=== PATIENT | female | born 1950 | race Caucasian/White ===

== ENCOUNTER 2017-10-21 16:57 | Inpatient (IN) | payer MEDICARE, OTHER ==
[~2017-10-21] VITALS: Ht 149.9 cm; Wt 37.0 kg
[~2017-10-21 16:57] MED LIST: COLA50CA PO; COLY4000S PO; DOCU1CAP39 PO; FLEEENE3 RE; NORC10TA2; OXYC1TAB36 PO; OXYC1TAB63 PO; TRAM50 PO
[2017-10-21] MEDS ORDERED: NALOXONE HCL 0.4 MG/ML AMP IV PUSH PRN (17:45)
[2017-10-21] MEDS ORDERED: ONDANSETRON HCL 4 MG/2 ML VIAL IVP PRN (17:45)
[2017-10-21] MEDS ORDERED: LACTULOSE SYRUP 20 GM/30 ML CUP PO PRN (17:45)
[2017-10-21] MEDS ORDERED: PROCHLORPERAZINE 25 MG SUPP RECTAL PRN (17:45)
[2017-10-21] MEDS ORDERED: HEPARIN-D5W 25,000 U/250 ML 250 ML IV PRN (17:45)
[2017-10-21] MEDS ORDERED: ACETAMINOPHEN 325 MG TAB PO PRN (17:45)
[2017-10-21] MEDS ORDERED: BISACODYL 10 MG SUPP RECTAL PRN (17:45)
[2017-10-21] MEDS ORDERED: MAGNESIUM HYDROXIDE SUSP 30 ML CUP PO PRN (17:45)
[2017-10-21] MEDS ORDERED: SENNOSIDES 8.6 MG TAB PO PRN (17:45)
[2017-10-21] MEDS ORDERED: MORPHINE SULFATE 4 MG/ML INJ IV PUSH PRN (18:00)
[2017-10-21 20:00] VITALS: BP 157/69; PULSE 101; RESP 15; TEMP 98.5; O2SAT 95
--- NOTE | 2017-10-21 20:51 | HHI.HP ---
[facility] Primary Care Physician Carlos Durán MD Admission Diagnosis Ischemic pain of left foot Diagnoses: (1) Ischemic pain of left foot (2) Gangrene of left foot Chief Complaint: Severe pain and left lower extremity Travel History International Travel<30 Days: No Contact w/Intl Traveler <30 Da: No Traveled to Known Affected Are: No Sepsis Criteria SIRS Criteria (2 or more): Heart rate over 90, RR > 20 or PaCO2 < 32, WBC > 85662, < 4000 or > 10% bands History of Present Illness Mrs. 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 Patient states that she was cutting her toenails about a month ago and over the month has developed worsening pain and swelling and erythema to her left foot. She says that she was afraid to tell her family what had happened and just two days ago her noticed increased erythema and discoloration to her left toes. Patient states that the pain has become more severe with shooting pains up her left leg. Denies any numbness or tingling. Does admit to left lower extremity coldness. Patient denies any recent fevers, chills, cough, shortness of breath, headache, abdominal pain, nausea, vomiting, diarrhea or dysuria. Patient denies any history of diabetes or peripheral vascular disease. Does admit to a history of smoking, has quit over seven years ago. At baseline, patient is mobile at home and independent with ADLs. Does admit to poor appetite. It should also be noted that patient is incontinent at home since teratoma removal. CODE STATUS is been addressed, patient wishes to be full code. 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 Past Surgical History Cholecystectomy 1987 Buttock teratoma removal in 2010 Reported Medications Active Reported Oxycodone-Acetaminophen 5-325 mg Tab 1 Tab PO Q4H PRN Oxycodone-Acetaminophen 10-325 mg Tab 1 Tab PO Q3HR PRN Allergies: Coded Allergies: No Known Allergies (Verified Allergy, Unknown, 10/21/17) Active Ordered Medications Current Medications Medications (Trade) Dose Ordered Sig/Justin Route Start Time Stop Time Status Last Admin Sodium Chloride 1,000 ml @ 100 mls/hr Q10H IV 10/21/17 17:39 (NS Flush) 2 ml UNSCH PRN IV FLUSH 10/21/17 17:45 (NS Flush) 2 ml BID IV FLUSH 10/21/17 21:00 (Tylenol) 650 mg Q4H PRN PO 10/21/17 17:45 (Zofran Inj) 4 mg Q6H PRN IVP 10/21/17 17:45 (Compazine Supp) 25 mg Q12H PRN RECTAL 10/21/17 17:45 (Narcan Inj) 0.4 mg UNSCH PRN IV PUSH 10/21/17 17:45 (Teodora-Colace) 1 tab BID PO 10/21/17 21:00 (Milk Of Magnesia Liq) 30 ml Q12H PRN PO 10/21/17 17:45 (Senokot) 17.2 mg Q12H PRN PO 10/21/17 17:45 (Dulcolax Supp) 10 mg DAILY PRN RECTAL 10/21/17 17:45 (Lactulose Liq) 30 ml DAILY PRN PO 10/21/17 17:45 (Heparin Inj) 5,000 units UNSCH PRN IV PUSH 10/21/17 23:45 (Heparin Inj) 2,500 units UNSCH PRN IV PUSH 10/21/17 23:45 (Morphine Inj) 2 mg Q4HR PRN IV PUSH 10/21/17 18:00 Ceftriaxone Sodium 1000 mg/ Sodium Chloride 100 ml @ 200 mls/hr Q24H IV 10/21/17 20:00 Heparin Sodium/ Dextrose 250 ml @ 6 mls/hr TITRATE PRN IV 10/21/17 20:00 Family History Maternal medical history significant for cardiovascular disease and Alzheimer's. Paternal medical history significant for asthma and CHF. Social History Denies any current tobacco use. States she quit in 2010, admits to smoking starting in her teen years. Denies any alcohol use. Denies any illicit drug use. Physical Exam Physical Exam GENERAL: This is a cachectic, elderly female patient, lying in bed with complaints of severe left lower extremity pain. On supplemental O2. SKIN: No rashes, ecchymoses or lesions. Warm and dry. Sacral discoloration, history of teratoma. HEAD: Atraumatic. Normocephalic. EYES: Pupils equal round and reactive. Extraocular motions intact. No scleral icterus. No injection or drainage. ENT: Nose without bleeding. Throat without erythema, tonsillar hypertrophy or exudate. Uvula midline. Airway patent. NECK: Trachea midline. No JVD or lymphadenopathy. Supple. CARDIOVASCULAR: Tachycardic and rhythm without murmurs, gallops, or rubs. RESPIRATORY: Clear to auscultation. Breath sounds equal bilaterally. No wheezes , rales, or rhonchi. GASTROINTESTINAL: Abdomen soft, non-tender, nondistended. No guarding. MUSCULOSKELETAL: Extremities without clubbing or edema. Left lower extremity with gangrene to all toes, erythema up to ankle. Left pedal pulses weak, left dorsalis pedis weak, cool to touch. No edema. Sensation intact. Severe pain to palpation. Right lower extremity WNL. NEUROLOGICAL: Awake and alert. Cranial nerves II through XII intact. Motor and sensory grossly within normal limits. Five out of 5 muscle strength in all muscle groups. Normal speech.Dinner: Laboratory Laboratory Tests Test 10/21/17 19:50 White Blood Count 18.9 TH/MM3 Red Blood Count 3.27 MIL/MM3 Hemoglobin 9.9 GM/DL Hematocrit 30.7 % Mean Corpuscular Volume 93.8 FL Mean Corpuscular Hemoglobin 30.4 PG Mean Corpuscular Hemoglobin Concent 32.4 % Red Cell Distribution Width 14.1 % Platelet Count 645 TH/MM3 Mean Platelet Volume 6.9 FL Imaging Chest x-ray: Widespread pulmonary metastatic disease. Septic Shock Reassessment Septic shock perfusion: reassessment completed Caprini VTE Risk Assessment Caprini VTE Risk Assessment: Mod/High Risk (score >= 2) Caprini Risk Assessment Model Point Value = 1 Point Value = 2 Point Value = 3 Point Value = 5 Age 41-60 Minor surgery BMI > 25 kg/m2 Swollen legs Varicose veins or History of unexplained or recurrent spontaneous Oral contraceptives or hormone replacement Sepsis (< 1 month) Serious lung disease, including pneumonia (< 1 month) Abnormal pulmonary function Acute myocardial infarction Congestive heart failure (< 1 month) History of inflammatory bowel disease Medical patient at bed rest Age 61-74 Arthroscopic surgery Major open surgery (> 45 min) Laparoscopic surgery (> 45 min) Malignancy Confined to bed (> 72 hours) Immobilizing plaster cast Central venous access Age >= 75 History of VTE Family history of VTE Factor V Leiden Prothrombin [id number] Lupus anticoagulant Anticardiolipin antibodies Elevated serum homocysteine Heparin-induced thrombocytopenia Other congenital or acquired thrombophilia Stroke (< 1 month) Elective arthroplasty Hip, pelvis, or leg fracture Acute spinal cord injury (< 1 month) Prophylaxis Regimen Total Risk Factor Score Risk Level Prophylaxis Regimen 0-1 Low Early ambulation 2 Moderate Order ONE of the following: *Sequential Compression Device (SCD) *Heparin 5000 units SQ BID 3-4 Higher Order ONE of the following medications: *Heparin 5000 units SQ TID *Enoxaparin/Lovenox 40 mg SQ daily (WT < 150 kg, CrCl > 30 mL/min) *Enoxaparin/Lovenox 30 mg SQ daily (WT < 150 kg, CrCl > 10-29 mL/min) *Enoxaparin/Lovenox 30 mg SQ BID (WT < 150 kg, CrCl > 30 mL/min) AND/OR *Sequential Compression Device (SCD) 5 or more Highest Order ONE of the following medications: *Heparin 5000 units SQ TID (Preferred with Epidurals) *Enoxaparin/Lovenox 40 mg SQ daily (WT < 150 kg, CrCl > 30 mL/min) *Enoxaparin/Lovenox 30 mg SQ daily (WT < 150 kg, CrCl > 10-29 mL/min) *Enoxaparin/Lovenox 30 mg SQ BID (WT < 150 kg, CrCl > 30 mL/min) AND *Sequential Compression Device (SCD) Assessment and Plan Problem List: (1) Gangrene of left foot ICD Code: I96 - Gangrene, not elsewhere classified Plan: Patient with severe left lower extremity pain, with presence of gangrene to all toes with erythema up to ankle. Meets SIRS criteria, with the leukocytosis, tachycardia, tachypnea. Unknown source. UA ordered and pending. Lactic acid ordered and pending. Follow. CBC reviewed, leukocytosis with white blood cells 19. No presence of fevers, chills. Monitor for infection. Follow labs in a.m. Blood cultures pending, follow-up growth. Chest x-ray reviewed, showing widespread pulmonary metastatic disease. Patient is on hospice at home. Started on ceftriaxone in the ED. Will continue. Consult placed to vascular surgeon, appreciate further input and recommendations. Heparin drip has been ordered and started per protocol. Order place for arterial segment Doppler. Follow. Pain control, was initially started on morphine IV. Patient states that she takes oxycodone at home, which is more effective for her pain. Continue. Status post 1L NS bolus in ED. Ensure hydration, NS at 100 ml/hr. Heart healthy diet. Supplemental O2 as needed. Patient is tachycardic, continue on cardiac telemetry, monitor for arrhythmias. (2) Ischemic pain of left foot ICD Code: M79.672 - Pain in left foot; I99.9 - Unspecified disorder of circulatory system Plan: Please see plan above. (3) History of uterine cancer ICD Code: Z85.42 - Personal history of malignant neoplasm of other parts of uterus Plan: With history of sacral teratoma and widespread pulmonary metastatic disease. Control pain, continue home Oxycodone. Refusing IV Morphine at this time. Supportive Care. DVT prophylaxis: SCDs on right lower extremity. On heparin drip. Code Status Full code. Discussed Condition With Patient and . Physician Certification 2 Midnight Certification Type: Admission for Inpatient Services Order for Inpatient Services The services are ordered in accordance with Medicare regulations or non- Medicare payer requirements, as applicable. In the case of services not specified as inpatient-only, they are appropriately provided as inpatient services in accordance with the 2-midnight benchmark. Estimated LOS (days): 3 3 days is the estimated time the patient will need to remain in the hospital, assuming treatment plan goals are met and no additional complications. Post-Hospital Plan: Not yet determined Trice Thomas Oct 21, 2017 20:51
[2017-10-21 20:57] LABS: HEMATOCRIT 30.7 % (35.0-46.0); HEMOGLOBIN 9.9 GM/DL (11.6-15.3); MEAN CELL VOLUME 93.8 FL (80.0-100.0); MEAN CORPUSCULAR HEMOGLOBIN 30.4 PG (27.0-34.0); MEAN CORPUSCULAR HGB CONC 32.4 % (32.0-36.0); MEAN PLATELET VOLUME 6.9 FL (7.0-11.0); PLATELET COUNT 645 TH/MM3 (150-450); RED BLOOD COUNT 3.27 MIL/MM3 (4.00-5.30); RED CELL DISTRIBUTION WIDTH 14.1 % (11.6-17.2); WHITE BLOOD COUNT 18.9 TH/MM3 (4.0-11.0)
[2017-10-21] MEDS: DOCUSATE SODIUM 50 MG/SENNA 8.6 MG TAB PO SCH (21:00)
[2017-10-21] MEDS ORDERED: oxyCODONE/ACETAMINOPHEN 10 MG/325 MG TAB PO PRN ×2 (21:00)
[2017-10-21] MEDS: SODIUM CHLORIDE 0.9% FLUSH 10 ML FLUSH IV FLUSH SCH (21:01)
[2017-10-21 21:11] LABS: INTERNATIONAL NORMALIZED RATIO 1.1 RATIO
[2017-10-21] MEDS: cefTRIAXone INJ 1,000 MG in SODIUM CHLORIDE 0.9% INJ 100 ML IV SCH (21:11)
[2017-10-21] MEDS: HEPARIN-D5W 25,000 U/250 ML 250 ML IV PRN (22:19)
[2017-10-21] MEDS: oxyCODONE/ACETAMINOPHEN 10 MG/325 MG TAB PO PRN (22:41)
[2017-10-21] MEDS ORDERED: HEPARIN - 10,000 UNITS/ML IV ADDITIVE IV PUSH PRN (23:45)
[2017-10-21] MEDS ORDERED: HEPARIN SODIUM - IV 10,000 UNITS/10 ML VIAL IV PUSH PRN (23:45)
[2017-10-22] VITALS (9 sets, daily range): BP systolic 153–198; BP diastolic 67–86; PULSE 100–133; RESP 15–20; TEMP 98.5–99; O2SAT 93–96
[2017-10-22] MEDS: SODIUM CHLOR 0.9% 1000 ML INJ 1,000 ML IV SCH ×4 (00:51→23:20)
[2017-10-22] MEDS: oxyCODONE/ACETAMINOPHEN 10 MG/325 MG TAB PO PRN ×2 (02:47→06:21)
[2017-10-22 07:23] LABS: AUTOMATED NEUTROPHIL # 14.2 TH/MM3 (1.8-7.7); BASOPHIL % 0.2 % (0.0-2.0); EOSINOPHIL # 0.2 TH/MM3 (0-0.4); HEMATOCRIT 28.7 % (35.0-46.0); HEMOGLOBIN 9.4 GM/DL (11.6-15.3); LYMPH % 5.6 % (9.0-44.0); LYMPHOCYTE # 0.9 TH/MM3 (1.0-4.8); MEAN CELL VOLUME 94.3 FL (80.0-100.0); MEAN CORPUSCULAR HEMOGLOBIN 30.9 PG (27.0-34.0); MEAN CORPUSCULAR HGB CONC 32.8 % (32.0-36.0); MEAN PLATELET VOLUME 7.4 FL (7.0-11.0); MONO % 5.7 % (0.0-8.0); MONOCYTE # 0.9 TH/MM3 (0-0.9); NEUT % 87.5 % (16.0-70.0); PLATELET COUNT 659 TH/MM3 (150-450); RED BLOOD COUNT 3.05 MIL/MM3 (4.00-5.30); WHITE BLOOD COUNT 16.2 TH/MM3 (4.0-11.0)
[2017-10-22 07:41] LABS: BICARBONATE 18.3 MEQ/L (21.0-32.0); CALCIUM 9.3 MG/DL (8.5-10.1); CREATININE 0.51 MG/DL (0.50-1.00)
[2017-10-22] MEDS: DOCUSATE SODIUM 50 MG/SENNA 8.6 MG TAB PO SCH ×2 (08:03→20:58)
[2017-10-22] MEDS: SODIUM CHLORIDE 0.9% FLUSH 10 ML FLUSH IV FLUSH SCH ×2 (08:04→20:58)
--- NOTE | 2017-10-22 09:45 | PD.VS.CON ---
History of Present Illness Chief Complaint: ischemic L foot Consult Requested by: Medical service History of Present Illness 67 yo female on home Hospice for uterine CA who has 3-4 weeks of L foot tissue loss. According to patient and family, it started with clipping a toe nail. Pt able to bear weight on it but having significant pain. No antecedent PAD symptoms Past/Family/Social History Past Medical History anxiety uterine CA - metastatic Past Surgical History Sacral teratoma resection at [facility] (2010) Jacinda Family History [place] Home Medications Reported Medications Oxycodone-Acetaminophen (Oxycodone-Acetaminophen) 5-325 mg Tab, 1 TAB PO Q4H Y for PAIN, TAB 0 Refills 10/21/17 Oxycodone-Acetaminophen (Oxycodone-Acetaminophen) 10-325 mg Tab, 1 TAB PO Q3HR Y for PAIN, TAB 0 Refills 10/21/17 Discontinued Reported Medications Hydrocodone-Acetaminophen 10-325 mg ([place] 10-325 mg) 1 Tab Tab, 1 Q4 Y for PAIN 02/13/15 Docusate Sodium (Colace) 50 Mg Cap, 100 MG PO DAILY, CAP 08/30/13 Discontinued Scripts Tramadol Hcl (Ultram) 50 Mg Tab, 1 TAB PO TID for Pain, #20 TAB FOR PAIN Prov:Desmond Ferrell MD 11/04/15 Docusate Sodium (Colace 100 Mg Cap) 100 Mg Cap, 100 MG PO BID, #7 CAP Prov:Moises Gruber MD 02/13/15 Sodium Phosphates (Fleet Enema) Fabienne, 1 UNITS RE DAILY, #2 Prov:Moises Gruebr MD 02/13/15 Peg/Electrolytes (Golytely) 4,000 Ml Soln, 2000 ML PO DIRECTED, #1 ML Prov:Moises Gruber MD 02/13/15 Coded Allergies: No Known Allergies (Verified Allergy, Unknown, 10/21/17) Review of Systems Constitutional: COMPLAINS OF: Weight loss Cardiovascular: DENIES: Claudication Musculoskeletal: COMPLAINS OF: Muscle aches, Back pain, Neck pain Physical Exam Vitals/I&O Date Time Temp Pulse Resp B/P (MAP) Pulse Ox O2 Delivery O2 Flow Rate FiO2 10/22/17 08:35 Nasal Cannula 2.00 10/22/17 08:00 98.6 100 20 179/74 (109) 94 10/22/17 04:56 95 Nasal Cannula 2.00 10/22/17 04:00 102 10/22/17 04:00 98.5 103 15 161/68 (99) 94 10/22/17 00:00 Nasal Cannula 2.00 10/22/17 00:00 104 10/22/17 00:00 98.5 100 15 153/67 (95) 96 10/21/17 20:00 98.5 101 15 157/69 (98) 95 10/21/17 20:00 Nasal Cannula 2.00 10/22/17 10/22/17 10/22/17 07:00 15:00 23:00 Intake Total 844 ml Balance 844 ml Neuro: alert, mild distress from pain HEENT: NC/AT Neck: no JVD Heart: reg rate, soft murmur Lungs: distant BS bilaterally Abdomen: NT Vascular: weak L femoral pulse Palpable R DP no palpable L DP Extremities: L foot cyanotic and marbled to ankle toes with more chronic appearing gangrene no open wounds Laboratory Tests Test 10/21/17 19:50 10/22/17 00:41 10/22/17 05:20 White Blood Count 18.9 16.2 Red Blood Count 3.27 3.05 Hemoglobin 9.9 9.4 Hematocrit 30.7 28.7 Mean Corpuscular Volume 93.8 94.3 Mean Corpuscular Hemoglobin 30.4 30.9 Mean Corpuscular Hemoglobin Concent 32.4 32.8 Red Cell Distribution Width 14.1 14.0 Platelet Count 645 659 Mean Platelet Volume 6.9 7.4 Prothrombin Time 11.0 Prothromb Time International Ratio 1.1 Activated Partial Thromboplast Time 33.5 34.9 35.7 Lactic Acid Level 0.9 Neutrophils (%) (Auto) 87.5 Lymphocytes (%) (Auto) 5.6 Monocytes (%) (Auto) 5.7 Eosinophils (%) (Auto) 1.0 Basophils (%) (Auto) 0.2 Neutrophils # (Auto) 14.2 Lymphocytes # (Auto) 0.9 Monocytes # (Auto) 0.9 Eosinophils # (Auto) 0.2 Basophils # (Auto) 0.0 CBC Comment DIFF FINAL Differential Comment Blood Urea Nitrogen 36 Creatinine 0.51 Random Glucose 77 Calcium Level 9.3 Sodium Level 138 Potassium Level 4.2 Chloride Level 110 Carbon Dioxide Level 18.3 Anion Gap 10 Estimat Glomerular Filtration Rate 120 Date/Time Source Procedure Growth Status 10/21/17 20:05 Blood Peripheral Aerobic Blood Culture Pending Received 10/21/17 20:05 Blood Peripheral Anaerobic Blood Culture Pending Received Assessment and Plan Plan Subacute L LE ischemia, motor intact. Profound tissue loss. I am not sure the foot is salvageable at this point. 1. Continue aggressive heparinization 2. CTA with runoff 3. Potential IR consult for consideration of intra-arterial lysis 4. Per the patient's family, dental consult for dentures as pt broke hers and clearly needs nutrition 5. Would recommend long acting pain medicine and in-hospital palliative care ( continuation of outpatient). Shai Pascual MD FACS [employer] systems testing laboratory technician [facility] at [facility] [phone] Shai Pascual MD Oct 22, 2017 09:44
--- NOTE | 2017-10-22 10:42 | HHI.PR ---
Subjective Remarks Patient reporting severe pain involving the left foot. Discussed with her and daughter at bedside. They are concerned about her level of pain. Objective Vitals Vital Signs Date Time Temp Pulse Resp B/P (MAP) Pulse Ox O2 Delivery O2 Flow Rate FiO2 10/22/17 08:35 Nasal Cannula 2.00 10/22/17 08:00 98.6 100 20 179/74 (109) 94 10/22/17 04:56 95 Nasal Cannula 2.00 10/22/17 04:00 102 10/22/17 04:00 98.5 103 15 161/68 (99) 94 10/22/17 00:00 Nasal Cannula 2.00 10/22/17 00:00 104 10/22/17 00:00 98.5 100 15 153/67 (95) 96 10/21/17 20:00 98.5 101 15 157/69 (98) 95 10/21/17 20:00 Nasal Cannula 2.00 I/O 10/21/17 10/21/17 10/21/17 10/22/17 10/22/17 10/22/17 07:00 15:00 23:00 07:00 15:00 23:00 Intake Total 100 ml 844 ml Balance 100 ml 844 ml Intake Oral 240 ml IV Total 100 ml 604 ml # Voids 0 # Bowel Movements 0 Result Diagram: 10/22/17 0520 10/22/17 0520 Objective Remarks GENERAL: Cachectic female, appears uncomfortable and in pain CARDIOVASCULAR: Normal rate and regular rhythm without murmurs. Cannot palpate left DP or PT pulse. SKIN: Left foot is cyanotic, necrotic appearing plantar aspect of the foot and toes. Dorsal left foot up to the ankle appear mottled and cyanotic. RESPIRATORY: Good respiratory efforts. Breath sounds equal and clear to auscultation bilaterally. GASTROINTESTINAL: Abdomen soft, non-tender, non-distended. Normal active bowel sounds NEURO: Alert & Oriented x4 to person, place, time, situation. Moves all ext x4 PSYCH: Appropriate mood and affect. A/P Problem List: (1) Gangrene of left foot ICD Code: I96 - Gangrene, not elsewhere classified Plan: Patient with severe left lower extremity pain, with presence of gangrene to all toes with erythema up to ankle. Meets SIRS criteria, with the leukocytosis, tachycardia, tachypnea. Unknown source. UA ordered and pending. Lactic acid ordered and pending. Follow. CBC reviewed, leukocytosis with white blood cells 19. No presence of fevers, chills. Monitor for infection. Follow labs in a.m. Blood cultures pending, follow-up growth. Chest x-ray reviewed, showing widespread pulmonary metastatic disease. Patient is on hospice at home. Started on ceftriaxone in the ED. Will continue. Consult placed to vascular surgeon, appreciate further input and recommendations. Heparin drip has been ordered and started per protocol. Order place for arterial segment Doppler. Follow. Pain control, was initially started on morphine IV. Patient states that she takes oxycodone at home, which is more effective for her pain. Continue. Status post 1L NS bolus in ED. Ensure hydration, NS at 100 ml/hr. Heart healthy diet. Supplemental O2 as needed. Patient is tachycardic, continue on cardiac telemetry, monitor for arrhythmias. (2) Ischemic pain of left foot ICD Code: M79.672 - Pain in left foot; I99.9 - Unspecified disorder of circulatory system (3) History of uterine cancer ICD Code: Z85.42 - Personal history of malignant neoplasm of other parts of uterus Assessment and Plan 67-year-old female previously on hospice for uterine cancer with metastasis to the lungs presented with acute left lower limb ischemia and gangrene. Discuss with hospice nurse. Patient has been declining over the past year and is currently very cachectic with poor functional status. Per her and daughter, she is not a surgical candidate. Patient has been on hospice but she remains a full code. Ischemic left foot/gangrene: - Unclear if the foot will be salvageable. Vascular surgery following who recommends to continue with heparin. CT angiogram ordered. - Pain control. We'll switch patient to long-acting oral morphine. IV morphine for breakthrough pain. - Further plans per vascular surgery History of uterine cancer with metastasis to the lungs: -With history of sacral teratoma and widespread pulmonary metastatic disease. - Patient is on hospice. However he remains full code. - Consult palliative care to assist with goals of care, family support, and symptom management. Abnormal urinalysis with pyuria: - Continue Rocephin. Follow urine cultures. GI prophylaxis: Stool softener PRN constipation. DVT PPx: Heparin Chaparro Wilcox MD Oct 22, 2017 10:42
[2017-10-22] MEDS: MORPHINE SULFATE 30 MG CONTROLLED RELEASE TAB PO SCH ×2 (10:54→18:33)
[2017-10-22 11:14] LABS: BACTERIA, URINE MOD /hpf; BILIRUBIN, URINE NEG (NEG); BLOOD, URINE MOD (NEG); GLUCOSE,URINE NEG (NEG); KETONE, URINE NEG (NEG); MUCUS URINE FEW /lpf (OCC); NITRITE,URINE NEG (NEG); PH, URINE 5.5 (5.0-8.5); SQUAMOUS EPITHELIAL CELL URINE 4 /hpf (0-5); URINE COLOR YELLOW (YELLW/STRAW); URINE LEUKOCYTE ESTERASE LARGE (NEG); WHITE BLOOD CELL CLUMPS RARE
[2017-10-22] MEDS: MORPHINE SULFATE 2 MG/ML INJ IV PUSH PRN ×2 (12:05→14:52)
[2017-10-22] MEDS ORDERED: IOHEXOL 350 MG/ML 10 ML VIAL (for RAD DIAG) IVCONTRAST ONE (13:52)
--- NOTE | 2017-10-22 19:07 | RADRPT ---
EXAM DATE/TIME: 10/22/2017 13:30 [facility] COMPARISON: No previous studies available for comparison. INDICATIONS : Left lower extremity ischemia. IV CONTRAST: 100 cc Omnipaque 350 (iohexol) IV RADIATION DOSE: 6.09 CTDIvol (mGy) MEDICAL HISTORY : Uterine cancer, SURGICAL HISTORY : Cholecystectomy. Teratoma ENCOUNTER: Initial ACUITY: 1 day PAIN SCALE: 8/10 LOCATION: Left buttock TECHNIQUE: Volumetric scanning was performed using a multi-row detector CT scanner. The data was post processed with a variety of visualization algorithms including full volume maximum intensity projection, multi -planar sliding thin slab reformation, curved planar reformation, and surface rendering techniques. Using automated exposure control and adjustment of the mA and/or kV according to patient size, radiat ion dose was kept as low as reasonably achievable to obtain optimal diagnostic quality images. DICO M format image data is available electronically for review and comparison. FINDINGS: ABDOMINAL AORTA: Calcific atherosclerotic disease is seen throughout the abdominal aorta and its branches. The celiac artery is patent but demonstrates moderate stenosis at its origin. Mild narrowing is noted at the minnie gin of the SMA. Significant plaque is seen at the origin of the renal arteries. There is moderate to severe stenosis on the right and moderate stenosis on the left. BIFURCATION: The left common iliac artery origin is occluded. RIGHT PELVIS: Moderate calcific R. disease is identified. There is moderate narrowing in the distal external iliac artery. LEFT PELVIS: The left common iliac and external iliac arteries are occluded. There is reconstitution of the left c ommon femoral artery at the groin. RIGHT THIGH: Mild to severe calcific catheter scrubbed disease is seen throughout the femoral vessels. Moderate se aaron stenotic lesions are noted. LEFT THIGH: Reconstitution of the left common femoral artery is noted. There is severe plaque within the vessel w ith high-grade stenosis. High-grade stenotic lesions are seen in the profunda femoris origin. High-gr maddie stenosis is noted at the origin of the SFA. Diffuse calcified plaque is present throughout the le ft SFA which is small. RIGHT KNEE: The popliteal artery is small but otherwise patent. Significant eccentric plaque is identified above the knee. LEFT KNEE: The left popliteal artery is small and contains eccentric calcified plaque. High-grade stenosis in th e mid popliteal artery RIGHT LEG: Severe popliteal disease is noted. The major runoff vessel. The anterior tibial artery. High-grade st enosis is seen at the origin the anterior tibial artery. The tibioperoneal trunk is heavily calcified . There is scant flow in the peroneal and posterior tibial arteries. LEFT LEG: The distal popliteal artery is heavily calcified. No significant flow is identified in runoff vessels below the tibioperoneal trunk. Pertinent nonvascular findings: #1 large pulmonary metastases. #2 hepatic metastases #3 bilateral hydronephrosis #4 markedly distended urinary bladder with suspected mass at the base. #5 2.5 cm right inguinal mass suspicious for malignant lymphadenopathy. CONCLUSION: 1. 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 2. Left infrapopliteal vascular occlusion 3. Hemodynamically significant stenoses are identified in the celiac artery, renal arteries, left com mon femoral artery, superficial femoral arteries and right infrapopliteal runoff vessels. 4. Nonvascular findings characteristic of metastatic disease and obstructive uropathy. Arden Stubbs MD on October 22, 2017 at 18:48 Board Certified Radiologist. This report was verified electronically.
[2017-10-22] MEDS: HYDROmorphone HCL PF 2 MG/ML VIAL IV PUSH PRN (20:26)
[2017-10-22] MEDS: cefTRIAXone INJ 1,000 MG in SODIUM CHLORIDE 0.9% INJ 100 ML IV SCH (20:27)
[2017-10-23] VITALS (14 sets, daily range): BP systolic 158–193; BP diastolic 69–86; PULSE 89–122; RESP 18–22; TEMP 97.8–99.4; O2SAT 93–95
[2017-10-23] MEDS: HYDROmorphone HCL PF 2 MG/ML VIAL IV PUSH PRN ×6 (00:09→21:14)
[2017-10-23] MEDS: MORPHINE SULFATE 30 MG CONTROLLED RELEASE TAB PO SCH ×3 (02:41→18:54)
[2017-10-23] MEDS: HEPARIN-D5W 25,000 U/250 ML 250 ML IV PRN (02:46)
[2017-10-23 07:10] LABS: HEMOGLOBIN 9.4 GM/DL (11.6-15.3); MEAN CELL VOLUME 93.5 FL (80.0-100.0); MEAN CORPUSCULAR HEMOGLOBIN 31.3 PG (27.0-34.0); MEAN CORPUSCULAR HGB CONC 33.5 % (32.0-36.0); MEAN PLATELET VOLUME 7.1 FL (7.0-11.0); PLATELET COUNT 571 TH/MM3 (150-450); RED CELL DISTRIBUTION WIDTH 14.3 % (11.6-17.2); WHITE BLOOD COUNT 18.7 TH/MM3 (4.0-11.0)
[2017-10-23 07:50] LABS: BICARBONATE 18.6 MEQ/L (21.0-32.0); CALCIUM 9.1 MG/DL (8.5-10.1); CREATININE 0.33 MG/DL (0.50-1.00)
[2017-10-23] MEDS: SODIUM CHLORIDE 0.9% FLUSH 10 ML FLUSH IV FLUSH SCH ×2 (08:16→20:32)
[2017-10-23] MEDS: DOCUSATE SODIUM 50 MG/SENNA 8.6 MG TAB PO SCH ×2 (08:20→20:32)
[2017-10-23] MEDS: SODIUM CHLOR 0.9% 1000 ML INJ 1,000 ML IV SCH ×2 (08:37→19:39)
--- NOTE | 2017-10-23 10:38 | RADRPT ---
EXAM DATE/TIME: 10/21/2017 00:00 [facility] COMPARISON: No previous studies available for comparison. INDICATIONS : Ischemic Left Foot, Dry gangrene TECHNIQUE: Four-cuff ankle and brachial pressures were obtained. Pulse cuff waveform tracings of the ankles were recorded, and ankle-brachial indices were calculated. PRESSURES (mmHg): Brachial (arm): Right 161 Left IV SITE Ankle: Right 120 Left 0 MARTINEZ: Right 0.75 Left 0.00 TBI: Right 0.64 Left 0.00 PULSED CUFF WAVEFORMS: No evidence for significant flow in the left ankle. Decreased amplitude in the right ankle. CONCLUSION: 1. No significant flow demonstrated in the left ankle. Differential considerations include arterial o cclusion versus pronounced peripheral arterial disease. 2. Findings consistent with mild to moderate right lower extremity peripheral arterial disease. Dante Maldonado MD on October 23, 2017 at 10:33 Board Certified Radiologist. This report was verified electronically.
--- NOTE | 2017-10-23 13:44 | HHI.PR ---
Subjective Remarks Pain is better controlled. Patient and family reports the foot is looking better. Objective Vitals Vital Signs Date Time Temp Pulse Resp B/P (MAP) Pulse Ox O2 Delivery O2 Flow Rate FiO2 10/23/17 12:00 97.8 121 20 158/69 (98) 93 10/23/17 09:51 95 Nasal Cannula 2.00 10/23/17 08:00 98.1 120 22 175/83 (113) 95 10/23/17 04:33 172/86 (114) 10/23/17 04:00 99.4 120 18 193/83 (119) 94 10/23/17 03:41 122 10/23/17 00:00 99.4 114 20 175/74 (107) 93 10/22/17 23:39 112 10/22/17 20:05 Nasal Cannula 2.00 10/22/17 20:00 115 10/22/17 18:33 100 172/72 (105) 10/22/17 17:17 2.00 10/22/17 16:00 122 10/22/17 16:00 99.0 115 20 198/86 (123) 93 10/22/17 16:00 Nasal Cannula 2.00 I/O 10/22/17 10/22/17 10/22/17 10/23/17 10/23/17 10/23/17 07:00 15:00 23:00 07:00 15:00 23:00 Intake Total 844 ml 480 ml 2081 ml 623 ml Output Total 120 ml 300 ml Balance 844 ml 480 ml 1961 ml 323 ml Intake Oral 240 ml 480 ml 120 ml 320 ml IV Total 604 ml 1961 ml 303 ml Output Urine Total 120 ml 300 ml # Voids 0 4 # Bowel Movements 0 0 0 Result Diagram: 10/23/17 0630 10/23/17 0630 Objective Remarks GENERAL: Cachectic female, appears comfortable CARDIOVASCULAR: Normal rate and regular rhythm without murmurs. Cannot palpate left DP or PT pulse. SKIN: Left foot is cyanotic, necrotic appearing plantar aspect of the foot and toes. Heel appear to have better circulation compared to yesterday. Dorsal left foot up to the ankle appear mottled and cyanotic. Improved appearance compared to yesterday RESPIRATORY: Good respiratory efforts. Breath sounds equal and clear to auscultation bilaterally. GASTROINTESTINAL: Abdomen soft, non-tender, non-distended. Normal active bowel sounds NEURO: Alert & Oriented x4 to person, place, time, situation. Moves all ext x4 PSYCH: Appropriate mood and affect. 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 Discuss with hospice nurse. Patient has been declining over the past year and is currently very cachectic with poor functional status. Patient has been on hospice but she remains a full code. Ischemic left foot/gangrene: - Unclear if the foot will be salvageable. Vascular surgery following who recommends to continue with heparin. CT angiogram showed occlusion of the left iliac and left infrapopliteal occlusion. - Pain control. Continue long-acting oral morphine. Dilaudid for breakthrough pain. - 2nd opinion ordered per Vascular surgery re amputation. 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 - Patient is on hospice. However she remains full code. - Consult palliative care to assist with goals of care, family support, and symptom management. UTI: - Continue Rocephin. Urine growing gram neg aileen. Follow cultures. GI prophylaxis: Stool softener PRN constipation. DVT PPx: Heparin Chaparro Wilcox MD Oct 23, 2017 13:44
--- NOTE | 2017-10-23 18:46 | PD.VS.PN ---
Subjective Subjective/Hospital Course Pt with profound L LE foot ischemia and tissue loss Motor intact and pain controlled Objective Vitals/I&O Date Time Temp Pulse Resp B/P (MAP) Pulse Ox O2 Delivery O2 Flow Rate FiO2 10/23/17 16:07 114 10/23/17 16:00 98.8 116 20 169/75 (106) 93 10/23/17 12:10 105 10/23/17 12:00 97.8 121 20 158/69 (98) 93 10/23/17 09:51 95 Nasal Cannula 2.00 10/23/17 08:02 121 10/23/17 08:00 98.1 120 22 175/83 (113) 95 10/23/17 04:33 172/86 (114) 10/23/17 04:00 99.4 120 18 193/83 (119) 94 10/23/17 03:41 122 10/23/17 00:00 99.4 114 20 175/74 (107) 93 10/22/17 23:39 112 10/22/17 20:05 Nasal Cannula 2.00 10/22/17 20:00 115 10/23/17 10/23/17 10/23/17 07:00 15:00 23:00 Intake Total 2081 ml 623 ml 480 ml Output Total 120 ml 300 ml Balance 1961 ml 323 ml 480 ml Physical Exam L foot demarcating maybe less dark areas on plantar surface of foot Laboratory Laboratory Tests Test 10/22/17 22:05 10/23/17 06:30 Activated Partial Thromboplast Time 47.0 47.7 White Blood Count 18.7 Red Blood Count 3.00 Hemoglobin 9.4 Hematocrit 28.0 Mean Corpuscular Volume 93.5 Mean Corpuscular Hemoglobin 31.3 Mean Corpuscular Hemoglobin Concent 33.5 Red Cell Distribution Width 14.3 Platelet Count 571 Mean Platelet Volume 7.1 Blood Urea Nitrogen 16 Creatinine 0.33 Random Glucose 101 Calcium Level 9.1 Sodium Level 140 Potassium Level 3.7 Chloride Level 112 Carbon Dioxide Level 18.6 Anion Gap 9 Estimat Glomerular Filtration Rate 199 Date/Time Source Procedure Growth Status 10/21/17 20:05 Blood Peripheral Aerobic Blood Culture - Preliminary NO GROWTH IN 2 DAYS Resulted 10/21/17 20:05 Blood Peripheral Anaerobic Blood Culture - Preliminary NO GROWTH IN 2 DAYS Resulted 10/22/17 10:45 Urine Clean Catch Urine Culture - Preliminary Gram Negative Chung Resulted Imaging Last 48 hours Impressions Aorta w/Runoff CTA 10/22/17 0000 Signed Impressions: Service Date/Time: Sunday, October 22, 2017 13:30 - CONCLUSION: 1. 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 2. Left infrapopliteal vascular occlusion 3. Hemodynamically significant stenoses are identified in the celiac artery, renal arteries, left common femoral artery, superficial femoral arteries and right infrapopliteal runoff vessels. 4. Nonvascular findings characteristic of metastatic disease and obstructive uropathy. Arden Stubbs MD Assessment and Plan Plan Acute on chronic L foot ischemia and Profound tissue loss. I am not sure the foot is salvageable at this point. I think the choices at this point are either AKA or pain control and anticoagulation. The family is adamant about anticoagulation and PT, which I think is totally reasonable. There is nothing pushing for an amputation and clearly, even an AKA in the setting of profound debilitation and metastatic CA would be high risk. 1. Continue aggressive heparinization and transition to therapeutic lovenox in anticipation for d/c 2. Per the patient's family, dental consult for dentures as pt broke hers and clearly needs nutrition 3. F/U palliative care consult 4. I would recommend Megace or similar appetite stimulant, but likely can be directed with assistance of palliative care Shai Pascual MD FACS RPVI sr vice president [facility] - Heart and Vascular Surgery at [facility] [phone] Shai Pascual MD Oct 23, 2017 18:46
--- NOTE | 2017-10-23 19:06 | PD.CONS ---
Consult Service Palliative Care Consult Requested By Dr Wilcox Primary Care Physician Carlos Durán MD Reason for Consultation a. To assist with evaluation and management of symptoms including: pain; anorexia; debility b. To assist medical decision maker(s) with: better understanding of current medical conditions; weighing benefits/burdens of medical treatment options; making medical treatment decisions. 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 Health history is remarkable for diagnosis of uterine cancer diagnosed incidentally in 2010 during the attempted surgical removal of a teratoma to buttocks. The teratoma was not excised secondary to excessive bleeding requiring transfusion of 22 units of PRBCs, and the uterine cancer was subsequently treated with radiation therapy only. In the intervening years she has developed extensive metastatic lesions to the lungs but there has been no additional workup. She has lost weight and has decreased appetite, but had generally been able to get out and about, enjoying going out to eat and spending time with her family. Approximately a month ago, she states that she was trimming her toenails and clipped one on the left foot too closely and has noted progressive changes in the left foot since that time. She hid these changes from her family, not wanting to give them "more things to worry about." About 10/19/17, she and her family noted significant increase in pain in the left foot and it became dark in color and cold. Her insisted that she be brought to the emergency department. She has been on hospice services at home since July of 2016 for the teratoma and uterine cancer. Pain has been an ongoing issue, stemming primarily from the teratoma and bony coccygeal destruction, but when the foot began to darken and turn cold the pain became excruciating. Arterial study done on 10/21 confirmed lack of flow to the left ankle and confirmed peripheral arterial disease to both lower extremities. Aorta with runoff CTA shows : LEFT LEG: The distal popliteal artery is heavily calcified. No significant flow is identified in runoff vessels below the tibioperoneal trunk. Pertinent nonvascular findings: #1 large pulmonary metastases. #2 hepatic metastases #3 bilateral hydronephrosis #4 markedly distended urinary bladder with suspected mass at the base. #5 2.5 cm right inguinal mass suspicious for malignant lymphadenopathy. CONCLUSION: 1. 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 2. Left infrapopliteal vascular occlusion 3. Hemodynamically significant stenoses are identified in the celiac artery, renal arteries, left common femoral artery, superficial femoral arteries and right infrapopliteal runoff vessels. 4. Nonvascular findings characteristic of metastatic disease and obstructive uropathy. Vascular surgery (Dr Pascual) initially did not see a surgical option for management; a second opinion (Dr Moser) has been requested and is pending. The patient's primary concern is pain management; she feels that if only her pain were manageable, things would improve. Palliative care consult is for clarification of goals of care, family support, and symptom management. Function/Cognitive Trajectory She is alert, but quite frail and cachectic. Prior to this hospitalization, had been somewhat ambulatory with device assist (cane or walker), been able to to out to eat and visit with family. Appetite and weight have decreased over the past few months but she is not able to quantify this. Review of Systems Constitutional: COMPLAINS OF: Weight loss, Change in appetite, Generalized weakness (Poorly fitting dentures which impair eating) Ears, nose, mouth, throat: COMPLAINS OF: Tinnitus, Hearing loss, Vertigo, Nasal discharge, Oral lesions, Throat pain, Hoarseness, Ear Pain, Running Nose, Epistaxis, Sinus Pain, Toothache, Odynophagia Respiratory: COMPLAINS OF: Shortness of breath Genitourinary: COMPLAINS OF: Urinary incontinence Musculoskeletal: COMPLAINS OF: Joint pain Neurologic: COMPLAINS OF: Abnormal gait Psychiatric: COMPLAINS OF: Anxiety Other ROS: Incontinent of bowel and bladder since teratoma surgery Past Family Social History Coded Allergies: No Known Allergies (Verified Allergy, Unknown, 10/21/17) Past Medical History Anxiety Depression Uterine cancer with buttock teratoma and widespread metastatic lung and hepatic disease as well as soft tissue mass likely metastatic Past Surgical History Cholecystectomy 1987 Buttock teratoma removal in 2010 Reported Medications Oxycodone/acetaminophen Current Medications Medications (Trade) Dose Ordered Sig/Justin Route Start Time Stop Time Status Last Admin Sodium Chloride 1,000 ml @ 100 mls/hr Q10H IV 10/21/17 17:39 10/23/17 08:37 (NS Flush) 2 ml UNSCH PRN IV FLUSH 10/21/17 17:45 (NS Flush) 2 ml BID IV FLUSH 10/21/17 21:00 10/23/17 08:16 (Tylenol) 650 mg Q4H PRN PO 10/21/17 17:45 (Zofran Inj) 4 mg Q6H PRN IVP 10/21/17 17:45 (Compazine Supp) 25 mg Q12H PRN RECTAL 10/21/17 17:45 (Narcan Inj) 0.4 mg UNSCH PRN IV PUSH 10/21/17 17:45 (Teodora-Colace) 1 tab BID PO 10/21/17 21:00 10/23/17 08:20 (Milk Of Magnesia Liq) 30 ml Q12H PRN PO 10/21/17 17:45 (Senokot) 17.2 mg Q12H PRN PO 10/21/17 17:45 (Dulcolax Supp) 10 mg DAILY PRN RECTAL 10/21/17 17:45 (Lactulose Liq) 30 ml DAILY PRN PO 10/21/17 17:45 (Heparin Inj) 5,000 units UNSCH PRN IV PUSH 10/21/17 23:45 (Heparin Inj) 2,500 units UNSCH PRN IV PUSH 10/21/17 23:45 10/22/17 08:03 Ceftriaxone Sodium 1000 mg/ Sodium Chloride 100 ml @ 200 mls/hr Q24H IV 10/21/17 20:00 10/22/17 20:27 Heparin Sodium/ Dextrose 250 ml @ 6 mls/hr TITRATE PRN IV 10/21/17 20:00 10/23/17 02:46 (Percocet 10-325 Mg) 1 tab Q4H PRN PO 10/21/17 21:00 (Percocet 10-325 Mg) 2 tab Q4H PRN PO 10/22/17 01:00 10/22/17 06:21 (Oramorph Sr) 30 mg Q8H PO 10/22/17 11:00 10/23/17 11:01 (Dilaudid Pf Inj) 2 mg Q4H PRN IV PUSH 10/22/17 16:30 10/23/17 17:03 Family History Maternal medical history significant for cardiovascular disease and Alzheimer's. Paternal medical history significant for asthma and CHF. Substance Use Tobacco: quit smoking in 2010 Alcohol: none Prescription med abuse:none Illicits:none known Psychosocial History twice; two children by first ; two by her second , to whom she has been for over 20 years. 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 Spiritual/Cultural Factors None identified Living Will: Never completed Health Care Surrogate: Never completed Durable Power of Manager Game: Never completed Health Care Surrogate(s): Abdullahi Nicole [phone] Documented care wishes: FULL CODE Today's verbally stated goals: Wants pain controlled so that she can return home Ethical and Legal Issues Patient is alert and capacitated to make her own decisions. Should she lose capacity, decision making will fall to her spouse Abdullahi Nicole, per [place] statute. Physical Exam Vital Signs Date Time Temp Pulse Resp B/P (MAP) Pulse Ox O2 Delivery O2 Flow Rate FiO2 10/23/17 16:07 114 10/23/17 16:00 98.8 116 20 169/75 (106) 93 10/23/17 12:10 105 10/23/17 12:00 97.8 121 20 158/69 (98) 93 10/23/17 09:51 95 Nasal Cannula 2.00 10/23/17 08:02 121 10/23/17 08:00 98.1 120 22 175/83 (113) 95 10/23/17 04:33 172/86 (114) 10/23/17 04:00 99.4 120 18 193/83 (119) 94 10/23/17 03:41 122 10/23/17 00:00 99.4 114 20 175/74 (107) 93 10/22/17 23:39 112 10/22/17 20:05 Nasal Cannula 2.00 10/22/17 20:00 115 10/22/17 18:33 100 172/72 (105) 10/23/17 10/24/17 19:00 07:00 Intake Total 623 ml Output Total 300 ml Balance 323 ml Intake Oral 320 ml IV Total 303 ml Output Urine Total 300 ml # Bowel Movements 0 Exam CONSTITUTIONAL/GENERAL: This is an pale, thin and frail elderly female reclining in bed. She does arouse and interact appropriately TUBES/LINES/DRAINS: PIV x 2 SKIN: extensive pallor; no rashes or bruises; left foot proximal to lateral maleolus is cold, pulseless and dark purple in color HEAD: Atraumatic. Normocephalic. EYES: Pupils equal and round and reactive. Extraocular motions intact. No scleral icterus. No injection or drainage. Fundi not examined. ENT: Hearing grossly normal. Nose without bleeding or purulent drainage. Throat without visible erythema, exudates, masses, or lesions. Poorly fitting dentures ; mucosa pale NECK: Trachea midline. Supple, nontender. No palpable thyroid enlargement or nodularity. CARDIOVASCULAR: Tachycardic; regular; no murmurs or gallops; pedal pulse on right foot faint; left foot not palpable RESPIRATORY/CHEST: Symmetric, unlabored respirations. Clear to auscultation. Breath sounds diminished. GASTROINTESTINAL: Abdomen soft, non-tender, nondistended. No hepato-splenomegaly , or palpable masses. No guarding. Bowel sounds present but hypoactive GENITOURINARY: Without palpable bladder distension. MUSCULOSKELETAL: soft tissue mass to coccyx/left hip; left foot cold, blue, pulseless. LYMPHATICS: No palpable cervical or supraclavicular adenopathy. NEUROLOGICAL: Awake and alert. Motor and sensory grossly within normal limits. Follows commands. Cognitively sharp. Moves all extremities but not ambulatory PSYCHIATRIC: Frail, some anxiety about pain control. Diagnostic Tests Laboratory Laboratory Tests Test 10/21/17 19:50 10/22/17 00:41 10/22/17 05:20 10/22/17 10:45 White Blood Count 18.9 TH/MM3 (4.0-11.0) 16.2 TH/MM3 (4.0-11.0) Red Blood Count 3.27 MIL/MM3 (4.00-5.30) 3.05 MIL/MM3 (4.00-5.30) Hemoglobin 9.9 GM/DL (11.6-15.3) 9.4 GM/DL (11.6-15.3) Hematocrit 30.7 % (35.0-46.0) 28.7 % (35.0-46.0) Mean Corpuscular Volume 93.8 FL (80.0-100.0) 94.3 FL (80.0-100.0) Mean Corpuscular Hemoglobin 30.4 PG (27.0-34.0) 30.9 PG (27.0-34.0) Mean Corpuscular Hemoglobin Concent 32.4 % (32.0-36.0) 32.8 % (32.0-36.0) Red Cell Distribution Width 14.1 % (11.6-17.2) 14.0 % (11.6-17.2) Platelet Count 645 TH/MM3 (150-450) 659 TH/MM3 (150-450) Mean Platelet Volume 6.9 FL (7.0-11.0) 7.4 FL (7.0-11.0) Prothrombin Time 11.0 SEC (9.8-11.6) Prothromb Time International Ratio 1.1 RATIO Activated Partial Thromboplast Time 33.5 SEC (24.3-30.1) 34.9 SEC (24.3-30.1) 35.7 SEC (24.3-30.1) Lactic Acid Level 0.9 mmol/L (0.4-2.0) Neutrophils (%) (Auto) 87.5 % (16.0-70.0) Lymphocytes (%) (Auto) 5.6 % (9.0-44.0) Monocytes (%) (Auto) 5.7 % (0.0-8.0) Eosinophils (%) (Auto) 1.0 % (0.0-4.0) Basophils (%) (Auto) 0.2 % (0.0-2.0) Neutrophils # (Auto) 14.2 TH/MM3 (1.8-7.7) Lymphocytes # (Auto) 0.9 TH/MM3 (1.0-4.8) Monocytes # (Auto) 0.9 TH/MM3 (0-0.9) Eosinophils # (Auto) 0.2 TH/MM3 (0-0.4) Basophils # (Auto) 0.0 TH/MM3 (0-0.2) CBC Comment DIFF FINAL Differential Comment Blood Urea Nitrogen 36 MG/DL (7-18) Creatinine 0.51 MG/DL (0.50-1.00) Random Glucose 77 MG/DL (74-106) Calcium Level 9.3 MG/DL (8.5-10.1) Sodium Level 138 MEQ/L (136-145) Potassium Level 4.2 MEQ/L (3.5-5.1) Chloride Level 110 MEQ/L (98-107) Carbon Dioxide Level 18.3 MEQ/L (21.0-32.0) Anion Gap 10 MEQ/L (5-15) Estimat Glomerular Filtration Rate 120 ML/MIN (>89) Urine Color YELLOW (YELLW/STRAW) Urine Turbidity HAZY (CLEAR) Urine pH 5.5 (5.0-8.5) Urine Specific Dora 1.015 (1.002-1.035) Urine Protein TRACE mg/dL (NEG-TRACE) Urine Glucose (UA) NEG mg/dL (NEG) Urine Ketones NEG mg/dL (NEG) Urine Occult Blood MOD (NEG) Urine Nitrite NEG (NEG) Urine Bilirubin NEG (NEG) Urine Urobilinogen LESS THAN 2.0 MG/DL (LESS Urine Leukocyte Esterase LARGE (NEG) Urine RBC 11 /hpf (0-3) Urine WBC /hpf (0-5) Urine WBC Clumps RARE (NONE) Urine Squamous Epithelial Cells 4 /hpf (0-5) Urine Bacteria MOD /hpf (NONE) Urine Mucus FEW /lpf (OCC) Microscopic Urinalysis Comment CULTURE INDICATED Test 10/22/17 15:00 10/22/17 22:05 10/23/17 06:30 Activated Partial Thromboplast Time 52.3 SEC (24.3-30.1) 47.0 SEC (24.3-30.1) 47.7 SEC (24.3-30.1) White Blood Count 18.7 TH/MM3 (4.0-11.0) Red Blood Count 3.00 MIL/MM3 (4.00-5.30) Hemoglobin 9.4 GM/DL (11.6-15.3) Hematocrit 28.0 % (35.0-46.0) Mean Corpuscular Volume 93.5 FL (80.0-100.0) Mean Corpuscular Hemoglobin 31.3 PG (27.0-34.0) Mean Corpuscular Hemoglobin Concent 33.5 % (32.0-36.0) Red Cell Distribution Width 14.3 % (11.6-17.2) Platelet Count 571 TH/MM3 (150-450) Mean Platelet Volume 7.1 FL (7.0-11.0) Blood Urea Nitrogen 16 MG/DL (7-18) Creatinine 0.33 MG/DL (0.50-1.00) Random Glucose 101 MG/DL (74-106) Calcium Level 9.1 MG/DL (8.5-10.1) Sodium Level 140 MEQ/L (136-145) Potassium Level 3.7 MEQ/L (3.5-5.1) Chloride Level 112 MEQ/L (98-107) Carbon Dioxide Level 18.6 MEQ/L (21.0-32.0) Anion Gap 9 MEQ/L (5-15) Estimat Glomerular Filtration Rate 199 ML/MIN (>89) Result Diagram: 10/23/17 0630 10/23/17 0630 Microbiology Microbiology Date/Time Source Procedure Growth Status 10/21/17 20:05 Blood Peripheral Aerobic Blood Culture - Preliminary NO GROWTH IN 2 DAYS Resulted 10/21/17 20:05 Blood Peripheral Anaerobic Blood Culture - Preliminary NO GROWTH IN 2 DAYS Resulted 10/21/17 19:50 Blood Peripheral Aerobic Blood Culture - Preliminary NO GROWTH IN 2 DAYS Resulted 10/21/17 19:50 Blood Peripheral Anaerobic Blood Culture - Preliminary NO GROWTH IN 2 DAYS Resulted 10/22/17 10:45 Urine Clean Catch Urine Culture - Preliminary Gram Negative Chung Resulted Imaging Last Impressions Aorta w/Runoff CTA 10/22/17 0000 Signed Impressions: Service Date/Time: Sunday, October 22, 2017 13:30 - CONCLUSION: 1. 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 2. Left infrapopliteal vascular occlusion 3. Hemodynamically significant stenoses are identified in the celiac artery, renal arteries, left common femoral artery, superficial femoral arteries and right infrapopliteal runoff vessels. 4. Nonvascular findings characteristic of metastatic disease and obstructive uropathy. Arden Stubbs MD Patient/Family Conference Present at Family Conference: Dual visit with ALISA Teague; met with patient and son in room 1405. Discussed symptoms of pain and possible management; risk factors for coagulopathy and possible outcomes. Agreed that we would meet again with patient and spouse on Monday10/24/17 at 1000 Family Conference Time (mins): 30 Family Conference Location: Bedside Issues Discussed: * Palliative care role, purpose, approach * Additional medical, psychosocial, and spiritual history * Patients general health, functional status, and cognitive changes in the months leading up to the current hospitalization * Patient/family understanding of the current medical problems * Patient/family understanding of prognosis * Patients goals of care as best understood from advance directives and/or conversations and/or values * Current medical treatment options and benefits/burdens of those options * Likely scenarios comparing ongoing aggressive care with a transition to comfort measures only * Questions answered to the best of my ability * Palliative care contact information provided Assessment and Plan Disease Oriented Problem List: (1) Ischemic pain of left foot (2) Gangrene of left foot (3) Teratoma of sacrum (4) History of uterine cancer Comment: Now with known metastatic disease; multiple foci Symptom Scale: (1) Pain 0-10 Scale: 10 Comment: MSContin initiated today along with IV hydromorphone; will reevaluate in am (2) Anorexia 0-10 Scale: Unable to quantify (3) Debility 0-10 Scale: Unable to quantify Pertinent Non-Medical Issues Psychosocial: ; has four children; one son at bedside Spiritual: none known Legal:Patient is alert and capacitated to make her own decisions. Should she lose capacity, decision making will fall to her spouse Abdullahi Nicole, per [place] statute. Ethical issues impacting care: wants to continue hospice services at home Important Contacts Spouse Abdullahi Nicole [phone] Prognosis Mrs Nicole is a 67-yr old female with widespread metastatic uterine cancer to lungs, liver, and left inguinal as well as possible bladder mass. She [place] [facility] [place] left foot; not a candidate for surgical intervention; continues on heparinization for now with slight improvement in foot color. Was on hospice prior to admission and hoping to return to hospice services at home. She has a terminal condition and is hospice appropriate should her goals be comfort-oriented. Code Status: Full Code Plan * Patient is alert and capacitated to make her own decisions. Should she lose capacity, decision making will fall to her spouse Abdulalhi Archerto, per [place] statute. * FULL CODE * Palliative care met with patient and son to introduce palliative care services , obtain further history, and arranged family meeting with patient and spouse on Monday10/24/17 at 1000 in patient's room * SYMPTOMS: Pain -- pt recently initiated on MSContin as well as IV hydromorphone; will evaluate effectiveness and make further recommendations at tomorrow's meeting; Anorexia -- encourage supplements like Boost or Ensure; Debility -- work carefully with physical therapy until options for improved activity are clarified Thank you for the opportunity to participate in the care of Ms. Nicole. Marquita Alfaro Oct 23, 2017 18:40
[2017-10-23] MEDS: cefTRIAXone INJ 1,000 MG in SODIUM CHLORIDE 0.9% INJ 100 ML IV SCH (20:34)
[2017-10-23] MEDS: SODIUM CHLORIDE 0.9% FLUSH 10 ML FLUSH IV FLUSH PRN (21:17)
[2017-10-24] VITALS (12 sets, daily range): BP systolic 176–186; BP diastolic 62–87; PULSE 59–132; RESP 18–20; TEMP 99–99.4; O2SAT 93–95
[2017-10-24] MEDS: SODIUM CHLORIDE 0.9% FLUSH 10 ML FLUSH IV FLUSH PRN ×2 (01:03→05:10)
[2017-10-24] MEDS: HYDROmorphone HCL PF 2 MG/ML VIAL IV PUSH PRN ×5 (01:03→20:01)
[2017-10-24] MEDS: MORPHINE SULFATE 30 MG CONTROLLED RELEASE TAB PO SCH ×3 (03:12→17:57)
[2017-10-24] MEDS: SODIUM CHLOR 0.9% 1000 ML INJ 1,000 ML IV SCH ×2 (03:14→07:55)
[2017-10-24 06:20] LABS: HEMATOCRIT 28.1 % (35.0-46.0); MEAN CORPUSCULAR HEMOGLOBIN 29.3 PG (27.0-34.0); MEAN CORPUSCULAR HGB CONC 31.9 % (32.0-36.0); PLATELET COUNT 515 TH/MM3 (150-450); RED BLOOD COUNT 3.05 MIL/MM3 (4.00-5.30); RED CELL DISTRIBUTION WIDTH 14.1 % (11.6-17.2); WHITE BLOOD COUNT 19.2 TH/MM3 (4.0-11.0)
[2017-10-24 06:42] LABS: BICARBONATE 22.6 MEQ/L (21.0-32.0); CALCIUM 8.5 MG/DL (8.5-10.1); CREATININE 0.3 MG/DL (0.50-1.00)
[2017-10-24] MEDS: DOCUSATE SODIUM 50 MG/SENNA 8.6 MG TAB PO SCH ×2 (09:00→20:00)
[2017-10-24] MEDS: SODIUM CHLORIDE 0.9% FLUSH 10 ML FLUSH IV FLUSH SCH ×2 (09:34→20:01)
[2017-10-24] MEDS ORDERED: cloNIDine HCL 0.1 MG TAB PO PRN (10:15)
[2017-10-24] MEDS ORDERED: POTASSIUM CHLORIDE 10 MEQ CONTROLLED RELEASE TAB PO ONE (11:00)
--- NOTE | 2017-10-24 11:57 | HHI.PR ---
Subjective Remarks Patient reports she is feeling okay. Pain is better controlled but she is still requiring IV Dilaudid. Objective Vitals Vital Signs Date Time Temp Pulse Resp B/P (MAP) Pulse Ox O2 Delivery O2 Flow Rate FiO2 10/24/17 08:00 99.3 119 20 185/80 (115) 93 10/24/17 05:07 178/62 (100) 10/24/17 04:24 107 10/24/17 04:00 99.2 115 18 186/87 (120) 95 10/24/17 00:00 99.1 117 18 181/84 (116) 95 10/23/17 23:56 113 10/23/17 20:30 Nasal Cannula 2.00 10/23/17 20:03 115 10/23/17 20:00 98.8 89 18 186/72 (110) 93 10/23/17 16:07 114 10/23/17 16:00 98.8 116 20 169/75 (106) 93 10/23/17 12:10 105 10/23/17 12:00 97.8 121 20 158/69 (98) 93 I/O 10/23/17 10/23/17 10/23/17 10/24/17 10/24/17 10/24/17 07:00 15:00 23:00 07:00 15:00 23:00 Intake Total 2081 ml 623 ml 480 ml 1000 ml Output Total 120 ml 300 ml Balance 1961 ml 323 ml 480 ml 1000 ml Intake Oral 120 ml 320 ml 480 ml IV Total 1961 ml 303 ml 1000 ml Output Urine Total 120 ml 300 ml # Voids 4 # Bowel Movements 0 0 2 Result Diagram: 10/24/17 0545 10/24/17 0545 Objective Remarks GENERAL: Cachectic female, appears comfortable CARDIOVASCULAR: Normal rate and regular rhythm without murmurs. Cannot palpate left DP or PT pulse. SKIN: Left foot is cyanotic, necrotic appearing plantar aspect of the foot and toes. Dorsal left foot up to the ankle appear mottled and cyanotic. Unchanged compared to yesterday RESPIRATORY: Good respiratory efforts. Breath sounds equal and clear to auscultation bilaterally. GASTROINTESTINAL: Abdomen soft, non-tender, non-distended. Normal active bowel sounds NEURO: Alert & Oriented x4 to person, place, time, situation. Moves all ext x4 PSYCH: Appropriate mood and affect. 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 Patient has been declining over the past year and is currently very cachectic with poor functional status. Patient has been on hospice but she remains a full code. Ischemic left foot/gangrene: - Unclear if the foot is salvageable. Vascular surgery following who recommends to continue with heparin. CT angiogram showed occlusion of the left iliac and left infrapopliteal occlusion. - Pain control. Continue long-acting oral morphine. Dilaudid for breakthrough pain. DW patient the goal to control pain with oral meds only. Give Oramorph one more day for full effect, then can consider Methadone. - Patient and family does not want her to have amputation - Ultimately the patient's goal is to go home once her pain is better controlled. - Per Vascular surgery recommendations, transition to Lovenox for anticipated discharge. Patient to follow up in clinic. HTN: No reported history of hypertension. - Start nifedipine. 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 - Patient is on hospice. However she remains full code. -Appreciate palliative care assistance with goals of care, family support, and symptom management. - Plan is for patient to eventually return home with hospice Hypokalemia: - Replace and monitor. UTI: -Escherichia coli. Patient completed treatment with Rocephin. GI prophylaxis: Stool softener PRN constipation. DVT PPx: Lovenox Discharge Planning Plan for discharge home with Hospice once pain is better controlled and can be managed at home. Need improvement in BP control as well. Follow Vascular surgery recs. Chaparro Wilcox MD Oct 24, 2017 11:57
--- NOTE | 2017-10-24 12:56 | PD.VS.PN ---
Subjective Subjective/Hospital Course Pt with profound L LE foot ischemia and tissue loss No change from yesterday discussed options with patient and daughter again. Appreciate Dr. Moser's input Objective Vitals/I&O Date Time Temp Pulse Resp B/P (MAP) Pulse Ox O2 Delivery O2 Flow Rate FiO2 10/24/17 08:00 99.3 119 20 185/80 (115) 93 10/24/17 05:07 178/62 (100) 10/24/17 04:24 107 10/24/17 04:00 99.2 115 18 186/87 (120) 95 10/24/17 00:00 99.1 117 18 181/84 (116) 95 10/23/17 23:56 113 10/23/17 20:30 Nasal Cannula 2.00 10/23/17 20:03 115 10/23/17 20:00 98.8 89 18 186/72 (110) 93 10/23/17 16:07 114 10/23/17 16:00 98.8 116 20 169/75 (106) 93 10/24/17 10/24/17 10/24/17 06:59 14:59 22:59 Intake Total 1000 ml Balance 1000 ml Physical Exam L foot cyanotic with dry gangrene Laboratory Laboratory Tests Test 10/24/17 05:45 White Blood Count 19.2 Red Blood Count 3.05 Hemoglobin 9.0 Hematocrit 28.1 Mean Corpuscular Volume 92.0 Mean Corpuscular Hemoglobin 29.3 Mean Corpuscular Hemoglobin Concent 31.9 Red Cell Distribution Width 14.1 Platelet Count 515 Mean Platelet Volume 7.0 Activated Partial Thromboplast Time 51.3 Blood Urea Nitrogen 8 Creatinine 0.30 Random Glucose 114 Calcium Level 8.5 Sodium Level 140 Potassium Level 3.0 Chloride Level 107 Carbon Dioxide Level 22.6 Anion Gap 10 Estimat Glomerular Filtration Rate 222 Date/Time Source Procedure Growth Status 10/21/17 20:05 Blood Peripheral Aerobic Blood Culture - Preliminary NO GROWTH IN 3 DAYS Resulted 10/21/17 20:05 Blood Peripheral Anaerobic Blood Culture - Preliminary NO GROWTH IN 3 DAYS Resulted 10/22/17 10:45 Urine Clean Catch Urine Culture - Final Escherichia Coli Complete Assessment and Plan Plan Acute on chronic L foot ischemia and Profound tissue loss. The options given the dry gangrene are pain management/continuation of Hospice vs AKA. I am fine with her going home to try pain management. She has my numbers and I will schedule her a f/u appointment 1. Continue aggressive heparinization and transition to therapeutic lovenox in anticipation for d/c 2. Per the patient's family, dental consult for dentures as pt broke hers and clearly needs nutrition 3. F/U palliative care consult 4. I would recommend Megace or similar appetite stimulant, but likely can be directed with assistance of palliative care Shai Pascual MD FACS [employer] senior investment manager [facility] - [facility] V[facility] at [facility] [phone] Shai Pascual MD Oct 24, 2017 12:56
[2017-10-24] MEDS: NIFEdipine 10 MG CAP PO SCH ×2 (14:00→22:45)
--- NOTE | 2017-10-24 14:16 | HHI.HCPN ---
Reason for visit a. To assist with evaluation and management of symptoms including: pain; anorexia; debility b. To assist medical decision maker(s) with: better understanding of current medical conditions; weighing benefits/burdens of medical treatment options; making medical treatment decisions. Subjective/Interval History Today (10/24/17) the patient is awake and alert reclining in bed. is at bedside and insistent that the ischemic foot is improving, although Lidia states that her pain is 10/10 most of the time. Reports pain in left buttock area and LLE. Reports some relief in pain with current meds, only decreases to 8 /10 at best. On Oramorph 30mg PO every 8 hours ATC, started 10/22/17. Has also had Oxycodone 10/325mg, none given since 10/22/17. Hydromorphone 2mg IV 6 doses in the past 24 hours. She has been eating poorly, although states that her appetite has improved since being in the hospital. Her activity is limited to sitting on side of bed at intervals. Dr Pascual has indicated to them that surgery is not an option; they indicate that they would like to return home with hospice services when patient is "better". 2nd opinion from Dr. Moser pending. At end of visit, Dr. Moser came for second opinion, he offered amputation vs comfort. He advised family her underlying malignancy is her biggest problem. He felt she was low risk for surgical complications. Family advised plan to go home with hospice and he agreed this was appropriate. He offered should they change their mind surgery could be done in the future. Family seemed to be thankful for this option. . Family/friend interactions Family meeting with patient, Spouse Abdullahi and son and daughter. Also present ALISA Pittman and hospice nurse, Jada. Review of hospital course, family understanding of current findings, prognosis, treatment options. Abdullahi verbalizes his frustration that "all this could have been avoided" but is hoping that his will improve to her former level of functioning so that they can return home soon. Reviewed underlying malignancy including mets to liver, LN, possible bladder mass and extensive bilateral pulmonary metastasis. Discussed how extensive malignancy contributes to hypercoagulable state. Reviewed CTA findings of extensive vascular occlusion from renal arteries distally and how a minor injury with toenail clipping could lead to current condition. Reviewed gangrene and that we cannot fix this. Options surgery vs comfort. Dr. Moser has offered amputation. At this time family concerned about risk of proceeding with amputation given experience and bleeding with teratoma surgery in 2010. She would like to continue blood thinners in hopes to return home with hospice support. Daughter verbalizes "I can't lose my mom." Son is asking if they proceed with amputation can she get a prosthesis. We explained she is too weak for prosthetic leg due to underlying cancer. Explained she will continue to get weaker and from cancer. Spouse and son remain fixated that if she "just eats more and a high protein diet she will get stronger." I also explained Megace is contraindicated in her situation due to coagulopathy and risk of further clotting. Family refused trial of Remeron for sleep, appetite and anxiety control. Will continue to monitor pain control. While family verbalizes desires to go home with hospice, I am not sure they won' t want to come back for continued aggressive care in the future. . Advance Directives Living Will: Never completed Health Care Surrogate: Never completed Durable Power of Senior Loan Processor: Never completed Advance Directive Specifics Health Care Surrogate(s): Abdullahi Nicole [phone] Documented care wishes: No written advanced directives. . Significant change in goals: FULL CODE. Goals to transition off heparin and return home with hospice services. At this time patient does not wish to pursue amputation. . Objective Vital Signs Date Time Temp Pulse Resp B/P (MAP) Pulse Ox O2 Delivery O2 Flow Rate FiO2 10/24/17 12:00 99.0 59 20 184/77 (112) 95 10/24/17 08:00 99.3 119 20 185/80 (115) 93 10/24/17 05:07 178/62 (100) 10/24/17 04:24 107 10/24/17 04:00 99.2 115 18 186/87 (120) 95 10/24/17 00:00 99.1 117 18 181/84 (116) 95 10/23/17 23:56 113 10/23/17 20:30 Nasal Cannula 2.00 10/23/17 20:03 115 10/23/17 20:00 98.8 89 18 186/72 (110) 93 10/23/17 16:07 114 10/23/17 16:00 98.8 116 20 169/75 (191) 93 Intake & Output 10/24/17 10/24/17 06:59 18:59 Intake Total 1000 ml Balance 1000 ml IV Total 1000 ml Physical Exam CONSTITUTIONAL/GENERAL: This is an pale, thin and frail elderly female reclining in bed. She does arouse and interact appropriately TUBES/LINES/DRAINS: PIV x 2 SKIN: pallor is improved today; left foot remains cool and blue distal to medial maleolus; there is less skin surface that is blackened and shriveled on the dorsal surface of the left foot although it still remains pulseless HEAD: Atraumatic. Normocephalic. EYES: Pupils equal and round and reactive. Extraocular motions intact. No scleral icterus. No injection or drainage. Fundi not examined. Corrective lenses in use ENT: Hearing grossly normal. Nose without bleeding or purulent drainage. Throat without visible erythema, exudates, masses, or lesions. Poorly fitting dentures ; mucosa pink and moist NECK: Trachea midline. Supple, nontender. No palpable thyroid enlargement or nodularity. CARDIOVASCULAR: Regular rate and rhythm; no murmurs or gallops; pedal pulse on right foot faint; left foot not palpable RESPIRATORY/CHEST: Symmetric, unlabored respirations. Clear to auscultation. Breath sounds diminished throughout GASTROINTESTINAL: Abdomen soft, non-tender, nondistended. No hepato-splenomegaly , or palpable masses. No guarding. Bowel sounds present but hypoactive GENITOURINARY: Without palpable bladder distension. MUSCULOSKELETAL: soft tissue mass to coccyx/left hip; left foot cold, red/blue mottling except ventral surface of all toes and up to the ball of the foot which is black, shriveled and cold LYMPHATICS: bilateral inguinal adenopathy is palpable; right side greater than left NEUROLOGICAL: Awake and alert. Motor and sensory grossly within normal limits. Follows commands. Cognitively sharp. Moves all extremities but not ambulatory PSYCHIATRIC: Frail, some anxiety about pain control Diagnostic Tests Laboratory Laboratory Tests Test 10/21/17 19:50 10/22/17 00:41 10/22/17 05:20 10/22/17 10:45 White Blood Count 18.9 TH/MM3 (4.0-11.0) 16.2 TH/MM3 (4.0-11.0) Red Blood Count 3.27 MIL/MM3 (4.00-5.30) 3.05 MIL/MM3 (4.00-5.30) Hemoglobin 9.9 GM/DL (11.6-15.3) 9.4 GM/DL (11.6-15.3) Hematocrit 30.7 % (35.0-46.0) 28.7 % (35.0-46.0) Mean Corpuscular Volume 93.8 FL (80.0-100.0) 94.3 FL (80.0-100.0) Mean Corpuscular Hemoglobin 30.4 PG (27.0-34.0) 30.9 PG (27.0-34.0) Mean Corpuscular Hemoglobin Concent 32.4 % (32.0-36.0) 32.8 % (32.0-36.0) Red Cell Distribution Width 14.1 % (11.6-17.2) 14.0 % (11.6-17.2) Platelet Count 645 TH/MM3 (150-450) 659 TH/MM3 (150-450) Mean Platelet Volume 6.9 FL (7.0-11.0) 7.4 FL (7.0-11.0) Prothrombin Time 11.0 SEC (9.8-11.6) Prothromb Time International Ratio 1.1 RATIO Activated Partial Thromboplast Time 33.5 SEC (24.3-30.1) 34.9 SEC (24.3-30.1) 35.7 SEC (24.3-30.1) Lactic Acid Level 0.9 mmol/L (0.4-2.0) Neutrophils (%) (Auto) 87.5 % (16.0-70.0) Lymphocytes (%) (Auto) 5.6 % (9.0-44.0) Monocytes (%) (Auto) 5.7 % (0.0-8.0) Eosinophils (%) (Auto) 1.0 % (0.0-4.0) Basophils (%) (Auto) 0.2 % (0.0-2.0) Neutrophils # (Auto) 14.2 TH/MM3 (1.8-7.7) Lymphocytes # (Auto) 0.9 TH/MM3 (1.0-4.8) Monocytes # (Auto) 0.9 TH/MM3 (0-0.9) Eosinophils # (Auto) 0.2 TH/MM3 (0-0.4) Basophils # (Auto) 0.0 TH/MM3 (0-0.2) CBC Comment DIFF FINAL Differential Comment Blood Urea Nitrogen 36 MG/DL (7-18) Creatinine 0.51 MG/DL (0.50-1.00) Random Glucose 77 MG/DL (74-106) Calcium Level 9.3 MG/DL (8.5-10.1) Sodium Level 138 MEQ/L (136-145) Potassium Level 4.2 MEQ/L (3.5-5.1) Chloride Level 110 MEQ/L (98-107) Carbon Dioxide Level 18.3 MEQ/L (21.0-32.0) Anion Gap 10 MEQ/L (5-15) Estimat Glomerular Filtration Rate 120 ML/MIN (>89) Urine Color YELLOW (YELLW/STRAW) Urine Turbidity HAZY (CLEAR) Urine pH 5.5 (5.0-8.5) Urine Specific Russell 1.015 (1.002-1.035) Urine Protein TRACE mg/dL (NEG-TRACE) Urine Glucose (UA) NEG mg/dL (NEG) Urine Ketones NEG mg/dL (NEG) Urine Occult Blood MOD (NEG) Urine Nitrite NEG (NEG) Urine Bilirubin NEG (NEG) Urine Urobilinogen LESS THAN 2.0 MG/DL (LESS Urine Leukocyte Esterase LARGE (NEG) Urine RBC 11 /hpf (0-3) Urine WBC /hpf (0-5) Urine WBC Clumps RARE (NONE) Urine Squamous Epithelial Cells 4 /hpf (0-5) Urine Bacteria MOD /hpf (NONE) Urine Mucus FEW /lpf (OCC) Microscopic Urinalysis Comment CULTURE INDICATED Test 10/22/17 15:00 10/22/17 22:05 10/23/17 06:30 10/24/17 05:45 Activated Partial Thromboplast Time 52.3 SEC (24.3-30.1) 47.0 SEC (24.3-30.1) 47.7 SEC (24.3-30.1) 51.3 SEC (24.3-30.1) White Blood Count 18.7 TH/MM3 (4.0-11.0) 19.2 TH/MM3 (4.0-11.0) Red Blood Count 3.00 MIL/MM3 (4.00-5.30) 3.05 MIL/MM3 (4.00-5.30) Hemoglobin 9.4 GM/DL (11.6-15.3) 9.0 GM/DL (11.6-15.3) Hematocrit 28.0 % (35.0-46.0) 28.1 % (35.0-46.0) Mean Corpuscular Volume 93.5 FL (80.0-100.0) 92.0 FL (80.0-100.0) Mean Corpuscular Hemoglobin 31.3 PG (27.0-34.0) 29.3 PG (27.0-34.0) Mean Corpuscular Hemoglobin Concent 33.5 % (32.0-36.0) 31.9 % (32.0-36.0) Red Cell Distribution Width 14.3 % (11.6-17.2) 14.1 % (11.6-17.2) Platelet Count 571 TH/MM3 (150-450) 515 TH/MM3 (150-450) Mean Platelet Volume 7.1 FL (7.0-11.0) 7.0 FL (7.0-11.0) Blood Urea Nitrogen 16 MG/DL (7-18) 8 MG/DL (7-18) Creatinine 0.33 MG/DL (0.50-1.00) 0.30 MG/DL (0.50-1.00) Random Glucose 101 MG/DL (74-106) 114 MG/DL (74-106) Calcium Level 9.1 MG/DL (8.5-10.1) 8.5 MG/DL (8.5-10.1) Sodium Level 140 MEQ/L (136-145) 140 MEQ/L (136-145) Potassium Level 3.7 MEQ/L (3.5-5.1) 3.0 MEQ/L (3.5-5.1) Chloride Level 112 MEQ/L (98-107) 107 MEQ/L (98-107) Carbon Dioxide Level 18.6 MEQ/L (21.0-32.0) 22.6 MEQ/L (21.0-32.0) Anion Gap 9 MEQ/L (5-15) 10 MEQ/L (5-15) Estimat Glomerular Filtration Rate 199 ML/MIN (>89) 222 ML/MIN (>89) Result Diagram: 10/24/17 0545 10/24/17 0545 Microbiology Microbiology Date/Time Source Procedure Growth Status 10/21/17 20:05 Blood Peripheral Aerobic Blood Culture - Preliminary NO GROWTH IN 3 DAYS Resulted 10/21/17 20:05 Blood Peripheral Anaerobic Blood Culture - Preliminary NO GROWTH IN 3 DAYS Resulted 10/21/17 19:50 Blood Peripheral Aerobic Blood Culture - Preliminary NO GROWTH IN 3 DAYS Resulted 10/21/17 19:50 Blood Peripheral Anaerobic Blood Culture - Preliminary NO GROWTH IN 3 DAYS Resulted 10/22/17 10:45 Urine Clean Catch Urine Culture - Final Escherichia Coli Complete Imaging Last Impressions Aorta w/Runoff CTA 10/22/17 0000 Signed Impressions: Service Date/Time: Sunday, October 22, 2017 13:30 - CONCLUSION: 1. 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 2. Left infrapopliteal vascular occlusion 3. Hemodynamically significant stenoses are identified in the celiac artery, renal arteries, left common femoral artery, superficial femoral arteries and right infrapopliteal runoff vessels. 4. Nonvascular findings characteristic of metastatic disease and obstructive uropathy. Arden Stubbs MD Assessment and Plan Disease Oriented Problem List: (1) Ischemic pain of left foot (2) Gangrene of left foot (3) Teratoma of sacrum (4) History of uterine cancer Comment: Now with known metastatic disease; multiple foci Symptom Scale: (1) Pain 0-10 Scale: 10 Comment: MSContin initiated but not yet fully effective; oral oxycodone/ acetaminophen and intravenous hydromorphone available prn; could consider methadone as a management strategy (2) Anorexia 0-10 Scale: Unable to quantify Comment: states that her appetite has improved since admission to [facility]; Megace is contraindicated because of pro-thrombotic properties; Remeron offered but refused by family (3) Debility 0-10 Scale: Unable to quantify Comment: Unlikely that she will walk again Pertinent Non-Medical Issues Psychosocial: ; has four children; one son at bedside Spiritual: none known Legal:Patient is alert and capacitated to make her own decisions. Should she lose capacity, decision making will fall to her spouse Abdullahi Archerto, per [place] statute. Ethical issues impacting care: wants to continue hospice services at home Important Contacts Spouse Abdullahi Corey [phone] Prognosis Mrs Nicole is a 67-yr old female with widespread metastatic uterine cancer to lungs, liver, and left inguinal as well as possible bladder mass. She presented to [facility] with ischemic left foot; not a candidate for surgical intervention; continues on heparinization for now with slight improvement in foot color. Was on hospice prior to admission and hoping to return to hospice services at home. She has a terminal condition and is hospice appropriate should her goals be comfort-oriented. Dr Dimas discussed options for left AKA; family currently is considering taking her home with hospice support although their goals remain fairly aggressive. Option for brief stay at hospice care center offered as a bridge to more effective pain management. Code Status: Full Code Plan * Patient is alert and capacitated to make her own decisions. Should she lose capacity, decision making will fall to her spouse Abdullahi Nicole, per [place] statute. * FULL CODE * Palliative care met with tomeka, spouse son and daughter. See family meeting description above. Goals to transition off heparin and return home with hospice services. At this time patient does not wish to pursue amputation. Patient will not be able to use Lovenox in hospice setting, consider Plavix or aspirin for home use. Hospice following. Will need to address CODE status again with patient. * Palliative care DOES NOT recommend Megace due to hypercoagulable state and associated risk of increased clotting with Megace. Offered Remeron for appetite stimulant, anxiety control and sleep - family refused. * SYMPTOMS: Pain -- pt recently initiated on MSContin as well as IV hydromorphone; will evaluate effectiveness and make further recommendations once MS COntin has reached optimal effect. Anorexia -- encourage supplements like Boost or Ensure; Debility -- work carefully with physical therapy until options for improved activity are clarified. * Palliative care number provided. Will continue to follow. . Attestation To help prompt me to consider important information that might be impacting today's encounter and assessment, information from prior notes written by myself or my colleagues may have been "brought forward" into today's note. My signature on this note, however, is an attestation that I personally performed the exam, history, and/or decision-making noted today, and, unless otherwise indicated, the interactions with patient, family, and staff as well as the review of records all occurred today. I also attest that the listed assessment and stated plan reflect my best clinical judgment today based on the combination of historical information, prior notes, and today's exam/ interactions. When time spent is documented, it refers only to time spent today by the signer, or if indicated, combined time spent today by collaborating physician/nurse practitioner. Marquita Alfaro Oct 24, 2017 14:16
[2017-10-24] MEDS: HEPARIN-D5W 25,000 U/250 ML 250 ML IV PRN (15:09)
--- NOTE | 2017-10-24 17:04 | MB ---
cc: KALEN COHEN MD DATE OF CONSULTATION: 10/24/2017 REASON FOR CONSULTATION Ischemia left leg, gangrene of the left foot, metastatic uterine cancer, hypercoagulable state, thrombotic occlusion of left iliac system, and left infrapopliteal vascular occlusion. HISTORY OF PRESENT DISEASE: This unfortunate 67-year-old lady was diagnosed with uterine cancer in 2010 as an incidental finding when undergoing a teratoma excision of the left buttocks. Surgery was never completed. The patient bled massive amounts and was transfused, so the uterine cancer was never removed. She underwent radiation. Since then she developed metastatic disease to the lung, liver and inguinal masses. She also lost massive amounts of weight. She presented to the emergency room for thrombotic occlusion of the iliac system and left infrapopliteal vascular occlusion. She is clearly hypercoagulable. She also has significant stenosis of the visceral vessels. Vascular surgery consult was obtained by Dr. Pascual. I did a second opinion for the leg gangrene. PAST MEDICAL HISTORY: Above-noted. PAST SURGICAL HISTORY: Cholecystectomy. Buttocks teratoma, attempted removal. MEDICATIONS: Can be found in the medical record. SOCIAL HISTORY: The patient smoked until 2010. PHYSICAL EXAMINATION: The physical examination reveals a pleasant very emaciated 62-year-old female. HEENT: Normocephalic. No trauma to the head. Pupils equally reactive. Extraocular muscles intact. Mucous membranes are pale. Neck: Neck is supple, bilateral carotid pulses. No bruits. Chest: The patient has bilateral breath sounds. These are decreased over both lung vasquez consistent with moderate COPD. There is a massive atrophy of the musculature of the chest consistent with advanced emaciation from the metastatic cancer. Abdomen: Patulous and soft. Active bowel sounds. Lower portion of the abdomen is fairly firm and the patient has bilateral inguinal lymph nodes intact, left more than right. In addition, she is tender over this area. Back: The patient has a scar from previous teratoma removal and this is a soft pliable area which is cooker tender. She has significant kyphoscoliosis. Extremities: The patient has right femoral pulse on palpation. On the left side, I do not palpate any pulses, yet the patient has a very weak dopplerable distal pulse. The patient has dry gangrene of the plantar surface of the left foot. Neurologic: The patient is grossly intact and she could apparently walk a few steps to about 4-5 days ago but now she seems to be bedridden. LABORATORY DATA/IMAGING STUDIES: I reviewed laboratory and diagnostic procedures. RECOMMENDATIONS: This lady has advanced metastatic disease and is essentially terminal with a very grave short-term and long-term prognosis. Right now she has a dry gangrene of the left foot and this is not life threatening at this time. If this turns into wet gangrene, the patient will absolutely have to have left amputation or be placed on terminal care but right now options are to do nothing or to do an above-knee amputation. I have discussed this with family at length and while this is dry gangrene, I think we can hold off. They would like to take the patient home and place her on Hospice. I think this is a reasonable option because the patient is very frail and may not survive amputation. It should be noted that this is a very nice family but they have a hard time coming to terms and are in somewhat of a denial as far as the patient's prognosis is concerned and life expectancy. At this point I agree that the patient can have amputation but if it is not emergent, can probably go home on Hospice and we will see how she does. Thank you very much for the referral. Kalen REYES /2:43 PM /4:25 PM
[2017-10-24] MEDS: ENOXAPARIN SODIUM 40 MG/0.4 ML SYRINGE SQ SCH (17:58)
[2017-10-25] VITALS (11 sets, daily range): BP systolic 132–156; BP diastolic 60–73; PULSE 81–129; RESP 16–20; TEMP 98.1–100.2; O2SAT 92–95
[2017-10-25] MEDS: HYDROmorphone HCL PF 2 MG/ML VIAL IV PUSH PRN ×6 (00:08→21:45)
[2017-10-25] MEDS: MORPHINE SULFATE 30 MG CONTROLLED RELEASE TAB PO SCH ×3 (03:02→18:08)
[2017-10-25] MEDS: NIFEdipine 10 MG CAP PO SCH ×3 (05:14→21:42)
[2017-10-25] MEDS: ENOXAPARIN SODIUM 40 MG/0.4 ML SYRINGE SQ SCH ×2 (05:14→17:35)
[2017-10-25] MEDS: SODIUM CHLORIDE 0.9% FLUSH 10 ML FLUSH IV FLUSH SCH ×2 (09:00→21:47)
[2017-10-25] MEDS: DOCUSATE SODIUM 50 MG/SENNA 8.6 MG TAB PO SCH ×2 (09:00→21:00)
[2017-10-25 10:27] LABS: HEMATOCRIT 29.1 % (35.0-46.0); HEMOGLOBIN 9.2 GM/DL (11.6-15.3); MEAN CELL VOLUME 92.7 FL (80.0-100.0); MEAN CORPUSCULAR HEMOGLOBIN 29.4 PG (27.0-34.0); MEAN CORPUSCULAR HGB CONC 31.7 % (32.0-36.0); MEAN PLATELET VOLUME 7.2 FL (7.0-11.0); PLATELET COUNT 508 TH/MM3 (150-450); RED BLOOD COUNT 3.14 MIL/MM3 (4.00-5.30); RED CELL DISTRIBUTION WIDTH 14.2 % (11.6-17.2); WHITE BLOOD COUNT 17.8 TH/MM3 (4.0-11.0)
[2017-10-25 10:40] LABS: BICARBONATE 25.1 MEQ/L (21.0-32.0); CALCIUM 8.7 MG/DL (8.5-10.1); CREATININE 0.36 MG/DL (0.50-1.00)
--- NOTE | 2017-10-25 19:43 | HHI.PR ---
Subjective Remarks deferred entry - patient seen at 14:00 hrs Patient c/o some pain on left foot. Denies cp/sob. afebrile. Objective Vitals Vital Signs Date Time Temp Pulse Resp B/P (MAP) Pulse Ox O2 Delivery O2 Flow Rate FiO2 10/25/17 18:50 129 10/25/17 18:08 20 10/25/17 16:05 99.7 124 18 139/66 (90) 93 10/25/17 13:38 81 10/25/17 12:40 20 10/25/17 12:17 99.3 121 18 151/72 (98) 93 10/25/17 08:05 99.2 128 18 132/60 (84) 92 10/25/17 08:00 117 10/25/17 07:15 Nasal Cannula 3.00 10/25/17 04:00 98.1 124 20 148/64 (92) 94 10/25/17 03:46 105 10/24/17 23:48 132 10/24/17 20:00 99.4 120 20 176/78 (110) 93 10/24/17 19:48 120 I/O 10/24/17 10/24/17 10/24/17 10/25/17 10/25/17 10/25/17 07:00 15:00 23:00 07:00 15:00 23:00 Intake Total 1000 ml 240 ml Balance 1000 ml 240 ml Intake Oral 240 ml IV Total 1000 ml # Voids 3 # Bowel Movements 3 Result Diagram: 10/25/17 0720 10/25/17 0720 Imaging Last Impressions Aorta w/Runoff CTA 10/22/17 0000 Signed Impressions: Service Date/Time: Sunday, October 22, 2017 13:30 - CONCLUSION: 1. 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 2. Left infrapopliteal vascular occlusion 3. Hemodynamically significant stenoses are identified in the celiac artery, renal arteries, left common femoral artery, superficial femoral arteries and right infrapopliteal runoff vessels. 4. Nonvascular findings characteristic of metastatic disease and obstructive uropathy. Arden Stubbs MD Objective Remarks GENERAL: Cachectic female, appears comfortable CARDIOVASCULAR: Normal rate and regular rhythm without murmurs. Cannot palpate left DP or PT pulse. SKIN: Left foot is cyanotic, necrotic appearing plantar aspect of the foot and toes. Dorsal left foot up to the ankle appear mottled and cyanotic. Unchanged compared to yesterday RESPIRATORY: Good respiratory efforts. Breath sounds equal and clear to auscultation bilaterally. GASTROINTESTINAL: Abdomen soft, non-tender, non-distended. Normal active bowel sounds NEURO: Alert & Oriented x4 to person, place, time, situation. Moves all ext x4 PSYCH: Appropriate mood and affect. Medications and IVs Current Medications Medications (Trade) Dose Ordered Sig/Justin Route Start Time Stop Time Status Last Admin (NS Flush) 2 ml UNSCH PRN IV FLUSH 10/21/17 17:45 10/24/17 05:10 (NS Flush) 2 ml BID IV FLUSH 10/21/17 21:00 10/25/17 21:47 (Tylenol) 650 mg Q4H PRN PO 10/21/17 17:45 (Zofran Inj) 4 mg Q6H PRN IVP 10/21/17 17:45 (Compazine Supp) 25 mg Q12H PRN RECTAL 10/21/17 17:45 (Narcan Inj) 0.4 mg UNSCH PRN IV PUSH 10/21/17 17:45 (Teodora-Colace) 1 tab BID PO 10/21/17 21:00 10/25/17 09:00 (Milk Of Magnesia Liq) 30 ml Q12H PRN PO 10/21/17 17:45 (Senokot) 17.2 mg Q12H PRN PO 10/21/17 17:45 (Dulcolax Supp) 10 mg DAILY PRN RECTAL 10/21/17 17:45 (Lactulose Liq) 30 ml DAILY PRN PO 10/21/17 17:45 (Percocet 10-325 Mg) 1 tab Q4H PRN PO 10/21/17 21:00 (Percocet 10-325 Mg) 2 tab Q4H PRN PO 10/22/17 01:00 10/22/17 06:21 (Oramorph Sr) 30 mg Q8H PO 10/22/17 11:00 10/25/17 18:08 (Dilaudid Pf Inj) 2 mg Q4H PRN IV PUSH 10/22/17 16:30 10/25/17 21:45 (Procardia) 10 mg Q8HR PO 10/24/17 14:00 10/25/17 21:42 (Catapres) 0.1 mg Q6H PRN PO 10/24/17 10:15 (Lovenox Inj) 40 mg Q12H SQ 10/24/17 18:00 10/25/17 17:35 A/P Problem List: (1) Gangrene of left foot ICD Code: I96 - Gangrene, not elsewhere classified (2) Ischemic pain of left foot ICD Code: M79.672 - Pain in left foot; I99.9 - Unspecified disorder of circulatory system (3) History of uterine cancer ICD Code: Z85.42 - Personal history of malignant neoplasm of other parts of uterus Assessment and Plan 67-year-old female previously on hospice for uterine cancer with metastasis to the lungs presented with acute left lower limb ischemia and gangrene. Patient has been declining over the past year and is currently very cachectic with poor functional status. Patient has been on hospice but she remains a full code. Ischemic left foot/gangrene: - Unclear if the foot is salvageable. Vascular surgery following who recommends to continue with heparin. CT angiogram showed occlusion of the left iliac and left infrapopliteal occlusion. - Pain control. Continue long-acting oral morphine. Dilaudid for breakthrough pain. DW patient the goal to control pain with oral meds only. Give Oramorph one more day for full effect, then can consider Methadone. - Patient and family does not want her to have amputation - Ultimately the patient's goal is to go home once her pain is better controlled. - Per Vascular surgery recommendations, transition to Lovenox for anticipated discharge. Patient to follow up in clinic. - /10 Per palliative care patient cannot go home on hospice on Lovenox SQ. If going home on hospice then will transition to ASA/Plavix. Patient seen for second opinion by Dr Molina. After discussion with family he recommends hospice. Patient could have amputation if that is what family decides. HTN: No reported history of hypertension. - Start nifedipine. Clonidine as needed 1/10 Bp better controlled. Continue nifedipine. 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 - Patient is on hospice. However she remains full code. -Appreciate palliative care assistance with goals of care, family support, and symptom management. - Plan is for patient to eventually return home with hospice Hypokalemia: - Replace and monitor. UTI: -Escherichia coli. Patient completed treatment with Rocephin. GI prophylaxis: Stool softener PRN constipation. DVT PPx: Lovenox Discharge Planning Hospice consult pending. Tristan Shane MD Oct 25, 2017 19:43
[2017-10-26] VITALS (11 sets, daily range): BP systolic 111–148; BP diastolic 60–82; PULSE 57–129; RESP 16–18; TEMP 98.9–99.2; O2SAT 92–96
[2017-10-26] MEDS ORDERED: POTASSIUM CHLORIDE 10 MEQ CONTROLLED RELEASE TAB PO ONE
[2017-10-26] MEDS: PIPERACIL-TAZO 4.5 GM PREMIX 100 ML IV SCH ×4 (01:15→23:48)
[2017-10-26] MEDS: HYDROmorphone HCL PF 2 MG/ML VIAL IV PUSH PRN ×6 (01:30→21:44)
[2017-10-26] MEDS: MORPHINE SULFATE 30 MG CONTROLLED RELEASE TAB PO SCH ×3 (03:07→19:07)
[2017-10-26] MEDS: NIFEdipine 10 MG CAP PO SCH ×3 (05:31→21:41)
[2017-10-26] MEDS: ENOXAPARIN SODIUM 40 MG/0.4 ML SYRINGE SQ SCH (05:31)
--- NOTE | 2017-10-26 07:32 | RADRPT ---
EXAM DATE/TIME: 10/26/2017 06:19 [facility] COMPARISON: CHEST SINGLE AP, October 21, 2017, 16:58. INDICATIONS : Fever, short of breath, ischemic foot MEDICAL HISTORY : Carcinoma, lung. uterine CA SURGICAL HISTORY : Cholecystectomy. ENCOUNTER: Subsequent ACUITY: 2 weeks PAIN SCORE: Non-responsive. LOCATION: Bilateral chest FINDINGS: Portable upright AP view of the chest demonstrates a normal-sized cardiac silhouette. There is calcif ication of the aorta. There are innumerable pulmonary nodules bilaterally. New air space consolidatio n is present in the left lower lobe in the retrocardiac region. No pleural effusion or pneumothorax i s identified. Bones and soft tissues demonstrate no acute finding. CONCLUSION: 1. There is new left lower lobe airspace consolidation which could represent an infectious process gi gaston the history of fever. 2. Innumerable bilateral pulmonary nodules are stable and characteristic of metastatic disease. Ludwin Smith MD on October 26, 2017 at 7:28 Board Certified Radiologist. This report was verified electronically.
[2017-10-26] MEDS: DOCUSATE SODIUM 50 MG/SENNA 8.6 MG TAB PO SCH ×2 (09:00→21:00)
[2017-10-26] MEDS: SODIUM CHLORIDE 0.9% FLUSH 10 ML FLUSH IV FLUSH SCH ×2 (09:24→21:42)
[2017-10-26] MEDS ORDERED: COMMODE BEDSIDE1 MI1 (10:46)
--- NOTE | 2017-10-26 10:55 | PD.VS.PN ---
Subjective Subjective/Hospital Course Ms. Nicole is a 67/F with profound L LE foot ischemia and tissue loss No change from yesterday FM at the Objective Vitals/I&O Date Time Temp Pulse Resp B/P (MAP) Pulse Ox O2 Delivery O2 Flow Rate FiO2 10/26/17 08:00 99.0 114 18 132/61 (84) 93 10/26/17 06:21 98.9 101 18 135/74 (94) 96 10/26/17 03:45 57 10/26/17 02:23 Nasal Cannula 3.00 10/26/17 00:49 98.9 110 16 148/82 (104) 95 10/25/17 23:44 118 10/25/17 21:24 100.2 125 16 156/73 (100) 95 10/25/17 19:43 112 10/25/17 19:00 Nasal Cannula 3.00 10/25/17 18:50 129 10/25/17 18:08 20 10/25/17 16:05 99.7 124 18 139/66 (90) 93 10/25/17 13:38 81 10/25/17 12:40 20 10/25/17 12:17 99.3 121 18 151/72 (98) 93 10/26/17 10/26/17 10/26/17 07:00 15:00 23:00 Intake Total 340 ml Balance 340 ml Physical Exam Left foot cold/necrotic w/ limited LLE mobility NON palpable L DP/PT Laboratory Date/Time Source Procedure Growth Status 10/21/17 20:05 Blood Peripheral Aerobic Blood Culture - Preliminary NO GROWTH IN 4 DAYS Resulted 10/21/17 20:05 Blood Peripheral Anaerobic Blood Culture - Preliminary NO GROWTH IN 4 DAYS Resulted 10/22/17 10:45 Urine Clean Catch Urine Culture - Final Escherichia Coli Complete Imaging Last 48 hours Impressions Chest X-Ray 10/26/17 0000 Signed Impressions: Service Date/Time: October 06:19 - CONCLUSION: 1. There is new left lower lobe airspace consolidation which could represent an infectious process given the history of fever. 2. Innumerable bilateral pulmonary nodules are stable and characteristic of metastatic disease. Ludwin Smith MD Assessment and Plan Assessment: (1) Ischemic pain of left foot (2) Gangrene of left foot Plan Acute on chronic L foot ischemia and Profound tissue loss. The options given the dry gangrene are pain management/continuation of Hospice vs AKA. Pt and family made aware of options Pt and family requesting to go home to decided best plan of action Plan Pt clear for d/c from a vascular stand point Arranged out patient follow up Recommend anticoagulation (ASA/Plavix therapy) Recommend Megace or similar appetite stimulant, but likely can be directed with assistance of palliative care Colleen CUELLAR [facility] [phone] Discharge Planning Pt clear for D/C from a vascular stand point Arranged out pt f/u Colleen Palma Oct 26, 2017 10:55
[2017-10-26] MEDS ORDERED: ASPIRIN EC 81 MG TABEC PO ONE (14:45)
[2017-10-26] MEDS ORDERED: CLOPIDOGREL 75 MG TAB PO ONE (14:45)
--- NOTE | 2017-10-26 15:58 | HHI.HCPN ---
Reason for visit a. To assist with evaluation and management of symptoms including: pain; anorexia; debility b. To assist medical decision maker(s) with: better understanding of current medical conditions; weighing benefits/burdens of medical treatment options; making medical treatment decisions. Subjective/Interval History Patient seen and examined in room. Daughter and stepdaughter at bedside. Also present Jada instructional paraprofessional and Zahida Park. ARTIFACTS CONSERVATOR. Patient asks that I not speak about her medical condition in the presence of her stepdaughter, therefore I advised I will come back later. Stepdaughter attempts to follow me out of the room to ask medical questions I've advised her that at this time I am not able to provide any medical information per the patient's request. Tmax 100.2. Tachycardic rate 100 - 129. Blood pressure has improved with recent medication changes. Remains on oxygen via nasal cannula. Frequent bowel movements post Senna administrations. WBC 17.8, hemoglobin 9.2, hematocrit 29.1, platelet count 508. 10/22/17 urine culture positive for E. coli. Started on Zosyn. Lovenox has been discontinued. Patient was started on Plavix and aspirin. Patient is awake and alert reclining in bed. She feels ischemic foot is improving. She rates pain 9/10 currently. Reports pain in left buttock area and LLE. Reports some relief in pain with current meds, only decreases to 8/10 at best. On Oramorph 30mg PO every 8 hours ATC. Has also had Oxycodone 10/325mg, none given since 10/22/17. Hydromorphone 2mg IV 6 doses (12mg IV hydromorphone is equivalent to 240mg oral Morphine) in the past 24 hours. Patient remains hopeful to return home in the coming days. Advised that with her current doses of medications and IV Dilaudid that she will not be able to return home on these medications. She indicates that the medical team has advised her that she will be changed to pills. Offered transfer to hospice care center prior to discharge home to ensure that pain medications are adequate upon return home. At this time I am concerned that her pain will be uncontrolled if she goes directly home. Will attempt to return later today when her arrives to further clarify treatment goals. . Family/friend interactions See interval note. 4:30pm: Met with spouse at bedside. He indicates everything is "set." Plan for DC home with hospice, however goals do not appear compatible with hospice philosophy. He tells me there is plan to see Dr. Pascual as outpatient to pursue amputation. When asked what happens if she declines prior to this appointment he says "we will bring her back here." He tells me Dr. Pascual/ Colleen are making arrangements for bed to be delivered and for pain medications at home. I advised hospice usually handles pain meds and medical equipment. I am concerned that her family goals remain aggressive despite their verbalized desire for hospice care. I will speak with Colleen/ Dr. Pascual and hospice. I am also concerned that she remains on IV hydromorphone every 4 hours nearly ATC and that her pain is not adequately controlled, family declines care center placement. States it is 3 miles from their house and go there later if needed. I am reluctant to increase pain medication based on current need given what appears to be very aggressive goals of care on the part of the family. Given family desire to consider amputation, it may be better to perform as inpatient prior to DC home. I am not sure amputation will provide any improvement in quality or quantity of life. If the patient wants to pursue amputation then DC with home health may be a better option more consistent with goals of care. If the patient and family desire aggressive pain management prior to consideration of amputation, hospice would aggressively manage her pain. It remains a concern that she is still FULL CODE. Interestingly enough, she reports most of her pain is in the region of left teratoma, not left foot. . Advance Directives Living Will: Never completed Health Care Surrogate: Never completed Durable Power of Nanotechnology Technician: Never completed Advance Directive Specifics Health Care Surrogate(s): Abdullahi Nicole [phone] Documented care wishes: No written advanced directives. . Significant change in goals: FULL CODE.Goals remain to return to home with hospice, though goals are aggressive. . Objective Vital Signs Date Time Temp Pulse Resp B/P (MAP) Pulse Ox O2 Delivery O2 Flow Rate FiO2 10/26/17 11:40 120 10/26/17 11:05 3.00 10/26/17 08:15 Nasal Cannula 3.00 10/26/17 08:00 99.0 114 18 132/61 (84) 93 10/26/17 07:49 129 10/26/17 06:21 98.9 101 18 135/74 (94) 96 10/26/17 03:45 57 10/26/17 02:23 Nasal Cannula 3.00 10/26/17 00:49 98.9 110 16 148/82 (104) 95 10/25/17 23:44 118 10/25/17 21:24 100.2 125 16 156/73 (100) 95 10/25/17 19:43 112 10/25/17 19:00 Nasal Cannula 3.00 10/25/17 18:50 129 10/25/17 18:08 20 10/25/17 16:05 99.7 124 18 139/66 (90) 93 Intake & Output 10/26/17 10/26/17 07:00 19:00 Intake Total 340 ml Balance 340 ml Intake Oral 240 ml IV Total 100 ml # Voids 3 # Bowel Movements 4 Physical Exam CONSTITUTIONAL/GENERAL: This is an pale, thin and frail elderly female reclining in bed. She does arouse and interact appropriately TUBES/LINES/DRAINS: Oxygen via NC, PIV x 2 SKIN: left foot remains cool and blue distal to medial malleolus; there is less skin surface that is blackened and shriveled on the dorsal surface of the left foot, no palpable pulse. CARDIOVASCULAR: Tachycardic. pedal pulse on right foot faint; left foot not palpable RESPIRATORY/CHEST: Symmetric, unlabored respirations. Clear to auscultation. Breath sounds diminished throughout GASTROINTESTINAL: Abdomen soft, non-tender, nondistended. No guarding. Bowel sounds active. GENITOURINARY: Without palpable bladder distension. MUSCULOSKELETAL: soft tissue mass to coccyx/left hip; left foot cold, red/blue mottling except ventral surface of all toes and up to the ball of the foot which is black, shriveled and cold to touch. LYMPHATICS: bilateral inguinal adenopathy is palpable; right side greater than left NEUROLOGICAL: Awake and alert. Motor and sensory grossly within normal limits. Follows commands. Cognitively sharp. Moves all extremities but not ambulatory PSYCHIATRIC: Frail, some anxiety about pain control . Diagnostic Tests Laboratory Laboratory Tests Test 10/24/17 05:45 10/25/17 07:20 White Blood Count 19.2 TH/MM3 (4.0-11.0) 17.8 TH/MM3 (4.0-11.0) Red Blood Count 3.05 MIL/MM3 (4.00-5.30) 3.14 MIL/MM3 (4.00-5.30) Hemoglobin 9.0 GM/DL (11.6-15.3) 9.2 GM/DL (11.6-15.3) Hematocrit 28.1 % (35.0-46.0) 29.1 % (35.0-46.0) Mean Corpuscular Volume 92.0 FL (80.0-100.0) 92.7 FL (80.0-100.0) Mean Corpuscular Hemoglobin 29.3 PG (27.0-34.0) 29.4 PG (27.0-34.0) Mean Corpuscular Hemoglobin Concent 31.9 % (32.0-36.0) 31.7 % (32.0-36.0) Red Cell Distribution Width 14.1 % (11.6-17.2) 14.2 % (11.6-17.2) Platelet Count 515 TH/MM3 (150-450) 508 TH/MM3 (150-450) Mean Platelet Volume 7.0 FL (7.0-11.0) 7.2 FL (7.0-11.0) Activated Partial Thromboplast Time 51.3 SEC (24.3-30.1) 41.0 SEC (24.3-30.1) Blood Urea Nitrogen 8 MG/DL (7-18) 7 MG/DL (7-18) Creatinine 0.30 MG/DL (0.50-1.00) 0.36 MG/DL (0.50-1.00) Random Glucose 114 MG/DL (74-106) 130 MG/DL (74-106) Calcium Level 8.5 MG/DL (8.5-10.1) 8.7 MG/DL (8.5-10.1) Sodium Level 140 MEQ/L (136-145) 141 MEQ/L (136-145) Potassium Level 3.0 MEQ/L (3.5-5.1) 3.4 MEQ/L (3.5-5.1) Chloride Level 107 MEQ/L (98-107) 106 MEQ/L (98-107) Carbon Dioxide Level 22.6 MEQ/L (21.0-32.0) 25.1 MEQ/L (21.0-32.0) Anion Gap 10 MEQ/L (5-15) 10 MEQ/L (5-15) Estimat Glomerular Filtration Rate 222 ML/MIN (>89) 180 ML/MIN (>89) Result Diagram: 10/25/17 0720 10/25/17 0720 Microbiology Microbiology Date/Time Source Procedure Growth Status 10/21/17 20:05 Blood Peripheral Aerobic Blood Culture - Final NO GROWTH IN 5 DAYS Complete 10/21/17 20:05 Blood Peripheral Anaerobic Blood Culture - Final NO GROWTH IN 5 DAYS Complete 10/22/17 10:45 Urine Clean Catch Urine Culture - Final Escherichia Coli Complete Imaging Last Impressions Chest X-Ray 10/26/17 0000 Signed Impressions: Service Date/Time: October 06:19 - CONCLUSION: 1. There is new left lower lobe airspace consolidation which could represent an infectious process given the history of fever. 2. Innumerable bilateral pulmonary nodules are stable and characteristic of metastatic disease. Ludwin Smith MD Aorta w/Runoff CTA 10/22/17 0000 Signed Impressions: Service Date/Time: Sunday, October 22, 2017 13:30 - CONCLUSION: 1. 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 2. Left infrapopliteal vascular occlusion 3. Hemodynamically significant stenoses are identified in the celiac artery, renal arteries, left common femoral artery, superficial femoral arteries and right infrapopliteal runoff vessels. 4. Nonvascular findings characteristic of metastatic disease and obstructive uropathy. Arden Stubbs MD Assessment and Plan Disease Oriented Problem List: (1) Ischemic pain of left foot (2) Gangrene of left foot (3) Teratoma of sacrum (4) History of uterine cancer Comment: Now with known metastatic disease; multiple foci Symptom Scale: (1) Pain 0-10 Scale: 10 Comment: MSContin initiated but not yet fully effective; oral oxycodone/ acetaminophen and intravenous hydromorphone available prn; could consider methadone as a management strategy (2) Anorexia 0-10 Scale: Unable to quantify Comment: states that her appetite has improved since admission to [facility]; Megace is contraindicated because of pro-thrombotic properties; Remeron offered but refused by family (3) Debility 0-10 Scale: Unable to quantify Comment: Unlikely that she will walk again Pertinent Non-Medical Issues Psychosocial: ; has four children; one son at bedside Spiritual: none known Legal:Patient is alert and capacitated to make her own decisions. Should she lose capacity, decision making will fall to her spouse Abdullahi Nicole, per [place] statute. 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 She presented to [facility] with ischemic left foot; not a candidate for surgical intervention; continues on heparinization for now with slight improvement in foot color. Was on hospice prior to admission and hoping to return to hospice services at home. She has a terminal condition and is hospice appropriate should her goals be comfort-oriented. Dr Dimas discussed options for left AKA; family currently is considering taking her home with hospice support although their goals remain fairly aggressive. Option for brief stay at hospice care center offered as a bridge to more effective pain management. Code Status: Full Code Plan * Patient is alert and capacitated to make her own decisions. Should she lose capacity, decision making will fall to her spouse Abdullahi Nicole, per [place] statute. * FULL CODE * Palliative care met with patient, son, daughter and spouse. Spouse indicates they want to follow up with Dr. Pascual as outpatient to pursue amputation. He wants to take her home with hospice in the meantime. Family desires FULL CODE. He indicates he will bring her back to the hospital for any further decline. * Will discuss with Dr. Pascual/ Colleen. Spoke with Dr. Lutz, coroner/medical examiner of [facility] feels home health may be a better option upon DC if amputation is going to be pursued and goals remain aggressive, will need to clarify with vascular surgery. * SYMPTOMS: Pain -- on MS Contin 30mg every 8 hours ATC, Getting PRN IV hydromorphone 2mg every 4 hours nearly ATC. I do not feel comfortable increasing pain medications at this time given aggressive goals. Will need to change to PO PRN meds upon DC, will assist if patient goes home with hospice. Anorexia -- encourage supplements like Boost or Ensure, do not recommend Megace , offered Remeron, family declined. Do not recommend steroid due to anticoagulation/ infection. Debility -- work carefully with physical therapy until options for improved activity are clarified. * Palliative care will continue to follow. . Attestation To help prompt me to consider important information that might be impacting today's encounter and assessment, information from prior notes written by myself or my colleagues may have been "brought forward" into today's note. My signature on this note, however, is an attestation that I personally performed the exam, history, and/or decision-making noted today, and, unless otherwise indicated, the interactions with patient, family, and staff as well as the review of records all occurred today. I also attest that the listed assessment and stated plan reflect my best clinical judgment today based on the combination of historical information, prior notes, and today's exam/ interactions. When time spent is documented, it refers only to time spent today by the signer, or if indicated, combined time spent today by collaborating physician/nurse practitioner. Marquita Alfaro Oct 26, 2017 15:58
--- NOTE | 2017-10-26 18:26 | HHI.PR ---
Subjective Remarks Patient states pain is controlled. Requests no medical information to be shared with eldest daughter. Denies cp/sob. tachycardic on 3 liters nasal canula. Objective Vitals Vital Signs Date Time Temp Pulse Resp B/P (MAP) Pulse Ox O2 Delivery O2 Flow Rate FiO2 10/26/17 11:40 120 10/26/17 11:05 3.00 10/26/17 08:15 Nasal Cannula 3.00 10/26/17 08:00 99.0 114 18 132/61 (84) 93 10/26/17 07:49 129 10/26/17 06:21 98.9 101 18 135/74 (94) 96 10/26/17 03:45 57 10/26/17 02:23 Nasal Cannula 3.00 10/26/17 00:49 98.9 110 16 148/82 (104) 95 10/25/17 23:44 118 10/25/17 21:24 100.2 125 16 156/73 (100) 95 10/25/17 19:43 112 10/25/17 19:00 Nasal Cannula 3.00 10/25/17 18:50 129 I/O 10/25/17 10/25/17 10/25/17 10/26/17 10/26/17 10/26/17 07:00 15:00 23:00 07:00 15:00 23:00 Intake Total 240 ml 340 ml Balance 240 ml 340 ml Intake Oral 240 ml 240 ml IV Total 100 ml # Voids 3 3 # Bowel Movements 3 4 Result Diagram: 10/25/17 0720 10/25/17 0720 Imaging Last Impressions Chest X-Ray 10/26/17 0000 Signed Impressions: Service Date/Time: October 06:19 - CONCLUSION: 1. There is new left lower lobe airspace consolidation which could represent an infectious process given the history of fever. 2. Innumerable bilateral pulmonary nodules are stable and characteristic of metastatic disease. Ludwin Smith MD Aorta w/Runoff CTA 10/22/17 0000 Signed Impressions: Service Date/Time: Sunday, October 22, 2017 13:30 - CONCLUSION: 1. 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 2. Left infrapopliteal vascular occlusion 3. Hemodynamically significant stenoses are identified in the celiac artery, renal arteries, left common femoral artery, superficial femoral arteries and right infrapopliteal runoff vessels. 4. Nonvascular findings characteristic of metastatic disease and obstructive uropathy. Arden Stubbs MD Objective Remarks GENERAL: Cachectic female, appears comfortable CARDIOVASCULAR: Normal rate and regular rhythm without murmurs. Cannot palpate left DP or PT pulse. SKIN: Left foot is cyanotic, necrotic appearing plantar aspect of the foot and toes. Dorsal left foot up to the ankle appear mottled and cyanotic. Unchanged compared to yesterday RESPIRATORY: Good respiratory efforts. Breath sounds equal and clear to auscultation bilaterally. GASTROINTESTINAL: Abdomen soft, non-tender, non-distended. Normal active bowel sounds NEURO: Alert & Oriented x4 to person, place, time, situation. Moves all ext x4 PSYCH: Appropriate mood and affect. Medications and IVs Current Medications Medications (Trade) Dose Ordered Sig/Justin Route Start Time Stop Time Status Last Admin (NS Flush) 2 ml UNSCH PRN IV FLUSH 10/21/17 17:45 10/24/17 05:10 (NS Flush) 2 ml BID IV FLUSH 10/21/17 21:00 10/26/17 09:24 (Tylenol) 650 mg Q4H PRN PO 10/21/17 17:45 (Zofran Inj) 4 mg Q6H PRN IVP 10/21/17 17:45 (Compazine Supp) 25 mg Q12H PRN RECTAL 10/21/17 17:45 (Narcan Inj) 0.4 mg UNSCH PRN IV PUSH 10/21/17 17:45 (Teodora-Colace) 1 tab BID PO 10/21/17 21:00 10/25/17 09:00 (Milk Of Magnesia Liq) 30 ml Q12H PRN PO 10/21/17 17:45 (Senokot) 17.2 mg Q12H PRN PO 10/21/17 17:45 (Dulcolax Supp) 10 mg DAILY PRN RECTAL 10/21/17 17:45 (Lactulose Liq) 30 ml DAILY PRN PO 10/21/17 17:45 (Percocet 10-325 Mg) 1 tab Q4H PRN PO 10/21/17 21:00 (Percocet 10-325 Mg) 2 tab Q4H PRN PO 10/22/17 01:00 10/22/17 06:21 (Oramorph Sr) 30 mg Q8H PO 10/22/17 11:00 10/26/17 11:18 (Dilaudid Pf Inj) 2 mg Q4H PRN IV PUSH 10/22/17 16:30 10/26/17 17:38 (Procardia) 10 mg Q8HR PO 10/24/17 14:00 10/26/17 13:40 (Catapres) 0.1 mg Q6H PRN PO 10/24/17 10:15 Piperacillin Sod/ Tazobactam Sod 100 ml @ 200 mls/hr Q8H IV 10/26/17 00:00 10/26/17 16:37 (Ecotrin Ec) 81 mg DAILY PO 10/27/17 09:00 (Plavix) 75 mg DAILY PO 10/27/17 09:00 A/P Problem List: (1) Gangrene of left foot ICD Code: I96 - Gangrene, not elsewhere classified (2) Ischemic pain of left foot ICD Code: M79.672 - Pain in left foot; I99.9 - Unspecified disorder of circulatory system (3) History of uterine cancer ICD Code: Z85.42 - Personal history of malignant neoplasm of other parts of uterus Assessment and Plan 67-year-old female previously on hospice for uterine cancer with metastasis to the lungs presented with acute left lower limb ischemia and gangrene. Patient has been declining over the past year and is currently very cachectic with poor functional status. Patient has been on hospice but she remains a full code. Ischemic left foot/gangrene: - Unclear if the foot is salvageable. Vascular surgery following who recommends to continue with heparin. CT angiogram showed occlusion of the left iliac and left infrapopliteal occlusion. - Pain control. Continue long-acting oral morphine. Dilaudid for breakthrough pain. DW patient the goal to control pain with oral meds only. Give Oramorph one more day for full effect, then can consider Methadone. - Patient and family does not want her to have amputation - Ultimately the patient's goal is to go home once her pain is better controlled. - Per Vascular surgery recommendations, transition to Lovenox for anticipated discharge. Patient to follow up in clinic. - 10/25 Per palliative care patient cannot go home on hospice on Lovenox SQ. If going home on hospice then will transition to ASA/Plavix. Patient seen for second opinion by Dr Molina. After discussion with family he recommends hospice. Patient could have amputation if that is what family decides. 10/26 DC lovenox SQ and start ASA/plavix. Discussed case with palliative care. Palliative care will need to return since patient's eldest daughter at bedside and patient does not wish any information to be shared with her. Continue pain control. HTN: No reported history of hypertension. - Start nifedipine. Clonidine as needed 10/25 Bp better controlled. Continue nifedipine. 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 - Patient is on hospice. However she remains full code. -Appreciate palliative care assistance with goals of care, family support, and symptom management. - Plan is for patient to eventually return home with hospice Hypokalemia: - Replace and monitor. 10/26 K still low at 3.4 - Continue to replace K. UTI: -Escherichia coli. Patient completed treatment with Rocephin. GI prophylaxis: Stool softener PRN constipation. DVT PPx: Lovenox Discharge Planning Hospice consult pending. Tristan Shane MD Oct 26, 2017 18:26
[2017-10-26] MEDS: oxyCODONE/ACETAMINOPHEN 10 MG/325 MG TAB PO PRN (23:43)
[2017-10-27] VITALS (8 sets, daily range): BP systolic 124–131; BP diastolic 56–60; PULSE 83–125; RESP 18; TEMP 98.5–99.2; O2SAT 94–96
[2017-10-27] MEDS: HYDROmorphone HCL PF 2 MG/ML VIAL IV PUSH PRN ×2 (01:47→07:51)
[2017-10-27] MEDS: MORPHINE SULFATE 30 MG CONTROLLED RELEASE TAB PO SCH ×2 (03:07→11:24)
[2017-10-27] MEDS: NIFEdipine 10 MG CAP PO SCH ×2 (05:28→13:03)
[2017-10-27] MEDS: oxyCODONE/ACETAMINOPHEN 10 MG/325 MG TAB PO PRN ×2 (05:28→09:32)
[2017-10-27] MEDS: DOCUSATE SODIUM 50 MG/SENNA 8.6 MG TAB PO SCH (07:56)
[2017-10-27] MEDS: SODIUM CHLORIDE 0.9% FLUSH 10 ML FLUSH IV FLUSH SCH (07:58)
[2017-10-27] MEDS: PIPERACIL-TAZO 4.5 GM PREMIX 100 ML IV SCH ×2 (07:58→15:31)
[2017-10-27] MEDS ORDERED: ASPIRIN EC 81 MG TABEC PO SCH (09:00)
[2017-10-27] MEDS ORDERED: CLOPIDOGREL 75 MG TAB PO SCH (09:00)
[2017-10-27 09:24] LABS: HEMATOCRIT 27.4 % (35.0-46.0); HEMOGLOBIN 8.9 GM/DL (11.6-15.3); MEAN CELL VOLUME 92.7 FL (80.0-100.0); MEAN CORPUSCULAR HEMOGLOBIN 30.2 PG (27.0-34.0); MEAN CORPUSCULAR HGB CONC 32.5 % (32.0-36.0); PLATELET COUNT 488 TH/MM3 (150-450); RED BLOOD COUNT 2.95 MIL/MM3 (4.00-5.30); RED CELL DISTRIBUTION WIDTH 14.3 % (11.6-17.2); WHITE BLOOD COUNT 18.7 TH/MM3 (4.0-11.0)
[2017-10-27] MEDS ORDERED: NIFE10 PO (12:03)
[2017-10-27] MEDS ORDERED: PROC25SU22 RECTAL (12:03)
[2017-10-27] MEDS ORDERED: ECASA81 PO (12:03)
[2017-10-27] MEDS ORDERED: PLAV75TA29 PO (12:03)
[2017-10-27] MEDS ORDERED: DOXY100C PO (12:05)
[2017-10-27] MEDS ORDERED: LEVA750T9 PO (12:05)
--- NOTE | 2017-10-27 12:10 | HHI.DCPOC ---
Discharge Care Plan Diagnosis: (1) Gangrene of left foot (2) Ischemic pain of left foot (3) History of uterine cancer (4) Teratoma of sacrum (5) Pain (6) Debility (7) Anorexia Goals to Promote Your Health * To prevent worsening of your condition and complications * To maintain your health at the optimal level Directions to Meet Your Goals Take your medications as prescribed Follow your dietary instruction Follow activity as directed Keep your appointments as scheduled Take your immunizations and boosters as scheduled If your symptoms worsen call your PCP, if no PCP go to Urgent Care Center or Emergency Room Smoking is Dangerous to Your Health. Avoid second hand smoke Call the 24-hour hour crisis hotline for domestic abuse at Tristan Shane MD Oct 27, 2017 12:10
[2017-10-27] MEDS ORDERED: HYDROmorphone HCL 4 MG TAB PO PRN (12:15)
--- NOTE | 2017-10-27 12:17 | HHI.DS ---
Discharge Summary Admission Date Oct 21, 2017 at 19:02 Discharge Date: Oct 27, 2017 Admitting Diagnosis Ischemic pain of left foot (1) Gangrene of left foot ICD Code: I96 - Gangrene, not elsewhere classified (2) Ischemic pain of left foot ICD Code: M79.672 - Pain in left foot; I99.9 - Unspecified disorder of circulatory system (3) History of uterine cancer ICD Code: Z85.42 - Personal history of malignant neoplasm of other parts of uterus Brief History - From Admission Mrs. 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 Patient states that she was cutting her toenails about a month ago and over the month has developed worsening pain and swelling and erythema to her left foot. She says that she was afraid to tell her family what had happened and just two days ago her noticed increased erythema and discoloration to her left toes. Patient states that the pain has become more severe with shooting pains up her left leg. Denies any numbness or tingling. Does admit to left lower extremity coldness. Patient denies any recent fevers, chills, cough, shortness of breath, headache, abdominal pain, nausea, vomiting, diarrhea or dysuria. Patient denies any history of diabetes or peripheral vascular disease. Does admit to a history of smoking, has quit over seven years ago. At baseline, patient is mobile at home and independent with ADLs. Does admit to poor appetite. It should also be noted that patient is incontinent at home since teratoma removal. CODE STATUS is been addressed, patient wishes to be full code. CBC/BMP: 10/27/17 0816 10/25/17 0720 Significant Findings Laboratory Tests Test 10/25/17 07:20 10/27/17 08:16 White Blood Count 17.8 TH/MM3 (4.0-11.0) 18.7 TH/MM3 (4.0-11.0) Red Blood Count 3.14 MIL/MM3 (4.00-5.30) 2.95 MIL/MM3 (4.00-5.30) Hemoglobin 9.2 GM/DL (11.6-15.3) 8.9 GM/DL (11.6-15.3) Hematocrit 29.1 % (35.0-46.0) 27.4 % (35.0-46.0) Mean Corpuscular Hemoglobin Concent 31.7 % (32.0-36.0) Platelet Count 508 TH/MM3 (150-450) 488 TH/MM3 (150-450) Activated Partial Thromboplast Time 41.0 SEC (24.3-30.1) Creatinine 0.36 MG/DL (0.50-1.00) Random Glucose 130 MG/DL (74-106) Potassium Level 3.4 MEQ/L (3.5-5.1) Imaging Last Impressions Chest X-Ray 10/26/17 0000 Signed Impressions: Service Date/Time: October 06:19 - CONCLUSION: 1. There is new left lower lobe airspace consolidation which could represent an infectious process given the history of fever. 2. Innumerable bilateral pulmonary nodules are stable and characteristic of metastatic disease. Ludwin Smith MD Aorta w/Runoff CTA 10/22/17 0000 Signed Impressions: Service Date/Time: Sunday, October 22, 2017 13:30 - CONCLUSION: 1. 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 2. Left infrapopliteal vascular occlusion 3. Hemodynamically significant stenoses are identified in the celiac artery, renal arteries, left common femoral artery, superficial femoral arteries and right infrapopliteal runoff vessels. 4. Nonvascular findings characteristic of metastatic disease and obstructive uropathy. Arden Stubbs MD PE at Discharge GENERAL: Cachectic female, appears comfortable CARDIOVASCULAR: Normal rate and regular rhythm without murmurs. Cannot palpate left DP or PT pulse. SKIN: Left foot is cyanotic, necrotic appearing plantar aspect of the foot and toes. Dorsal left foot up to the ankle appear mottled and cyanotic. Unchanged compared to yesterday RESPIRATORY: Good respiratory efforts. Breath sounds equal and clear to auscultation bilaterally. GASTROINTESTINAL: Abdomen soft, non-tender, non-distended. Normal active bowel sounds NEURO: Alert & Oriented x4 to person, place, time, situation. Moves all ext x4 PSYCH: Appropriate mood and affect. Pt Condition on Discharge: Fair Discharge Disposition: Hospice/ Home Discharge Instructions DIET: Follow Instructions for: Heart Healthy Diet Additional Diet Instructions: Ensure with meals Activities you can perform: Weight Bearing as Ashley, See Additionl Instruction Other Activity Instructions: OOB with assistance only. Tristan Shane MD Oct 27, 2017 12:17
--- NOTE | 2017-10-27 12:36 | HHI.HCPN ---
Reason for visit a. To assist with evaluation and management of symptoms including: pain; debility b. To assist medical decision maker(s) with: better understanding of current medical conditions; weighing benefits/burdens of medical treatment options; making medical treatment decisions. Subjective/Interval History Patient seen and examined in room. Daughter at bedside. Also present Zahida Vinsonsrinivas. OCEANOLOGY TEACHER. Patient just completed PT. She was able to sit on side of bed. Reports she is now tired and painful. She rates pain 8/10 currently. Reports pain in left buttock area, denies pain in left foot. On Oramorph 30mg PO every 8 hours ATC. Has also had Oxycodone 10/325mg, 3 doses in the past 24 hours. Hydromorphone 2mg IV 3 doses in the past 24 hours. Patient remains hopeful to return home. Advised that we will be changing to oral pain meds and antibiotics for DC home, she and daughter agree. Offered transfer to hospice care center prior to discharge home to ensure that pain medications are adequate upon return home, patient declines. Tmax 99.2. Vital signs stable. Remains on oxygen via nasal cannula 3LPM. Stool is now more formed. Spoke with Dr. Aquino and hospice team, plan to DC home with hospice when arrangements made. Will need DME. . Family/friend interactions See interval note. . Advance Directives Living Will: Never completed Health Care Surrogate: Never completed Durable Power of Bead Forming Machine Set Up Operator: Never completed Advance Directive Specifics Health Care Surrogate(s): Abdullahi Nicole [phone] Documented care wishes: No written advanced directives. . Significant change in goals: FULL CODE. Goals to return home with hospice. Objective Vital Signs Date Time Temp Pulse Resp B/P (MAP) Pulse Ox O2 Delivery O2 Flow Rate FiO2 10/27/17 08:04 101 10/27/17 08:00 Nasal Cannula 3.00 10/27/17 08:00 99.1 103 18 126/60 (82) 96 10/27/17 04:02 83 10/27/17 04:00 98.9 100 18 130/56 (80) 94 10/27/17 00:07 106 10/27/17 00:00 99.2 105 18 131/59 (83) 94 10/26/17 20:24 95 10/26/17 20:00 99.2 100 18 111/71 (84) 94 10/26/17 20:00 Nasal Cannula 3.00 10/26/17 16:00 98.9 108 18 133/60 (84) 92 10/26/17 15:37 110 Intake & Output 10/27/17 10/27/17 07:00 19:00 Intake Total 100 ml Balance 100 ml IV Total 100 ml # Voids 5 # Bowel Movements 4 Physical Exam CONSTITUTIONAL/GENERAL: This is an pale, thin and frail elderly female reclining in bed. She does arouse and interact appropriately TUBES/LINES/DRAINS: Oxygen via NC, PIV. SKIN: left foot remains cool and blue distal to medial malleolus; there is less skin surface that is blackened, no palpable pulse. CARDIOVASCULAR: mild intermittent Tachycardia. pedal pulse on right foot faint; left foot not palpable RESPIRATORY/CHEST: Symmetric, unlabored respirations. Clear to auscultation. GASTROINTESTINAL: Abdomen soft, non-tender, nondistended. No guarding. Bowel sounds active. GENITOURINARY: Without palpable bladder distension. MUSCULOSKELETAL: soft tissue mass to coccyx/left hip; left foot cold, red/blue mottling except ventral surface of all toes and up to the ball of the foot which is black, shriveled and cold to touch. LYMPHATICS: bilateral inguinal adenopathy is palpable; right side greater than left NEUROLOGICAL: Awake and alert. Cognitively sharp. Moves all extremities but not ambulatory PSYCHIATRIC: anxiety about pain control . Diagnostic Tests Laboratory Laboratory Tests Test 10/25/17 07:20 10/27/17 08:16 White Blood Count 17.8 TH/MM3 (4.0-11.0) 18.7 TH/MM3 (4.0-11.0) Red Blood Count 3.14 MIL/MM3 (4.00-5.30) 2.95 MIL/MM3 (4.00-5.30) Hemoglobin 9.2 GM/DL (11.6-15.3) 8.9 GM/DL (11.6-15.3) Hematocrit 29.1 % (35.0-46.0) 27.4 % (35.0-46.0) Mean Corpuscular Volume 92.7 FL (80.0-100.0) 92.7 FL (80.0-100.0) Mean Corpuscular Hemoglobin 29.4 PG (27.0-34.0) 30.2 PG (27.0-34.0) Mean Corpuscular Hemoglobin Concent 31.7 % (32.0-36.0) 32.5 % (32.0-36.0) Red Cell Distribution Width 14.2 % (11.6-17.2) 14.3 % (11.6-17.2) Platelet Count 508 TH/MM3 (150-450) 488 TH/MM3 (150-450) Mean Platelet Volume 7.2 FL (7.0-11.0) 7.0 FL (7.0-11.0) Activated Partial Thromboplast Time 41.0 SEC (24.3-30.1) Blood Urea Nitrogen 7 MG/DL (7-18) Creatinine 0.36 MG/DL (0.50-1.00) Random Glucose 130 MG/DL (74-106) Calcium Level 8.7 MG/DL (8.5-10.1) Sodium Level 141 MEQ/L (136-145) Potassium Level 3.4 MEQ/L (3.5-5.1) Chloride Level 106 MEQ/L (98-107) Carbon Dioxide Level 25.1 MEQ/L (21.0-32.0) Anion Gap 10 MEQ/L (5-15) Estimat Glomerular Filtration Rate 180 ML/MIN (>89) Result Diagram: 10/27/17 0816 10/25/17 0720 Microbiology Microbiology Date/Time Source Procedure Growth Status 10/21/17 20:05 Blood Peripheral Aerobic Blood Culture - Final NO GROWTH IN 5 DAYS Complete 10/21/17 20:05 Blood Peripheral Anaerobic Blood Culture - Final NO GROWTH IN 5 DAYS Complete 10/22/17 10:45 Urine Clean Catch Urine Culture - Final Escherichia Coli Complete Imaging Last Impressions Chest X-Ray 10/26/17 0000 Signed Impressions: Service Date/Time: October 06:19 - CONCLUSION: 1. There is new left lower lobe airspace consolidation which could represent an infectious process given the history of fever. 2. Innumerable bilateral pulmonary nodules are stable and characteristic of metastatic disease. Ludwin Smith MD Aorta w/Runoff CTA 10/22/17 0000 Signed Impressions: Service Date/Time: Sunday, October 22, 2017 13:30 - CONCLUSION: 1. 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 2. Left infrapopliteal vascular occlusion 3. Hemodynamically significant stenoses are identified in the celiac artery, renal arteries, left common femoral artery, superficial femoral arteries and right infrapopliteal runoff vessels. 4. Nonvascular findings characteristic of metastatic disease and obstructive uropathy. Arden Stubbs MD Assessment and Plan Disease Oriented Problem List: (1) Ischemic pain of left foot (2) Gangrene of left foot (3) Teratoma of sacrum (4) History of uterine cancer Comment: Now with known metastatic disease; multiple foci Symptom Scale: (1) Pain 0-10 Scale: 8 Comment: MSContin increased. Change to oral oxycodone for BTP for DC home with hospice. (2) Debility 0-10 Scale: Unable to quantify Comment: Unlikely that she will walk again Pertinent Non-Medical Issues Psychosocial: ; has four children; one son at bedside Spiritual: none known Legal:Patient is alert and capacitated to make her own decisions. Should she lose capacity, decision making will fall to her spouse Abdullahi Nicole, per [place] statute. Ethical issues impacting care: wants to continue hospice services at home Important Contacts Spouse Abdullahi Nicole [phone] Prognosis Mrs Nicole is a 67-yr old female with widespread metastatic uterine cancer to lungs, liver, and left inguinal as well as possible bladder mass. She presented to [facility] with ischemic left foot; not a candidate for surgical intervention; continues on heparinization for now with slight improvement in foot color. Was on hospice prior to admission and hoping to return to hospice services at home. She has a terminal condition and is hospice appropriate. Code Status: Full Code (confimed with patient 10/27/17) Plan * Patient is alert and capacitated to make her own decisions. Should she lose capacity, decision making will fall to her spouse Abdullahi Nicole, per [place] statute. * FULL CODE - confirmed 10/27/17 that this is in keeping with her wishes. * Palliative care met with patient, daughter. She desires return home with hospice support. Agrees to change to oral pain meds and antibiotics. Will need hospital bed per family. * Hospice notified, will meet with family to make DC arrangements. * Discussed with Dr. Aquino and hospice team. * SYMPTOMS: Pain -- on MS Contin 30mg every 8 hours ATC, Increased to 60mg PO every 8 hours. DC IV hydromorphone. Transition to oral Oxycodone (no Tylenol due to liver mets) 10-20mg PO every 4 hours PRN BTP. Anorexia -- improved. Eating well per pt/family report. Debility -- worked with physical therapy today , was able to sit on side of bed. Weakness will continue due to widespread mets disease. * Palliative care will continue to follow. . Attestation To help prompt me to consider important information that might be impacting today's encounter and assessment, information from prior notes written by myself or my colleagues may have been "brought forward" into today's note. My signature on this note, however, is an attestation that I personally performed the exam, history, and/or decision-making noted today, and, unless otherwise indicated, the interactions with patient, family, and staff as well as the review of records all occurred today. I also attest that the listed assessment and stated plan reflect my best clinical judgment today based on the combination of historical information, prior notes, and today's exam/ interactions. When time spent is documented, it refers only to time spent today by the signer, or if indicated, combined time spent today by collaborating physician/nurse practitioner. Marquita Alfaro Oct 27, 2017 12:36
[2017-10-27] MEDS ORDERED: MORPHINE SULFATE 60 MG CONTROLLED RELEASE TAB PO ONE (16:00)
[2017-10-27] MEDS ORDERED: MORPHINE SULFATE 30 MG CONTROLLED RELEASE TAB PO SCH (19:00)
== END 2017-10-27 17:13 | disposition hospice, home (50) | DRG 300 ==
LOC: NEDDLT 18:52 → N04A 19:02
PROVIDERS: ADMIT Hospitalist; ATTEND Hospitalist
DX: I96 Gangrene, not elsewhere classified (principal); N39.0 Urinary tract infection, site not specified; I74.5 Embolism and thrombosis of iliac artery; R64 Cachexia; C78.01 Secondary malignant neoplasm of right lung; C78.02 Secondary malignant neoplasm of left lung; D68.59 Other primary thrombophilia; C78.7 Secondary malignant neoplasm of liver and intrahepatic bile duct; N13.30 Unspecified hydronephrosis; Z68.1 Body mass index [BMI] 19.9 or less, adult; B96.20 Unspecified Escherichia coli [E. coli] as the cause of diseases classified elsewhere; C55 Malignant neoplasm of uterus, part unspecified; E87.6 Hypokalemia; I10 Essential (primary) hypertension; R32 Unspecified urinary incontinence; F32.9 Major depressive disorder, single episode, unspecified; F41.9 Anxiety disorder, unspecified; R00.0 Tachycardia, unspecified; R06.82 Tachypnea, not elsewhere classified; Z92.3 Personal history of irradiation; Z87.891 Personal history of nicotine dependence
CPT/HCPCS: 71045; 75635; 80048; 80053; 81001; 83605; 85025; 85027; 85610; 85730; 87040; 87077; 87086; 87186; 93922; 96365; 96375; J0696; J1170; J1644; J1650; J2270; J2543; J7030; Q9967

== ENCOUNTER 2017-11-14 12:51 | Inpatient (IN) | payer OTHER, MEDICARE ==
[~2017-11-14] VITALS: Ht 149.9 cm; Wt 40.1 kg
[~2017-11-14 12:51] MED LIST changes: -COLA50CA PO; -COLY4000S PO; +COMMODE BEDSIDE1 MI1; -DOCU1CAP39 PO; +DOXY100C PO; +ECASA81 PO; -FLEEENE3 RE; +LEVA750T9 PO; +NIFE10 PO; -NORC10TA2; +PLAV75TA29 PO; +PROC25SU22 RECTAL; -TRAM50 PO
[2017-11-14 12:54] VITALS: BP 129/58; PULSE 122; RESP 18; TEMP 98.8; O2SAT 94
[2017-11-14 14:23] LABS: AUTOMATED NEUTROPHIL # 14.6 TH/MM3 (1.8-7.7); BASOPHIL % 0.3 % (0.0-2.0); EOSINOPHIL % 0.3 % (0.0-4.0); HEMATOCRIT 27.4 % (35.0-46.0); HEMOGLOBIN 8.9 GM/DL (11.6-15.3); LYMPH % 3.4 % (9.0-44.0); LYMPHOCYTE # 0.5 TH/MM3 (1.0-4.8); MEAN CELL VOLUME 89.4 FL (80.0-100.0); MEAN CORPUSCULAR HEMOGLOBIN 29.1 PG (27.0-34.0); MEAN CORPUSCULAR HGB CONC 32.6 % (32.0-36.0); MEAN PLATELET VOLUME 6.3 FL (7.0-11.0); MONO % 5.1 % (0.0-8.0); MONOCYTE # 0.8 TH/MM3 (0-0.9); NEUT % 90.9 % (16.0-70.0); PLATELET COUNT 613 TH/MM3 (150-450); RED BLOOD COUNT 3.06 MIL/MM3 (4.00-5.30); RED CELL DISTRIBUTION WIDTH 13.9 % (11.6-17.2)
[2017-11-14 14:34] LABS: INTERNATIONAL NORMALIZED RATIO 1.1 RATIO; PROTHROMBIN TIME - PATIENT 11.1 SEC (9.8-11.6)
[2017-11-14 14:40] LABS: ALBUMIN 2.3 GM/DL (3.4-5.0); ALT (GPT) 7 U/L (10-53); AST (GOT) 15 U/L (15-37); BICARBONATE 29.7 MEQ/L (21.0-32.0); BLOOD UREA NITROGEN 11 MG/DL (7-18); C-REACTIVE PROTEIN 8.47 MG/DL (0.00-0.30); CALCIUM 8.7 MG/DL (8.5-10.1); CHLORIDE 100 MEQ/L (98-107); CREATININE 0.42 MG/DL (0.50-1.00); GLOMERULAR FILTRATION RATE 150 ML/MIN (>89); GLUCOSE,RANDOM 90 MG/DL (74-106); SODIUM (NA) 136 MEQ/L (136-145)
[2017-11-14 14:42] LABS: ALKALINE PHOSPHATASE 138 U/L (45-117); TOTAL BILIRUBIN ADULT 0.2 MG/DL (0.2-1.0); TOTAL PROTEIN 7.1 GM/DL (6.4-8.2)
[2017-11-14 16:06] VITALS: BP 132/65; PULSE 88; RESP 20; O2SAT 88
[2017-11-14 16:07] VITALS: RESP 20; O2SAT 95
[2017-11-14] MEDS ORDERED: MORPHINE SULFATE 2 MG/ML INJ IV PUSH ONE ×2 (16:15)
[2017-11-14] MEDS ORDERED: OXYC-405 PO (16:16)
[2017-11-14] MEDS ORDERED: MORP1TAB26 PO (16:16)
[2017-11-14] MEDS ORDERED: BISACODYL 10 MG SUPP RECTAL PRN (17:00)
[2017-11-14] MEDS ORDERED: NALOXONE HCL 0.4 MG/ML AMP IV PUSH PRN (17:00)
[2017-11-14] MEDS ORDERED: MAGNESIUM HYDROXIDE SUSP 30 ML CUP PO PRN (17:00)
[2017-11-14] MEDS ORDERED: ACETAMINOPHEN 325 MG TAB PO PRN (17:00)
[2017-11-14] MEDS ORDERED: ONDANSETRON HCL 4 MG/2 ML VIAL IVP PRN (17:00)
[2017-11-14] MEDS ORDERED: LACTULOSE SYRUP 20 GM/30 ML CUP PO PRN (17:00)
[2017-11-14] MEDS ORDERED: SODIUM CHLORIDE 0.9% FLUSH 10 ML FLUSH IV FLUSH PRN (17:00)
[2017-11-14] MEDS ORDERED: SENNOSIDES 8.6 MG TAB PO PRN (17:00)
--- NOTE | 2017-11-14 17:36 | PD ---
HPI Chief Complaint: Skin Problem Time Seen by Provider: 15:36 Travel History International Travel<30 days: No Contact w/Intl Traveler<30days: No Traveled to known affect area: No History of Present Illness HPI Patient is a 67-year-old female who comes in because she requires amputation of her left foot. She has had gangrene of the foot for a while, but the pain is increasing. She was scheduled for surgery next week, but says that the pain has increased. She spoke with Dr. Pascual who advised her to come in for pain control and he will move up the surgery. She says nothing has changed. She took her oxycodone about 40 minutes prior to being seen, but says it is not helping. She has not had fever or chills. She does say that the discoloration of the foot has been increasing up her leg. PFSH Past Medical History Hx Anticoagulant Therapy: No Arthritis: Yes Anxiety: Yes Depression: Yes Cancer: Yes (UTERINE AND LUNG) Cardiovascular Problems: No Chemotherapy: No Cerebrovascular Accident: No Diabetes: No Diminished Hearing: No Hypertension: Yes Musculoskeletal: Yes (FX TAILBONE) Reproductive: Yes (UTERINE) Respiratory: No Radiation Therapy: Yes (UTERINE TUMOR-BENIGN) Tetanus Vaccination: > 5 Years Influenza Vaccination: No : 6 Para: 4 Miscarriage: 2 : 0 Past Surgical History Cholecystectomy: Yes Hysterectomy: No Other Surgery: Yes (TERATOMA REMOVAL) Social History Alcohol Use: Yes Tobacco Use: Yes (QUIT 2010) Substance Use: No Allergies-Medications (Allergen,Severity, Reaction): Coded Allergies: No Known Allergies (Verified Allergy, Unknown, 11/14/17) Reported Meds & Prescriptions Reported Meds & Active Scripts Active Aspirin DR (Aspirin) 81 Mg Tabdr 81 Mg PO DAILY Procardia (Nifedipine) 10 Mg Cap 10 Mg PO Q8HR Plavix (Clopidogrel Bisulfate) 75 Mg Tab 75 Mg PO DAILY Commode Bedside (Device) 1 Mis Mis Ea .ROUTE DIRECTED Reported Morphine ER (Morphine Sulfate) 60 Mg Tab 60 Mg PO Q8H Oxycodone ER (Oxycodone HCl) 20 Mg Tab 20 Mg PO Q12HR Review of Systems Except as stated in HPI: all other systems reviewed are Neg General / Constitutional: No: Fever, Chills HENT: No: Headaches, Lightheadedness Cardiovascular: No: Chest Pain or Discomfort Respiratory: No: Shortness of Breath Gastrointestinal: No: Nausea, Vomiting Musculoskeletal: Positive: Pain Skin: Positive Change in Pigmentation Neurologic: No: Weakness, Dizziness Physical Exam Narrative GENERAL: Awake and alert, no acute distress. SKIN: Left foot black, to the ankle. Some area of erythema above the ankle. HEAD: Atraumatic. Normocephalic. EYES: Pupils equal and round. No scleral icterus. ENT: Mucous membranes pink and moist. NECK: Trachea midline. No JVD. CARDIOVASCULAR: Regular rate and rhythm. No murmur appreciated. RESPIRATORY: No accessory muscle use. Clear to auscultation. Breath sounds equal bilaterally. GASTROINTESTINAL: Abdomen soft, non-tender, nondistended. MUSCULOSKELETAL: No obvious deformities. No clubbing. No cyanosis. No edema. No pulse to the left foot. NEUROLOGICAL: Awake and alert. No obvious cranial nerve deficits. Motor grossly within normal limits. Normal speech. PSYCHIATRIC: Appropriate mood and affect; insight and judgment normal. Data Data Last Documented VS Vital Signs Date Time Temp Pulse Resp B/P (MAP) Pulse Ox O2 Delivery O2 Flow Rate FiO2 11/14/17 17:04 16 11/14/17 16:07 95 Nasal Cannula 2.00 11/14/17 16:06 88 132/65 (87) 11/14/17 12:54 98.8 Orders Orders Complete Blood Count With Diff (11/14/17 12:58) Comprehensive Metabolic Panel (11/14/17 12:58) Westergren Sedimentation Rate (11/14/17 12:58) C-Reactive Protein (Crp) (11/14/17 12:58) Prothrombin Time / Inr (Pt) (11/14/17 12:58) Act Partial Throm Time (Ptt) (11/14/17 12:58) Morphine Inj (Morphine Inj) (11/14/17 16:15) Morphine Inj (Morphine Inj) (11/14/17 16:15) Aspirin Ec (Ecotrin Ec) (11/15/17 09:00) Morphine Sr (Oramorph Sr) (11/14/17 22:00) Nifedipine (Procardia) (11/14/17 22:00) Oxycodone Sr (Oxycontin Cr) (11/14/17 21:00) Hydromorphone Pf Inj (Dilaudid Pf Inj) (11/14/17 17:00) Admit To Inpatient (11/14/17 ) Vital Signs (Adult) Q4H (11/14/17 16:54) Neuro Checks Q4H (11/14/17 16:54) Activity Oob With Assistance (11/14/17 16:54) Diet Heart Healthy (11/14/17 Dinner) D5-1/2 Ns + Kcl 20 Meq Inj (D5-1/2 Ns + (11/14/17 17:00) Sodium Chloride 0.9% Flush (Ns Flush) (11/14/17 17:00) Sodium Chloride 0.9% Flush (Ns Flush) (11/14/17 21:00) Acetaminophen (Tylenol) (11/14/17 17:00) Ondansetron Inj (Zofran Inj) (11/14/17 17:00) Basic Metabolic Panel (Bmp) (11/15/17 06:00) Complete Blood Count With Diff (11/15/17 06:00) Heparin Inj (Heparin Inj) (11/14/17 18:00) Naloxone Inj (Narcan Inj) (11/14/17 17:00) Docusate Sodium-Senna (Teodora-Colace) (11/14/17 21:00) Magnesium Hydroxide Liq (Milk Of Magnesi (11/14/17 17:00) Sennosides (Senokot) (11/14/17 17:00) Bisacodyl Supp (Dulcolax Supp) (11/14/17 17:00) Lactulose Liq (Lactulose Liq) (11/14/17 17:00) Inpatient Certification (11/14/17 ) Admit Order (Ed Use Only) (11/14/17 ) Labs Laboratory Tests Test 11/14/17 13:55 White Blood Count 16.0 TH/MM3 Red Blood Count 3.06 MIL/MM3 Hemoglobin 8.9 GM/DL Hematocrit 27.4 % Mean Corpuscular Volume 89.4 FL Mean Corpuscular Hemoglobin 29.1 PG Mean Corpuscular Hemoglobin Concent 32.6 % Red Cell Distribution Width 13.9 % Platelet Count 613 TH/MM3 Mean Platelet Volume 6.3 FL Neutrophils (%) (Auto) 90.9 % Lymphocytes (%) (Auto) 3.4 % Monocytes (%) (Auto) 5.1 % Eosinophils (%) (Auto) 0.3 % Basophils (%) (Auto) 0.3 % Neutrophils # (Auto) 14.6 TH/MM3 Lymphocytes # (Auto) 0.5 TH/MM3 Monocytes # (Auto) 0.8 TH/MM3 Eosinophils # (Auto) 0.0 TH/MM3 Basophils # (Auto) 0.0 TH/MM3 CBC Comment DIFF FINAL Differential Comment Erythrocyte Sedimentation Rate GREATER THAN 140 mm/hr Prothrombin Time 11.1 SEC Prothromb Time International Ratio 1.1 RATIO Activated Partial Thromboplast Time 32.5 SEC Blood Urea Nitrogen 11 MG/DL Creatinine 0.42 MG/DL Random Glucose 90 MG/DL Total Protein 7.1 GM/DL Albumin 2.3 GM/DL Calcium Level 8.7 MG/DL Alkaline Phosphatase 138 U/L Aspartate Amino Transf (AST/SGOT) 15 U/L Alanine Aminotransferase (ALT/SGPT) 7 U/L Total Bilirubin 0.2 MG/DL Sodium Level 136 MEQ/L Potassium Level 4.1 MEQ/L Chloride Level 100 MEQ/L Carbon Dioxide Level 29.7 MEQ/L Anion Gap 6 MEQ/L Estimat Glomerular Filtration Rate 150 ML/MIN C-Reactive Protein 8.47 MG/DL MDM Medical Decision Making Medical Screen Exam Complete: Yes Emergency Medical Condition: Yes Medical Record Reviewed: Yes Differential Diagnosis Gangrenous foot versus pulseless foot versus cellulitis Narrative Course Patient is a 67-year-old female who comes in due to pain to her left foot. She has gangrene of the foot and no pulse in the foot. Dr. Pascual will take her to surgery for amputation likely on . He advises admission to the medicine service for control of her medical issues as well as pain control. Patient given morphine. Admitted for further management. Diagnosis Primary Impression: Gangrene of left foot Admitting Information Admitting Physician Requests: Admit Trice Ferrell MD Nov 14, 2017 17:36
[2017-11-14 18:00] VITALS: BP 175/75; PULSE 86; RESP 20; O2SAT 95
[2017-11-14] MEDS: HEPARIN SODIUM - SQ 10,000 UNITS/ML VIAL SQ SCH (18:00)
[2017-11-14] MEDS: D5-1/2 NS + KCL 20 MEQ INJ 1,000 ML IV SCH (18:01)
[2017-11-14 18:15] VITALS: BP 175/72; PULSE 84; RESP 18; TEMP 98.8; O2SAT 95
[2017-11-14] MEDS: HYDROmorphone HCL PF 2 MG/ML VIAL IV PUSH PRN ×2 (18:43→23:46)
--- NOTE | 2017-11-14 19:00 | HHI.HP ---
[facility] Carlos Durán MD Admission Diagnosis gangrenous foot Diagnoses: Chief Complaint: Intractable left foot pain. Dry Gangrene Travel History International Travel<30 Days: No Contact w/Intl Traveler <30 Da: No Traveled to Known Affected Are: No History of Present Illness 67 Y/O female well known to me from previous admissions. 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 She has been under Hospice care at home. The patient was recently admitted to the Hospital for severe left foot pain and gangrene. The patient was followed by Vascular surgery at the time and treated conservatively. Option for amputation was presented to the family at the time but they opted to try with Aspirin and Plavix. She has been followed outpatient and there was plan for amputation this coming . However the patient began experiencing severe, worsening pain at home. She was referred to the emergency room by Vascular surgery for eventual amputation. Currently she reports the pain is bearable since she received IV Dilaudid. [facility] Hospice nurse at bedside. Family revoking Hospice for now and opting for surgery. 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 Past Surgical History Cholecystectomy 1987 Buttock teratoma removal in 2010 Reported Medications Reported Meds & Active Scripts Active Aspirin DR (Aspirin) 81 Mg Tabdr 81 Mg PO DAILY Procardia (Nifedipine) 10 Mg Cap 10 Mg PO Q8HR Plavix (Clopidogrel Bisulfate) 75 Mg Tab 75 Mg PO DAILY Commode Bedside (Device) 1 Mis Mis Ea .ROUTE DIRECTED Reported Morphine ER (Morphine Sulfate) 60 Mg Tab 60 Mg PO Q8H Oxycodone ER (Oxycodone HCl) 20 Mg Tab 20 Mg PO Q12HR Allergies: Coded Allergies: No Known Allergies (Verified Allergy, Unknown, 11/14/17) Family History Reviewed and is noncontributory. Social History Patient quit smoking about 7 years ago. Denies alcohol. Physical Exam Vital Signs Vital Signs Date Time Temp Pulse Resp B/P (MAP) Pulse Ox O2 Delivery O2 Flow Rate FiO2 11/14/17 18:15 98.8 84 18 175/72 (106) 95 11/14/17 18:00 86 20 175/75 (108) 95 Nasal Cannula 2.00 11/14/17 17:04 16 11/14/17 17:04 16 11/14/17 16:07 20 95 Nasal Cannula 2.00 11/14/17 16:06 88 20 132/65 (87) 88 Room Air 11/14/17 12:54 98.8 122 18 129/58 (81) 94 Physical Exam GENERAL: Cachectic female, no acute distress CARDIOVASCULAR: Normal rate and regular rhythm without murmurs. Cannot palpate left DP or PT pulse. SKIN: Left foot is necrotic appearing, plantar aspect of the foot and toes. RESPIRATORY: Good respiratory efforts. Breath sounds equal and clear to auscultation bilaterally. MSK: Very tender to palpation of the left foot. GASTROINTESTINAL: Abdomen soft, non-tender, non-distended. Normal active bowel sounds NEURO: Alert & Oriented x4 to person, place, time, situation. Moves all ext x4 PSYCH: Appropriate mood and affect. Laboratory Laboratory Tests Test 11/14/17 13:55 White Blood Count 16.0 Red Blood Count 3.06 Hemoglobin 8.9 Hematocrit 27.4 Mean Corpuscular Volume 89.4 Mean Corpuscular Hemoglobin 29.1 Mean Corpuscular Hemoglobin Concent 32.6 Red Cell Distribution Width 13.9 Platelet Count 613 Mean Platelet Volume 6.3 Neutrophils (%) (Auto) 90.9 Lymphocytes (%) (Auto) 3.4 Monocytes (%) (Auto) 5.1 Eosinophils (%) (Auto) 0.3 Basophils (%) (Auto) 0.3 Neutrophils # (Auto) 14.6 Lymphocytes # (Auto) 0.5 Monocytes # (Auto) 0.8 Eosinophils # (Auto) 0.0 Basophils # (Auto) 0.0 CBC Comment DIFF FINAL Differential Comment Erythrocyte Sedimentation Rate GREATER THAN 140 Prothrombin Time 11.1 Prothromb Time International Ratio 1.1 Activated Partial Thromboplast Time 32.5 Blood Urea Nitrogen 11 Creatinine 0.42 Random Glucose 90 Total Protein 7.1 Albumin 2.3 Calcium Level 8.7 Alkaline Phosphatase 138 Aspartate Amino Transf (AST/SGOT) 15 Alanine Aminotransferase (ALT/SGPT) 7 Total Bilirubin 0.2 Sodium Level 136 Potassium Level 4.1 Chloride Level 100 Carbon Dioxide Level 29.7 Anion Gap 6 Estimat Glomerular Filtration Rate 150 C-Reactive Protein 8.47 Result Diagram: 11/14/17 1355 11/14/17 1355 Caprini VTE Risk Assessment Caprini VTE Risk Assessment: Mod/High Risk (score >= 2) Caprini Risk Assessment Model Point Value = 1 Point Value = 2 Point Value = 3 Point Value = 5 Age 41-60 Minor surgery BMI > 25 kg/m2 Swollen legs Varicose veins or History of unexplained or recurrent spontaneous Oral contraceptives or hormone replacement Sepsis (< 1 month) Serious lung disease, including pneumonia (< 1 month) Abnormal pulmonary function Acute myocardial infarction Congestive heart failure (< 1 month) History of inflammatory bowel disease Medical patient at bed rest Age 61-74 Arthroscopic surgery Major open surgery (> 45 min) Laparoscopic surgery (> 45 min) Malignancy Confined to bed (> 72 hours) Immobilizing plaster cast Central venous access Age >= 75 History of VTE Family history of VTE Factor V Leiden Prothrombin [id number] Lupus anticoagulant Anticardiolipin antibodies Elevated serum homocysteine Heparin-induced thrombocytopenia Other congenital or acquired thrombophilia Stroke (< 1 month) Elective arthroplasty Hip, pelvis, or leg fracture Acute spinal cord injury (< 1 month) Prophylaxis Regimen Total Risk Factor Score Risk Level Prophylaxis Regimen 0-1 Low Early ambulation 2 Moderate Order ONE of the following: *Sequential Compression Device (SCD) *Heparin 5000 units SQ BID 3-4 Higher Order ONE of the following medications: *Heparin 5000 units SQ TID *Enoxaparin/Lovenox 40 mg SQ daily (WT < 150 kg, CrCl > 30 mL/min) *Enoxaparin/Lovenox 30 mg SQ daily (WT < 150 kg, CrCl > 10-29 mL/min) *Enoxaparin/Lovenox 30 mg SQ BID (WT < 150 kg, CrCl > 30 mL/min) AND/OR *Sequential Compression Device (SCD) 5 or more Highest Order ONE of the following medications: *Heparin 5000 units SQ TID (Preferred with Epidurals) *Enoxaparin/Lovenox 40 mg SQ daily (WT < 150 kg, CrCl > 30 mL/min) *Enoxaparin/Lovenox 30 mg SQ daily (WT < 150 kg, CrCl > 10-29 mL/min) *Enoxaparin/Lovenox 30 mg SQ BID (WT < 150 kg, CrCl > 30 mL/min) AND *Sequential Compression Device (SCD) Assessment and Plan Assessment and Plan 67-year-old female with uterine cancer and metastasis to the lungs presented with intractable left foot pain secondary to dry gangrene. Patient sent by Vascular surgeon for pain control and eventual amputation. Patient has been on Hospice. Ischemic left foot/gangrene: - Vascular surgery, Dr. Pascual consulted for amputation. CT angiogram from the last Hospitalization showed occlusion of the left iliac and left infrapopliteal occlusion. - Pain control. Continue long-acting oral morphine. Scheduled Roxicodone. IV Morphine and IV Dilaudid for breakthrough pain. 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 - Patient has been on Hospice. Family planning to re enroll in Hospice upon discharge. HTN: - Continue Procardia GI prophylaxis: Stool softener PRN constipation. DVT PPx: Heparin Discussed Condition With Discussed at length with Dr. Ferrell, patient's and daughter at bedside. Physician Certification 2 Midnight Certification Type: Admission for Inpatient Services Order for Inpatient Services The services are ordered in accordance with Medicare regulations or non- Medicare payer requirements, as applicable. In the case of services not specified as inpatient-only, they are appropriately provided as inpatient services in accordance with the 2-midnight benchmark. Estimated LOS (days): 5 days is the estimated time the patient will need to remain in the hospital, assuming treatment plan goals are met and no additional complications. Post-Hospital Plan: Not yet determined Chaparro Wilcox MD Nov 14, 2017 19:00
[2017-11-14 20:00] VITALS: BP 154/67; PULSE 79; RESP 18; TEMP 98.6; O2SAT 94
[2017-11-14] MEDS: DOCUSATE SODIUM 50 MG/SENNA 8.6 MG TAB PO SCH (20:32)
[2017-11-14] MEDS: SODIUM CHLORIDE 0.9% FLUSH 10 ML FLUSH IV FLUSH SCH (20:40)
[2017-11-14] MEDS: oxyCODONE HCL 20 MG CONTROLLED RELEASE TAB PO SCH (21:00)
[2017-11-14] MEDS ORDERED: MORPHINE SULFATE 60 MG CONTROLLED RELEASE TAB PO SCH (22:00)
[2017-11-14] MEDS: NIFEdipine 10 MG CAP PO SCH (22:35)
[2017-11-15] VITALS (7 sets, daily range): BP systolic 133–163; BP diastolic 60–70; PULSE 82–99; RESP 17–18; TEMP 98.4–99.4; O2SAT 92–95
[2017-11-15] MEDS: HYDROmorphone HCL PF 2 MG/ML VIAL IV PUSH PRN ×3 (03:21→20:12)
[2017-11-15 05:31] LABS: AUTOMATED NEUTROPHIL # 13.9 TH/MM3 (1.8-7.7); BASOPHIL # 0.1 TH/MM3 (0-0.2); BASOPHIL % 0.5 % (0.0-2.0); EOSINOPHIL # 0.2 TH/MM3 (0-0.4); EOSINOPHIL % 1.2 % (0.0-4.0); HEMOGLOBIN 8.3 GM/DL (11.6-15.3); LYMPH % 5.5 % (9.0-44.0); LYMPHOCYTE # 0.9 TH/MM3 (1.0-4.8); MEAN CELL VOLUME 89.6 FL (80.0-100.0); MEAN CORPUSCULAR HEMOGLOBIN 28.6 PG (27.0-34.0); MEAN CORPUSCULAR HGB CONC 31.9 % (32.0-36.0); MEAN PLATELET VOLUME 6.6 FL (7.0-11.0); MONO % 6.9 % (0.0-8.0); MONOCYTE # 1.1 TH/MM3 (0-0.9); NEUT % 85.9 % (16.0-70.0); PLATELET COUNT 589 TH/MM3 (150-450); RED CELL DISTRIBUTION WIDTH 14.1 % (11.6-17.2); WHITE BLOOD COUNT 16.2 TH/MM3 (4.0-11.0)
[2017-11-15 05:47] LABS: BICARBONATE 30.6 MEQ/L (21.0-32.0); CALCIUM 8.7 MG/DL (8.5-10.1); CREATININE 0.48 MG/DL (0.50-1.00)
[2017-11-15] MEDS: HEPARIN SODIUM - SQ 10,000 UNITS/ML VIAL SQ SCH ×2 (06:00→17:01)
[2017-11-15] MEDS: D5-1/2 NS + KCL 20 MEQ INJ 1,000 ML IV SCH ×2 (06:20→21:15)
[2017-11-15] MEDS: NIFEdipine 10 MG CAP PO SCH ×3 (07:22→23:03)
[2017-11-15] MEDS: DOCUSATE SODIUM 50 MG/SENNA 8.6 MG TAB PO SCH ×2 (09:00→21:00)
[2017-11-15] MEDS: MORPHINE SULFATE 30 MG CONTROLLED RELEASE TAB PO SCH ×3 (09:05→21:14)
[2017-11-15] MEDS: SODIUM CHLORIDE 0.9% FLUSH 10 ML FLUSH IV FLUSH SCH ×2 (09:06→21:15)
[2017-11-15] MEDS: oxyCODONE HCL 20 MG CONTROLLED RELEASE TAB PO SCH ×2 (10:30→21:00)
[2017-11-15] MEDS: ASPIRIN EC 81 MG TABEC PO SCH (10:31)
--- NOTE | 2017-11-15 23:06 | HHI.PR ---
Subjective Remarks Patient seen today around 4 PM. Says she is feeling all right. Denies any pain. Denies any chest pain or shortness of breath. Denies any nausea or vomiting. Objective Vital Signs Date Time Temp Pulse Resp B/P (MAP) Pulse Ox O2 Delivery O2 Flow Rate FiO2 11/15/17 20:40 98.4 88 17 148/65 (92) 93 11/15/17 16:53 99.4 99 17 133/60 (84) 92 11/15/17 15:40 98.6 94 18 154/68 (96) 92 11/15/17 11:45 98.8 99 18 151/69 (96) 94 11/15/17 11:30 18 11/15/17 10:05 18 11/15/17 07:50 98.5 82 17 163/70 (101) 95 11/15/17 04:00 98.8 94 18 156/70 (98) 95 11/15/17 00:00 99.1 98 18 158/70 (99) 95 I/O 11/15/17 11/15/17 11/15/17 11/16/17 11/16/17 11/16/17 07:00 15:00 23:00 07:00 15:00 23:00 Intake Total 300 ml 1685 ml Output Total 200 ml Balance 100 ml 1685 ml Intake Oral 300 ml 720 ml IV Total 965 ml Output Urine Total 200 ml # Voids 3 # Bowel Movements 0 Result Diagram: 11/15/17 0454 11/15/17 0454 Objective Remarks GENERAL: patient lying in bed. Appears comfortable. SKIN: Warm and dry. HEAD: Normocephalic. EYES: No scleral icterus. No injection or drainage. NECK: Supple, trachea midline. No JVD or lymphadenopathy. CARDIOVASCULAR: Regular rate and rhythm without murmurs, gallops, or rubs. RESPIRATORY: Breath sounds equal bilaterally. No accessory muscle use. GASTROINTESTINAL: Abdomen soft, non-tender, nondistended. MUSCULOSKELETAL: left ischemic foot. BACK: Nontender without obvious deformity. No CVA tenderness. A/P Assessment and Plan 67-year-old female with uterine cancer and metastasis to the lungs presented with intractable left foot pain secondary to dry gangrene. Patient sent by Vascular surgeon for pain control and eventual amputation. Patient has been on Hospice. //Ischemic left foot/gangrene: //Sepsis secondary osteomyelitis. - Vascular surgery, Dr. Pascual consulted for amputation. CT angiogram from the last Hospitalization showed occlusion of the left iliac and left infrapopliteal occlusion. - Pain control. Continue long-acting oral morphine. Scheduled Roxicodone. IV Morphine and IV Dilaudid for breakthrough pain. - Surgical plan per Vascular surgery = Plan for surgery tomorrow. Patient does have leukocytosis, tachycardia, likely os myelitis. We'll start on scheduled cefazolin perioperatively. If patient has fevers, recommend starting vancomycin and Zosyn. Expect no need for antibiotics after amputation. 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 - Patient has been on Hospice. Family planning to re enroll in Hospice upon discharge. //HTN: - Continue Procardia //gi prophylaxis: Stool softener PRN constipation. DVT PPx: Heparin Discharge Planning pending surgery. Physical therapy following. Eric Clement MD Nov 15, 2017 23:06
[2017-11-16 00:38] VITALS: BP 144/66; PULSE 99; RESP 17; TEMP 98.9; O2SAT 94
[2017-11-16] MEDS: HYDROmorphone HCL PF 2 MG/ML VIAL IV PUSH PRN ×4 (01:48→17:38)
[2017-11-16 04:39] VITALS: BP 156/67; PULSE 88; RESP 18; TEMP 98.3; O2SAT 94
--- NOTE | 2017-11-16 05:20 | PD.VS.PN ---
Pre-operative Note Pre-operative diagnosis: Ischemic L LE Planned procedure: L AKA Interval History: Pt seen during prior hospitalization by myself and Dr. Moser and offered AKA. Presented to clinic and found to have pain worse. AKA moved up to today for comfort Labs: Laboratory Results Test 11/14/17 13:55 11/15/17 04:54 11/16/17 04:30 Prothromb Time International Ratio 1.1 RATIO Mean Corpuscular Hemoglobin 28.6 PG (27.0-34.0) Mean Corpuscular Hemoglobin Concent 31.9 % (32.0-36.0) Mean Corpuscular Volume 89.6 FL (80.0-100.0) Mean Platelet Volume 6.6 FL (7.0-11.0) Red Cell Distribution Width 14.1 % (11.6-17.2) Blood: T&S Orders: NPO Post-operative destination: PACU Operative site marked: Yes Consent: Informed consent has been obtained from Lidia Nicole. I have explained the procedure in detail and discussed the risks, benefits, and potential complications. All questions have been answered. Shai Pascual MD Nov 16, 2017 05:20
[2017-11-16] MEDS: NIFEdipine 10 MG CAP PO SCH ×3 (05:21→22:22)
[2017-11-16] MEDS: MORPHINE SULFATE 30 MG CONTROLLED RELEASE TAB PO SCH ×3 (05:22→22:22)
[2017-11-16] MEDS: HEPARIN SODIUM - SQ 10,000 UNITS/ML VIAL SQ SCH ×2 (05:23→17:44)
[2017-11-16 05:33] LABS: BICARBONATE 26.4 MEQ/L (21.0-32.0); CALCIUM 8.7 MG/DL (8.5-10.1); CREATININE 0.39 MG/DL (0.50-1.00); MAGNESIUM 1.9 MG/DL (1.5-2.5); PHOSPHORUS 2.6 MG/DL (2.5-4.9)
[2017-11-16 06:04] LABS: HEMATOCRIT 25.7 % (35.0-46.0); HEMOGLOBIN 8.5 GM/DL (11.6-15.3); MEAN CELL VOLUME 89.8 FL (80.0-100.0); MEAN CORPUSCULAR HEMOGLOBIN 29.6 PG (27.0-34.0); PLATELET COUNT 550 TH/MM3 (150-450); RED BLOOD COUNT 2.86 MIL/MM3 (4.00-5.30); RED CELL DISTRIBUTION WIDTH 14.1 % (11.6-17.2); WHITE BLOOD COUNT 17.3 TH/MM3 (4.0-11.0)
[2017-11-16 08:19] VITALS: BP 133/59; PULSE 91; RESP 16; TEMP 98.7; O2SAT 94
[2017-11-16] MEDS: SODIUM CHLORIDE 0.9% FLUSH 10 ML FLUSH IV FLUSH SCH ×2 (08:19→21:00)
[2017-11-16] MEDS: ASPIRIN EC 81 MG TABEC PO SCH (08:19)
[2017-11-16] MEDS: D5-1/2 NS + KCL 20 MEQ INJ 1,000 ML IV SCH ×2 (08:19→16:19)
[2017-11-16] MEDS: oxyCODONE HCL 20 MG CONTROLLED RELEASE TAB PO SCH ×2 (08:19→21:16)
[2017-11-16] MEDS: DOCUSATE SODIUM 50 MG/SENNA 8.6 MG TAB PO SCH ×2 (08:20→21:00)
[2017-11-16 09:04] LABS: BANDS 2 % (0-6); BASOPHILS 1 % (0-2); LYMPHOCYTES 9 % (9-44); MONOCYTES 4 % (0-8); NEUTROPHIL # MANUAL DIFF 14.2 TH/MM3 (1.8-7.7); POLYS (SEG NEUTROPHILS) 80 % (16-70)
[2017-11-16] MEDS ORDERED: ceFAZolin INJ 1,000 MG VIAL ONE (10:24)
--- NOTE | 2017-11-16 11:03 | HHI.PR ---
cc: Shai Pascual MD Immediate Post Op Note Procedure Date: Nov 16, 2017 Pre Op Diagnosis: Ischemic L foot Post Op Diagnosis: Ischemic L foot Surgeon: Shai Pascual Control Tower Operator(s): none Procedure: L AKA Findings: well perfused tissue, no infection Complications: none Specimen(s) removed: leg Estimated blood loss: 30mL Anesthesia: LMA Drains: None Fluids: 300mL IVF Patient to: PACU Patient Condition: Good Date/Time of Procedure: SEE SURGICAL CARE RECORD Shai Pascual MD Nov 16, 2017 11:03
[2017-11-16] MEDS ORDERED: *MEPERIDINE 25 MG INJ VIAL PERIprocedural Use ONLY ONE (11:24)
[2017-11-16] MEDS ORDERED: *ENALAPRILAT 1.25 MG/ML VIAL PERIprocedural Use ONLY ONE (11:34)
[2017-11-16] MEDS ORDERED: *morphine SULFATE 10 MG/ML PERIprocedure ONLY ONE (11:48)
[2017-11-16] MEDS ORDERED: *LABETALOL HCL 100 MG/20 ML VIAL PERIprocedural Use ONLY ONE (11:48)
[2017-11-16] MEDS ORDERED: DEXAMETHASONE SOD PHOS 4 MG/ML VIAL IV ONE (12:00)
[2017-11-16] MEDS ORDERED: ONDANSETRON HCL 4 MG/2 ML VIAL IV ONE (12:00)
[2017-11-16] MEDS ORDERED: DO NOT ADM ANY ANTICOAGULANT DRUGS PRN (12:00)
[2017-11-16] MEDS ORDERED: LIDOCAINE HCL 1% PF 5 ML SYRINGE OTHER ONE (12:00)
[2017-11-16] MEDS ORDERED: ePHEDrine/NS 25 MG/5 ML SYRINGE IV ONE (12:00)
[2017-11-16] MEDS ORDERED: PHENYLEPH/NS 1000 MCG/10 ML SYR IV ONE (12:00)
[2017-11-16] MEDS ORDERED: PROPOFOL 200 MG/20 ML AMP IV ONE (12:00)
[2017-11-16] MEDS: HYDROmorphone HCL 2 MG TAB PO PRN ×3 (12:45→23:31)
[2017-11-16 12:58] VITALS: BP 173/76; PULSE 99; RESP 18; TEMP 98.4; O2SAT 96
--- NOTE | 2017-11-16 13:49 | EKG ---
Date Performed: 11/16/2017 Time Performed: 09:39:37 PTAGE: 67 years EKG: Baseline artifact present Sinus rhythm WITH SHORT SC INTERVAL NONSPECIFIC T-WAVE ABNORMALITY BORDERLINE ECG No significant change from prio r electrocardiogram. PREVIOUS TRACING : 10/07/2000 16.58 DOCTOR: Alek Rowe Interpretating Date/Time 11/16/2017 13:48:06
--- NOTE | 2017-11-16 15:34 | HHI.PR ---
Subjective Remarks Patient laying in bed, he is in pain postop left AKA Discussed with the family Objective Vitals Vital Signs Date Time Temp Pulse Resp B/P (MAP) Pulse Ox O2 Delivery O2 Flow Rate FiO2 11/16/17 12:58 98.4 99 18 173/76 (108) 96 11/16/17 12:05 99.7 95 16 152/75 (100) 97 Nasal Cannula 2 11/16/17 12:00 100 14 166/73 (104) 97 Nasal Cannula 2 11/16/17 11:45 109 15 179/82 (114) 97 Nasal Cannula 2 11/16/17 11:30 105 16 180/81 (114) 97 Nasal Cannula 2 11/16/17 11:20 99.7 101 18 174/79 (110) 96 Nasal Cannula 2 11/16/17 08:19 98.7 91 16 133/59 (83) 94 11/16/17 04:39 98.3 88 18 156/67 (96) 94 11/16/17 00:38 98.9 99 17 144/66 (92) 94 11/15/17 20:40 98.4 88 17 148/65 (92) 93 11/15/17 16:53 99.4 99 17 133/60 (84) 92 11/15/17 15:40 98.6 94 18 154/68 (96) 92 I/O 11/15/17 11/15/17 11/15/17 11/16/17 11/16/17 11/16/17 07:00 15:00 23:00 07:00 15:00 23:00 Intake Total 300 ml 1685 ml 700 ml Output Total 200 ml 1035 ml Balance 100 ml 1685 ml -335 ml Intake Oral 300 ml 720 ml IV Total 965 ml 100 ml Other 600 ml Output Urine Total 200 ml Estimated Blood Loss 35 ml Other 1000 ml # Voids 3 4 1 # Bowel Movements 0 1 Result Diagram: 11/16/170 11/16/17 043 Objective Remarks - GENERAL: This is a well-nourished, well-developed patient, in pain postop AKA SKIN: No rashes, warm and dry HEAD: Atraumatic. Normocephalic. EYES: Pupils equal round and reactive. Extraocular motions intact. No scleral icterus. ENT: Nose without bleeding, or drainage, Airway patent. NECK: Trachea midline. Supple CARDIOVASCULAR: Regular rate and rhythm without murmurs, gallops, or rubs. RESPIRATORY: Fair air entry bilaterally. No wheezes, rales, or rhonchi. GASTROINTESTINAL: Abdomen soft, non-tender, nondistended. Positive bowel sounds MUSCULOSKELETAL: Left AKA stump in gauze NEUROLOGICAL: Awake and alert. Moves all extremity. Normal speech.no focal neurological deficit A/P Assessment and Plan 11/16: s/p AKA , continue postop care , [facility] , dc abx if ok with [facility] A/P 67-year-old female with uterine cancer and metastasis to the lungs presented with intractable left foot pain secondary to dry gangrene. Patient sent by Vascular surgeon for pain control and eventual amputation. Patient has been on Hospice. //Ischemic left foot/gangrene: //Sepsis secondary osteomyelitis. - Vascular surgery, Dr. Pascual consulted for amputation. CT angiogram from the last Hospitalization showed occlusion of the left iliac and left infrapopliteal occlusion. - Pain control. Continue long-acting oral morphine. Scheduled Roxicodone. IV Morphine and IV Dilaudid for breakthrough pain. - Surgical plan per Vascular surgery = s/p sx AKA. Patient does have leukocytosis, tachycardia, likely os myelitis. scheduled cefazolin perioperatively. 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 - Patient has been on Hospice. Family planning to re enroll in Hospice upon discharge. //HTN: - Continue Procardia //gi prophylaxis: Stool softener PRN constipation. DVT PPx: Heparin Teagan Mckeon MD Nov 16, 2017 15:34
[2017-11-16 16:00] VITALS: BP 147/67; PULSE 116; RESP 16; TEMP 97.4; O2SAT 98
[2017-11-16 20:00] VITALS: BP_SYST 172; BP_SYST 73; BP_DIAS 73; PULSE 115; RESP 18; TEMP 99.4; O2SAT 97
[2017-11-17] VITALS: BP 160/58; PULSE 112; RESP 18; TEMP 98.9; O2SAT 97
[2017-11-17] MEDS: HYDROmorphone HCL PF 2 MG/ML VIAL IV PUSH PRN ×5 (00:49→17:02)
[2017-11-17] MEDS: HYDROmorphone HCL 2 MG TAB PO PRN ×5 (03:31→23:31)
[2017-11-17 04:00] VITALS: BP 162/68; PULSE 125; RESP 18; TEMP 98.7; O2SAT 98
[2017-11-17] MEDS: D5-1/2 NS + KCL 20 MEQ INJ 1,000 ML IV SCH ×2 (05:44→21:16)
[2017-11-17] MEDS: HEPARIN SODIUM - SQ 10,000 UNITS/ML VIAL SQ SCH ×2 (06:47→17:02)
[2017-11-17] MEDS: NIFEdipine 10 MG CAP PO SCH ×3 (06:47→22:24)
[2017-11-17] MEDS: MORPHINE SULFATE 30 MG CONTROLLED RELEASE TAB PO SCH ×3 (06:47→22:24)
[2017-11-17] MEDS: ASPIRIN EC 81 MG TABEC PO SCH (07:55)
[2017-11-17] MEDS: DOCUSATE SODIUM 50 MG/SENNA 8.6 MG TAB PO SCH ×2 (07:55→21:17)
[2017-11-17] MEDS: SODIUM CHLORIDE 0.9% FLUSH 10 ML FLUSH IV FLUSH SCH ×2 (07:57→21:00)
[2017-11-17 08:00] VITALS: BP 137/61; PULSE 122; RESP 20; TEMP 99.2; O2SAT 97
[2017-11-17] MEDS: oxyCODONE HCL 20 MG CONTROLLED RELEASE TAB PO SCH ×2 (08:09→21:17)
[2017-11-17 11:23] VITALS: BP 166/71; PULSE 122; RESP 20; TEMP 99.1; O2SAT 97
--- NOTE | 2017-11-17 14:14 | HHI.PR ---
Subjective Remarks Vision eating lunch, he stated his pain is less today, afebrile, blood pressure reaching systolic 160 Objective Vitals Vital Signs Date Time Temp Pulse Resp B/P (MAP) Pulse Ox O2 Delivery O2 Flow Rate FiO2 11/17/17 11:23 99.1 122 20 166/71 (102) 97 11/17/17 09:28 20 11/17/17 08:00 99.2 122 20 137/61 (86) 97 11/17/17 04:00 98.7 125 18 162/68 (99) 98 11/17/17 00:00 98.9 112 18 160/58 (92) 97 11/16/17 20:00 99.4 115 18 172/73 (106) 97 11/16/17 16:00 97.4 116 16 147/67 (93) 98 I/O 11/16/17 11/16/17 11/16/17 11/17/17 11/17/17 11/17/17 07:00 15:00 23:00 07:00 15:00 23:00 Intake Total 700 ml Output Total 1035 ml Balance -335 ml IV Total 100 ml Other 600 ml Estimated Blood Loss 35 ml Other 1000 ml # Voids 4 1 1 8 # Bowel Movements 1 1 Result Diagram: 11/16/17 04311/16/17 043 Objective Remarks - GENERAL: This is a well-nourished, well-developed patient, in pain postop AKA SKIN: No rashes, warm and dry HEAD: Atraumatic. Normocephalic. EYES: Pupils equal round and reactive. Extraocular motions intact. No scleral icterus. ENT: Nose without bleeding, or drainage, Airway patent. NECK: Trachea midline. Supple CARDIOVASCULAR: Regular rate and rhythm without murmurs, gallops, or rubs. RESPIRATORY: Fair air entry bilaterally. No wheezes, rales, or rhonchi. GASTROINTESTINAL: Abdomen soft, non-tender, nondistended. Positive bowel sounds MUSCULOSKELETAL: Left AKA stump in gauze NEUROLOGICAL: Awake and alert. Moves all extremity. Normal speech.no focal neurological deficit A/P Assessment and Plan 11/16: s/p AKA , continue postop care , [facility] , dc abx if ok with [facility] 11/17: Status post AKA, pain is much less today, continue postop care, antibiotic mostly 7 days postop as per [facility] recommendation she is on cefazolin Hypertension still uncontrolled on Procardia, with tachycardia I will add low dose Lopressor and cover with Vasotec as needed and monitor blood pressure A/P 67-year-old female with uterine cancer and metastasis to the lungs presented with intractable left foot pain secondary to dry gangrene. Patient sent by Vascular surgeon for pain control and eventual amputation. Patient has been on Hospice. //Ischemic left foot/gangrene: //Sepsis secondary osteomyelitis. - Vascular surgery, Dr. Pascual consulted for amputation. CT angiogram from the last Hospitalization showed occlusion of the left iliac and left infrapopliteal occlusion. - Pain control. Continue long-acting oral morphine. Scheduled Roxicodone. IV Morphine and IV Dilaudid for breakthrough pain. - Surgical plan per Vascular surgery s/p sx AKA. Patient does have leukocytosis, tachycardia, likely os myelitis. scheduled cefazolin perioperatively. 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 - Patient has been on Hospice. Family planning to re enroll in Hospice upon discharge. //HTN: Still uncontrolled with tachycardia - Continue Procardia Add Lopressor 25 twice a day, add clonidine when necessary //gi prophylaxis: Stool softener PRN constipation. DVT PPx: Heparin Discharge Planning When clear by [facility] Teagan Mckeon MD Nov 17, 2017 14:14
[2017-11-17 15:53] VITALS: BP 171/76; PULSE 120; RESP 20; TEMP 99.6; O2SAT 97
--- NOTE | 2017-11-17 16:09 | MP ---
cc: SHAI PASCUAL MD DATE OF SURGERY 11/16/2017 PREOPERATIVE DIAGNOSIS Ischemic left foot POSTOPERATIVE DIAGNOSIS Ischemic left foot PROCEDURE PERFORMED Left above-knee amputation ATTENDING SURGEON Shai Pascual MD ANESTHESIA General INDICATIONS This is a 67 year-old lady with metastatic cancer and a thromboembolic event to her foot. Her foot is nonsalvageable and the pain has been intolerable. She is offered an above-knee amputation. DESCRIPTION OF PROCEDURE Informed consent was obtained from the patient. She was taken to the operating room, placed supine on the operating room table and an appropriate time out was taken to ensure the patient's identity, operative site and planned procedure. The administration of a gram of Ancef was initiated prior to the skin incision and will be discontinued after a single preoperative dose. Everyone in the room agreed with the time out and we proceeded. Her left leg was prepped and draped. An incision was made above the knee, carried down through the subcutaneous tissue with electrocautery. The muscles were divided with electrocautery. The bone was divided with an oscillating saw and the femoral artery and vein were clamped with hemostats, transected and proximal end was oversewn with a silk suture. The posterior muscle and skin was divided. The specimen was passed off the table. The wound was irrigated and closed with 2-0 Polysorb and skin kishan. Sponge and needle counts were correct at the end of the case. I was present and scrubbed and performed the entire procedure. Shai Pascual MD RJF/DJL /11:11 AM /4:05 PM
[2017-11-17 20:00] VITALS: BP 174/75; PULSE 105; RESP 18; TEMP 98.9; O2SAT 97
[2017-11-17] MEDS ORDERED: ENALAPRILAT 1.25 MG/ML VIAL IV PUSH PRN (20:30)
[2017-11-17] MEDS: METOPROLOL TARTRATE 25 MG TAB PO SCH (21:17)
[2017-11-18] VITALS: BP 160/75; PULSE 87; RESP 18; TEMP 98; O2SAT 97
[2017-11-18] MEDS: HYDROmorphone HCL PF 2 MG/ML VIAL IV PUSH PRN ×5 (00:49→18:51)
[2017-11-18] MEDS: HYDROmorphone HCL 2 MG TAB PO PRN ×4 (03:22→22:37)
[2017-11-18 04:00] VITALS: BP 183/79; PULSE 100; RESP 18; TEMP 98; O2SAT 95
[2017-11-18] MEDS: HEPARIN SODIUM - SQ 10,000 UNITS/ML VIAL SQ SCH ×2 (06:00→17:19)
[2017-11-18] MEDS: NIFEdipine 10 MG CAP PO SCH ×3 (06:03→22:35)
[2017-11-18] MEDS: MORPHINE SULFATE 30 MG CONTROLLED RELEASE TAB PO SCH ×3 (06:03→22:36)
[2017-11-18 08:00] VITALS: BP 141/65; PULSE 76; RESP 18; TEMP 98.5; O2SAT 94
[2017-11-18] MEDS: oxyCODONE HCL 20 MG CONTROLLED RELEASE TAB PO SCH ×2 (08:01→20:30)
[2017-11-18] MEDS: DOCUSATE SODIUM 50 MG/SENNA 8.6 MG TAB PO SCH ×2 (08:02→20:29)
[2017-11-18] MEDS: METOPROLOL TARTRATE 25 MG TAB PO SCH (08:02)
[2017-11-18] MEDS: ASPIRIN EC 81 MG TABEC PO SCH (08:02)
[2017-11-18] MEDS: SODIUM CHLORIDE 0.9% FLUSH 10 ML FLUSH IV FLUSH SCH ×2 (08:02→20:31)
[2017-11-18 12:00] VITALS: BP 182/76; PULSE 86; RESP 18; TEMP 98.3; O2SAT 95
[2017-11-18 13:12] LABS: AUTOMATED NEUTROPHIL # 15.3 TH/MM3 (1.8-7.7); BASOPHIL # 0.1 TH/MM3 (0-0.2); BASOPHIL % 0.5 % (0.0-2.0); EOSINOPHIL # 0.1 TH/MM3 (0-0.4); EOSINOPHIL % 0.3 % (0.0-4.0); HEMATOCRIT 23.4 % (35.0-46.0); HEMOGLOBIN 7.6 GM/DL (11.6-15.3); LYMPH % 5.3 % (9.0-44.0); LYMPHOCYTE # 0.9 TH/MM3 (1.0-4.8); MEAN CELL VOLUME 89.4 FL (80.0-100.0); MEAN CORPUSCULAR HEMOGLOBIN 28.9 PG (27.0-34.0); MEAN CORPUSCULAR HGB CONC 32.3 % (32.0-36.0); MEAN PLATELET VOLUME 6.7 FL (7.0-11.0); MONO % 5.3 % (0.0-8.0); MONOCYTE # 0.9 TH/MM3 (0-0.9); NEUT % 88.6 % (16.0-70.0); PLATELET COUNT 691 TH/MM3 (150-450); RED BLOOD COUNT 2.61 MIL/MM3 (4.00-5.30); RED CELL DISTRIBUTION WIDTH 14.3 % (11.6-17.2); WHITE BLOOD COUNT 17.3 TH/MM3 (4.0-11.0)
[2017-11-18] MEDS: D5-1/2 NS + KCL 20 MEQ INJ 1,000 ML IV SCH ×2 (13:18→23:26)
--- NOTE | 2017-11-18 18:06 | HHI.PR ---
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 Afebrile, continue dressing changes per [facility] Objective Vitals Vital Signs Date Time Temp Pulse Resp B/P (MAP) Pulse Ox O2 Delivery O2 Flow Rate FiO2 11/18/17 12:00 98.3 86 18 182/76 (111) 95 11/18/17 08:00 98.5 76 18 141/65 (90) 94 11/18/17 04:00 98.0 100 18 183/79 (113) 95 11/18/17 00:00 98.0 87 18 160/75 (103) 97 11/17/17 20:00 98.9 105 18 174/75 (108) 97 I/O 11/17/17 11/17/17 11/17/17 11/18/17 11/18/17 11/18/17 07:00 15:00 23:00 07:00 15:00 23:00 Intake Total 600 ml 100 ml Balance 600 ml 100 ml Intake Oral 600 ml IV Total 100 ml # Voids 8 4 6 # Bowel Movements 0 4 1 Result Diagram: 11/18/17 1212 11/16/17 0430 Objective Remarks - GENERAL: This is a well-nourished, well-developed patient, in pain postop AKA SKIN: No rashes, warm and dry HEAD: Atraumatic. Normocephalic. EYES: Pupils equal round and reactive. Extraocular motions intact. No scleral icterus. ENT: Nose without bleeding, or drainage, Airway patent. NECK: Trachea midline. Supple CARDIOVASCULAR: Regular rate and rhythm without murmurs, gallops, or rubs. RESPIRATORY: Fair air entry bilaterally. No wheezes, rales, or rhonchi. GASTROINTESTINAL: Abdomen soft, non-tender, nondistended. Positive bowel sounds MUSCULOSKELETAL: Left AKA stump in gauze NEUROLOGICAL: Awake and alert. Moves all extremity. Normal speech.no focal neurological deficit A/P Assessment and Plan 11/16: s/p AKA , continue postop care , cvs ff , dc abx if ok with [facility]vs 22: Status post AKA, pain is much less today, continue postop care, antibiotic mostly 7 days postop as per [facility] recommendation she is on cefazolin Hypertension still uncontrolled on Procardia, with tachycardia I will add low dose Lopressor and cover with Vasotec as needed and monitor blood pressure 2/3: Doing well still post AKA, continue pain management and wound dressing changes, uncontrolled hypertension increase Lopressor and monitor A/P 67-year-old female with uterine cancer and metastasis to the lungs presented with intractable left foot pain secondary to dry gangrene. Patient sent by Vascular surgeon for pain control and eventual amputation. Patient has been on Hospice. //Ischemic left foot/gangrene: //Sepsis secondary osteomyelitis. - Vascular surgery, Dr. Pascual consulted for amputation. CT angiogram from the last Hospitalization showed occlusion of the left iliac and left infrapopliteal occlusion. - Pain control. Continue long-acting oral morphine. Scheduled Roxicodone. IV Morphine and IV Dilaudid for breakthrough pain. - Surgical plan per Vascular surgery s/p sx AKA. Patient does have leukocytosis, tachycardia, likely os myelitis. scheduled cefazolin perioperatively. 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 - Patient has been on Hospice. Family planning to re enroll in Hospice upon discharge. //HTN: Still uncontrolled with tachycardia - Continue Procardia Add Lopressor 25 twice a day, add clonidine when necessary //gi prophylaxis: Stool softener PRN constipation. DVT PPx: Heparin Discharge Planning When clear by [facility] Teagan Mckeon MD Nov 18, 2017 18:06
[2017-11-18] MEDS: METOPROLOL TARTRATE 50 MG TAB PO SCH (20:30)
[2017-11-18 20:31] VITALS: BP 177/79; PULSE 97; RESP 18; TEMP 99.1; O2SAT 95
[2017-11-19] MEDS: HYDROmorphone HCL PF 2 MG/ML VIAL IV PUSH PRN ×5 (00:23→19:38)
[2017-11-19 00:32] VITALS: BP 144/65; PULSE 87; RESP 18; TEMP 97.3; O2SAT 96
[2017-11-19 04:50] VITALS: BP 167/73; PULSE 84; RESP 18; TEMP 98.7; O2SAT 91
[2017-11-19] MEDS: HEPARIN SODIUM - SQ 10,000 UNITS/ML VIAL SQ SCH ×2 (06:00→16:48)
[2017-11-19] MEDS: MORPHINE SULFATE 30 MG CONTROLLED RELEASE TAB PO SCH ×3 (06:37→22:44)
[2017-11-19] MEDS: NIFEdipine 10 MG CAP PO SCH ×3 (06:37→22:43)
[2017-11-19] MEDS: HYDROmorphone HCL 2 MG TAB PO PRN ×5 (06:38→23:35)
[2017-11-19] MEDS: oxyCODONE HCL 20 MG CONTROLLED RELEASE TAB PO SCH ×2 (08:07→21:46)
[2017-11-19] MEDS: DOCUSATE SODIUM 50 MG/SENNA 8.6 MG TAB PO SCH ×2 (09:00→21:46)
[2017-11-19 09:13] VITALS: BP 169/75; PULSE 116; RESP 16; TEMP 98.1; O2SAT 97
[2017-11-19] MEDS ORDERED: HYDROmorphone HCL PF 2 MG/ML VIAL IV PUSH ONE (09:15)
[2017-11-19] MEDS: METOPROLOL TARTRATE 50 MG TAB PO SCH ×2 (09:23→21:46)
[2017-11-19] MEDS: SODIUM CHLORIDE 0.9% FLUSH 10 ML FLUSH IV FLUSH SCH ×2 (09:23→21:47)
[2017-11-19] MEDS: ASPIRIN EC 81 MG TABEC PO SCH (09:24)
[2017-11-19 11:09] LABS: AUTOMATED NEUTROPHIL # 21.2 TH/MM3 (1.8-7.7); BASOPHIL # 0.1 TH/MM3 (0-0.2); BASOPHIL % 0.3 % (0.0-2.0); HEMATOCRIT 27.6 % (35.0-46.0); HEMOGLOBIN 8.7 GM/DL (11.6-15.3); LYMPH % 1.4 % (9.0-44.0); LYMPHOCYTE # 0.3 TH/MM3 (1.0-4.8); MEAN CELL VOLUME 88.7 FL (80.0-100.0); MEAN CORPUSCULAR HGB CONC 31.5 % (32.0-36.0); MEAN PLATELET VOLUME 6.5 FL (7.0-11.0); MONO % 2.9 % (0.0-8.0); MONOCYTE # 0.6 TH/MM3 (0-0.9); NEUT % 95.4 % (16.0-70.0); PLATELET COUNT 829 TH/MM3 (150-450); RED BLOOD COUNT 3.11 MIL/MM3 (4.00-5.30); RED CELL DISTRIBUTION WIDTH 14.2 % (11.6-17.2); WHITE BLOOD COUNT 22.2 TH/MM3 (4.0-11.0)
[2017-11-19 11:26] LABS: BICARBONATE 28.5 MEQ/L (21.0-32.0); CALCIUM 8.5 MG/DL (8.5-10.1); CREATININE 0.58 MG/DL (0.50-1.00)
--- NOTE | 2017-11-19 12:04 | HHI.PR ---
Subjective Remarks D/W was at the bedside him and the patient not happy about not receiving any pain medication overnight I discussed the issue with the charge nurse she will address it I gave the patient extra dose of Dilaudid today her pain is much better Objective Vitals Vital Signs Date Time Temp Pulse Resp B/P (MAP) Pulse Ox O2 Delivery O2 Flow Rate FiO2 11/19/17 09:13 98.1 116 16 169/75 (106) 97 11/19/17 04:50 98.7 84 18 167/73 (104) 91 11/19/17 00:32 97.3 87 18 144/65 (91) 96 11/18/17 20:31 99.1 97 18 177/79 (111) 95 I/O 11/18/17 11/18/17 11/18/17 11/19/17 11/19/17 11/19/17 07:00 15:00 23:00 07:00 15:00 23:00 Intake Total 100 ml Balance 100 ml IV Total 100 ml # Voids 6 # Bowel Movements 4 1 Result Diagram: 11/19/17 1022 11/19/17 1022 Objective Remarks - GENERAL: This is a well-nourished, well-developed patient, in pain postop AKA SKIN: No rashes, warm and dry HEAD: Atraumatic. Normocephalic. EYES: Pupils equal round and reactive. Extraocular motions intact. No scleral icterus. ENT: Nose without bleeding, or drainage, Airway patent. NECK: Trachea midline. Supple CARDIOVASCULAR: Regular rate and rhythm without murmurs, gallops, or rubs. RESPIRATORY: Fair air entry bilaterally. No wheezes, rales, or rhonchi. GASTROINTESTINAL: Abdomen soft, non-tender, nondistended. Positive bowel sounds MUSCULOSKELETAL: Left AKA stump in gauze NEUROLOGICAL: Awake and alert. Moves all extremity. Normal speech.no focal neurological deficit A/P Assessment and Plan 2/: s/p AKA , continue postop care , cvs ff , dc abx if ok with cvs 2/2: Status post AKA, pain is much less today, continue postop care, antibiotic mostly 7 days postop as per [facility] recommendation she is on cefazolin Hypertension still uncontrolled on Procardia, with tachycardia I will add low dose Lopressor and cover with Vasotec as needed and monitor blood pressure 2/3: Doing well still post AKA, continue pain management and wound dressing changes, uncontrolled hypertension increase Lopressor and monitor 2/4: Continue pain management,D/W patient and her and charge nurse, follow with [facility] A/P 67-year-old female with uterine cancer and metastasis to the lungs presented with intractable left foot pain secondary to dry gangrene. Patient sent by Vascular surgeon for pain control and eventual amputation. Patient has been on Hospice. //Ischemic left foot/gangrene: //Sepsis secondary osteomyelitis. - Vascular surgery, Dr. Pascual consulted for amputation. CT angiogram from the last Hospitalization showed occlusion of the left iliac and left infrapopliteal occlusion. - Pain control. Continue long-acting oral morphine. Scheduled Roxicodone. IV Morphine and IV Dilaudid for breakthrough pain. - Surgical plan per Vascular surgery s/p sx AKA. Patient does have leukocytosis, tachycardia, likely os myelitis. scheduled cefazolin perioperatively. 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 - Patient has been on Hospice. Family planning to re enroll in Hospice upon discharge. //HTN: Still uncontrolled with tachycardia - Continue Procardia Add Lopressor 25 twice a day, add clonidine when necessary //gi prophylaxis: Stool softener PRN constipation. DVT PPx: Heparin Discharge Planning When clear by Teagan Roberts MD Nov 19, 2017 12:04
[2017-11-19 12:42] VITALS: BP 165/72; PULSE 77; RESP 20; TEMP 98.5; O2SAT 94
[2017-11-19] MEDS: D5-1/2 NS + KCL 20 MEQ INJ 1,000 ML IV SCH (16:47)
[2017-11-19 20:47] VITALS: BP 179/75; PULSE 95; RESP 18; TEMP 97.6; O2SAT 95
[2017-11-20 00:45] VITALS: BP 136/63; PULSE 82; RESP 18; TEMP 97.2; O2SAT 96
[2017-11-20] MEDS: HYDROmorphone HCL PF 2 MG/ML VIAL IV PUSH PRN ×5 (00:48→19:49)
[2017-11-20] MEDS: D5-1/2 NS + KCL 20 MEQ INJ 1,000 ML IV SCH ×2 (00:53→17:20)
[2017-11-20] MEDS: HYDROmorphone HCL 2 MG TAB PO PRN ×5 (03:22→23:13)
[2017-11-20 04:46] VITALS: BP 175/73; PULSE 80; RESP 18; TEMP 98.2; O2SAT 95
[2017-11-20] MEDS: NIFEdipine 10 MG CAP PO SCH ×3 (06:02→22:10)
[2017-11-20] MEDS: MORPHINE SULFATE 30 MG CONTROLLED RELEASE TAB PO SCH ×3 (06:04→22:10)
[2017-11-20] MEDS: HEPARIN SODIUM - SQ 10,000 UNITS/ML VIAL SQ SCH ×2 (06:22→17:16)
[2017-11-20] MEDS: METOPROLOL TARTRATE 50 MG TAB PO SCH ×2 (08:09→21:08)
[2017-11-20] MEDS: DOCUSATE SODIUM 50 MG/SENNA 8.6 MG TAB PO SCH ×2 (08:09→21:08)
[2017-11-20] MEDS: ASPIRIN EC 81 MG TABEC PO SCH (08:10)
[2017-11-20] MEDS: oxyCODONE HCL 20 MG CONTROLLED RELEASE TAB PO SCH ×2 (08:11→21:08)
[2017-11-20] MEDS: SODIUM CHLORIDE 0.9% FLUSH 10 ML FLUSH IV FLUSH SCH ×2 (08:11→21:00)
--- NOTE | 2017-11-20 10:30 | PD.VS.PN ---
Subjective POD #: 4 Procedure(s): LEFT AKA Subjective/Hospital Course Pt sitting up in bed eating breakfast Pt c/o phantom pain episodes that is relieved with pain medications Pain controlled Dressing to L AKA I/C/D Objective Vitals/I&O Date Time Temp Pulse Resp B/P (MAP) Pulse Ox O2 Delivery O2 Flow Rate FiO2 11/20/17 04:46 98.2 80 18 175/73 (107) 95 11/20/17 00:45 97.2 82 18 136/63 (87) 96 11/19/17 20:47 97.6 95 18 179/75 (109) 95 11/19/17 14:33 16 11/19/17 12:42 98.5 77 20 165/72 (103) 94 Exam: GENERAL:Afebrile 67/F A&OX3, NAD, GCS15 SKIN: Warm and dry. L AKA site intact with staple closure, erythema present shanon wound, No drainage , odor or swelling present HEAD: Normocephalic. EYES: No scleral icterus. No injection or drainage. NECK: Supple, trachea midline. No JVD or lymphadenopathy. MUSCULOSKELETAL: No cyanosis, or edema. Assessment and Plan Assessment: (1) Status post above knee amputation of left lower extremity (2) Ischemic pain of left foot Plan Pt s/p LEFT AKA POD 4 Pt doing well with increased activity per pt and FM Removed post operative dressing incision intact and well approximated Plan May apply a dry dressing to L AKA daily if drainage present, otherwise ok to leave open to air Will arrange post op follow up in a few weeks in our out pt clinic Continue PT Continue pain control Colleen Palma NP [facility] [phone] Discharge Planning Clear for D/C from a vascular stand point Arranged OP F/U in a few weeks Colleen Palma Nov 20, 2017 10:30
[2017-11-20 11:47] LABS: AUTOMATED NEUTROPHIL # 20.8 TH/MM3 (1.8-7.7); BASOPHIL % 0.2 % (0.0-2.0); EOSINOPHIL % 0.1 % (0.0-4.0); HEMOGLOBIN 7.8 GM/DL (11.6-15.3); LYMPH % 3.7 % (9.0-44.0); LYMPHOCYTE # 0.8 TH/MM3 (1.0-4.8); MEAN CELL VOLUME 88.7 FL (80.0-100.0); MEAN CORPUSCULAR HEMOGLOBIN 28.8 PG (27.0-34.0); MEAN CORPUSCULAR HGB CONC 32.5 % (32.0-36.0); MEAN PLATELET VOLUME 6.4 FL (7.0-11.0); MONO % 5.3 % (0.0-8.0); MONOCYTE # 1.2 TH/MM3 (0-0.9); NEUT % 90.7 % (16.0-70.0); PLATELET COUNT 632 TH/MM3 (150-450); RED BLOOD COUNT 2.71 MIL/MM3 (4.00-5.30); RED CELL DISTRIBUTION WIDTH 14.3 % (11.6-17.2)
[2017-11-20 12:00] VITALS: BP 172/70; PULSE 79; RESP 18; TEMP 98.9; O2SAT 92
--- NOTE | 2017-11-20 15:50 | HHI.PR ---
Subjective Remarks Patient seen and examined with the family and the son at the bedside, she denied acute complain besides the pain however white blood count increasing it has to 2.2 today, patient does not have any fever no cough no chest pain, no burning with urination, she is on ceftezole and for her ischemic wound which is post amputation Objective Vitals Vital Signs Date Time Temp Pulse Resp B/P (MAP) Pulse Ox O2 Delivery O2 Flow Rate FiO2 11/20/17 12:00 98.9 79 18 172/70 (104) 92 11/20/17 04:46 98.2 80 18 175/73 (107) 95 11/20/17 00:45 97.2 82 18 136/63 (87) 96 11/19/17 20:47 97.6 95 18 179/75 (109) 95 I/O 11/19/17 11/19/17 11/19/17 11/20/17 11/20/17 11/20/17 07:00 15:00 23:00 07:00 15:00 23:00 Intake Total 100 ml Balance 100 ml IV Total 100 ml Result Diagram: 11/20/17 1125 11/19/17 1022 Objective Remarks - GENERAL: This is a well-nourished, well-developed patient, in pain postop AKA SKIN: No rashes, warm and dry HEAD: Atraumatic. Normocephalic. EYES: Pupils equal round and reactive. Extraocular motions intact. No scleral icterus. ENT: Nose without bleeding, or drainage, Airway patent. NECK: Trachea midline. Supple CARDIOVASCULAR: Regular rate and rhythm without murmurs, gallops, or rubs. RESPIRATORY: Fair air entry bilaterally. No wheezes, rales, or rhonchi. GASTROINTESTINAL: Abdomen soft, non-tender, nondistended. Positive bowel sounds MUSCULOSKELETAL: Left AKA stump in gauze NEUROLOGICAL: Awake and alert. Moves all extremity. Normal speech.no focal neurological deficit A/P Assessment and Plan 11/16: s/p AKA , continue postop care , cvs ff , dc abx if ok with cvs 2: Status post AKA, pain is much less today, continue postop care, antibiotic mostly 7 days postop as per [facility] recommendation she is on cefazolin Hypertension still uncontrolled on Procardia, with tachycardia I will add low dose Lopressor and cover with Vasotec as needed and monitor blood pressure 2/3: Doing well still post AKA, continue pain management and wound dressing changes, uncontrolled hypertension increase Lopressor and monitor 2/4: Continue pain management,D/W patient and her and charge nurse, follow with [facility] 25: Unexplained worsening leukocytosis, unlikely reactive now about 4 days post surgery, will do full workup including blood culture, UA and chest x-ray, will consider ID consult A/P 67-year-old female with uterine cancer and metastasis to the lungs presented with intractable left foot pain secondary to dry gangrene. Patient sent by Vascular surgeon for pain control and eventual amputation. Patient has been on Hospice. //Ischemic left foot/gangrene: //Sepsis secondary osteomyelitis. - Vascular surgery, Dr. Pascual consulted for amputation. CT angiogram from the last Hospitalization showed occlusion of the left iliac and left infrapopliteal occlusion. - Pain control. Continue long-acting oral morphine. Scheduled Roxicodone. IV Morphine and IV Dilaudid for breakthrough pain. - Surgical plan per Vascular surgery s/p sx AKA. Patient does have leukocytosis, tachycardia, likely os myelitis. scheduled cefazolin perioperatively. 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 - Patient has been on Hospice. Family planning to re enroll in Hospice upon discharge. //HTN: Still uncontrolled with tachycardia - Continue Procardia Add Lopressor 25 twice a day, add clonidine when necessary //gi prophylaxis: Stool softener PRN constipation. DVT PPx: Heparin Discharge Planning even though patient cleared by vascular surgery but due to worsening leukocytosis she still not ready for discharge Teagan Mckeon MD Nov 20, 2017 15:50
[2017-11-20 16:21] VITALS: BP 145/61; PULSE 111; RESP 18; TEMP 99.2; O2SAT 94
[2017-11-20 20:00] VITALS: BP_SYST 148; BP_SYST 192; BP_DIAS 66; BP_DIAS 80; PULSE 118; RESP 18; RESP 19; TEMP 99.5; O2SAT 95
[2017-11-21] VITALS: BP 158/69; PULSE 89; RESP 18; TEMP 99.6; O2SAT 95
[2017-11-21] MEDS: HYDROmorphone HCL PF 2 MG/ML VIAL IV PUSH PRN ×5 (00:22→20:01)
[2017-11-21] MEDS: HYDROmorphone HCL 2 MG TAB PO PRN ×5 (03:20→23:36)
[2017-11-21 04:00] VITALS: BP 169/73; PULSE 88; RESP 18; TEMP 99.1; O2SAT 95
[2017-11-21] MEDS: HEPARIN SODIUM - SQ 10,000 UNITS/ML VIAL SQ SCH ×2 (06:00→17:54)
[2017-11-21] MEDS: D5-1/2 NS + KCL 20 MEQ INJ 1,000 ML IV SCH ×2 (06:39→22:16)
[2017-11-21] MEDS: MORPHINE SULFATE 30 MG CONTROLLED RELEASE TAB PO SCH ×3 (06:40→22:17)
[2017-11-21] MEDS: NIFEdipine 10 MG CAP PO SCH ×3 (06:40→21:24)
[2017-11-21 07:58] LABS: AUTOMATED NEUTROPHIL # 25.3 TH/MM3 (1.8-7.7); BASOPHIL # 0.1 TH/MM3 (0-0.2); BASOPHIL % 0.4 % (0.0-2.0); EOSINOPHIL # 0.1 TH/MM3 (0-0.4); EOSINOPHIL % 0.2 % (0.0-4.0); HEMATOCRIT 25.6 % (35.0-46.0); HEMOGLOBIN 8.4 GM/DL (11.6-15.3); LYMPH % 3.4 % (9.0-44.0); LYMPHOCYTE # 0.9 TH/MM3 (1.0-4.8); MEAN CELL VOLUME 88.7 FL (80.0-100.0); MEAN CORPUSCULAR HEMOGLOBIN 29.1 PG (27.0-34.0); MEAN CORPUSCULAR HGB CONC 32.8 % (32.0-36.0); MONO % 5.1 % (0.0-8.0); MONOCYTE # 1.4 TH/MM3 (0-0.9); NEUT % 90.9 % (16.0-70.0); PLATELET COUNT 738 TH/MM3 (150-450); RED BLOOD COUNT 2.89 MIL/MM3 (4.00-5.30); RED CELL DISTRIBUTION WIDTH 14.2 % (11.6-17.2); WHITE BLOOD COUNT 27.8 TH/MM3 (4.0-11.0)
[2017-11-21] MEDS: ASPIRIN EC 81 MG TABEC PO SCH (08:21)
[2017-11-21] MEDS: DOCUSATE SODIUM 50 MG/SENNA 8.6 MG TAB PO SCH ×2 (08:21→21:00)
[2017-11-21] MEDS: oxyCODONE HCL 20 MG CONTROLLED RELEASE TAB PO SCH ×2 (08:22→21:24)
[2017-11-21] MEDS: METOPROLOL TARTRATE 50 MG TAB PO SCH ×2 (08:22→21:24)
[2017-11-21] MEDS: SODIUM CHLORIDE 0.9% FLUSH 10 ML FLUSH IV FLUSH SCH ×2 (08:22→21:00)
[2017-11-21 08:38] VITALS: BP 135/59; PULSE 113; RESP 20; TEMP 99.3; O2SAT 91
--- NOTE | 2017-11-21 10:52 | RADRPT ---
EXAM DATE/TIME: 11/21/2017 10:37 [facility] COMPARISON: CHEST SINGLE AP, October 26, 2017, 6:19. INDICATIONS : Shortness of breath. MEDICAL HISTORY : Carcinoma, lung. Carcinoma, uterine. SURGICAL HISTORY : Cholecystectomy ENCOUNTER: Initial ACUITY: 1 day PAIN SCORE: 0/10 LOCATION: Bilateral chest FINDINGS: Widespread cannonball metastases again identified throughout both lungs. No evidence of effusion or p neumothorax. Cardiac contours are grossly stable. CONCLUSION: No significant interval change Ludwin Jimenes MD on November 21, 2017 at 10:50 Board Certified Radiologist. This report was verified electronically.
[2017-11-21] MEDS: CLOTRIMAZOLE 1% CREAM 15 GM TOPICAL SCH ×2 (11:25→21:26)
[2017-11-21 12:35] VITALS: BP 154/70; PULSE 76; RESP 20; TEMP 99.8; O2SAT 93
--- NOTE | 2017-11-21 14:14 | PD.CONS ---
History of Present Illness Service Infectious disease Consult Requested By Dr Mckeon Reason for Consult Evaluate patient with leukocytosis Primary Care Physician Carlos Durán MD Diagnoses: History of Present Illness Patient seen and examined. Records reviewed. Patient is a 67-year-old female, patient to the hospital for further evaluation of worsening pain in her left lower extremity. 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 She has been under the care of hospice. Recently she had an admission for severe left foot pain and gangrene. She was seen by vascular surgery and at that time plan was to treated conservatively. Amputation was apparently offered to the patient and family and they opted to go with medical treatment. She was being followed as an outpatient, and actually there was plan on doing surgery, however she has developed severe and worsening of her pain, and she was admitted to the hospital for further evaluation and treatment. Patient underwent left [id number] amputation on November 16. Postoperatively her white count was noted to be increasing. She has not had any fever. She has been complaining of phantom pain to her left lower extremity. There has been no complain of any respiratory symptoms. She denies any dysuria, and she wears diapers. She has no Jurado catheter. Patient also has not had any diarrhea. No nausea or vomiting. She has no central line. Patient has been on Ancef since November 16. Her white count went up to 27,000 today. Infectious disease consultation has been requested to evaluate the patient for possible infection. Review of Systems Constitutional: COMPLAINS OF: Change in appetite, DENIES: Fever, Chills, Night Sweats Eyes: DENIES: Eye pain Ears, nose, mouth, throat: DENIES: Nasal discharge, Oral lesions, Throat pain, Ear Pain Respiratory: DENIES: Cough, Shortness of breath Cardiovascular: DENIES: Chest pain, Palpitations Gastrointestinal: DENIES: Abdominal pain, Diarrhea, Nausea, Vomiting, Difficulty Swallowing Genitourinary: DENIES: Dysuria Musculoskeletal: DENIES: Muscle aches, Back pain Integumentary: DENIES: Rash Neurologic: DENIES: Localized weakness Psychiatric: DENIES: Hallucinations Past Family Social History Allergies: Coded Allergies: No Known Allergies (Verified Allergy, Unknown, 11/14/17) Past Medical History Anxiety Depression Uterine cancer with buttock teratoma and widespread metastatic lung disease on hospice. Past Surgical History Cholecystectomy 1987 Buttock teratoma removal in 2011 Active Ordered Medications Current Medications Medications (Trade) Dose Ordered Sig/Justin Route Start Time Stop Time Status Last Admin (Ecotrin Ec) 81 mg DAILY PO 11/15/17 09:00 11/21/17 08:21 (Procardia) 10 mg Q8HR PO 11/14/17 22:00 11/21/17 13:28 (OxyCONTIN CR) 20 mg Q12HR PO 11/14/17 21:00 11/21/17 08:22 (Dilaudid Pf Inj) 2 mg Q4H PRN IV PUSH 11/14/17 17:00 11/21/17 10:11 Potassium Chloride/Dextrose/ Sod Cl 1,000 ml @ 75 mls/hr [id number] IV 11/14/17 17:00 11/21/17 06:39 (NS Flush) 2 ml UNSCH PRN IV FLUSH 11/14/17 17:00 (NS Flush) 2 ml BID IV FLUSH 11/14/17 21:00 11/20/17 08:11 (Tylenol) 650 mg Q4H PRN PO 11/14/17 17:00 (Zofran Inj) 4 mg Q6H PRN IVP 11/14/17 17:00 (Heparin Inj) 5,000 units Q12H SQ 11/14/17 18:00 (Narcan Inj) 0.4 mg UNSCH PRN IV PUSH 11/14/17 17:00 (Teodora-Colace) 1 tab BID PO 11/14/17 21:00 11/21/17 08:21 (Milk Of Magnesia Liq) 30 ml Q12H PRN PO 11/14/17 17:00 (Senokot) 17.2 mg Q12H PRN PO 11/14/17 17:00 (Dulcolax Supp) 10 mg DAILY PRN RECTAL 11/14/17 17:00 (Lactulose Liq) 30 ml DAILY PRN PO 11/14/17 17:00 (Oramorph Sr) 60 mg Q8H PO 11/15/17 06:00 11/21/17 13:29 Cefazolin Sodium 1000 mg/Sodium Chloride 100 ml @ 200 mls/hr Q8H IV 11/15/17 23:00 11/21/17 06:39 (Dilaudid) 2 mg Q4H PRN PO 11/16/17 11:15 11/21/17 09:06 (Roxicodone) 10 mg Q4H PRN PO 11/16/17 19:15 11/21/17 02:19 (Vasotec Inj) 1.25 mg Q6H PRN IV PUSH 11/17/17 20:30 11/18/17 04:55 (Lopressor) 50 mg Q12HR PO 11/18/17 21:00 11/21/17 08:22 (Lotrimin 1% Cream) 1 applic Q12HR TOPICAL 11/21/17 11:00 Family History Noncontributory Social History Patient quit smoking about 7 years ago. Denies alcohol. No illicit drugs Physical Exam Vital Signs Vital Signs Date Time Temp Pulse Resp B/P (MAP) Pulse Ox O2 Delivery O2 Flow Rate FiO2 11/21/17 12:35 99.8 76 20 154/70 (98) 93 11/21/17 08:38 99.3 113 20 135/59 (84) 91 11/21/17 04:00 99.1 88 18 169/73 (105) 95 11/21/17 00:00 99.6 89 18 158/69 (98) 95 11/20/17 20:00 99.5 118 18 192/80 (117) 95 11/20/17 16:21 99.2 111 18 145/61 (89) 94 Physical Exam GENERAL: Patient is a thin, frail appearing, well-developed female, awake and alert, not in respiratory distress. SKIN: Cool and dry. No generalized rash, no ecchymoses and no evidence of embolic lesions. HEAD: Atraumatic. Normocephalic. No temporal wasting, or tenderness. EYES: Pale conjunctiva. No petechia or hemorrhage. Pupils equal, round and reactive to light. Extraocular movements full and intact. No scleral icterus. No injection or drainage. EARS, NOSE AND THROAT: Nose without bleeding or purulent nasal discharge. No sinus tenderness. Mucous membranes pink and moist. No oral lesions noted. No exudate. No oral thrush. NECK: Trachea midline. Supple and not tender, no meningeal signs CARDIOVASCULAR: Regular rate and rhythm. No murmurs, rubs or gallops heard RESPIRATORY: Clear to auscultation. Breath sounds equal bilaterally. No rales , wheezing or rhonchi ABDOMEN: Soft, flat, non-tender, nondistended. Bowel sounds present and normoactive. No guarding. No rebound. No organomegaly. EXTREMITIES: No clubbing, cyanosis. Has pedal edema on her R foot. S/P LAKA , incision with kishan in place, with min dark brow drainage, there is purplish/bluish skin discoloration above the incision, laterally and medially, not much difference in skin temperature to the rest of the stump. The stump is tender on touching especially medially. No joint effusion. No calf tenderness RLE. NEUROLOGICAL: Awake and alert. Cranial nerves grossly intact. Motor grossly within normal limits. PSYCHIATRIC: Normal affect, calm and cooperative. LINE: No evidence of infection Laboratory Laboratory Tests Test 11/21/17 07:20 White Blood Count 27.8 Red Blood Count 2.89 Hemoglobin 8.4 Hematocrit 25.6 Mean Corpuscular Volume 88.7 Mean Corpuscular Hemoglobin 29.1 Mean Corpuscular Hemoglobin Concent 32.8 Red Cell Distribution Width 14.2 Platelet Count 738 Mean Platelet Volume 7.0 Neutrophils (%) (Auto) 90.9 Lymphocytes (%) (Auto) 3.4 Monocytes (%) (Auto) 5.1 Eosinophils (%) (Auto) 0.2 Basophils (%) (Auto) 0.4 Neutrophils # (Auto) 25.3 Lymphocytes # (Auto) 0.9 Monocytes # (Auto) 1.4 Eosinophils # (Auto) 0.1 Basophils # (Auto) 0.1 CBC Comment DIFF FINAL Differential Comment Result Diagram: 11/21/17 0720 11/19/17 1022 Imaging RADIOLOGY STUDIES/FILMS REVIEWED Chest X-Ray 11/21/17 0000 Signed Impressions: Service Date/Time: Tuesday, November 21, 2017 10:37 - CONCLUSION: No significant interval change Ludwin Jimenes MD Assessment and Plan Assessment and Plan IMPRESSION Leukocytosis, worsening, clinically no obvious evidence of infection - ?due to LAKA stump, has bluis discoloration of skin above the incision PVD S/P LAKA Uterine CA, buttock teratoma with mets to lungs RECOMMENDATION Follow CBC Monitor LAKA stump Stop Abx since clinically no evidence of infection Follow results of work-up Monitor progress Will determine need for Abx once work-up is completed and depending on her clinical course I will follow along with you Thank you for this consultation Discussed Condition With Explained plan to the patient and daughter Yeny Milian MD Nov 21, 2017 14:14
--- NOTE | 2017-11-21 14:48 | PD.WCN.NOT ---
Wound Consult Description: Patient seen with Doctor Rodrigeuz for Sacral wound Communicated with: Doctor Rodriguez and Miya ROBERT [address] [place] [address] Recommendation: Please follow written orders from Doctor Rodriguez Additional Information: Patient seen on north with Doctor Rodriguez around 10:30 am to 1100 am.Patient is laying on regular bed with family member at bedside. Patient was then turned to L side for wound assessment.Patient is noted with briefs on. Briefs were removed to reveal small amount of stool on patient skin with moisture and fungal related skin breakdown to perineal, labial, and bilateral lower buttock areas. Patient was cleansed with moisture barrier wipe and patted dry. Calazime barrier cream mixed with antifungal powder was applied to fungal and moisture related skin breakdown. Removed dressing in place to sacral area to reveal unstageable pressure injury to sacral area.Wound measures 1.3cm x 1.3cm x slough. Wound bed presents with ~40% yellow slough and ~50% adipose tissue and ~ 10% pink tissue.Wound has minimal active sero-sanguinous drainage that is without odor. Periwound is unremarkable. Cleansed wound with normal saline and applied Maxorb II (Calcium alginate) dressing over wound bed and covered with bordered gauze. Skin prep was applied to periwound before covering wound with dressing. Dayami Oquendo [facility] Nov 21, 2017 14:47
--- NOTE | 2017-11-21 15:10 | HHI.PR ---
Subjective Remarks I saw the patient with the wound care doctor Dr. Sanches at the bedside she told me she does not think the wound looks infected, however white blood count went more up to 27K, patient denied any diarrhea in fact she did have a bowel movement. Today her daughter show me a picture of the stool which was really firm and calibrated Objective Vitals Vital Signs Date Time Temp Pulse Resp B/P (MAP) Pulse Ox O2 Delivery O2 Flow Rate FiO2 11/21/17 12:35 99.8 76 20 154/70 (98) 93 11/21/17 08:38 99.3 113 20 135/59 (84) 91 11/21/17 04:00 99.1 88 18 169/73 (105) 95 11/21/17 00:00 99.6 89 18 158/69 (98) 95 11/20/17 20:00 99.5 118 18 192/80 (117) 95 11/20/17 16:21 99.2 111 18 145/61 (89) 94 I/O 11/20/17 11/20/17 11/20/17 11/21/17 11/21/17 11/21/17 07:00 15:00 23:00 07:00 15:00 23:00 Intake Total 480 ml 100 ml Balance 480 ml 100 ml Intake Oral 480 ml IV Total 100 ml # Voids 3 3 # Bowel Movements 1 Result Diagram: 11/21/17 0720 11/19/17 1022 Objective Remarks - GENERAL: This is a well-nourished, well-developed patient, in pain postop AKA SKIN: No rashes, warm and dry HEAD: Atraumatic. Normocephalic. EYES: Pupils equal round and reactive. Extraocular motions intact. No scleral icterus. ENT: Nose without bleeding, or drainage, Airway patent. NECK: Trachea midline. Supple CARDIOVASCULAR: Regular rate and rhythm without murmurs, gallops, or rubs. RESPIRATORY: Fair air entry bilaterally. No wheezes, rales, or rhonchi. GASTROINTESTINAL: Abdomen soft, non-tender, nondistended. Positive bowel sounds MUSCULOSKELETAL: Left AKA stump in gauze NEUROLOGICAL: Awake and alert. Moves all extremity. Normal speech.no focal neurological deficit A/P Assessment and Plan 11/16: s/p AKA , continue postop care , [facility] ff , dc abx if ok with [facility] 2/2: Status post AKA, pain is much less today, continue postop care, antibiotic mostly 7 days postop as per [facility] recommendation she is on cefazolin Hypertension still uncontrolled on Procardia, with tachycardia I will add low dose Lopressor and cover with Vasotec as needed and monitor blood pressure /3: Doing well still post AKA, continue pain management and wound dressing changes, uncontrolled hypertension increase Lopressor and monitor /4: Continue pain management,D/W patient and her and charge nurse, follow with [facility] 6: Continuing worsening leukocytosis to 27K, no clear sign of infection no fever, will consult ID, sent for blood culture, chest x-ray and UA patient already on Rocephin for UTI A/P 67-year-old female with uterine cancer and metastasis to the lungs presented with intractable left foot pain secondary to dry gangrene. Patient sent by Vascular surgeon for pain control and eventual amputation. Patient has been on Hospice. //Ischemic left foot/gangrene: //Sepsis secondary osteomyelitis. - Vascular surgery, Dr. Pascual consulted for amputation. CT angiogram from the last Hospitalization showed occlusion of the left iliac and left infrapopliteal occlusion. - Pain control. Continue long-acting oral morphine. Scheduled Roxicodone. IV Morphine and IV Dilaudid for breakthrough pain. - Surgical plan per Vascular surgery s/p sx AKA. Patient does have leukocytosis, tachycardia, likely os myelitis. scheduled cefazolin perioperatively. 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 - Patient has been on Hospice. Family planning to re enroll in Hospice upon discharge. //HTN: Still uncontrolled with tachycardia - Continue Procardia Add Lopressor 25 twice a day, add clonidine when necessary //gi prophylaxis: Stool softener PRN constipation. DVT PPx: Heparin Discharge Planning even though patient cleared by vascular surgery but due to worsening leukocytosis she still not ready for discharge Teagan Mckeon MD Nov 21, 2017 15:10
[2017-11-21] MEDS: COLLAGENASE OINT 30 GM TUBE TOPICAL SCH (15:11)
[2017-11-21] MEDS ORDERED: NYSTATIN 100,000 U/GM PWD 15 GM BTL TOPICAL ONE (16:00)
[2017-11-21 16:35] VITALS: BP 153/67; PULSE 110; RESP 20; TEMP 100.7; O2SAT 94
[2017-11-22 00:30] VITALS: BP 135/65; PULSE 89; RESP 19; TEMP 99; O2SAT 96
[2017-11-22] MEDS: HYDROmorphone HCL PF 2 MG/ML VIAL IV PUSH PRN ×6 (00:50→22:11)
[2017-11-22 04:30] VITALS: BP 122/88; PULSE 84; RESP 20; TEMP 98.9; O2SAT 98
[2017-11-22] MEDS: HEPARIN SODIUM - SQ 10,000 UNITS/ML VIAL SQ SCH ×3 (06:00→18:00)
[2017-11-22] MEDS: MORPHINE SULFATE 30 MG CONTROLLED RELEASE TAB PO SCH ×3 (06:38→20:49)
[2017-11-22] MEDS: NIFEdipine 10 MG CAP PO SCH ×2 (06:38→13:58)
[2017-11-22] MEDS: DOCUSATE SODIUM 50 MG/SENNA 8.6 MG TAB PO SCH ×2 (09:00→20:49)
[2017-11-22] MEDS: ASPIRIN EC 81 MG TABEC PO SCH (09:00)
[2017-11-22] MEDS: oxyCODONE HCL 20 MG CONTROLLED RELEASE TAB PO SCH ×2 (09:05→20:48)
[2017-11-22] MEDS: METOPROLOL TARTRATE 50 MG TAB PO SCH ×2 (09:05→20:46)
[2017-11-22] MEDS: SODIUM CHLORIDE 0.9% FLUSH 10 ML FLUSH IV FLUSH SCH ×2 (10:08→22:10)
[2017-11-22 12:00] VITALS: BP 138/60; PULSE 81; RESP 18; TEMP 99.7; O2SAT 90
[2017-11-22] MEDS: HYDROmorphone HCL 2 MG TAB PO PRN ×3 (12:38→20:49)
--- NOTE | 2017-11-22 12:56 | HHI.IDPN ---
Subjective Subjective Remarks Patient is a 67-year-old female, patient to the hospital for further evaluation of worsening pain in her left lower extremity. 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 She has been under the care of hospice. Recently she had an admission for severe left foot pain and gangrene. She was seen by vascular surgery and at that time plan was to treated conservatively. Amputation was apparently offered to the patient and family and they opted to go with medical treatment. She was being followed as an outpatient, and actually there was plan on doing surgery, however she has developed severe and worsening of her pain, and she was admitted to the hospital for further evaluation and treatment. Patient underwent left [id number] amputation on November 16. Postoperatively her white count was noted to be increasing. She has not had any fever. She has been complaining of phantom pain to her left lower extremity. There has been no complain of any respiratory symptoms. She denies any dysuria, and she wears diapers. She has no Jurado catheter. Patient also has not had any diarrhea. No nausea or vomiting. She has no central line. Patient has been on Ancef since November 16. Her white count went up to 27,000 today. Infectious disease consultation has been requested to evaluate the patient for possible infection Notes reviewed D/W RN Had some low grade temps last night Only complaint is phantom pain No resp complaint Incontinent of urine, no dysuria No rash No diarrhea Antibiotics Current Medications Medications (Trade) Dose Ordered Sig/Justin Route Start Time Stop Time Status Last Admin (Ecotrin Ec) 81 mg DAILY PO 11/15/17 09:00 11/22/17 09:00 (Procardia) 10 mg Q8HR PO 11/14/17 22:00 11/22/17 06:38 (OxyCONTIN CR) 20 mg Q12HR PO 11/14/17 21:00 11/22/17 09:05 (Dilaudid Pf Inj) 2 mg Q4H PRN IV PUSH 11/14/17 17:00 11/22/17 10:06 Potassium Chloride/Dextrose/ Sod Cl 1,000 ml @ 75 mls/hr [id number] IV 11/14/17 17:00 11/21/17 22:16 (NS Flush) 2 ml UNSCH PRN IV FLUSH 11/14/17 17:00 (NS Flush) 2 ml BID IV FLUSH 11/14/17 21:00 11/22/17 10:08 (Tylenol) 650 mg Q4H PRN PO 11/14/17 17:00 (Zofran Inj) 4 mg Q6H PRN IVP 11/14/17 17:00 (Heparin Inj) 5,000 units Q12H SQ 11/14/17 18:00 (Narcan Inj) 0.4 mg UNSCH PRN IV PUSH 11/14/17 17:00 (Teodora-Colace) 1 tab BID PO 11/14/17 21:00 11/21/17 08:21 (Milk Of Magnesia Liq) 30 ml Q12H PRN PO 11/14/17 17:00 (Senokot) 17.2 mg Q12H PRN PO 11/14/17 17:00 (Dulcolax Supp) 10 mg DAILY PRN RECTAL 11/14/17 17:00 (Lactulose Liq) 30 ml DAILY PRN PO 11/14/17 17:00 (Oramorph Sr) 60 mg Q8H PO 11/15/17 06:00 11/22/17 06:38 (Dilaudid) 2 mg Q4H PRN PO 11/16/17 11:15 11/22/17 12:38 (Roxicodone) 10 mg Q4H PRN PO 11/16/17 19:15 11/22/17 02:27 (Vasotec Inj) 1.25 mg Q6H PRN IV PUSH 11/17/17 20:30 11/18/17 04:55 (Lopressor) 50 mg Q12HR PO 11/18/17 21:00 11/22/17 09:05 (Lotrimin 1% Cream) 1 applic Q12HR TOPICAL 11/21/17 11:00 11/21/17 21:26 (Santyl Oint) APPLY TO DRESSING WITH MCALLISTER... DAILY TOPICAL 11/21/17 15:11 11/21/17 15:11 Lines PIV Past Medical History Anxiety Depression Uterine cancer with buttock teratoma and widespread metastatic lung disease on hospice. Past Surgical History Cholecystectomy 1987 Buttock teratoma removal in 2010 Allergies: Coded Allergies: No Known Allergies (Verified Allergy, Unknown, 11/14/17) Objective . Vital Signs Date Time Temp Pulse Resp B/P (MAP) Pulse Ox O2 Delivery O2 Flow Rate FiO2 11/22/17 12:00 99.7 81 18 138/60 (86) 90 11/22/17 04:30 98.9 84 20 122/88 (99) 98 11/22/17 00:30 99.0 89 19 135/65 (88) 96 11/21/17 16:35 100.7 110 20 153/67 (95) 94 . Laboratory Tests Test 11/21/17 07:20 White Blood Count 27.8 TH/MM3 Red Blood Count 2.89 MIL/MM3 Hemoglobin 8.4 GM/DL Hematocrit 25.6 % Mean Corpuscular Volume 88.7 FL Mean Corpuscular Hemoglobin 29.1 PG Mean Corpuscular Hemoglobin Concent 32.8 % Red Cell Distribution Width 14.2 % Platelet Count 738 TH/MM3 Mean Platelet Volume 7.0 FL Neutrophils (%) (Auto) 90.9 % Lymphocytes (%) (Auto) 3.4 % Monocytes (%) (Auto) 5.1 % Eosinophils (%) (Auto) 0.2 % Basophils (%) (Auto) 0.4 % Neutrophils # (Auto) 25.3 TH/MM3 Lymphocytes # (Auto) 0.9 TH/MM3 Monocytes # (Auto) 1.4 TH/MM3 Eosinophils # (Auto) 0.1 TH/MM3 Basophils # (Auto) 0.1 TH/MM3 CBC Comment DIFF FINAL Differential Comment Laboratory Tests Test 11/21/17 14:03 Albumin 2.2 GM/DL Prealbumin 11 MG/DL Microbiology Date/Time Source Procedure Growth Status 11/21/17 14:03 Blood Peripheral Aerobic Blood Culture - Preliminary NO GROWTH IN 1 DAY Resulted 11/21/17 14:03 Blood Peripheral Anaerobic Blood Culture - Preliminary NO GROWTH IN 1 DAY Resulted 11/21/17 13:55 Blood Peripheral Aerobic Blood Culture - Preliminary NO GROWTH IN 1 DAY Resulted 11/21/17 13:55 Blood Peripheral Anaerobic Blood Culture - Preliminary NO GROWTH IN 1 DAY Resulted Imaging Last Impressions Chest X-Ray 11/21/17 0000 Signed Impressions: Service Date/Time: Tuesday, November 21, 2017 10:37 - CONCLUSION: No significant interval change Ludwin Jimenes MD Physical Exam GENERAL: Patient is a thin, frail appearing, well-developed female, not in respiratory distress. SKIN: Cool and dry. No generalized rash, no ecchymoses and no evidence of embolic lesions. HEAD: Atraumatic. Normocephalic. No temporal wasting, or tenderness. EYES: Pale conjunctiva. No petechia or hemorrhage. Pupils equal, round and reactive to light. Extraocular movements full and intact. No scleral icterus. EARS, NOSE AND THROAT: Nose without bleeding or purulent nasal discharge. No sinus tenderness. Mucous membranes pink and moist. No oral lesions noted. NECK: Trachea midline. Supple and not tender, no meningeal signs CARDIOVASCULAR: Regular rate and rhythm. No murmurs, rubs or gallops heard RESPIRATORY: Clear to auscultation. Breath sounds equal bilaterally. No rales , wheezing or rhonchi ABDOMEN: Soft, flat, non-tender, nondistended. Bowel sounds present and normoactive. No guarding. No rebound. No organomegaly. EXTREMITIES: No clubbing, cyanosis. Has pedal edema on her R foot. S/P LAKA , incision with kishan in place, with min dark brow drainage, there is purplish/bluish skin discoloration above the incision, laterally and medially, not much difference in skin temperature to the rest of the stump, no change. The stump is tender on touching especially medially. No joint effusion. No calf tenderness RLE. NEUROLOGICAL: Awake and alert. Cranial nerves grossly intact. Motor grossly within normal limits. PSYCHIATRIC: Normal affect, calm and cooperative. LINE: No evidence of infection Assessment & Plan Remarks IMPRESSION Leukocytosis, worsening, clinically no obvious evidence of infection - ?due to LAKA stump, has bluis discoloration of skin above the incision One low grade temps, etiology? - no new complaints PVD S/P LAKA Uterine CA, buttock teratoma with mets to lungs RECOMMENDATION Follow CBC Monitor LAKA stump Follow temps UA and C/S Monitor progress monitor off Abx Will determine need for Abx once work-up is completed and depending on her clinical course D/W RN Spoke with family I will be off fFb 8-11 Other ID MD covering in my absence Yeny Milian MD Nov 22, 2017 12:56
--- NOTE | 2017-11-22 14:07 | HHI.PR ---
Subjective Remarks Follow-up for ischemic left foot/gangrene status post left AKA. Patient reports no fever today. However yesterday she had temperature 100.7F. She denies any chest pain, cough, fever or chills. She denies any dysuria or hematuria. She does report some pain above her surgical site. Objective Vitals Vital Signs Date Time Temp Pulse Resp B/P (MAP) Pulse Ox O2 Delivery O2 Flow Rate FiO2 11/22/17 12:00 99.7 81 18 138/60 (86) 90 11/22/17 04:30 98.9 84 20 122/88 (99) 98 11/22/17 00:30 99.0 89 19 135/65 (88) 96 11/21/17 16:35 100.7 110 20 153/67 (95) 94 I/O 11/21/17 11/21/17 11/21/17 11/22/17 11/22/17 11/22/17 07:00 15:00 23:00 07:00 15:00 23:00 Intake Total 820 ml 600 ml 975 ml Output Total 500 ml 200 ml Balance 820 ml 100 ml 775 ml Intake Oral 720 ml 600 ml 975 ml IV Total 100 ml Output Urine Total 500 ml 200 ml # Voids 6 3 # Bowel Movements 1 0 0 Result Diagram: 11/21/17 0720 11/19/17 1022 Imaging Last Impressions Chest X-Ray 11/21/17 0000 Signed Impressions: Service Date/Time: Tuesday, November 21, 2017 10:37 - CONCLUSION: No significant interval change Ludwin Jimenes MD Objective Remarks GENERAL: Alert, NAD. Cachectic appearance. SKIN: Warm and dry. HEAD: Normocephalic. EYES: No scleral icterus. No injection or drainage. NECK: Supple, trachea midline. No JVD or lymphadenopathy. CARDIOVASCULAR: Regular rate and rhythm without murmurs, gallops, or rubs. RESPIRATORY: Breath sounds equal bilaterally. No accessory muscle use. GASTROINTESTINAL: Abdomen soft, non-tender, nondistended. MUSCULOSKELETAL: No cyanosis, or edema. Status post left AKA. There is a purplish dark well demarcated lesion above surgical site. No purulence drainage noted. BACK: Nontender without obvious deformity. No CVA tenderness. Procedures Left above-knee amputation 11/16/2017 A/P Problem List: (1) Ischemic pain of left foot ICD Code: M79.672 - Pain in left foot; I99.9 - Unspecified disorder of circulatory system (2) Teratoma of sacrum ICD Code: D48.0 - Neoplasm of uncertain behavior of bone and articular cartilage (3) History of uterine cancer ICD Code: Z85.42 - Personal history of malignant neoplasm of other parts of uterus Assessment and Plan Ms. Nicole is a pleasant 67-year-old female with a history of uterine cancer who presented to the emergency department on 11/14/2017 due to ischemic left foot. She was instructed to come to the emergency room by her vascular surgeon in order for her to undergo left AKA. - Ischemic left foot - Status post left AKA. - Well-demarcated lesion exist above and around the stump. - Discussed with vascular surgery AUTOMATIC LEHR OPERATOR who recommended that patient will be seen in the office next week. - Patient is currently on oxycodone, Dilaudid for pain management. - Leukocytosis - Will repeat CBC in the AM - Discussed with ID. UA pending. Patient does not have any UTI symptoms (no dysuria or hematuria or lower abdominal pain) - Could be a postsurgical finding. - History of uterine cancer metastasis to the lungs. - Patient is followed by a [facility]. Will ask hospice team to come and talk to her. - Hypertension - Discontinue short-acting nifedipine. Start nifedipine long-acting 30 mg daily. - Continue metoprolol 50 mg every 12 hours. DVT prophylaxis Heparin SQ. Patient was under hospice care prior to this admission. Bebo Dunn DO Nov 22, 2017 2:07 pm
[2017-11-22 15:24] LABS: AMORPHOUS SEDIMENT, URINE RARE; BACTERIA, URINE RARE /hpf; BILIRUBIN, URINE NEG (NEG); BLOOD, URINE NEG (NEG); GLUCOSE,URINE NEG (NEG); KETONE, URINE NEG (NEG); MUCUS URINE FEW /lpf (OCC); NITRITE,URINE NEG (NEG); SQUAMOUS EPITHELIAL CELL URINE 4 /hpf (0-5); URINE COLOR LIGHT-YELLOW (YELLW/STRAW); URINE LEUKOCYTE ESTERASE MOD (NEG)
[2017-11-22 16:00] VITALS: BP 120/56; PULSE 102; RESP 18; TEMP 98; O2SAT 100
[2017-11-22 20:00] VITALS: BP 136/74; PULSE 115; RESP 19; TEMP 98.7; O2SAT 93
[2017-11-22] MEDS: CLOTRIMAZOLE 1% CREAM 15 GM TOPICAL SCH (20:50)
[2017-11-23] VITALS: BP 166/74; PULSE 82; RESP 18; TEMP 100.1; O2SAT 90
[2017-11-23] MEDS: HYDROmorphone HCL 2 MG TAB PO PRN ×5 (00:46→20:48)
[2017-11-23 04:30] VITALS: BP 145/64; PULSE 87; RESP 18; TEMP 99.3; O2SAT 91
[2017-11-23] MEDS: HYDROmorphone HCL PF 2 MG/ML VIAL IV PUSH PRN ×5 (04:32→22:30)
[2017-11-23] MEDS: HEPARIN SODIUM - SQ 10,000 UNITS/ML VIAL SQ SCH (06:02)
[2017-11-23] MEDS: MORPHINE SULFATE 30 MG CONTROLLED RELEASE TAB PO SCH ×3 (06:02→20:51)
[2017-11-23 07:40] LABS: AUTOMATED NEUTROPHIL # 18.6 TH/MM3 (1.8-7.7); BASOPHIL # 0.1 TH/MM3 (0-0.2); BASOPHIL % 0.3 % (0.0-2.0); EOSINOPHIL # 0.1 TH/MM3 (0-0.4); EOSINOPHIL % 0.3 % (0.0-4.0); LYMPH % 2.5 % (9.0-44.0); LYMPHOCYTE # 0.5 TH/MM3 (1.0-4.8); MEAN CELL VOLUME 87.9 FL (80.0-100.0); MEAN CORPUSCULAR HEMOGLOBIN 29.2 PG (27.0-34.0); MEAN CORPUSCULAR HGB CONC 33.2 % (32.0-36.0); MEAN PLATELET VOLUME 7.1 FL (7.0-11.0); MONO % 6.5 % (0.0-8.0); MONOCYTE # 1.3 TH/MM3 (0-0.9); NEUT % 90.4 % (16.0-70.0); PLATELET COUNT 514 TH/MM3 (150-450); RED BLOOD COUNT 2.38 MIL/MM3 (4.00-5.30); RED CELL DISTRIBUTION WIDTH 14.4 % (11.6-17.2); WHITE BLOOD COUNT 20.6 TH/MM3 (4.0-11.0)
[2017-11-23] MEDS: oxyCODONE HCL 20 MG CONTROLLED RELEASE TAB PO SCH ×2 (08:00→20:47)
[2017-11-23] MEDS: ASPIRIN EC 81 MG TABEC PO SCH (08:00)
[2017-11-23] MEDS: METOPROLOL TARTRATE 50 MG TAB PO SCH ×2 (08:01→20:47)
[2017-11-23] MEDS: COLLAGENASE OINT 30 GM TUBE TOPICAL SCH ×2 (08:02→09:00)
[2017-11-23] MEDS: SODIUM CHLORIDE 0.9% FLUSH 10 ML FLUSH IV FLUSH SCH ×2 (08:02→20:53)
[2017-11-23] MEDS: CLOTRIMAZOLE 1% CREAM 15 GM TOPICAL SCH ×2 (08:03→20:49)
[2017-11-23] MEDS: DOCUSATE SODIUM 50 MG/SENNA 8.6 MG TAB PO SCH ×2 (08:03→20:48)
[2017-11-23] MEDS: NIFEdipine 30 MG SUSTAINED RELEASE TAB PO SCH (08:04)
[2017-11-23 08:07] VITALS: BP 169/72; PULSE 86; RESP 20; TEMP 99.7; O2SAT 92
[2017-11-23 08:22] LABS: HEMATOCRIT 20.9 % (35.0-46.0); HEMOGLOBIN 6.9 GM/DL (11.6-15.3)
[2017-11-23 10:15] LABS: HEMATOCRIT 22.8 % (35.0-46.0); HEMOGLOBIN 7.2 GM/DL (11.6-15.3)
[2017-11-23 12:16] VITALS: BP 157/70; PULSE 82; RESP 20; TEMP 99; O2SAT 92
--- NOTE | 2017-11-23 14:03 | HHI.PR ---
Subjective Remarks Follow-up for ischemic left foot/gangrene status post left AKA. Patient is currently doing well. No fever, chills. No bleeding episodes. Eating and drinking well. Objective Vitals Vital Signs Date Time Temp Pulse Resp B/P (MAP) Pulse Ox O2 Delivery O2 Flow Rate FiO2 11/23/17 12:16 99.0 82 20 157/70 (99) 92 11/23/17 08:07 99.7 86 20 169/72 (104) 92 11/23/17 04:30 99.3 87 18 145/64 (91) 91 11/23/17 00:00 100.1 82 18 166/74 (104) 90 11/22/17 20:00 98.7 115 19 136/74 (94) 93 11/22/17 16:00 98.0 102 18 120/56 (77) 100 I/O 11/22/17 11/22/17 11/22/17 11/23/17 11/23/17 11/23/17 07:00 15:00 23:00 07:00 15:00 23:00 Intake Total 975 ml 900 ml Output Total 200 ml 100 ml 650 ml Balance 775 ml 800 ml -650 ml Intake Oral 975 ml 900 ml Output Urine Total 200 ml 100 ml 650 ml # Voids 3 3 # Bowel Movements 0 0 1 Result Diagram: 11/23/17 0950 11/19/17 1022 Imaging Last Impressions Chest X-Ray 11/21/17 0000 Signed Impressions: Service Date/Time: Tuesday, November 21, 2017 10:37 - CONCLUSION: No significant interval change Ludwin Jimenes MD Objective Remarks GENERAL: Alert, NAD. Cachectic appearance. SKIN: Warm and dry. HEAD: Normocephalic. EYES: No scleral icterus. No injection or drainage. NECK: Supple, trachea midline. No JVD or lymphadenopathy. CARDIOVASCULAR: Regular rate and rhythm without murmurs, gallops, or rubs. RESPIRATORY: Breath sounds equal bilaterally. No accessory muscle use. GASTROINTESTINAL: Abdomen soft, non-tender, nondistended. MUSCULOSKELETAL: No cyanosis, or edema. Status post left AKA. There is a purplish dark well demarcated lesion above surgical site. No purulence drainage noted. BACK: Nontender without obvious deformity. No CVA tenderness. Procedures Left above-knee amputation 11/16/2017 A/P Problem List: (1) Ischemic pain of left foot ICD Code: M79.672 - Pain in left foot; I99.9 - Unspecified disorder of circulatory system (2) Teratoma of sacrum ICD Code: D48.0 - Neoplasm of uncertain behavior of bone and articular cartilage (3) History of uterine cancer ICD Code: Z85.42 - Personal history of malignant neoplasm of other parts of uterus Assessment and Plan Ms. Nicole is a pleasant 67-year-old female with a history of uterine cancer who presented to the emergency department on 11/14/2017 due to ischemic left foot. She was instructed to come to the emergency room by her vascular surgeon in order for her to undergo left AKA. - Ischemic left foot - Status post left AKA. - Well-demarcated lesion exist above and around the stump. - Discussed with vascular surgery PROPERTY MANAGEMENT ACCOUNTANT who recommended that patient will be seen in the office next week. - Patient is currently on oxycodone, Dilaudid for pain management. - Leukocytosis - repeat CBC shows downward trend of WBC. - Could be a postsurgical finding. - Anemia - Hgb was 8.4 on 11/21 and today 6.9 this morning and repeat Hgb 7.2. Patient is asymptomatic. - Will repeat Hgb again in the AM. - Will order LDH, haptoglobin, retic count, Ferritin, Iron studies in the AM as well. Hemoccult studies x 2. - History of uterine cancer metastasis to the lungs. - Patient is followed by a [facility] hosp[facility]. Patient will go home with hospice. - Hypertension - Continue nifedipine long-acting 30 mg daily. - Continue metoprolol 50 mg every 12 hours. DVT prophylaxis: Will hold Heparin SQ for now in light of low Hgb. Bebo Dunn DO Nov 23, 2017 2:03 pm
[2017-11-23 16:15] VITALS: BP 139/64; PULSE 95; RESP 20; TEMP 99.1; O2SAT 92
--- NOTE | 2017-11-23 17:14 | HHI.IDPN ---
Note Infectious Disease Note ID COVERAGE: Patient is a 67-year-old female, patient to the hospital for further evaluation of worsening pain in her left lower extremity. 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 She has been under the care of hospice. Recently she had an admission for severe left foot pain and gangrene. She was seen by vascular surgery and at that time plan was to treated conservatively. Amputation was apparently offered to the patient and family and they opted to go with medical treatment. She was being followed as an outpatient, and actually there was plan on doing surgery, however she has developed severe and worsening of her pain, and she was admitted to the hospital for further evaluation and treatment. Patient underwent left [id number] amputation on November 16. Postoperatively her white count was noted to be increasing. Patient has been on Ancef November 16- . Her white count went up to 27,000. Infectious disease consultation has been requested to evaluate the patient for possible infection Notes reviewed Patient feels okay. Denies pain, SOB. Afebrile. low grade temp early this am. WBC remain elevated. No rash No diarrhea Antibiotics None Current Medications Medications (Trade) Dose Ordered Sig/Justin Route PRN Reason Start Time Stop Time Status Last Admin Dose Admin Aspirin (Ecotrin Ec) 81 mg DAILY PO 11/15/17 09:00 11/23/17 08:00 Oxycodone HCl (OxyCONTIN CR) 20 mg Q12HR PO 11/14/17 21:00 11/23/17 08:00 Hydromorphone HCl (Dilaudid Pf Inj) 2 mg Q4H PRN IV PUSH BREAKTHROUGH PAIN 11/14/17 17:00 11/23/17 13:47 Sodium Chloride (NS Flush) 2 ml UNSCH PRN IV FLUSH FLUSH AFTER USING IV ACCESS 11/14/17 17:00 Sodium Chloride (NS Flush) 2 ml BID IV FLUSH 11/14/17 21:00 11/23/17 08:02 Acetaminophen (Tylenol) 650 mg Q4H PRN PO TEMP > 100.4 11/14/17 17:00 Ondansetron HCl (Zofran Inj) 4 mg Q6H PRN IVP NAUSEA OR VOMITING 11/14/17 17:00 Heparin Sodium (Porcine) (Heparin Inj) 5,000 units Q12H SQ 11/14/17 18:00 Future Hold Naloxone HCl (Narcan Inj) 0.4 mg UNSCH PRN IV PUSH SEE LABEL COMMENTS 11/14/17 17:00 Senna/Docusate Sodium (Teodora-Colace) 1 tab BID PO 11/14/17 21:00 11/21/17 08:21 Magnesium Hydroxide (Milk Of Magnesia Liq) 30 ml Q12H PRN PO Mild constipation 11/14/17 17:00 Sennosides (Senokot) 17.2 mg Q12H PRN PO Moderate constipation 11/14/17 17:00 Bisacodyl (Dulcolax Supp) 10 mg DAILY PRN RECTAL SEVERE CONSITIPATION 11/14/17 17:00 Lactulose (Lactulose Liq) 30 ml DAILY PRN PO SEVERE CONSITIPATION 11/14/17 17:00 Morphine Sulfate (Oramorph Sr) 60 mg Q8H PO 11/15/17 06:00 11/23/17 13:47 Hydromorphone HCl (Dilaudid) 2 mg Q4H PRN PO PAIN SCALE 6 TO 10 11/16/17 11:15 11/23/17 16:37 Oxycodone HCl (Roxicodone) 10 mg Q4H PRN PO PAIN SCALE 1 TO 5 11/16/17 19:15 11/22/17 02:27 Enalaprilat (Vasotec Inj) 1.25 mg Q6H PRN IV PUSH bp>160/90 11/17/17 20:30 11/18/17 04:55 Metoprolol Tartrate (Lopressor) 50 mg Q12HR PO 11/18/17 21:00 11/23/17 08:01 Clotrimazole (Lotrimin 1% Cream) 1 applic Q12HR TOPICAL 11/21/17 11:00 11/23/17 08:03 Collagenase (Santyl Oint) APPLY TO DRESSING WITH MCALLISTER... DAILY TOPICAL 11/21/17 15:11 11/23/17 08:02 Nifedipine (Procardia Xl) 30 mg DAILY PO 11/23/17 09:00 11/23/17 08:04 Lines PIV Past Medical History Anxiety Depression Uterine cancer with buttock teratoma and widespread metastatic lung disease on hospice. Past Surgical History Cholecystectomy 1987 Buttock teratoma removal in 2010 Allergies: Coded Allergies: No Known Allergies (Verified Allergy, Unknown, 11/14/17) OBJECTIVE: Vital Signs Date Time Temp Pulse Resp B/P (MAP) Pulse Ox O2 Delivery O2 Flow Rate FiO2 11/23/17 16:15 99.1 95 20 139/64 (89) 92 11/23/17 12:16 99.0 82 20 157/70 (99) 92 11/23/17 08:07 99.7 86 20 169/72 (104) 92 11/23/17 04:30 99.3 87 18 145/64 (91) 91 11/23/17 00:00 100.1 82 18 166/74 (104) 90 11/22/17 20:00 98.7 115 19 136/74 (94) 93 Laboratory Tests Test 11/23/17 06:40 11/23/17 09:50 White Blood Count 20.6 TH/MM3 Red Blood Count 2.38 MIL/MM3 Hemoglobin 6.9 GM/DL 7.2 GM/DL Hematocrit 20.9 % 22.8 % Mean Corpuscular Volume 87.9 FL Mean Corpuscular Hemoglobin 29.2 PG Mean Corpuscular Hemoglobin Concent 33.2 % Red Cell Distribution Width 14.4 % Platelet Count 514 TH/MM3 Mean Platelet Volume 7.1 FL Neutrophils (%) (Auto) 90.4 % Lymphocytes (%) (Auto) 2.5 % Monocytes (%) (Auto) 6.5 % Eosinophils (%) (Auto) 0.3 % Basophils (%) (Auto) 0.3 % Neutrophils # (Auto) 18.6 TH/MM3 Lymphocytes # (Auto) 0.5 TH/MM3 Monocytes # (Auto) 1.3 TH/MM3 Eosinophils # (Auto) 0.1 TH/MM3 Basophils # (Auto) 0.1 TH/MM3 CBC Comment DIFF FINAL Differential Comment Microbiology Date/Time Source Procedure Growth Status 11/21/17 14:03 Blood Peripheral Aerobic Blood Culture - Preliminary NO GROWTH IN 2 DAYS Resulted 11/21/17 14:03 Blood Peripheral Anaerobic Blood Culture - Preliminary NO GROWTH IN 2 DAYS Resulted 11/21/17 13:55 Blood Peripheral Aerobic Blood Culture - Preliminary NO GROWTH IN 2 DAYS Resulted 11/21/17 13:55 Blood Peripheral Anaerobic Blood Culture - Preliminary NO GROWTH IN 2 DAYS Resulted Imaging Chest X-Ray 11/21/17 0000 Signed Impressions: Service Date/Time: Tuesday, November 21, 2017 10:37 - CONCLUSION: No significant interval change Ludwin Jimenes MD Physical Exam GENERAL: Patient is a thin, frail appearing, well-developed female. No acute distress. SKIN: Cool and dry. No generalized rash, no ecchymoses and no evidence of embolic lesions. HEENT: Pupils equal, round and reactive to light. Extraocular movements full and intact. No scleral icterus. No oral lesions noted. NECK: Trachea midline. Supple and not tender. CARDIOVASCULAR: Regular rate and rhythm. No murmurs, rubs or gallops. RESPIRATORY: Clear to auscultation. Breath sounds equal bilaterally. No rales , wheezing or rhonchi ABDOMEN: Soft, flat, non-tender, nondistended. Bowel sounds present and normoactive. No guarding. No rebound. No organomegaly. EXTREMITIES: No clubbing, cyanosis. Has pedal edema on her R foot. S/P LAKA , incision intact. NEUROLOGICAL: Awake and alert. Non focal. PSYCHIATRIC: Normal affect, calm and cooperative. LINE: No evidence of infection IMPRESSION Leukocytosis, clinically no obvious evidence of infection. WBC lower. - ?due to L. GUILLAUME stump, has bluish discoloration of skin above the incision One low grade temps this am. - no new complaints PVD S/P L AKA Uterine CA, buttock teratoma with mets to lungs RECOMMENDATION Follow CBC Monitor L AKA stump Follow temps Monitor progress monitor off Abx Will determine need for Abx once work-up is completed and depending on her clinical course D/W . Winston Powell MD Nov 23, 2017 17:14
[2017-11-23 20:00] VITALS: BP 147/65; PULSE 113; RESP 22; TEMP 98.7; O2SAT 93
[2017-11-24] VITALS: BP 153/69; PULSE 84; RESP 17; TEMP 99.6; O2SAT 92
[2017-11-24] MEDS: HYDROmorphone HCL 2 MG TAB PO PRN ×2 (01:22→05:51)
[2017-11-24] MEDS: HYDROmorphone HCL PF 2 MG/ML VIAL IV PUSH PRN ×4 (02:42→16:36)
[2017-11-24 04:00] VITALS: BP 149/66; PULSE 97; RESP 17; TEMP 98.4; O2SAT 93
[2017-11-24] MEDS: MORPHINE SULFATE 30 MG CONTROLLED RELEASE TAB PO SCH ×2 (05:50→13:43)
[2017-11-24 07:08] LABS: AUTOMATED NEUTROPHIL # 16.6 TH/MM3 (1.8-7.7); BASOPHIL # 0.1 TH/MM3 (0-0.2); BASOPHIL % 0.3 % (0.0-2.0); EOSINOPHIL # 0.1 TH/MM3 (0-0.4); EOSINOPHIL % 0.6 % (0.0-4.0); HEMOGLOBIN 7.7 GM/DL (11.6-15.3); LYMPHOCYTE # 0.9 TH/MM3 (1.0-4.8); MEAN CELL VOLUME 87.3 FL (80.0-100.0); MEAN CORPUSCULAR HEMOGLOBIN 28.1 PG (27.0-34.0); MEAN CORPUSCULAR HGB CONC 32.3 % (32.0-36.0); MEAN PLATELET VOLUME 6.8 FL (7.0-11.0); MONO % 6.1 % (0.0-8.0); MONOCYTE # 1.2 TH/MM3 (0-0.9); PLATELET COUNT 654 TH/MM3 (150-450); RED BLOOD COUNT 2.75 MIL/MM3 (4.00-5.30); RED CELL DISTRIBUTION WIDTH 14.8 % (11.6-17.2); RETIC # 64.8 MIL/L (20.0-150.0); RETIC % 2.4 % (0.4-3.0); WHITE BLOOD COUNT 18.9 TH/MM3 (4.0-11.0)
[2017-11-24 07:44] LABS: IRON (FE) 16 MCG/DL (50-170)
[2017-11-24 07:47] VITALS: BP 152/64; PULSE 96; RESP 20; TEMP 99.3; O2SAT 93
[2017-11-24 07:52] LABS: % SATURATION IRON PROFILE 12.4 % (20-50); FERRITIN 316 NG/ML (8-252); TOTAL IRON BINDING CAPACITY 129 MCG/DL (250-450)
[2017-11-24] MEDS: CLOTRIMAZOLE 1% CREAM 15 GM TOPICAL SCH (09:00)
[2017-11-24] MEDS: DOCUSATE SODIUM 50 MG/SENNA 8.6 MG TAB PO SCH (09:09)
[2017-11-24] MEDS: METOPROLOL TARTRATE 50 MG TAB PO SCH (09:10)
[2017-11-24] MEDS: NIFEdipine 30 MG SUSTAINED RELEASE TAB PO SCH (09:10)
[2017-11-24] MEDS: ASPIRIN EC 81 MG TABEC PO SCH (09:10)
[2017-11-24] MEDS: oxyCODONE HCL 20 MG CONTROLLED RELEASE TAB PO SCH (09:11)
[2017-11-24] MEDS: SODIUM CHLORIDE 0.9% FLUSH 10 ML FLUSH IV FLUSH SCH (09:12)
[2017-11-24 11:50] VITALS: BP 148/64; PULSE 90; RESP 18; TEMP 99.3; O2SAT 94
[2017-11-24] MEDS ORDERED: DILA4TAB10 PO (12:59)
[2017-11-24] MEDS ORDERED: NIFE30TA8 PO (12:59)
[2017-11-24] MEDS ORDERED: OXYC-405 PO (12:59)
[2017-11-24] MEDS ORDERED: METO-309 PO (12:59)
[2017-11-24] MEDS ORDERED: MORP1TAB26 PO (12:59)
--- NOTE | 2017-11-24 13:03 | HHI.DS ---
Discharge Summary Admission Date Nov 14, 2017 at 5:20 pm Discharge Date: Nov 24, 2017 Admitting Diagnosis gangrenous foot (1) Ischemic pain of left foot ICD Code: M79.672 - Pain in left foot; I99.9 - Unspecified disorder of circulatory system (2) Teratoma of sacrum ICD Code: D48.0 - Neoplasm of uncertain behavior of bone and articular cartilage (3) History of uterine cancer ICD Code: Z85.42 - Personal history of malignant neoplasm of other parts of uterus Procedures Left above-knee amputation 11/16/2017 Brief History - From Admission 67 Y/O female well known to me from previous admissions. 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 She has been under Hospice care at home. The patient was recently admitted to the Hospital for severe left foot pain and gangrene. The patient was followed by Vascular surgery at the time and treated conservatively. Option for amputation was presented to the family at the time but they opted to try with Aspirin and Plavix. She has been followed outpatient and there was plan for amputation this coming . However the patient began experiencing severe, worsening pain at home. She was referred to the emergency room by Vascular surgery for eventual amputation. Currently she reports the pain is bearable since she received IV Dilaudid. DW Hospice nurse at bedside. Family revoking Hospice for now and opting for surgery. CBC/BMP: 11/24/17 0620 Significant Findings Laboratory Tests Test 11/21/17 14:03 11/22/17 14:30 11/23/17 06:40 11/23/17 09:50 Albumin 2.2 GM/DL (3.4-5.0) Prealbumin 11 MG/DL (20-40) Urine Leukocyte Esterase MOD (NEG) Urine Bacteria RARE /hpf (NONE) Urine Mucus FEW /lpf (OCC) White Blood Count 20.6 TH/MM3 (4.0-11.0) Red Blood Count 2.38 MIL/MM3 (4.00-5.30) Hemoglobin 6.9 GM/DL (11.6-15.3) 7.2 GM/DL (11.6-15.3) Hematocrit 20.9 % (35.0-46.0) 22.8 % (35.0-46.0) Platelet Count 514 TH/MM3 (150-450) Neutrophils (%) (Auto) 90.4 % (16.0-70.0) Lymphocytes (%) (Auto) 2.5 % (9.0-44.0) Neutrophils # (Auto) 18.6 TH/MM3 (1.8-7.7) Lymphocytes # (Auto) 0.5 TH/MM3 (1.0-4.8) Monocytes # (Auto) 1.3 TH/MM3 (0-0.9) Test 11/24/17 06:20 11/24/17 06:30 White Blood Count 18.9 TH/MM3 (4.0-11.0) Red Blood Count 2.75 MIL/MM3 (4.00-5.30) Hemoglobin 7.7 GM/DL (11.6-15.3) Hematocrit 24.0 % (35.0-46.0) Platelet Count 654 TH/MM3 (150-450) Mean Platelet Volume 6.8 FL (7.0-11.0) Neutrophils (%) (Auto) 88.0 % (16.0-70.0) Lymphocytes (%) (Auto) 5.0 % (9.0-44.0) Neutrophils # (Auto) 16.6 TH/MM3 (1.8-7.7) Lymphocytes # (Auto) 0.9 TH/MM3 (1.0-4.8) Monocytes # (Auto) 1.2 TH/MM3 (0-0.9) Haptoglobin 347 MG/DL (30-200) Iron Level 16 MCG/DL (50-170) Total Iron Binding Capacity 129 MCG/DL (250-450) Percent Iron Saturation 12.4 % (20-50) Ferritin 316 NG/ML (8-252) Lactate Dehydrogenase 300 U/L (84-246) PE at Discharge GENERAL: Alert, NAD. Cachectic appearance. SKIN: Warm and dry. HEAD: Normocephalic. EYES: No scleral icterus. No injection or drainage. NECK: Supple, trachea midline. No JVD or lymphadenopathy. CARDIOVASCULAR: Regular rate and rhythm without murmurs, gallops, or rubs. RESPIRATORY: Breath sounds equal bilaterally. No accessory muscle use. GASTROINTESTINAL: Abdomen soft, non-tender, nondistended. MUSCULOSKELETAL: No cyanosis, or edema. Status post left AKA. There is a purplish dark well demarcated lesion above surgical site. No purulence drainage noted. BACK: Nontender without obvious deformity. No CVA tenderness. Pt update on day of discharge Patient is currently doing well. Appetite is improved. No fever, chills. No bleeding. Hospital Course Ms. Nicole is a pleasant 67-year-old female with a history of uterine cancer who presented to the emergency department on 11/14/2017 due to ischemic left foot. She was instructed to come to the emergency room by her vascular surgeon in order for her to undergo left AKA. - Ischemic left foot - Status post left AKA. - Well-demarcated lesion exist above and around the stump. - Discussed with vascular surgery [employer] who recommended that patient will be seen in the office next week. - Patient is currently on oxycodone, Dilaudid for pain management. - Leukocytosis - repeat CBC shows downward trend of WBC. - Could be a postsurgical finding. - Anemia - Hgb was 8.4 on 11/21 and today 6.9 this morning and repeat Hgb 7.2. Patient is asymptomatic. - Repeat hgb 7.7 on the day of discharge. - History of uterine cancer metastasis to the lungs. - Patient is followed by a [facility]. However, based on patient's goals , she is being discharged home with home health. - Hypertension - Continue nifedipine long-acting 30 mg daily. - Continue metoprolol 50 mg every 12 hours. Pt Condition on Discharge: Good Discharge Disposition: Hospice/ Home Discharge Time: > 30 minutes Discharge Instructions DIET: Follow Instructions for: As Tolerated, No Restrictions Activities you can perform: Regular-No Restrictions Follow up Referrals: Vascular Surgery @ Vascular Surgery with Shai Pascual MD Your follow up appointment is on 12/01/17 at 1:30 New Medications: Hydromorphone (Dilaudid) 4 Mg Tab 4 MG PO Q6H PRN for Pain Management, #20 TAB 0 Refills Metoprolol Tartrate (Lopressor) 50 Mg Tab 50 MG PO Q12HR for Heart, #60 TAB Nifedipine ER 24 HR (Nifedipine ER 24 HR) 30 Mg Tab 30 MG PO DAILY for Blood Pressure Management, #30 TAB 0 Refills Continued Medications: Aspirin DR (Aspirin DR) 81 Mg Tabdr 81 MG PO DAILY for Blood Clot Prevention, #31 TAB Morphine ER (Morphine ER) 60 Mg Tab 60 MG PO Q8H for Pain Management, #20 TAB 0 Refills (This prescription has been renewed) Oxycodone ER (Oxycodone ER) 20 Mg Tab 20 MG PO Q12HR for Pain Management, #10 TAB 0 Refills (This prescription has been renewed) Discontinued Medications: Clopidogrel (Plavix) 75 Mg Tab 75 MG PO DAILY for Blood Clot Prevention, #31 TAB Nifedipine (Procardia) 10 Mg Cap 10 MG PO Q8HR for Blood Pressure Management, #93 CAP Bebo Dunn DO Nov 24, 2017 13:03
[2017-11-24] MEDS ORDERED: WALKER WHEELS/F1 MIS (13:19)
--- NOTE | 2017-11-24 13:20 | HHI.FF ---
Face to Face Verification Diagnosis: (1) Anorexia (2) Debility (3) Teratoma of sacrum (4) Ischemic pain of left foot (5) Gangrene of left foot (6) Status post above knee amputation of left lower extremity Physical Therapy Order: Evaluate and Treat, Improve ambulation, Strength and gait training Home Health Nursing Order: Medical education Signs/symptoms of disease process Medication education-adverse effect Wound care and dressing changes Nursing assessment with vital signs I have seen patient Lidia Nicole on 11/24/17. My clinical findings support the need for the requested home health care services because: Ltd mobility - disease progression Deconditioned w/ increased weakness Limited ability to care for self Need for psychosocial assistance High risk of falls Infection w/ risk of complications I certify that my clinical findings support that this patient is homebound because: Post-op weakness Unsteady gait/balance Unsafe to leave home unassisted Need for psychosocial assistance Lgu-[id number] bed/chair Unable to use public transportation Bebo Dunn DO Nov 24, 2017 1:20 pm
[2017-11-24] MEDS ORDERED: HYDROmorphone HCL PF 2 MG/ML VIAL IV PUSH ONE (14:00)
== END 2017-11-24 17:50 | disposition home health service (06) | DRG 240 ==
LOC: NEPE 12:51 → NEDA 17:20 → NEDH 21:54 → N05B 11-15 16:40
PROVIDERS: ADMIT Hospitalist; ATTEND Hospitalist
PROC: 0Y6D0Z3 Detachment at Left Upper Leg, Low, Open Approach (ICD-10-PCS; principal; 2017-11-16 10:20)
DX: I70.262 Atherosclerosis of native arteries of extremities with gangrene, left leg (principal); R64 Cachexia; L89.150 Pressure ulcer of sacral region, unstageable; L89.310 Pressure ulcer of right buttock, unstageable; C78.00 Secondary malignant neoplasm of unspecified lung; C78.02 Secondary malignant neoplasm of left lung; C78.01 Secondary malignant neoplasm of right lung; Z68.1 Body mass index [BMI] 19.9 or less, adult; G54.6 Phantom limb syndrome with pain; D72.829 Elevated white blood cell count, unspecified; I10 Essential (primary) hypertension; D63.0 Anemia in neoplastic disease; R00.0 Tachycardia, unspecified; C55 Malignant neoplasm of uterus, part unspecified; R32 Unspecified urinary incontinence; D48.0 Neoplasm of uncertain behavior of bone and articular cartilage; M19.90 Unspecified osteoarthritis, unspecified site; F41.8 Other specified anxiety disorders; Z87.891 Personal history of nicotine dependence; Z92.3 Personal history of irradiation
CPT/HCPCS: 71045; 80048; 80053; 80069; 81001; 82040; 82272; 82728; 83010; 83540; 83550; 83605; 83615; 83735; 84134; 85007; 85014; 85018; 85025; 85027; 85044; 85610; 85652; 85730; 86140; 86850; 86900; 86901; 87040; 87493; 88307; 88311; 93005; 96374; J0690; J1100; J1170; J1644; J2175; J2270; J2370; J2405; J3010; J3480

== ENCOUNTER 2018-01-26 12:43 | Inpatient (IN) | payer OTHER, MEDICARE ==
[~2018-01-26] VITALS: Ht 149.9 cm; Wt 43.8 kg
[~2018-01-26 12:43] MED LIST changes: +DILA4TAB10 PO; -DOXY100C PO; -LEVA750T9 PO; +METO-309 PO; +MORP1TAB26 PO; -NIFE10 PO; +NIFE30TA8 PO; +OXYC-405 PO; -OXYC1TAB36 PO; -OXYC1TAB63 PO; -PLAV75TA29 PO; -PROC25SU22 RECTAL; +WALKER WHEELS/F1 MIS
[2018-01-26] MEDS ORDERED: SODIUM CHLORIDE 0.9% FLUSH 10 ML FLUSH IV FLUSH PRN (13:30)
[2018-01-26] MEDS ORDERED: NALOXONE HCL 0.4 MG/ML AMP IV PUSH PRN (13:30)
[2018-01-26] MEDS ORDERED: MORPHINE SULFATE 2 MG/ML SYRINGE IV PUSH PRN ×3 (13:30→16:15)
[2018-01-26] MEDS: SODIUM CHLOR 0.9% 1000 ML INJ 1,000 ML IV SCH ×2 (13:45→20:35)
[2018-01-26 13:57] VITALS: BP 118/67; PULSE 82; RESP 18; TEMP 96.6; O2SAT 97
[2018-01-26] MEDS ORDERED: ONDANSETRON HCL 4 MG/2 ML VIAL IVP PRN (14:00)
[2018-01-26] MEDS ORDERED: MAGNESIUM HYDROXIDE SUSP 30 ML CUP PO PRN (14:00)
[2018-01-26 14:34] VITALS: PULSE 86; O2SAT 97
[2018-01-26] MEDS ORDERED: HYDROmorphone HCL PF 1 MG/ML VIAL IV PUSH PRN (16:00)
[2018-01-26] MEDS ORDERED: Vancomycin Consult Pharmacy 1 EA OTHER SCH (16:00)
--- NOTE | 2018-01-26 16:11 | HHI.HP ---
[facility] Carlos Durán MD Admission Diagnosis Diagnoses: (1) Teratoma of sacrum Diagnosis: Principal (2) History of uterine cancer Diagnosis: Principal (3) Pain Diagnosis: Principal (4) Debility Diagnosis: Secondary (5) Status post above knee amputation of left lower extremity Diagnosis: Secondary Travel History International Travel<30 Days: No Contact w/Intl Traveler <30 Da: No Traveled to Known Affected Are: No History of Present Illness Mrs. Nicole is a 67 year old female. She is brought in by her family today secondary to confusion, nausea and vomiting, increased pain noted this morning. At baseline she has global deficits related to poor health and debility from cancers through the last 10 years. She has a history of uterine cancer, lung cancer, liver, and sacral teratoma. Surgery which mostly involves the left gluteus was performed this past November. She also had an atsox-wcl-wlyi amputation of her left leg, which appears to be secondary to infection and infarction at the left foot and lower extremity. There is evidence of surgical wound infections as well as elevated white blood cell count. Concerning findings of remaining right foot for microinfarction. Family recognizes that this patient ultimately has a terminal condition but they would like to care for her while she is alive. They are interested in resuming hospice which they have used in the past. No other complaints at this time. Patient is unable to provide any history as she was given Ativan earlier and has not been communicating well after. Review of Systems ROS Limitations: Altered Mental Status, Unresponsive, Poor Historian Past Family Social History Past Medical History Anxiety Depression Uterine cancer buttock/sacral teratoma widespread metastatic lung disease Past Surgical History Cholecystectomy 1987 Buttock teratoma removal in 2010 Left leg zzqfw-dow-[id number] amputation, November 2016 Left gluteal mass excision, November 2016 Reported Medications Reported Meds & Active Scripts Active Lopressor (Metoprolol Tartrate) 50 Mg Tab 50 Mg PO Q12HR Oxycodone ER (Oxycodone HCl) 20 Mg Tab 20 Mg PO Q12HR Aspirin DR (Aspirin) 81 Mg Tabdr 81 Mg PO DAILY Allergies: Coded Allergies: No Known Allergies (Verified Allergy, Unknown, 01/26/18) Active Ordered Medications Administered Medications Medications (Trade) Dose Ordered Sig/Justin Route PRN Reason Start Time Stop Time Status Last Admin Dose Admin Sodium Chloride 1,000 ml @ 100 mls/hr Q10H IV 01/26/18 13:20 01/26/18 13:45 Family History Patient unable to provide due to encephalopathy Social History Past history of smoking No alcohol use No illicit drug abuse Physical Exam Vital Signs Vital Signs Date Time Temp Pulse Resp B/P (MAP) Pulse Ox O2 Delivery O2 Flow Rate FiO2 01/26/18 14:34 86 97 01/26/18 13:57 96.6 82 18 118/67 (84) 97 Physical Exam GENERAL: This is a well-nourished, well-developed patient, in no apparent distress. SKIN: No rashes, ecchymoses or lesions. Cool and dry. HEAD: Atraumatic. Normocephalic. No temporal or scalp tenderness. EYES: Pupils equal round and reactive. Extraocular motions intact. No scleral icterus. No injection or drainage. ENT: Nose without bleeding, purulent drainage or septal hematoma. Throat without erythema, tonsillar hypertrophy or exudate. Uvula midline. Airway patent. NECK: Trachea midline. No JVD or lymphadenopathy. Supple, nontender, no meningeal signs. CARDIOVASCULAR: Regular rate and rhythm without murmurs, gallops, or rubs. RESPIRATORY: Clear to auscultation. Breath sounds equal bilaterally. No wheezes , rales, or rhonchi. GASTROINTESTINAL: Abdomen soft, non-tender, nondistended. No hepato-splenomegaly , or palpable masses. No guarding. MUSCULOSKELETAL: Extremities without clubbing, cyanosis, or edema. No joint tenderness, effusion, or edema noted. No calf tenderness. Negative Homans sign bilaterally. NEUROLOGICAL: Awake and alert. Cranial nerves II through XII intact. Motor and sensory grossly within normal limits. Five out of 5 muscle strength in all muscle groups. Normal speech. Caprini VTE Risk Assessment Caprini VTE Risk Assessment: Mod/High Risk (score >= 2) Caprini Risk Assessment Model Point Value = 1 Point Value = 2 Point Value = 3 Point Value = 5 Age 41-60 Minor surgery BMI > 25 kg/m2 Swollen legs Varicose veins or History of unexplained or recurrent spontaneous Oral contraceptives or hormone replacement Sepsis (< 1 month) Serious lung disease, including pneumonia (< 1 month) Abnormal pulmonary function Acute myocardial infarction Congestive heart failure (< 1 month) History of inflammatory bowel disease Medical patient at bed rest Age 61-74 Arthroscopic surgery Major open surgery (> 45 min) Laparoscopic surgery (> 45 min) Malignancy Confined to bed (> 72 hours) Immobilizing plaster cast Central venous access Age >= 75 History of VTE Family history of VTE Factor V Leiden Prothrombin [id number] Lupus anticoagulant Anticardiolipin antibodies Elevated serum homocysteine Heparin-induced thrombocytopenia Other congenital or acquired thrombophilia Stroke (< 1 month) Elective arthroplasty Hip, pelvis, or leg fracture Acute spinal cord injury (< 1 month) Prophylaxis Regimen Total Risk Factor Score Risk Level Prophylaxis Regimen 0-1 Low Early ambulation 2 Moderate Order ONE of the following: *Sequential Compression Device (SCD) *Heparin 5000 units SQ BID 3-4 Higher Order ONE of the following medications: *Heparin 5000 units SQ TID *Enoxaparin/Lovenox 40 mg SQ daily (WT < 150 kg, CrCl > 30 mL/min) *Enoxaparin/Lovenox 30 mg SQ daily (WT < 150 kg, CrCl > 10-29 mL/min) *Enoxaparin/Lovenox 30 mg SQ BID (WT < 150 kg, CrCl > 30 mL/min) AND/OR *Sequential Compression Device (SCD) 5 or more Highest Order ONE of the following medications: *Heparin 5000 units SQ TID (Preferred with Epidurals) *Enoxaparin/Lovenox 40 mg SQ daily (WT < 150 kg, CrCl > 30 mL/min) *Enoxaparin/Lovenox 30 mg SQ daily (WT < 150 kg, CrCl > 10-29 mL/min) *Enoxaparin/Lovenox 30 mg SQ BID (WT < 150 kg, CrCl > 30 mL/min) AND *Sequential Compression Device (SCD) Assessment and Plan Problem List: (1) Teratoma of sacrum ICD Code: D48.0 - Neoplasm of uncertain behavior of bone and articular cartilage (2) Status post above knee amputation of left lower extremity ICD Code: Z89.612 - Acquired absence of left leg above knee (3) Pain ICD Code: R52 - Pain, unspecified (4) Debility ICD Code: R53.81 - Other malaise Assessment and Plan 67-year-old female admitted secondary to pain, nausea and vomiting, and encephalopathy Left gluteal cellulitis Left gluteal pain Vancomycin Zosyn Follow CBC Dilaudid IV for pain Nausea and vomiting Zofran as needed IV hydration Metabolic encephalopathy Toxic encephalopathy Treatment infection as above Avoid benzodiazepines Metastatic Lung Disease (from other primary cancer) Uterine cancer Buttock/Sacral teratoma Continue to follow with oncology and surgery as an outpatient Hospice consult Microinfarctions at left foot Hypercoagulability secondary to cancer Start Lovenox Monitor CBC Consider additional blood thinner such as Eliquis Anxiety Depression No change to baseline management DVT prophylaxis Lovenox Physician Certification 2 Midnight Certification Type: Admission for Inpatient Services Order for Inpatient Services The services are ordered in accordance with Medicare regulations or non- Medicare payer requirements, as applicable. In the case of services not specified as inpatient-only, they are appropriately provided as inpatient services in accordance with the 2-midnight benchmark. Estimated LOS (days): 4 days is the estimated time the patient will need to remain in the hospital, assuming treatment plan goals are met and no additional complications. Post-Hospital Plan: Home Sav Marshall MD Jan 26, 2018 16:11
[2018-01-26] MEDS ORDERED: VANCOMYCIN INJ 700 MG in SODIUM CHLOR 0.9% 250 ML INJ 250 ML IV ONE (17:00)
[2018-01-26] MEDS: ENOXAPARIN SODIUM 30 MG/0.3 ML SYRINGE SQ SCH (18:02)
[2018-01-26] MEDS: PIPERACIL-TAZO 2.25 GM PREMIX 50 ML IV SCH (18:03)
[2018-01-26 20:00] VITALS: BP 126/59; PULSE 91; RESP 16; TEMP 96.3; O2SAT 93
[2018-01-26] MEDS: SODIUM CHLORIDE 0.9% FLUSH 10 ML FLUSH IV FLUSH SCH (20:34)
[2018-01-27] VITALS: BP 110/53; PULSE 86; RESP 16; TEMP 96.2; O2SAT 98
[2018-01-27] MEDS: PIPERACIL-TAZO 2.25 GM PREMIX 50 ML IV SCH ×3 (00:43→16:53)
[2018-01-27] MEDS: SODIUM CHLORIDE 0.9% FLUSH 10 ML FLUSH IV FLUSH SCH ×2 (07:57→21:00)
[2018-01-27] MEDS: MEGESTROL ACETATE SUSP 400 MG/10 ML CUP PO SCH (07:57)
[2018-01-27] MEDS: SODIUM CHLOR 0.9% 1000 ML INJ 1,000 ML IV SCH ×2 (07:57→21:13)
[2018-01-27 08:00] VITALS: BP 140/65; PULSE 102; RESP 18; TEMP 97.3; O2SAT 96
[2018-01-27 10:06] LABS: AUTOMATED NEUTROPHIL # 30.8 TH/MM3 (1.8-7.7); HEMATOCRIT 25.5 % (35.0-46.0); HEMOGLOBIN 7.6 GM/DL (11.6-15.3); LYMPHOCYTE # 0.6 TH/MM3 (1.0-4.8); MEAN CELL VOLUME 74.2 FL (80.0-100.0); MEAN CORPUSCULAR HEMOGLOBIN 22.2 PG (27.0-34.0); MEAN PLATELET VOLUME 6.1 FL (7.0-11.0); MONO % 1.9 % (0.0-8.0); MONOCYTE # 0.6 TH/MM3 (0-0.9); NEUT % 96.1 % (16.0-70.0); PLATELET COUNT 697 TH/MM3 (150-450); RED BLOOD COUNT 3.44 MIL/MM3 (4.00-5.30); RED CELL DISTRIBUTION WIDTH 16.6 % (11.6-17.2)
[2018-01-27 10:14] LABS: MEAN CORPUSCULAR HGB CONC 29.9 % (32.0-36.0)
[2018-01-27 10:22] LABS: CHLORIDE 104 MEQ/L (98-107); SODIUM (NA) 137 MEQ/L (136-145)
[2018-01-27 10:25] LABS: CALCIUM 8.4 MG/DL (8.5-10.1)
[2018-01-27 10:26] LABS: ALBUMIN 1.7 GM/DL (3.4-5.0); BICARBONATE 22.5 MEQ/L (21.0-32.0); BLOOD UREA NITROGEN 46 MG/DL (7-18); GLUCOSE,RANDOM 51 MG/DL (74-106)
[2018-01-27 10:29] LABS: ALT (GPT) LESS THAN 6 U/L (10-53); AST (GOT) 17 U/L (15-37); GLOMERULAR FILTRATION RATE 32 ML/MIN (>89)
[2018-01-27 10:30] LABS: TOTAL BILIRUBIN ADULT 0.2 MG/DL (0.2-1.0); TOTAL PROTEIN 6.3 GM/DL (6.4-8.2)
[2018-01-27 10:32] LABS: ALKALINE PHOSPHATASE 171 U/L (45-117)
[2018-01-27 10:58] LABS: BANDS 4 % (0-6); LYMPHOCYTES 4 % (9-44); MONOCYTES 4 % (0-8); NEUTROPHIL # MANUAL DIFF 29.4 TH/MM3 (1.8-7.7); POLYS (SEG NEUTROPHILS) 88 % (16-70)
[2018-01-27 11:00] LABS: TOXIC GRANULATION 2+ (NORMAL)
[2018-01-27 12:00] VITALS: BP 148/68; PULSE 109; RESP 18; TEMP 99.2; O2SAT 95
--- NOTE | 2018-01-27 14:48 | HHI.PR ---
Subjective Remarks Nursing reports that a Jurado catheter had to be inserted last night due to urinary retention. Patient herself thinks she feels slightly better than yesterday. Daughter and granddaughter at bedside. They state that their goals remain the same as yesterday per their father's discussion with previous hospitalist to keep her comfortable and proceed to hospice once accepted. Per case management, previous hospice company discharged the patient due to family member breaking hospice rules/policies regarding filming healthcare workers at home. Granddaughter says that the patient likes to stay on her back and is very stubborn about doing so, does not want to keep off of her back and lay on her stomach. Objective Vital Signs Date Time Temp Pulse Resp B/P (MAP) Pulse Ox O2 Delivery O2 Flow Rate FiO2 01/27/18 12:00 99.2 109 18 148/68 (94) 95 01/27/18 08:00 97.3 102 18 140/65 (90) 96 01/27/18 00:00 96.2 86 16 110/53 (72) 98 01/26/18 20:00 96.3 91 16 126/59 (81) 93 I/O 01/26/18 01/26/18 01/26/18 01/27/18 01/27/18 01/27/18 07:00 15:00 23:00 07:00 15:00 23:00 Output Total 450 ml 800 ml Balance -450 ml -800 ml Output Urine Total 450 ml 800 ml Bladder Scan Volume Amount 813 ml # Voids 1 # Bowel Movements 1 Result Diagram: 01/27/18 0935 01/27/18 0935 Objective Remarks Lying in bed, mild distress secondary to pain Seems to be in more distress when being turned over Has purulent draining perirectal/perianal ulcer; Jurado catheter is in place; has at least stage III healing bilateral gluteal pressure ulcers Very mild scattered crackles throughout lung vasquez, unlabored breathing A/P Assessment and Plan 67-year-old female admitted secondary to pain, nausea and vomiting, and encephalopathy Sacral and left sided cellulitis Left gluteal pain Vancomycin Zosyn Follow CBC Dilaudid IV for pain Stage V pressure wounds -Possibly infected, antibiotics as above - will consult wound care, keep urinary catheter and to minimize urinary incontinence over the wound Nausea and vomiting Zofran as needed partially improved Metabolic encephalopathy Toxic encephalopathy Treatment infection as above improved since yesterday Metastatic Lung Disease (from other primary cancer) Uterine cancer Buttock/Sacral teratoma Continue to follow with oncology and surgery as an outpatient Hospice consulted Microinfarctions at left foot Hypercoagulability secondary to cancer Lovenox Monitor CBC Consider additional blood thinner such as Eliquis Anxiety Depression No change to baseline management DVT prophylaxis Lovenox Discharge Planning Awaiting hospice consultation; case management working on another hospice company Marek Jasso MD Jan 27, 2018 14:48
[2018-01-27] MEDS: ENOXAPARIN SODIUM 30 MG/0.3 ML SYRINGE SQ SCH (16:53)
[2018-01-27 17:00] VITALS: BP 148/66; PULSE 121; RESP 18; TEMP 99.7; O2SAT 92
[2018-01-27 20:00] VITALS: BP 144/66; PULSE 118; RESP 18; TEMP 98.6; O2SAT 92
[2018-01-27] MEDS: METOPROLOL TARTRATE 50 MG TAB PO SCH (21:13)
[2018-01-28] VITALS (10 sets, daily range): BP systolic 103–169; BP diastolic 54–76; PULSE 88–126; RESP 16–30; TEMP 98–100.4; O2SAT 2–96
[2018-01-28] MEDS: PIPERACIL-TAZO 2.25 GM PREMIX 50 ML IV SCH ×4 (00:38→18:30)
[2018-01-28 04:54] LABS: BILIRUBIN, URINE NEG (NEG); BLOOD, URINE MOD (NEG); GLUCOSE,URINE NEG (NEG); KETONE, URINE TRACE mg/dL (NEG); NITRITE,URINE NEG (NEG); URINE COLOR YELLOW (YELLW/STRAW); URINE LEUKOCYTE ESTERASE MOD (NEG)
[2018-01-28 04:59] LABS: SQUAMOUS EPITHELIAL CELL URINE 0-5 /hpf (0-5)
[2018-01-28] MEDS ORDERED: PHARMACY ORDERED LAB ONE (06:00)
[2018-01-28] MEDS: SODIUM CHLOR 0.9% 1000 ML INJ 1,000 ML IV SCH ×2 (08:56→15:20)
[2018-01-28] MEDS: SODIUM CHLORIDE 0.9% FLUSH 10 ML FLUSH IV FLUSH SCH ×2 (09:00→19:52)
[2018-01-28] MEDS: MEGESTROL ACETATE SUSP 400 MG/10 ML CUP PO SCH (09:05)
[2018-01-28] MEDS: METOPROLOL TARTRATE 50 MG TAB PO SCH ×2 (09:06→19:52)
[2018-01-28 09:41] LABS: AUTOMATED NEUTROPHIL # 33.2 TH/MM3 (1.8-7.7); EOSINOPHIL % 0.1 % (0.0-4.0); LYMPH % 2.5 % (9.0-44.0); LYMPHOCYTE # 0.9 TH/MM3 (1.0-4.8); MEAN CELL VOLUME 73.8 FL (80.0-100.0); MEAN CORPUSCULAR HEMOGLOBIN 22.8 PG (27.0-34.0); MEAN CORPUSCULAR HGB CONC 30.9 % (32.0-36.0); MEAN PLATELET VOLUME 5.4 FL (7.0-11.0); MONO % 1.9 % (0.0-8.0); MONOCYTE # 0.7 TH/MM3 (0-0.9); NEUT % 95.5 % (16.0-70.0); PLATELET COUNT 636 TH/MM3 (150-450); RED BLOOD COUNT 2.73 MIL/MM3 (4.00-5.30); RED CELL DISTRIBUTION WIDTH 16.5 % (11.6-17.2); WHITE BLOOD COUNT 34.8 TH/MM3 (4.0-11.0)
[2018-01-28] MEDS ORDERED: VANCOMYCIN TROUGH ONE (09:45)
[2018-01-28 09:58] LABS: HEMOGLOBIN 6.2 GM/DL (11.6-15.3)
[2018-01-28 09:59] LABS: HEMATOCRIT 20.2 % (35.0-46.0)
[2018-01-28] MEDS ORDERED: SODIUM CHLOR 0.9% 250 ML INJ 250 ML IV ONE (10:30)
[2018-01-28] MEDS ORDERED: HYDROmorphone HCL PF 2 MG/ML VIAL IV PUSH PRN (10:40)
[2018-01-28 11:01] LABS: BANDS 1 % (0-6); LYMPHOCYTES 2 % (9-44); MONOCYTES 1 % (0-8); NEUTROPHIL # MANUAL DIFF 33.8 TH/MM3 (1.8-7.7); POLYS (SEG NEUTROPHILS) 96 % (16-70)
[2018-01-28 11:03] LABS: TOXIC GRANULATION 1+ (NORMAL)
[2018-01-28 11:04] LABS: HYPERSEGMENTED POLYS 2+ (NORMAL)
[2018-01-28 12:40] LABS: AUTOMATED NEUTROPHIL # 38.6 TH/MM3 (1.8-7.7); BASOPHIL % 0.1 % (0.0-2.0); EOSINOPHIL % 0.1 % (0.0-4.0); HEMATOCRIT 24.4 % (35.0-46.0); HEMOGLOBIN 7.5 GM/DL (11.6-15.3); LYMPH % 1.1 % (9.0-44.0); LYMPHOCYTE # 0.4 TH/MM3 (1.0-4.8); MEAN CELL VOLUME 74.2 FL (80.0-100.0); MEAN CORPUSCULAR HEMOGLOBIN 22.8 PG (27.0-34.0); MEAN CORPUSCULAR HGB CONC 30.6 % (32.0-36.0); MEAN PLATELET VOLUME 6.5 FL (7.0-11.0); MONO % 0.6 % (0.0-8.0); MONOCYTE # 0.2 TH/MM3 (0-0.9); NEUT % 98.1 % (16.0-70.0); PLATELET COUNT 674 TH/MM3 (150-450); RED BLOOD COUNT 3.29 MIL/MM3 (4.00-5.30); RED CELL DISTRIBUTION WIDTH 16.4 % (11.6-17.2); WHITE BLOOD COUNT 39.2 TH/MM3 (4.0-11.0)
--- NOTE | 2018-01-28 13:15 | HHI.PR ---
Subjective Remarks Nursing reports that the patient is oxygenating worse now at 80% on room air. Nursing also reports that the patient's hemoglobin dropped from 7.6 to 6.2. Fever has occurred again up to 100.4 while on broad-spectrum antibiotics of vancomycin and Zosyn. Patient's is at the bedside today along with both daughters. Patient herself denies wanting a colonoscopy. I had an extensive discussion with the who tells me about his disappointments with hospice care at home. Both him and his daughter say that the patient mainly wants only family members to address her wound dressing changes, not the nursing staff. Objective Vital Signs Date Time Temp Pulse Resp B/P (MAP) Pulse Ox O2 Delivery O2 Flow Rate FiO2 01/28/18 09:00 100.4 126 16 138/70 (92) 92 01/28/18 00:00 99.7 121 18 169/74 (105) 92 01/27/18 20:00 98.6 118 18 144/66 (92) 92 01/27/18 17:00 99.7 121 18 148/66 (93) 92 I/O 01/27/18 01/27/18 01/27/18 01/28/18 01/28/18 01/28/18 07:00 15:00 23:00 07:00 15:00 23:00 Intake Total 4276 ml 869 ml Output Total 450 ml 800 ml 750 ml 500 ml Balance -450 ml -800 ml 3526 ml 369 ml Intake Oral 0 ml IV Total 4276 ml 869 ml Output Urine Total 450 ml 800 ml 750 ml 500 ml Bladder Scan Volume Amount 813 ml # Voids 1 # Bowel Movements 1 Result Diagram: 01/28/18 1015 01/28/18 0927 Objective Remarks Lying in bed, mild distress secondary to pain Appears very pale today Mild to moderate respiratory distress clear lungs BL w/ diminished BS in bases A/P Assessment and Plan 67-year-old female admitted secondary to pain, nausea and vomiting, and encephalopathy Acute symptomatic anemia -New development, futile to get Hemoccult due to very fleshy sacral wound near rectal site -Patient not wanting colonoscopy at this time -We will transfuse 2 units and monitor -stopping lovenox acute hypoxia - ordering cxr and echo fever - deltona BCs neg x 48 hrs, if recurs repeat -cxr ordered stat Sacral and left sided cellulitis Left gluteal pain Vancomycin Zosyn Follow CBC Dilaudid IV for pain Stage V pressure wounds -Possibly infected, antibiotics as above - will consult wound care, keep urinary catheter and to minimize urinary incontinence over the wound Nausea and vomiting Zofran as needed partially improved Metabolic encephalopathy Toxic encephalopathy Treatment infection as above Metastatic Lung Disease (from other primary cancer) Uterine cancer Buttock/Sacral teratoma Continue to follow with oncology and surgery as an outpatient Microinfarctions at left foot Hypercoagulability secondary to cancer stopping lovenox due to drop in H/H Monitor CBC Consider additional blood thinner such as Eliquis Anxiety Depression No change to baseline management DVT prophylaxis Lovenox Aggregate critical care time was 35 minutes spent at bedside or in the hospital singletary. Time to perform other separately billable procedures was not included in the critical care time. My time did not include minutes spent treating any other patient simultaneously or on activities that did not directly To be due to the patient's treatment. The services are provided to this patient were to treat and/or prevent clinically significant deterioration that could result in organ failure, , disability, or imminent clinical deterioration in the patient's condition. I provided critical care services requiring my management as noted above. Discharge Planning will consult manager commercial real estate due to pt's borderline unstable status including poor oxygenation and labored breathing Marek Jasso MD Jan 28, 2018 13:15
--- NOTE | 2018-01-28 13:21 | RADRPT ---
EXAM DATE/TIME: 01/28/2018 13:04 [place] COMPARISON: No previous studies available for comparison. INDICATIONS : Hypoxia MEDICAL HISTORY : None. SURGICAL HISTORY : None. ENCOUNTER: Initial ACUITY: 1 day PAIN SCORE: Non-responsive. LOCATION: Bilateral chest FINDINGS: Widespread fluffy pulmonary parenchymal opacities are present bilaterally. No significant effusion. C ardiomediastinal contours are satisfactory. CONCLUSION: Widespread patchy bilateral alveolar opacities Ludwin Jimenes MD on January 28, 2018 at 13:18 Board Certified Radiologist. This report was verified electronically.
[2018-01-28 14:14] LABS: BLOOD UREA NITROGEN 35 MG/DL (7-18)
[2018-01-28 14:15] LABS: ALBUMIN 1.4 GM/DL (3.4-5.0); ALKALINE PHOSPHATASE 196 U/L (45-117); ALT (GPT) LESS THAN 6 U/L (10-53); AST (GOT) 35 U/L (15-37); CALCIUM 8.3 MG/DL (8.5-10.1); CREATININE 0.96 MG/DL (0.50-1.00); GLOMERULAR FILTRATION RATE 58 ML/MIN (>89); GLUCOSE,RANDOM 64 MG/DL (74-106); TOTAL PROTEIN 5.9 GM/DL (6.4-8.2)
[2018-01-28 14:16] LABS: BICARBONATE 15.9 MEQ/L (21.0-32.0); CHLORIDE 112 MEQ/L (98-107); SODIUM (NA) 143 MEQ/L (136-145); TOTAL BILIRUBIN ADULT 0.2 MG/DL (0.2-1.0)
[2018-01-28] MEDS ORDERED: CHLORHEXIDINE GLUCONATE 2 % 1 PACK (2 CLOTHS) TOP PRN (14:30)
[2018-01-28] MEDS ORDERED: SENNOSIDES 8.6 MG TAB PO PRN (14:30)
[2018-01-28] MEDS ORDERED: MISCELLANEOUS NURSING INFORMATION XX SCH (14:30)
[2018-01-28] MEDS ORDERED: LORazepam 2 MG/ML VIAL IV PUSH PRN (14:30)
[2018-01-28] MEDS ORDERED: MAGNESIUM HYDROXIDE SUSP 30 ML CUP PO PRN (14:30)
[2018-01-28] MEDS ORDERED: ACETAMINOPHEN 325 MG TAB PO PRN (14:30)
[2018-01-28] MEDS ORDERED: BISACODYL 10 MG SUPP RECTAL PRN (14:30)
[2018-01-28] MEDS ORDERED: LACTULOSE SYRUP 20 GM/30 ML CUP PO PRN (14:30)
[2018-01-28] MEDS ORDERED: VANCOMYCIN INJ 700 MG in SODIUM CHLOR 0.9% 250 ML INJ 250 ML IV SCH (15:00)
--- NOTE | 2018-01-28 15:44 | PD.CONS ---
[facility] Service Critical Care Medicine Consult Requested By Dr. Jasso Thank you Dr. Jasso for allowing us to participate in this patient's care Reason for Consult Critical care management Primary Care Physician Carlos Durán MD History of Present Illness This is a rather unfortunate 67-year-old female who suffers from terminal cancer with metastasis to the lungs, liver, history of uterine cancer, history of sacral teratoma, findings indicating possible bladder tumor, possible inguinal metastatic lymphadenopathy who is seen in consultation for critical care management at the request of Dr. Jasso. Patient originally presented to the hospital approximately 3 days ago because patient was at home under hospice care and patient was given her pain medication when she did not eat much and had an episode of nausea and vomiting. Because of that the family indicates that they brought the patient to the ER for evaluation. Patient has significant findings with sepsis, problems with pain control, buttock cellulitis , urinary tract infection. The patient was placed in observation in the hospital for palliative care and hospice consult. Patient was started on broad- spectrum antibiotics include vancomycin and Zosyn for her infection and was being continue managed by the medical team. It was indicated that the patient was under care of [facility] however they cannot resume care. As indicated that family was to contact [facility]. However they have not done so as of yet. Today the patient clinical condition worsened. Initially the patient had signs of acute anemia. However repeat laboratory studies showed stable chronic anemia. With hemoglobin 7.5. However with the patient with sepsis, tachycardia will anticipate transfusing at least 1 unit. Patient's respiratory status significantly worsened where she was on 2 L nasal cannula and she dropped to 70% O2 saturations. Patient was increased to 6 L nasal cannula with improvement to 80% O2 saturations. The patient was placed on nonrebreather and her O2 saturations did improve to 90%. However patient is not keeping the mask on and she continues to drop down to O2 saturations in the 80s. Because of acute changes patient's condition. Critical care was consulted. I did evaluate the patient and presently she is alert and orientated 4. She wants full aggressive measures to be done at this time. Including intubation, mechanical ventilation, defibrillation, CPR. Patient will be transferred to the main ICU for closer monitoring. Review of Systems ROS Limitations: Clinical Condition, Poor Historian Past Family Social History Allergies: Coded Allergies: No Known Allergies (Verified Allergy, Unknown, 01/26/18) Past Medical History History of uterine cancer Metastatic cancer to the lung Metastatic cancer to the liver Suspected bladder mass Right inguinal mass suspicious for malignant lymphadenopathy Sacral teratoma History of ischemic left foot status post [id number] amputation Coagulopathy from metastatic disease Peripheral arterial disease status post occlusion Past Surgical History Left [id number] amputation November 2016 Cholecystectomy 1987 Sacral teratoma removal in 2010 Left gluteal mass excision November 2016 Reported Medications Reported Meds & Active Scripts Active Lopressor (Metoprolol Tartrate) 50 Mg Tab 50 Mg PO Q12HR Oxycodone ER (Oxycodone HCl) 20 Mg Tab 20 Mg PO Q12HR Aspirin DR (Aspirin) 81 Mg Tabdr 81 Mg PO DAILY Family History Reviewed and significant for heart disease, Alzheimer's Social History Patient quit smoking in 2010, no indication of any alcohol or illicit drug use. Physical Exam Vital Signs Vital Signs Date Time Temp Pulse Resp B/P (MAP) Pulse Ox O2 Delivery O2 Flow Rate FiO2 01/28/18 13:20 83 Nasal Cannula 6.00 01/28/18 12:00 98.0 107 20 121/59 (79) 80 01/28/18 11:45 2 Nasal Cannula 80 01/28/18 09:00 100.4 126 16 138/70 (92) 92 01/28/18 00:00 99.7 121 18 169/74 (105) 92 01/27/18 20:00 98.6 118 18 144/66 (92) 92 01/27/18 17:00 99.7 121 18 148/66 (93) 92 Physical Exam GENERAL: Well-developed, emaciated, frail, patient laying in bed comfortably however eyes keep rolling into the back of her head.. alert and orientated 4 HEENT: Patient does have bitemporal wasting. Facial features are symmetric. Eyes : Pupils equal round reactive to light. Extraocular muscles are intact. Conjunctivae were clear. Patient is on nonrebreather NECK: Supple without any masses. Trachea midline no deviation. No JVD, no bruits are appreciated CARDIAC: Regular rhythm, regular rate. S1/S2 are heard. No murmurs gallops or rubs. LUNGS: Diminished breath sounds noted throughout in multiple areas. No wheeze, rhonchi or rales. No use of accessory muscles on inspiration or expiration. ABDOMEN: Soft, mild diffuse tenderness noted. Nondistended. Bowel sounds heard in all 4 quadrants. No organomegaly or masses. Negative rebound, negative guarding EXTREMITIES: Left lower extremity does show dry gangrene at previous amputation site, right lower extremity does have discoloration noted of the great toe. Legs are very pale. Diminished pulses noted in the right lower extremity NEUROLOGY: Patient with increased somnolence. Cranial nerves II through XII grossly intact. SACRAL AREA: Patient will not allow us to examine the area Laboratory Laboratory Tests Test 01/28/18 04:45 01/28/18 09:27 01/28/18 10:15 01/28/18 13:40 Urine Color YELLOW Urine Turbidity SL CLOUDY Urine pH 5.0 Urine Specific [place] 1.015 Urine Protein TRACE Urine Glucose (UA) NEG Urine Ketones TRACE Urine Occult Blood MOD Urine Nitrite NEG Urine Bilirubin NEG Urine Urobilinogen 0.2 Urine Leukocyte Esterase MOD Urine RBC 3-5 Urine WBC 9-14 Urine Squamous Epithelial Cells 0-5 Urine Bacteria NONE Urine Yeast with Hyphae MANY Urine Yeast (Budding) MANY Microscopic Urinalysis Comment CULTURE INDICATED White Blood Count 34.8 39.2 Red Blood Count 2.73 3.29 Hemoglobin 6.2 7.5 Hematocrit 20.2 24.4 Mean Corpuscular Volume 73.8 74.2 Mean Corpuscular Hemoglobin 22.8 22.8 Mean Corpuscular Hemoglobin Concent 30.9 30.6 Red Cell Distribution Width 16.5 16.4 Platelet Count 636 674 Mean Platelet Volume 5.4 6.5 Neutrophils (%) (Auto) 95.5 98.1 Lymphocytes (%) (Auto) 2.5 1.1 Monocytes (%) (Auto) 1.9 0.6 Eosinophils (%) (Auto) 0.1 0.1 Basophils (%) (Auto) 0.0 0.1 Neutrophils # (Auto) 33.2 38.6 Lymphocytes # (Auto) 0.9 0.4 Monocytes # (Auto) 0.7 0.2 Eosinophils # (Auto) 0.0 0.0 Basophils # (Auto) 0.0 0.0 CBC Comment AUTO DIFF AUTO DIFF Differential Total Cells Counted 100 Neutrophils % (Manual) 96 Band Neutrophils % 1 Lymphocytes % 2 Monocytes % 1 Neutrophils # (Manual) 33.8 Differential Comment FINAL DIFF MANUAL Hypersegmented Polys 2+ Toxic Granulation 1+ Platelet Estimate HIGH Platelet Morphology Comment NORMAL Creatinine 0.58 0.96 Estimat Glomerular Filtration Rate 104 58 Vancomycin Level Trough 4.6 Blood Urea Nitrogen 35 Random Glucose 64 Total Protein 5.9 Albumin 1.4 Calcium Level 8.3 Alkaline Phosphatase 196 Aspartate Amino Transf (AST/SGOT) 35 Alanine Aminotransferase (ALT/SGPT) LESS THAN 6 Total Bilirubin 0.2 Sodium Level 143 Potassium Level 3.4 Chloride Level 112 Carbon Dioxide Level 15.9 Anion Gap 15 Date/Time Source Procedure Growth Status 01/28/18 04:45 Urine Clean Catch Urine Culture Pending Received Result Diagram: 01/28/18 1015 01/28/18 1340 Imaging Last Impressions Chest X-Ray 01/28/18 0000 Signed Impressions: Service Date/Time: Sunday, January 28, 2018 13:04 - CONCLUSION: Widespread patchy bilateral alveolar opacities Ludwin Jimenes MD Septic Shock Reassessment Septic shock perfusion: reassessment completed Assessment and Plan Problem List: (1) Sepsis ICD Code: A41.9 - Sepsis, unspecified organism (2) Acute respiratory failure with hypoxia ICD Code: J96.01 - Acute respiratory failure with hypoxia (3) Leukocytosis ICD Code: D72.829 - Elevated white blood cell count, unspecified (4) Cellulitis, gluteal, left ICD Code: L03.317 - Cellulitis of buttock (5) Dry gangrene ICD Code: I96 - Gangrene, not elsewhere classified (6) Metabolic encephalopathy ICD Code: G93.41 - Metabolic encephalopathy (7) Acute kidney injury ICD Code: N17.9 - Acute kidney failure, unspecified (8) Metabolic acidosis ICD Code: E87.2 - Acidosis (9) Hypokalemia ICD Code: E87.6 - Hypokalemia (10) 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 (11) Severe protein-calorie malnutrition ICD Code: E43 - Unspecified severe protein-calorie malnutrition (12) Coagulopathy ICD Code: D68.9 - Coagulation defect, unspecified (13) Metastatic malignant neoplasm to lung ICD Code: C78.00 - Secondary malignant neoplasm of unspecified lung (14) Teratoma of sacrum ICD Code: D48.0 - Neoplasm of uncertain behavior of bone and articular cartilage (15) History of uterine cancer ICD Code: Z85.42 - Personal history of malignant neoplasm of other parts of uterus (16) Pain ICD Code: R52 - Pain, unspecified (17) Debility ICD Code: R53.81 - Other malaise Assessment and Plan NEUROLOGY Metabolic/toxic encephalopathy Anxiety/depression Continue monitor neurological function every 2 hours Ativan as needed for agitation Continue pain control PULMONOLOGY Acute hypoxic respiratory failure Metastatic cancer to the lung Continue O2 segmentation maintain O2 sats greater than 92% Start high flow nasal cannula O2 supplementation Obtain ABG Duo nebs every 4 hours and every 2 hours as needed Chest x-ray does show wide spread patchy bilateral alveolar opacities, no significant change from reviewing recent chest x-rays Patient does have history of coagulopathy, possible pulmonary emboli Obtain stat pulmonary angiogram CARDIOLOGY Sinus tachycardia, could be from underlying sepsis, PE, Continue monitor vital signs per ICU protocol, maintain map greater than 65 Continue IV fluid GASTROENTEROLOGY Nausea vomiting Severe protein malnutrition Emaciated Continue regular diet as tolerated with Ensure Plus supplement Continue Zofran as needed Continue Megace RENAL Acute kidney injuries Metabolic acidosis Hypokalemia Insert Jurado catheter Strict input and output Monitor renal function Avoid nephrotoxins Continue IV fluids INFECTIOUS DISEASE Urinary tract infection Funguria Left gluteal cellulitis Sacral wound 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 daily, await urine culture for further recommendations Urine cultures pending Obtain blood cultures Obtain sacral wound culture HEMATOLOGY/ONCOLOGY Chronic microcytic anemia Thrombocytosis History of uterine cancer Widespread metastasis to the lung Metastasis to the liver Possible bladder tumor Possible right inguinal lymphadenopathy metastasis History of teratoma of the sacrum Transfuse 1 unit of packed red blood cells and patient with tachycardia, sepsis Continue monitor hemoglobin hematocrit transfuse if hemoglobin below 8.0 Obtain PT/PTT/INR Need to continue monitor for any signs of vascular occlusion secondary to thrombocytosis Palliative care has been consulted Hospice has been consulted ENDOCRINOLOGY Continue monitor glucoses start Accu-Cheks and sliding scale insulin if needed PROPHYLAXIS DVT prevention with subcutaneous Lovenox GI protection with Pepcid LINES Peripheral IVs CODE STATUS Full code I examined patient and evaluated laboratory and imaging data personally. Upon arrival to [facility], patient is awake but lethargic, answers questions. She is emaciated and chronically ill-appearing. She is tachypneic but without accessory muscle use. Rales are present bilaterally. Sats are adequate on 100 % nonrebreather. Abdomen is soft and nondistended. Left AKA has large necrotic eschar overlying the stump. There is no drainage. The right foot is marbled, cool, pale up to the ankle. The popliteal pulse is palpable. There is no dopplerable posterior tib or DP pulse. She is able to wiggle her toes and move her ankle. There is necrosis of distal aspect 1st digit. She denies significant pain except when touching foot and lower leg but not really hyperesthetic.. Patient reportedly has sacral wounds and I asked to examine them but family refused, saying "that she has had to move too many times today and it is too uncomfortable for her". I asked patient about code status and comfort measures. She defers completely to her who states that he desires full code. She states that she does not have any appetite and does not want to eat. Her family is adamant that she eats even though she is nauseated and has been vomiting. They attribute her nausea and vomiting to "getting her medications when she does not have anything on her stomach". I transfused 1 unit packed red cells in effort to improve anemia and perhaps improve perfusion to her leg. Her hemoglobin was stable so I have started her on therapeutic Lovenox at 1.5 mg/kg daily. I discussed the risk/benefit of anticoagulation with family. They agree with anticoagulation in effort to mitigate the pain of limb ischemia. Discussed with Dr. Pascual, who agrees that there is no intervention warranted unless she has severe pain and then you dictation could be considered for palliation. Patient is terminally ill and hospice appropriate. Family seems to desire more aggressive care than hospice provides. Unfortunately, patient is suffering as hospice philosophy is not being embraced consistently. Palliative care has been consulted to assist treatment team in facilitating family understanding of her condition. At this point, aggressive resuscitative efforts would only serve to prolong the dying process and increase potential for suffering. Discussed this with family who says "we just want her to do all the things it takes to get better." They state they are very appreciative of her care in [facility] overnight and they feel that she is showing improvement. Level 3 Consult Ronnie Gambino Jan 28, 2018 15:44 Joann Mike MD Jan 29, 2018 10:11
[2018-01-28] MEDS ORDERED: FLUCONAZOLE 200 MG TAB PO SCH (15:45)
[2018-01-28 15:49] LABS: BANDS 5 % (0-6); LYMPHOCYTES 2 % (9-44); NEUTROPHIL # MANUAL DIFF 38.4 TH/MM3 (1.8-7.7); POLYS (SEG NEUTROPHILS) 93 % (16-70)
[2018-01-28 15:50] LABS: HYPERSEGMENTED POLYS 1+ (NORMAL); TOXIC GRANULATION 2+ (NORMAL)
[2018-01-28] MEDS ORDERED: ENOXAPARIN SODIUM 30 MG/0.3 ML SYRINGE SQ SCH (16:00)
[2018-01-28 17:19] LABS: INTERNATIONAL NORMALIZED RATIO 1.5 RATIO; PROTHROMBIN TIME - PATIENT 15.4 SEC (9.8-11.6)
[2018-01-28 17:24] LABS: LACTIC ACID SEPSIS PROTOCOL 2.7 mmol/L (0.4-2.0)
[2018-01-28] MEDS: HYDROmorphone HCL PF 2 MG/ML VIAL IV PUSH PRN ×2 (18:22→23:32)
[2018-01-28] MEDS: FAMOTIDINE 20 MG TAB PO SCH (19:52)
[2018-01-28] MEDS: DOCUSATE SODIUM 50 MG/SENNA 8.6 MG TAB PO SCH (19:52)
[2018-01-28] MEDS: RESP: ALBUTEROL 2.5 MG/IPRATROPIUM 0.5 MG NEB (SCH) NEB (20:35)
[2018-01-28] MEDS ORDERED: FAMOTIDINE 20 MG/2 ML VIAL IV PUSH SCH (21:00)
[2018-01-28] MEDS: VANCOMYCIN INJ 700 MG in SODIUM CHLOR 0.9% 250 ML INJ 250 ML IV SCH (21:30)
[2018-01-28] MEDS ORDERED: RESP: ALBUTEROL 2.5 MG/3 ML NEB (PRN) NEB (23:15)
[2018-01-28] MEDS ORDERED: PROMETHAZINE INJ 25 MG/ML VIAL IV-CENTRAL PRN (23:15)
[2018-01-28] MEDS: D5-1/2 NS + KCL 20 MEQ INJ 1,000 ML IV SCH (23:32)
[2018-01-28] MEDS: FLUCONAZOLE 400 MG PREMIX BAG 200 ML IV SCH (23:52)
[2018-01-29] VITALS (17 sets, daily range): BP systolic 93–136; BP diastolic 53–81; PULSE 55–111; RESP 17–34; TEMP 97.4–98.7; O2SAT 91–100
[2018-01-29] MEDS: RESP: ALBUTEROL 2.5 MG/IPRATROPIUM 0.5 MG NEB (PRN) NEB (00:01)
[2018-01-29 02:29] LABS: BICARBONATE 15.7 MEQ/L (21.0-32.0); CALCIUM 8.3 MG/DL (8.5-10.1); CREATININE 0.82 MG/DL (0.50-1.00); MAGNESIUM 1.8 MG/DL (1.5-2.5)
[2018-01-29] MEDS ORDERED: DEXTROSE 50% IN WATER 50 ML VIAL(D50) IV PUSH ONE (03:00)
[2018-01-29] MEDS ORDERED: DEXTROSE 50% IN WATER 50 ML VIAL(D50) IV PUSH PRN (03:00)
[2018-01-29] MEDS: CHLORHEXIDINE GLUCONATE 2 % 1 PACK (2 CLOTHS) TOP SCH (04:00)
[2018-01-29] MEDS: HYDROmorphone HCL PF 2 MG/ML VIAL IV PUSH PRN (05:16)
[2018-01-29] MEDS ORDERED: MAGNESIUM SULFATE INJ 4 GM in SODIUM CHLORIDE 0.9% INJ 92 ML IV PRN (05:45)
[2018-01-29] MEDS ORDERED: POTASSIUM CHLOR 20 MEQ PREMIX 100 ML IV PRN (05:45)
[2018-01-29] MEDS ORDERED: MAGNESIUM OXIDE 400 MG TAB PO PRN (05:45)
[2018-01-29] MEDS ORDERED: POTASSIUM PHOSPHATE MONOBASIC 500 MG TAB PO/TUBE PRN (05:45)
[2018-01-29] MEDS ORDERED: MAGNESIUM SULFATE INJ 2 GM in SODIUM CHLORIDE 0.9% INJ 96 ML IV PRN (05:45)
[2018-01-29] MEDS ORDERED: POTASSIUM PHOSPHATE INJ 30 MMOL in SODIUM CHLOR 0.9% 250 ML INJ 250 ML IV PRN (05:45)
[2018-01-29] MEDS ORDERED: SODIUM PHOSPHATE INJ 30 MMOL in SODIUM CHLOR 0.9% 250 ML INJ 240 ML IV PRN (05:45)
[2018-01-29] MEDS ORDERED: POTASSIUM CHLOR 40 MEQ PREMIX 100 ML IV PRN ×2 (05:45)
[2018-01-29] MEDS ORDERED: POTASSIUM CHLORIDE 25 MEQ EFFERVESCENT TAB PO PRN (05:45)
[2018-01-29] MEDS ORDERED: POTASSIUM PHOSPHATE MONOBASIC 500 MG TAB PO PRN (05:45)
[2018-01-29 08:07] LABS: AUTOMATED NEUTROPHIL # 38.4 TH/MM3 (1.8-7.7); BASOPHIL # 0.2 TH/MM3 (0-0.2); BASOPHIL % 0.5 % (0.0-2.0); HEMATOCRIT 29.4 % (35.0-46.0); LYMPH % 0.7 % (9.0-44.0); LYMPHOCYTE # 0.3 TH/MM3 (1.0-4.8); MEAN CORPUSCULAR HEMOGLOBIN 24.2 PG (27.0-34.0); MEAN CORPUSCULAR HGB CONC 30.7 % (32.0-36.0); MEAN PLATELET VOLUME 6.6 FL (7.0-11.0); MONO % 1.7 % (0.0-8.0); MONOCYTE # 0.7 TH/MM3 (0-0.9); NEUT % 97.1 % (16.0-70.0); PLATELET COUNT 499 TH/MM3 (150-450); RED BLOOD COUNT 3.72 MIL/MM3 (4.00-5.30); RED CELL DISTRIBUTION WIDTH 16.7 % (11.6-17.2); WHITE BLOOD COUNT 39.5 TH/MM3 (4.0-11.0)
[2018-01-29 08:27] LABS: ALBUMIN 1.5 GM/DL (3.4-5.0); ALT (GPT) 15 U/L (10-53); AST (GOT) 88 U/L (15-37); BICARBONATE 20.5 MEQ/L (21.0-32.0); BLOOD UREA NITROGEN 34 MG/DL (7-18); CHLORIDE 114 MEQ/L (98-107); CREATININE 0.84 MG/DL (0.50-1.00); GLOMERULAR FILTRATION RATE 68 ML/MIN (>89); GLUCOSE,RANDOM 187 MG/DL (74-106); MAGNESIUM 1.7 MG/DL (1.5-2.5); PHOSPHORUS 3.5 MG/DL (2.5-4.9); SODIUM (NA) 146 MEQ/L (136-145)
[2018-01-29 08:31] LABS: ALKALINE PHOSPHATASE 192 U/L (45-117); TOTAL BILIRUBIN ADULT 0.3 MG/DL (0.2-1.0); TOTAL PROTEIN 5.7 GM/DL (6.4-8.2)
[2018-01-29 08:46] LABS: BANDS 18 % (0-6); NEUTROPHIL # MANUAL DIFF 39.5 TH/MM3 (1.8-7.7); POLYS (SEG NEUTROPHILS) 82 % (16-70)
[2018-01-29 08:48] LABS: DOHLE BODIES PRESENT (NONE SEEN); TOXIC GRANULATION 1+ (NORMAL); TOXIC VACUOLATION PRESENT (NONE SEEN)
[2018-01-29] MEDS: DOCUSATE SODIUM 50 MG/SENNA 8.6 MG TAB PO SCH ×2 (08:48→20:00)
[2018-01-29] MEDS: METOPROLOL TARTRATE 50 MG TAB PO SCH ×2 (08:48→20:00)
[2018-01-29] MEDS: MEGESTROL ACETATE SUSP 400 MG/10 ML CUP PO SCH (08:49)
[2018-01-29] MEDS: SODIUM CHLORIDE 0.9% FLUSH 10 ML FLUSH IV FLUSH SCH ×2 (08:50→20:01)
[2018-01-29] MEDS: RESP: ALBUTEROL 2.5 MG/IPRATROPIUM 0.5 MG NEB (SCH) NEB ×4 (08:54→20:41)
[2018-01-29] MEDS: FAMOTIDINE 20 MG TAB PO SCH ×2 (08:58→20:00)
[2018-01-29] MEDS ORDERED: ETOMIDATE 40 MG/20 ML VIAL ONE (09:46)
[2018-01-29] MEDS ORDERED: SUCCINYLCHOLINE CHLORIDE 200 MG/10 ML VIAL ONE (09:47)
--- NOTE | 2018-01-29 10:46 | HHI.CCPN ---
Subjective Remarks/Hospital Course This is a rather unfortunate 67-year-old female who suffers from terminal cancer with metastasis to the lungs, liver, history of uterine cancer, history of sacral teratoma, findings indicating possible bladder tumor, possible inguinal metastatic lymphadenopathy who is seen in consultation for critical care management at the request of Dr. Jasso. Patient originally presented to the hospital approximately 3 days ago because patient was at home under hospice care and patient was given her pain medication when she did not eat much and had an episode of nausea and vomiting. Because of that the family indicates that they brought the patient to the ER for evaluation. Patient has significant findings with sepsis, problems with pain control, buttock cellulitis , urinary tract infection. The patient was placed in observation in the hospital for palliative care and hospice consult. Patient was started on broad- spectrum antibiotics include vancomycin and Zosyn for her infection and was being continue managed by the medical team. It was indicated that the patient was under care of [place] [facility] however they cannot resume care. As indicated that family was to contact [facility]. However they have not done so as of yet. Today the patient clinical condition worsened. Initially the patient had signs of acute anemia. However repeat laboratory studies showed stable chronic anemia. With hemoglobin 7.5. However with the patient with sepsis, tachycardia will anticipate transfusing at least 1 unit. Patient's respiratory status significantly worsened where she was on 2 L nasal cannula and she dropped to 70% O2 saturations. Patient was increased to 6 L nasal cannula with improvement to 80% O2 saturations. The patient was placed on nonrebreather and her O2 saturations did improve to 90%. However patient is not keeping the mask on and she continues to drop down to O2 saturations in the 80s. Because of acute changes patient's condition. Critical care was consulted. I did evaluate the patient and presently she is alert and orientated 4. She wants full aggressive measures to be done at this time. Including intubation, mechanical ventilation, defibrillation, CPR. Patient will be transferred to the main ICU for closer monitoring. Subjective: 01/29: Patient hypoxic , O2 saturation in the 80 's extensive discussion with Mr. Nicole and family regarding the deterioration of the respiratory status of the patient. Requested aggressive measures to be continued, and request for consultation with early childhood teacher. Rfid Engineerbea Mandujanoed in to see patient. Stat ABG performed pH 7.14 PO2 55 on 100% FiO2. Patient emergently intubated uneventfully, Mr. Nicole requested to be present in the room during intubation. Chest x-ray pending. Objective Vital Signs Date Time Temp Pulse Resp B/P (MAP) Pulse Ox O2 Delivery O2 Flow Rate FiO2 01/29/18 06:00 87 01/29/18 04:00 98.7 31 136/71 (92) 01/29/18 00:00 91 01/28/18 20:36 Non-Rebreather 15.00 100 Intake and Output 01/29/18 01/29/18 01/30/18 08:00 16:00 00:00 Intake Total 535 ml Output Total 400 ml Balance 135 ml Result Diagram: 01/29/18 0740 01/29/18 0740 Other Results Microbiology Date/Time Source Procedure Growth Status 01/28/18 17:50 Urine Random Urine Legionella Antigen - Final PRESUMPTIVE NEGATIVE FOR LEGIONELLA P... Complete 01/28/18 17:50 Urine Random Urine Streptococcus pneumoniae Antigen (M - Final PRESUMPTIVE NEGATIVE FOR STREPTOCOCCU... Complete Laboratory Tests Test 01/28/18 15:48 01/29/18 10:08 Blood Gas Puncture Site RT RADIAL RT BRACHIAL Blood Gas Patient Temperature 37.0 98.6 Blood Gas HCO3 18 mmol/L (22-26) 19 mmol/L (22-26) Blood Gas Base Excess -6.2 mmol/L (-2-2) -9.0 mmol/L (-2-2) Blood Gas Oxygen Saturation 90 % (90-100) 76 % (90-100) Arterial Blood pH 7.36 (7.380-7.420) 7.14 (7.380-7.420) Arterial Blood Partial Pressure CO2 33 mmHg (38-42) 57 mmHg (38-42) Arterial Blood Partial Pressure O2 69 mmHg (61-120) 55 mmHg (61-120) Arterial Blood Oxygen Content 8.8 Vol % (12.0-20.0) 9.0 Vol % (12.0-20.0) Arterial Blood Carboxyhemoglobin 1.4 % (0-4) 0.5 % (0-4) Arterial Blood Methemoglobin 1.4 % (0-2) 1.5 % (0-2) Blood Gas Hemoglobin 6.9 G/DL (12.0-16.0) 8.4 G/DL (12.0-16.0) Oxygen Delivery Device NRB Non-Rebreathing Mask Blood Gas Liter Flow 12 L/M 15 L/M Blood Gas Inspired Oxygen 100 % Imaging Last Impressions Chest X-Ray 01/28/18 0000 Signed Impressions: Service Date/Time: Sunday, January 28, 2018 13:04 - CONCLUSION: Widespread patchy bilateral alveolar opacities Ludwin Jimenes MD Objective Remarks GENERAL: Well-developed, emaciated, frail, patient laying in bed comfortably however eyes keep rolling into the back of her head.. alert and orientated 4, extremely weak HEENT: Patient does have bitemporal wasting. Facial features are symmetric. Eyes : Pupils equal round reactive to light. Extraocular muscles are intact. Conjunctivae were clear. Patient is on nonrebreather NECK: Supple without any masses. Trachea midline no deviation. No JVD, no bruits are appreciated CARDIAC: Regular rhythm, regular rate. S1/S2 are heard. No murmurs gallops or rubs. LUNGS: Diminished breath sounds noted throughout in multiple areas. No wheeze, rhonchi or rales. No use of accessory muscles on inspiration or expiration. ABDOMEN: Soft, mild diffuse tenderness noted. Nondistended. Bowel sounds heard in all 4 quadrants. No organomegaly or masses. Negative rebound, negative guarding EXTREMITIES: Left lower extremity does show dry gangrene at previous amputation site, right lower extremity does have discoloration noted of the great toe. Legs are very pale. Diminished pulses noted in the right lower extremity NEUROLOGY: Patient with increased somnolence. Cranial nerves II through XII grossly intact. SACRAL AREA: Patient will not allow us to examine the area Urinary Catheter: Yes Date of Insertion: Jan 28, 2018 A/P Problem List: (1) Sepsis ICD Code: A41.9 - Sepsis, unspecified organism (2) Acute respiratory failure with hypoxia ICD Code: J96.01 - Acute respiratory failure with hypoxia (3) Leukocytosis ICD Code: D72.829 - Elevated white blood cell count, unspecified (4) Cellulitis, gluteal, left ICD Code: L03.317 - Cellulitis of buttock (5) Dry gangrene ICD Code: I96 - Gangrene, not elsewhere classified (6) Metabolic encephalopathy ICD Code: G93.41 - Metabolic encephalopathy (7) Acute kidney injury ICD Code: N17.9 - Acute kidney failure, unspecified (8) Metabolic acidosis ICD Code: E87.2 - Acidosis (9) Hypokalemia ICD Code: E87.6 - Hypokalemia (10) 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 (11) Severe protein-calorie malnutrition ICD Code: E43 - Unspecified severe protein-calorie malnutrition (12) Coagulopathy ICD Code: D68.9 - Coagulation defect, unspecified (13) Metastatic malignant neoplasm to lung ICD Code: C78.00 - Secondary malignant neoplasm of unspecified lung (14) Teratoma of sacrum ICD Code: D48.0 - Neoplasm of uncertain behavior of bone and articular cartilage (15) History of uterine cancer ICD Code: Z85.42 - Personal history of malignant neoplasm of other parts of uterus (16) Pain ICD Code: R52 - Pain, unspecified (17) Debility ICD Code: R53.81 - Other malaise Assessment and Plan NEUROLOGY Metabolic/toxic encephalopathy Anxiety/depression Continue monitor neurological function every 2 hours Patient placed on fentanyl infusion for ventilator synchrony and pain control Perform daily sedation vacation Tylenol 650 mg every 6 hours as needed for fever PULMONOLOGY Acute hypoxic respiratory failure Metastatic cancer to the lung Continue O2 segmentation maintain O2 sats greater than 92% 01/29-emergently intubated 7.5 ETT 21 cm at the left ABG-7.14/50 6.9/55/18/-9.0 on 100% FiO2 Duo nebs every 4 hours and every 2 hours as needed Chest x-ray does show wide spread patchy bilateral alveolar opacities, no significant change from reviewing recent chest x-rays Patient does have history of coagulopathy, possible pulmonary emboli CARDIOLOGY Sinus tachycardia, could be from underlying sepsis, PE, Continue monitor vital signs per ICU protocol, maintain map greater than 65 Continue IV fluid-normal saline with 20 mEq of KCl at 100 cc/hour GASTROENTEROLOGY Nausea vomiting Severe protein malnutrition Emaciated Insert OGT, confirmed placement, dietary consult for tube feeding Continue Zofran as needed RENAL Acute kidney injuries Metabolic acidosis Hypokalemia Maintain Jurado catheter-for accurate I&O's Strict input and output Monitor renal function Avoid nephrotoxins INFECTIOUS DISEASE Urinary tract infection Funguria Left gluteal cellulitis Sacral wound 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 daily, await urine culture for further recommendations Urine cultures pending Obtain blood cultures Obtain sacral wound culture HEMATOLOGY/ONCOLOGY Chronic microcytic anemia Thrombocytosis History of uterine cancer Widespread metastasis to the lung Metastasis to the liver Possible bladder tumor Possible right inguinal lymphadenopathy metastasis History of teratoma of the sacrum Transfuse 1 unit of packed red blood cells and patient with tachycardia, sepsis Continue monitor hemoglobin hematocrit transfuse if hemoglobin below 8.0 INR 1.5, 2 you to trend Need to continue monitor for any signs of vascular occlusion secondary to thrombocytosis Palliative care has been consulted Hospice has been consulted ENDOCRINOLOGY Continue monitor glucoses start Accu-Cheks and sliding scale insulin if needed PROPHYLAXIS DVT prevention with subcutaneous Lovenox GI protection with Pepcid LINES Peripheral IVsx2 CODE STATUS Full code my billing statement This patient remains critically ill with one or more organ systems which are or may become a threat to life. I have spent in excess of 30 minutes discontinuously in the care and management of this patient. This time is exclusive of procedures, and includes, but is not limited to, evaluation of the patient, review of the medical record, discussions with family, consultants, nursing staff, or respiratory therapy, and documentation in the medical record. 01/28 (Dr. Mike) I examined patient and evaluated laboratory and imaging data personally. [place] [facility] is awake but lethargic, answers questions. She is emaciated and chronically ill-appearing. She is tachypneic but without accessory muscle use. Rales are present bilaterally. Sats are adequate on 100% nonrebreather. Abdomen is soft and nondistended. Left AKA has large necrotic eschar overlying the stump. There is no drainage. The right foot is marbled, cool, pale up to the ankle. The popliteal pulse is palpable. There is no dopplerable posterior tib or DP pulse. She is able to wiggle her toes and move her ankle. There is necrosis of distal aspect 1st digit. She denies significant pain except when touching foot and lower leg but not really hyperesthetic.. Patient reportedly has sacral wounds and I asked to examine them but family refused, saying "that she has had to move too many times today and it is too uncomfortable for her". I asked patient about code status and comfort measures. She defers completely to her who states that he desires full code. She states that she does not have any appetite and does not want to eat. Her family is adamant that she eats even though she is nauseated and has been vomiting. They attribute her nausea and vomiting to "getting her medications when she does not have anything on her stomach". I transfused 1 unit packed red cells in effort to improve anemia and perhaps improve perfusion to her leg. Her hemoglobin was stable so I have started her on therapeutic Lovenox at 1.5 mg/kg daily. I discussed the risk/benefit of anticoagulation with family. They agree with anticoagulation in effort to mitigate the pain of limb ischemia. Discussed with Dr. Pascual, who agrees that there is no intervention warranted unless she has severe pain and then you dictation could be considered for palliation. Patient is terminally ill and hospice appropriate. Family seems to desire more aggressive care than hospice provides. Unfortunately, patient is suffering as hospice philosophy is not being embraced consistently. Palliative care has been consulted to assist treatment team in facilitating family understanding of her condition. At this point, aggressive resuscitative efforts would only serve to prolong the dying process and increase potential for suffering. Discussed this with family who says "we just want her to do all the things it takes to get better." They state they are very appreciative of her care in [facility] [place] and they feel that she is showing improvement. 01/29: Extensive discussion with Mr. Nicole and family today. Review of x-ray and patient's hypoxia the request is continued aggressive measures explained that the patient may require tracheostomy and I explained that there is a diffusion deficit secondary to the lung metastasis, Mr. Nicole stated an understanding and requests aggressive measures to be continued. The patient was emergently intubated uneventfully early this a.m.. Mr. Nicole also requested "if CPR was necessary to do everything possible". Physician Risa Storey MD Jan 29, 2018 10:46
[2018-01-29] MEDS ORDERED: TERBUTALINE INJ 1 MG/ML AMP SQ PRN (11:45)
[2018-01-29] MEDS ORDERED: PHENYLEPHRINE INJ 80 MG in DEXTROSE 5% IN WATE 500 ML INJ 492 ML IV PRN ×2 (11:45)
[2018-01-29] MEDS ORDERED: ACETAMINOPHEN 650 MG/20.3 ML UDC PO PRN (11:45)
[2018-01-29] MEDS: ENOXAPARIN SODIUM 60 MG/0.6 ML SYRINGE SQ SCH (12:04)
[2018-01-29] MEDS: fentaNYL 2,500 MCG/NS 250 ML IV PRN ×2 (12:04→16:07)
[2018-01-29] MEDS: PIPERACIL-TAZO 2.25 GM PREMIX 50 ML IV SCH ×2 (12:04→20:00)
[2018-01-29] MEDS: D5-1/2 NS + KCL 20 MEQ INJ 1,000 ML IV SCH ×2 (12:05→22:35)
--- NOTE | 2018-01-29 12:26 | RADRPT ---
EXAM DATE/TIME: 01/29/2018 11:48 [facility] COMPARISON: CHEST SINGLE AP, January 28, 2018, 13:04. INDICATIONS : Status post intubation. MEDICAL HISTORY : Hypoxia SURGICAL HISTORY : None. ENCOUNTER: Initial ACUITY: 1 day PAIN SCORE: Non-responsive. LOCATION: Bilateral chest FINDINGS: Portable AP view the chest demonstrates a normal-sized cardiac silhouette. Nasogastric tube is looped in the stomach. The stomach is distended with air. Endotracheal tube is present and extends slightly into the right main bronchus. There are multiple bilateral patchy nodular air space opacities. No pl eural effusion or pneumothorax is identified. CONCLUSION: 1. The endotracheal tube tip extends slightly into the right main bronchus and should be retracted ap proximately 2.5 cm. 2. Nasogastric tube is looped in the stomach and the stomach is very distended with air. 3. Multiple patchy nodular airspace opacities bilaterally. Infection or metastatic disease could have this appearance. Ludwin Smith MD on January 29, 2018 at 12:22 Board Certified Radiologist. This report was verified electronically.
--- NOTE | 2018-01-29 12:31 | RADRPT ---
EXAM DATE/TIME: 01/29/2018 11:49 [facility] COMPARISON: No previous studies available for comparison. INDICATIONS : Confirm NG tube placement. MEDICAL HISTORY : Hypoxia SURGICAL HISTORY : None. ENCOUNTER: Initial ACUITY: 1 day PAIN SCORE: Non-responsive. LOCATION: Bilateral abdomen. FINDINGS: 2 supine frontal views of the abdomen demonstrate very distended stomach with nasogastric tube looped in the stomach. There is air distended proximal and mid small bowel measuring up to 2.7 cm. There is a paucity of distal bowel gas. Bones demonstrate no acute finding. CONCLUSION: 1. Nasogastric tube is looped in the stomach. The stomach is very distended with air. 2. Mildly dilated proximal small bowel with a paucity of distal bowel gas. Findings could represent i leus or small bowel obstruction. Consider followup to assess for change. Ludwin Smith MD on January 29, 2018 at 12:25 Board Certified Radiologist. This report was verified electronically.
[2018-01-29] MEDS: POTASSIUM CHLOR 20 MEQ PREMIX 100 ML IV PRN ×3 (16:06→20:25)
--- NOTE | 2018-01-29 17:29 | PD.CONS ---
Consult Service Palliative Care . Consult Requested By Dr. Baker . Primary Care Physician Carlos Durán MD . Reason for Consultation a. To assist with evaluation and management of symptoms including: dyspnea, pain, debility. b. To assist medical decision maker(s) with: better understanding of current medical conditions; weighing benefits/burdens of medical treatment options; making medical treatment decisions. . HPI History of Present Illness Mrs. 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 Patient is known to palliative care team from prior admission. Patient was previously on [facility] hospice services, however revoked services for aggressive care to pursue amputation and was discharged with home health services.. Patient presented to [facility] on 01/28/18 for evaluation of nausea and vomiting, decreased appetite. Patient was started on broad-spectrum antibiotics. She was transferred from [place] to [facility] for worsening condition. She was found to have Mitali albicans in the urine on Fluconazole. Anemic with hemoglobin 7.5, post 1 unit PRBC transfusion on 01/28/18. Unfortunately her respiratory status continued to worsen, patient was placed on nonrebreather. She was not leaving the oxygen mask on with continuing worsening hypoxia was emergently intubated on 01/29/18. Palliative care was consulted to assist with further clarification of medical treatment goals. Patient seen in ICU, family at bedside. Patient on Fentanyl drip, intermittent grimacing noted. Patient unresponsive, unable to qualify or quantify pain. [facility], respirations unlabored. . Function/Cognitive Trajectory Patient was at home with family prior to admission. Dependent for care. Her daughter has been her primary caregiver. Patient was on home health, not hospice prior to admission. . Review of Systems ROS Limitations: Intubated (unable to answer questions, unresponsive. ), Unresponsive Constitutional: COMPLAINS OF: Fatigue, Weight loss, Change in appetite ( decreased "due to N/V" per spouse. ), DENIES: Diaphoretic episodes, Fever, Weight gain, Chills, Dizziness, Night Sweats, Pain, Generalized weakness, Sleep problems Endocrine: DENIES: Abnorml menstrual pattern, Heat/cold intolerance, Polydipsia , Polyuria, Polyphagia Eyes: COMPLAINS OF: Blurred vision (wears glasses), DENIES: Diplopia, Eye inflammation, Eye pain, Vision loss, Photosensitivity, Double Vision, Blind spots Ears, nose, mouth, throat: DENIES: Tinnitus, Hearing loss, Vertigo, Nasal discharge, Oral lesions, Throat pain, Hoarseness, Ear Pain, Running Nose, Epistaxis, Sinus Pain, Toothache, Odynophagia Respiratory: COMPLAINS OF: Shortness of breath Cardiovascular: COMPLAINS OF: Dyspnea on Exertion Gastrointestinal: COMPLAINS OF: Abdominal pain, Nausea, Vomiting, Anorexia, Bloating Genitourinary: DENIES: Abnormal vaginal bleeding, Dysmenorrhea, Dyspareunia, Sexual dysfunction, Urinary frequency, Urinary incontinence, Urgency, Hematuria , Dysuria, Nocturia, Vaginal discharge, Hesitancy, Dribbling, Decreased stream Musculoskeletal: COMPLAINS OF: Back pain (due to debility. ) Integumentary: COMPLAINS OF: Abnormal pigmentation, Non-healing sores (coccyx, ) Hematologic/Lymphatics: COMPLAINS OF: Bruising, Lymphadenopathy, History of transfusions Psychiatric: COMPLAINS OF: Anxiety Other ROS: ROS per family, nurse and EMR review. Pt unable to communicate. Past Family Social History Coded Allergies: No Known Allergies (Verified Allergy, Unknown, 01/26/18) Past Medical History Anxiety Depression Metastatic endometrial cancer to bilateral lungs, liver, soft tissue Buttock/sacral teratoma Peripheral vascular disease status post left AKA . Past Surgical History Cholecystectomy 1987 Buttock teratoma removal in 2010 Left leg [id number] amputation, November 2016 Left gluteal mass excision, November 2016 . Reported Medications Reported Meds & Active Scripts Active Lopressor (Metoprolol Tartrate) 50 Mg Tab 50 Mg PO Q12HR Oxycodone ER (Oxycodone HCl) 20 Mg Tab 20 Mg PO Q12HR Aspirin DR (Aspirin) 81 Mg Tabdr 81 Mg PO DAILY . Current Medications Medications (Trade) Dose Ordered Sig/Justin Route Start Time Stop Time Status Last Admin (NS Flush) 2 ml UNSCH PRN IV FLUSH 01/26/18 13:30 (NS Flush) 2 ml BID IV FLUSH 01/26/18 21:00 01/29/18 08:50 (Zofran Inj) 4 mg Q6H PRN IVP 01/26/18 14:00 01/28/18 10:23 (Narcan Inj) 0.4 mg UNSCH PRN IV PUSH 01/26/18 13:30 (Milk Of Magnesia Liq) 30 ml Q12H PRN PO 01/26/18 14:00 Pharmacy Profile Note 0 ml @ 0 mls/hr UNSCH OTHER 01/26/18 16:00 (Megace Liq) 400 mg DAILY PO 01/27/18 09:00 01/29/18 08:49 (Morphine Inj) 2 mg Q4HR PRN IV PUSH 01/26/18 16:15 01/28/18 21:07 (Lopressor) 50 mg Q12HR PO 01/27/18 21:00 01/29/18 08:48 (Dilaudid Pf Inj) 1 mg Q4H PRN IV PUSH 01/28/18 11:00 01/29/18 05:16 (Tylenol) 650 mg Q6H PRN PO 01/28/18 14:30 (Pepcid) 20 mg Q12HR PO 01/28/18 21:00 01/29/18 08:58 (Ativan Inj) 1 mg Q1H PRN IV PUSH 01/28/18 14:30 Miscellaneous Information 1 Q361D XX 01/28/18 14:30 (Chlorhexidine 2% Cloth) 3 pack Taper DAILY@04 TOP 01/29/18 04:00 01/25/19 03:59 01/29/18 04:00 (Chlorhexidine 2% Cloth) 3 pack UNSCH PRN TOP 01/28/18 14:30 (Teodora-Colace) 1 tab BID PO 01/28/18 21:00 01/29/18 08:48 (Milk Of Magnesia Liq) 30 ml Q12H PRN PO 01/28/18 14:30 (Senokot) 17.2 mg Q12H PRN PO 01/28/18 14:30 (Dulcolax Supp) 10 mg DAILY PRN RECTAL 01/28/18 14:30 (Lactulose Liq) 30 ml DAILY PRN PO 01/28/18 14:30 (Duoneb Neb) 1 ampule Q4HR WHILE AWAKE NEB NEB 01/28/18 16:00 01/29/18 15:43 (Duoneb Neb) 1 ampule Q2HR NEB PRN NEB 01/28/18 15:30 01/29/18 00:01 Vancomycin HCl 700 mg/Sodium Chloride 257 ml @ 250 mls/hr Q24H IV 01/28/18 20:00 01/28/18 21:30 Miscellaneous Information SPECIFIC LAB TO BE MAIA... ONCE ONCE .XX 01/31/18 19:45 01/31/18 19:46 (Albuterol Neb) 2.5 mg Q2HR NEB PRN NEB 01/28/18 23:15 (Phenergan Inj) 25 mg Q6H PRN IV-CENTRAL 01/28/18 23:15 Potassium Chloride/Dextrose/ Sod Cl 1,000 ml @ 100 mls/hr Q10H IV 01/28/18 23:15 01/29/18 12:05 Fluconazole/ Sodium Chloride 200 ml @ 100 mls/hr Q24H IV 01/28/18 23:15 01/28/18 23:52 (D50w (Vial) Inj) 50 ml UNSCH PRN IV PUSH 01/29/18 03:00 Potassium Chloride 100 ml @ 50 mls/hr Q2H PRN IV 01/29/18 05:45 Potassium Chloride 100 ml @ 50 mls/hr Q2H PRN IV 01/29/18 05:45 01/29/18 16:06 (K-Lyte Cl Eff) 50 meq UNSCH PRN PO 01/29/18 05:45 Potassium Chloride 100 ml @ 25 mls/hr UNSCH PRN IV 01/29/18 05:45 Potassium Chloride 100 ml @ 50 mls/hr Q2H PRN IV 01/29/18 05:45 Magnesium Sulfate 4 gm/Sodium Chloride 100 ml @ 50 mls/hr UNSCH PRN IV 01/29/18 05:45 (Mag-Ox) 800 mg UNSCH PRN PO 01/29/18 05:45 Magnesium Sulfate 2 gm/Sodium Chloride 100 ml @ 50 mls/hr UNSCH PRN IV 01/29/18 05:45 (K-Phos) 2,000 mg Q4H PRN PO 01/29/18 05:45 Sodium Phosphate 30 mmol/Sodium Chloride 250 ml @ 42 mls/hr UNSCH PRN IV 01/29/18 05:45 (K-Phos) 2,000 mg UNSCH PRN PO/TUBE 01/29/18 05:45 Potassium Phosphate 30 mmol/ Sodium Chloride 260 ml @ 42 mls/hr UNSCH PRN IV 01/29/18 05:45 (Lovenox Inj) 50 mg Q24H SQ 01/29/18 10:00 01/29/18 12:04 Fentanyl Citrate 250 ml @ 5 mls/hr TITRATE PRN IV 01/29/18 10:30 01/29/18 16:07 Piperacillin Sod/ Tazobactam Sod 50 ml @ 100 mls/hr Q8H IV 01/29/18 12:00 01/29/18 12:04 (Tylenol 650 Mg/ 20 ml Liq) 650 mg Q6H PRN PO 01/29/18 11:45 Phenylephrine HCl 80 mg/Dextrose 500 ml @ 15 mls/hr TITRATE PRN IV 01/29/18 11:45 (Brethine Inj) 1 mg UNSCH PRN SQ 01/29/18 11:45 Family History Maternal medical history significant for cardiovascular disease and Alzheimer's. Paternal medical history significant for asthma and CHF. . Substance Use Tobacco: quit smoking in 2010 Alcohol: none Prescription med abuse:none Illicits:none known . Psychosocial History twice. 2 children by first and 2 children (son and daughter) by her second , to whom she has been with for > 20 years. 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 . Spiritual/Cultural Factors Gnosticism cassidy . Living Will: Never completed Health Care Surrogate: Never completed Durable Power of Enrollment Services Vice President: Never completed Health Care Surrogate(s): Patient is not capacitated to make her own healthcare decisions, will not regain capacity. According to [place] statute, healthcare proxy decision making falls to her spouse Abdullahi Nicole. . Documented care wishes: None. . Today's verbally stated goals: Patient is not capacitated to make her own healthcare decisions, will not regain capacity. . Family/friends goals: Goals aggressive including FULL CODE. . Ethical and Legal Issues Patient is not capacitated to make her own healthcare decisions, will not regain capacity. According to [place] statute, healthcare proxy decision making falls to her spouse Abdullahi Nicole. . Physical Exam Vital Signs Date Time Temp Pulse Resp B/P (MAP) Pulse Ox O2 Delivery O2 Flow Rate FiO2 01/29/18 15:39 95 100 01/29/18 14:00 62 01/29/18 13:02 97 100 01/29/18 12:47 91 100 01/29/18 12:00 55 01/29/18 11:10 100 90 01/29/18 10:00 74 01/29/18 08:00 98.4 90 32 108/60 (76) 01/29/18 08:00 90 01/29/18 06:00 87 01/29/18 04:00 98.7 86 31 136/71 (92) 01/29/18 04:00 92 01/29/18 02:00 83 01/29/18 00:00 85 01/29/18 00:00 98.4 111 34 106/81 (89) 91 01/28/18 20:36 96 Non-Rebreather 15.00 100 01/28/18 20:00 99.0 111 28 108/76 (87) 92 01/28/18 18:00 92 01/28/18 18:00 92 30 109/59 (76) 86 01/28/18 17:13 92 01/28/18 17:13 92 27 103/54 (70) 95 01/28/18 17:00 88 Exam CONSTITUTIONAL/GENERAL: This is critically ill, cachectic patient, on mechanical ventilation. TUBES/LINES/DRAINS: ETT, OG, [place]. SKIN: Ecchymoses on upper extremities.Skin temperature cold. Mottling right foot to above the knee, bilateral hands. Right great toe dark purple. Dry gangrene left AKA amputation site. HEAD: Atraumatic. Bitemporal wasting. EYES: Eyes closed. ENT: Unable to asses hearing. Nose without bleeding or purulent drainage. Throat difficult to asses due to tubes. NECK: Trachea midline. CARDIOVASCULAR: Regular rate and rhythm without murmurs, gallops, or rubs. No JVD. RESPIRATORY/CHEST: On mech vent. Diminished breath sounds bilaterally. GASTROINTESTINAL: Abdomen soft, non-tender, nondistended. Bowel sounds present. GENITOURINARY: Without palpable bladder distension. Jurado catheter in place. MUSCULOSKELETAL: Left lower extremity AKA with muscle wasting and dry gangrene, dressing replaced after exam. Right lower extremity mottling from toes to above the knee. Mottling bilateral hands. Dark purple right great toe. Cold to touch. LYMPHATICS: inguinal adenopathy. NEUROLOGICAL: Unresponsive. PSYCHIATRIC: Unresponsive. . Diagnostic Tests Laboratory Laboratory Tests Test 01/27/18 09:35 01/28/18 04:45 01/28/18 09:27 01/28/18 10:15 White Blood Count 32.0 TH/MM3 (4.0-11.0) 34.8 TH/MM3 (4.0-11.0) 39.2 TH/MM3 (4.0-11.0) Red Blood Count 3.44 MIL/MM3 (4.00-5.30) 2.73 MIL/MM3 (4.00-5.30) 3.29 MIL/MM3 (4.00-5.30) Hemoglobin 7.6 GM/DL (11.6-15.3) 6.2 GM/DL (11.6-15.3) 7.5 GM/DL (11.6-15.3) Hematocrit 25.5 % (35.0-46.0) 20.2 % (35.0-46.0) 24.4 % (35.0-46.0) Mean Corpuscular Volume 74.2 FL (80.0-100.0) 73.8 FL (80.0-100.0) 74.2 FL (80.0-100.0) Mean Corpuscular Hemoglobin 22.2 PG (27.0-34.0) 22.8 PG (27.0-34.0) 22.8 PG (27.0-34.0) Mean Corpuscular Hemoglobin Concent 29.9 % (32.0-36.0) 30.9 % (32.0-36.0) 30.6 % (32.0-36.0) Red Cell Distribution Width 16.6 % (11.6-17.2) 16.5 % (11.6-17.2) 16.4 % (11.6-17.2) Platelet Count 697 TH/MM3 (150-450) 636 TH/MM3 (150-450) 674 TH/MM3 (150-450) Mean Platelet Volume 6.1 FL (7.0-11.0) 5.4 FL (7.0-11.0) 6.5 FL (7.0-11.0) Neutrophils (%) (Auto) 96.1 % (16.0-70.0) 95.5 % (16.0-70.0) 98.1 % (16.0-70.0) Lymphocytes (%) (Auto) 2.0 % (9.0-44.0) 2.5 % (9.0-44.0) 1.1 % (9.0-44.0) Monocytes (%) (Auto) 1.9 % (0.0-8.0) 1.9 % (0.0-8.0) 0.6 % (0.0-8.0) Eosinophils (%) (Auto) 0.0 % (0.0-4.0) 0.1 % (0.0-4.0) 0.1 % (0.0-4.0) Basophils (%) (Auto) 0.0 % (0.0-2.0) 0.0 % (0.0-2.0) 0.1 % (0.0-2.0) Neutrophils # (Auto) 30.8 TH/MM3 (1.8-7.7) 33.2 TH/MM3 (1.8-7.7) 38.6 TH/MM3 (1.8-7.7) Lymphocytes # (Auto) 0.6 TH/MM3 (1.0-4.8) 0.9 TH/MM3 (1.0-4.8) 0.4 TH/MM3 (1.0-4.8) Monocytes # (Auto) 0.6 TH/MM3 (0-0.9) 0.7 TH/MM3 (0-0.9) 0.2 TH/MM3 (0-0.9) Eosinophils # (Auto) 0.0 TH/MM3 (0-0.4) 0.0 TH/MM3 (0-0.4) 0.0 TH/MM3 (0-0.4) Basophils # (Auto) 0.0 TH/MM3 (0-0.2) 0.0 TH/MM3 (0-0.2) 0.0 TH/MM3 (0-0.2) CBC Comment AUTO DIFF AUTO DIFF AUTO DIFF Differential Total Cells Counted 100 100 100 Neutrophils % (Manual) 88 % (16-70) 96 % (16-70) 93 % (16-70) Band Neutrophils % 4 % (0-6) 1 % (0-6) 5 % (0-6) Lymphocytes % 4 % (9-44) 2 % (9-44) 2 % (9-44) Monocytes % 4 % (0-8) 1 % (0-8) Neutrophils # (Manual) 29.4 TH/MM3 (1.8-7.7) 33.8 TH/MM3 (1.8-7.7) 38.4 TH/MM3 (1.8-7.7) Differential Comment FINAL DIFF MANUAL FINAL DIFF MANUAL FINAL DIFF MANUAL Toxic Granulation 2+ (NORMAL) 1+ (NORMAL) 2+ (NORMAL) Platelet Estimate HIGH (NORMAL) HIGH (NORMAL) HIGH (NORMAL) Platelet Morphology Comment NORMAL (NORMAL) NORMAL (NORMAL) NORMAL (NORMAL) Blood Urea Nitrogen 46 MG/DL (7-18) Creatinine 1.60 MG/DL (0.50-1.00) MG/DL (0.50-1.00) Random Glucose 51 MG/DL (74-106) Total Protein 6.3 GM/DL (6.4-8.2) Albumin 1.7 GM/DL (3.4-5.0) Calcium Level 8.4 MG/DL (8.5-10.1) Alkaline Phosphatase 171 U/L (45-117) Aspartate Amino Transf (AST/SGOT) 17 U/L (15-37) Alanine Aminotransferase (ALT/SGPT) LESS THAN 6 U/L (10-53) Total Bilirubin 0.2 MG/DL (0.2-1.0) Sodium Level 137 MEQ/L (136-145) Potassium Level 4.5 MEQ/L (3.5-5.1) Chloride Level 104 MEQ/L (98-107) Carbon Dioxide Level 22.5 MEQ/L (21.0-32.0) Anion Gap 11 MEQ/L (5-15) Estimat Glomerular Filtration Rate 32 ML/MIN (>89) ML/MIN (>89) Urine Color YELLOW (YELLW/STRAW) Urine Turbidity SL CLOUDY (CLEAR) Urine pH 5.0 (5.0-8.5) Urine Specific [place] 1.015 (1.002-1.035) Urine Protein TRACE mg/dL (NEG-TRACE) Urine Glucose (UA) NEG mg/dL (NEG) Urine Ketones TRACE mg/dL (NEG) Urine Occult Blood MOD (NEG) Urine Nitrite NEG (NEG) Urine Bilirubin NEG (NEG) Urine Urobilinogen 0.2 MG/DL (LESS THAN Urine Leukocyte Esterase MOD (NEG) Urine RBC 3-5 /hpf (0-3) Urine WBC 9-14 /hpf (0-5) Urine Squamous Epithelial Cells 0-5 /hpf (0-5) Urine Bacteria NONE /hpf (NONE) Urine Yeast with Hyphae MANY (NONE) Urine Yeast (Budding) MANY (NONE) Microscopic Urinalysis Comment CULTURE INDICATED Hypersegmented Polys 2+ (NORMAL) 1+ (NORMAL) Vancomycin Level Trough MCG/ML (5.0-10.0) Test 01/28/18 13:40 01/28/18 15:48 01/28/18 16:50 01/28/18 20:11 Blood Urea Nitrogen 35 MG/DL (7-18) Creatinine 0.96 MG/DL (0.50-1.00) Random Glucose 64 MG/DL (74-106) Total Protein 5.9 GM/DL (6.4-8.2) Albumin 1.4 GM/DL (3.4-5.0) Calcium Level 8.3 MG/DL (8.5-10.1) Alkaline Phosphatase 196 U/L (45-117) Aspartate Amino Transf (AST/SGOT) 35 U/L (15-37) Alanine Aminotransferase (ALT/SGPT) LESS THAN 6 U/L (10-53) Total Bilirubin 0.2 MG/DL (0.2-1.0) Sodium Level 143 MEQ/L (136-145) Potassium Level 3.4 MEQ/L (3.5-5.1) Chloride Level 112 MEQ/L (98-107) Carbon Dioxide Level 15.9 MEQ/L (21.0-32.0) Anion Gap 15 MEQ/L (5-15) Estimat Glomerular Filtration Rate 58 ML/MIN (>89) Random Vancomycin Level 6.2 COMMENT Blood Gas Puncture Site RT RADIAL Blood Gas Patient Temperature 37.0 Blood Gas HCO3 18 mmol/L (22-26) Blood Gas Base Excess -6.2 mmol/L (-2-2) Blood Gas Oxygen Saturation 90 % (90-100) Arterial Blood pH 7.36 (7.380-7.420) Arterial Blood Partial Pressure CO2 33 mmHg (38-42) Arterial Blood Partial Pressure O2 69 mmHg (61-120) Arterial Blood Oxygen Content 8.8 Vol % (12.0-20.0) Arterial Blood Carboxyhemoglobin 1.4 % (0-4) Arterial Blood Methemoglobin 1.4 % (0-2) Blood Gas Hemoglobin 6.9 G/DL (12.0-16.0) Oxygen Delivery Device NRB Blood Gas Liter Flow 12 L/M Prothrombin Time 15.4 SEC (9.8-11.6) Prothromb Time International Ratio 1.5 RATIO Activated Partial Thromboplast Time 32.2 SEC (24.3-30.1) Lactic Acid Level 2.7 mmol/L (0.4-2.0) Nasal Screen MRSA (PCR) MRSA NOT DETECTED (NOT Test 01/28/18 20:29 01/29/18 01:35 01/29/18 07:40 01/29/18 10:08 Lactic Acid Level 2.3 mmol/L (0.4-2.0) Blood Urea Nitrogen 34 MG/DL (7-18) 34 MG/DL (7-18) Creatinine 0.82 MG/DL (0.50-1.00) 0.84 MG/DL (0.50-1.00) Random Glucose 41 MG/DL (74-106) 187 MG/DL (74-106) Calcium Level 8.3 MG/DL (8.5-10.1) 8.0 MG/DL (8.5-10.1) Magnesium Level 1.8 MG/DL (1.5-2.5) 1.7 MG/DL (1.5-2.5) Sodium Level 146 MEQ/L (136-145) 146 MEQ/L (136-145) Potassium Level 3.5 MEQ/L (3.5-5.1) 3.2 MEQ/L (3.5-5.1) Chloride Level 115 MEQ/L (98-107) 114 MEQ/L (98-107) Carbon Dioxide Level 15.7 MEQ/L (21.0-32.0) 20.5 MEQ/L (21.0-32.0) Anion Gap 15 MEQ/L (5-15) 12 MEQ/L (5-15) Estimat Glomerular Filtration Rate 70 ML/MIN (>89) 68 ML/MIN (>89) Total Creatine Kinase 119 U/L (26-192) Lipase 77 U/L (73-393) White Blood Count 39.5 TH/MM3 (4.0-11.0) Red Blood Count 3.72 MIL/MM3 (4.00-5.30) Hemoglobin 9.0 GM/DL (11.6-15.3) Hematocrit 29.4 % (35.0-46.0) Mean Corpuscular Volume 79.0 FL (80.0-100.0) Mean Corpuscular Hemoglobin 24.2 PG (27.0-34.0) Mean Corpuscular Hemoglobin Concent 30.7 % (32.0-36.0) Red Cell Distribution Width 16.7 % (11.6-17.2) Platelet Count 499 TH/MM3 (150-450) Mean Platelet Volume 6.6 FL (7.0-11.0) Neutrophils (%) (Auto) 97.1 % (16.0-70.0) Lymphocytes (%) (Auto) 0.7 % (9.0-44.0) Monocytes (%) (Auto) 1.7 % (0.0-8.0) Eosinophils (%) (Auto) 0.0 % (0.0-4.0) Basophils (%) (Auto) 0.5 % (0.0-2.0) Neutrophils # (Auto) 38.4 TH/MM3 (1.8-7.7) Lymphocytes # (Auto) 0.3 TH/MM3 (1.0-4.8) Monocytes # (Auto) 0.7 TH/MM3 (0-0.9) Eosinophils # (Auto) 0.0 TH/MM3 (0-0.4) Basophils # (Auto) 0.2 TH/MM3 (0-0.2) CBC Comment AUTO DIFF Differential Total Cells Counted 100 Neutrophils % (Manual) 82 % (16-70) Band Neutrophils % 18 % (0-6) Neutrophils # (Manual) 39.5 TH/MM3 (1.8-7.7) Differential Comment FINAL DIFF MANUAL Toxic Granulation 1+ (NORMAL) Toxic Vacuolation PRESENT (NONE SEEN) Dohle Bodies PRESENT (NONE SEEN) Platelet Estimate HIGH (NORMAL) Platelet Morphology Comment NORMAL (NORMAL) Total Protein 5.7 GM/DL (6.4-8.2) Albumin 1.5 GM/DL (3.4-5.0) Phosphorus Level 3.5 MG/DL (2.5-4.9) Alkaline Phosphatase 192 U/L (45-117) Aspartate Amino Transf (AST/SGOT) 88 U/L (15-37) Alanine Aminotransferase (ALT/SGPT) 15 U/L (10-53) Total Bilirubin 0.3 MG/DL (0.2-1.0) Blood Gas Puncture Site RT BRACHIAL Blood Gas Patient Temperature 98.6 Blood Gas HCO3 19 mmol/L (22-26) Blood Gas Base Excess -9.0 mmol/L (-2-2) Blood Gas Oxygen Saturation 76 % (90-100) Arterial Blood pH 7.14 (7.380-7.420) Arterial Blood Partial Pressure CO2 57 mmHg (38-42) Arterial Blood Partial Pressure O2 55 mmHg (61-120) Arterial Blood Oxygen Content 9.0 Vol % (12.0-20.0) Arterial Blood Carboxyhemoglobin 0.5 % (0-4) Arterial Blood Methemoglobin 1.5 % (0-2) Blood Gas Hemoglobin 8.4 G/DL (12.0-16.0) Oxygen Delivery Device Non-Rebreathing Mask Blood Gas Liter Flow 15 L/M Blood Gas Inspired Oxygen 100 % Test 01/29/18 12:34 Blood Gas Puncture Site RT RADIAL Blood Gas Patient Temperature 98.6 Blood Gas HCO3 16 mmol/L (22-26) Blood Gas Base Excess -8.2 mmol/L (-2-2) Blood Gas Oxygen Saturation 85 % (90-100) Arterial Blood pH 7.35 (7.380-7.420) Arterial Blood Partial Pressure CO2 30 mmHg (38-42) Arterial Blood Partial Pressure O2 57 mmHg (61-120) Arterial Blood Oxygen Content 9.9 Vol % (12.0-20.0) Arterial Blood Carboxyhemoglobin 1.1 % (0-4) Arterial Blood Methemoglobin 1.5 % (0-2) Blood Gas Hemoglobin 8.2 G/DL (12.0-16.0) Oxygen Delivery Device VENTILATOR Blood Gas Ventilator Setting PC/AC//1.0/+5 Blood Gas Inspired Oxygen 80 % Result Diagram: 01/29/18 0740 01/29/18 0740 Microbiology Microbiology Date/Time Source Procedure Growth Status 01/28/18 16:55 Blood Peripheral Aerobic Blood Culture - Preliminary NO GROWTH IN 1 DAY Resulted 01/28/18 16:55 Blood Peripheral Anaerobic Blood Culture - Preliminary NO GROWTH IN 1 DAY Resulted 01/28/18 16:50 Blood Peripheral Aerobic Blood Culture - Preliminary NO GROWTH IN 1 DAY Resulted 01/28/18 16:50 Blood Peripheral Anaerobic Blood Culture - Preliminary NO GROWTH IN 1 DAY Resulted 01/28/18 17:50 Urine Random Urine Legionella Antigen - Final PRESUMPTIVE NEGATIVE FOR LEGIONELLA P... Complete 01/28/18 17:50 Urine Random Urine Streptococcus pneumoniae Antigen (M - Final PRESUMPTIVE NEGATIVE FOR STREPTOCOCCU... Complete 01/28/18 04:45 Urine Clean Catch Urine Culture - Preliminary Mitali Albicans Resulted Imaging Last Impressions Chest X-Ray 01/29/18 0000 Signed Impressions: Service Date/Time: Monday, January 29, 2018 11:48 - CONCLUSION: 1. The endotracheal tube tip extends slightly into the right main bronchus and should be retracted approximately 2.5 cm. 2. Nasogastric tube is looped in the stomach and the stomach is very distended with air. 3. Multiple patchy nodular airspace opacities bilaterally. Infection or metastatic disease could have this appearance. Ludwin Smith MD Abdomen X-Ray 01/29/18 0000 Signed Impressions: Service Date/Time: Monday, January 29, 2018 11:49 - CONCLUSION: 1. Nasogastric tube is looped in the stomach. The stomach is very distended with air. 2. Mildly dilated proximal small bowel with a paucity of distal bowel gas. Findings could represent ileus or small bowel obstruction. Consider followup to assess for change. Ludwin Smith MD Procedures * 01/29/18 - Intubated. . Patient/Family Conference Present at Family Conference: With spouse, son, daughter and stepdaughter at bedside. Also present nurse, Tatyana. Family Conference Time (mins): 60 Family Conference Location: Bedside Issues Discussed: * Palliative care role, purpose, approach * Additional medical, psychosocial, and spiritual history * Patients general health, functional status, and cognitive changes in the months leading up to the current hospitalization * Patient/family understanding of the current medical problems * Patient/family understanding of prognosis * Patients goals of care as best understood from advance directives and/or conversations and/or values * Current medical treatment options and benefits/burdens of those options * Likely scenarios comparing ongoing aggressive care with a transition to comfort measures only * Questions answered to the best of my ability * Palliative care contact information provided Spoke with family at bedside. desires continued aggressive care including FULL CODE. He indicates he does not want her to suffer however states he does not want her sedated. He appreciates the care of the patient has received, however voices frustration that she was not able to be on hospice recently. I suspect this is secondary to aggressive goals. When discussing goals of care, he again verbalizes desire for continued aggressive care, goals are not hospice appropriate. While discussing goals of care he becomes upset with me and asks me to leave the room. He wants everything done to keep her alive. After he left the room he came out into the hallway, to apologize. He becomes tearful, verbalizing his frustrations with having all of this "weight on his shoulders." He asks for my forgiveness and invites me to come back in the room. While I am examining the patient Mr. Nicole asks me if I have ever seen a patient like his survive. I explained his is dying now, not expected to survive this hospitalization. I explained well we are sometimes able to get patients off of ventilators, his has widespread metastatic disease in both lungs and that this is not likely possible for her. When I verbalize that she again is not expected to survive this hospitalization, the patient's daughter becomes tearful. I attempted to comfort her by placing a hand on her shoulder and she pulled away from me telling me "do not touch me." I apologized. Mr. Nicole becomes appropriately tearful during this conversation. During my visit respiratory therapy is attempting to obtain ABGs. Mr. Nicole becomes upset wondering why she has to be stuck so many times. I advised that these tests are providing additional information in an effort to keep his alive. He wonders why we cannot avoid all of these tests. Palliative care number provided will continue to follow to assist with further clarification of goals. At this time family desires FULL CODE and continued aggressive care. . Assessment and Plan Disease Oriented Problem List: (1) Acute respiratory failure with hypoxia (2) Metabolic encephalopathy (3) Uterine cancer Comment: Metastatic uterine cancer to bilateral lungs, liver, soft tissue, lymph nodes and possible bladder . (4) Sinus tachycardia (5) Severe protein-calorie malnutrition (6) Urinary tract infection (7) Dry gangrene (8) Severe protein-calorie malnutrition (9) Leukocytosis (10) Sepsis Symptom Scale: (1) Dyspnea 0-10 Scale: Unable to quantify Comment: Intubated on 4/16/18 on mechanical ventilation (2) Pain 0-10 Scale: Unable to quantify Comment: Secondary to metastatic endometrial cancer, debility, wounds, bedbound status, tubes, etc. On fentanyl drip. . (3) Debility 0-10 Scale: Unable to quantify Comment: Due to progressive widespread mets cancer. Pertinent Non-Medical Issues Psychosocial: . 4 adult children, 2 (son and daughter) live with patient. Spiritual: Gnosticism cassidy. Legal:Patient is not capacitated to make her own healthcare decisions, will not regain capacity. According to [place] statute, healthcare proxy decision making falls to her spouse Abdullahi Nicole. Ethical issues impacting care: No known concerns at this time. . Important Contacts * Abdullahi Nicole, /HCP: [phone] . Prognosis Mrs. Nicole is a 67-year-old female with widespread metastatic uterine cancer metastases to bilateral lungs, liver, lymph nodes and soft tissue. She is now on mechanical ventilation. Patient is terminal, will not likely survive this hospitalization. . Code Status: Full Code Plan * Patient is not capacitated to make her own healthcare decisions, will not regain capacity. According to [place] statute, healthcare proxy decision making falls to her spouse Abdullahi Nicole. * FULL CODE. * Goals are extremely aggressive. does not want patient oversedated. He requests that she not be "stuck" anymore today, advised labs and monitoring are necessary if he desires continued aggressive care. * Discussed with nurse, Tatyana and Dr. Baker. * SYMPTOMS: Pain: Secondary to metastatic endometrial cancer, debility, wounds, bedbound status, tubes, etc. On fentanyl drip. Dyspnea: On mechanical ventilation, suspect patient will not be weaned from mechanical vent given extensive pulmonary metastasis. * Palliative care will continue to follow to assist with clarification of treatment goals as needed. . Thank you for the opportunity to participate in the care of Ms. Nicole. Attestation To help prompt me to consider important information that might be impacting today's encounter and assessment, information from prior notes written by myself or my colleagues may have been "brought forward" into today's note. My signature on this note, however, is an attestation that I personally performed the exam, history, and/or decision-making noted today, and, unless otherwise indicated, the interactions with patient, family, and staff as well as the review of records all occurred today. I also attest that the listed assessment and stated plan reflect my best clinical judgment today based on the combination of historical information, prior notes, and today's exam/ interactions. When time spent is documented, it refers only to time spent today by the signer, or if indicated, combined time spent today by collaborating physician/nurse practitioner. Marquita Alfaro Jan 29, 2018 17:28
--- NOTE | 2018-01-29 18:20 | PD.WCN.NOT ---
Wound Consult Additional Information: Attempted to assess wound to sacral area . Family at bedside. Spouse is at bedside and is refusing care for patient. Spouse is refusing wound care for patient at this time. Engineering Document Control Clerk inquired if fiction and nonfiction prose writer and Doctor Rodriguez could come see patient in the morning for assessment of sacral wound. Patient's spouse consented for fiction and nonfiction prose writer and Doctor Rodriguez to assess wound tomorrow. Dayami Oquendo [facility] Jan 29, 2018 18:20
[2018-01-29] MEDS: VANCOMYCIN INJ 700 MG in SODIUM CHLOR 0.9% 250 ML INJ 250 ML IV SCH (22:07)
[2018-01-30] VITALS (43 sets, daily range): BP systolic 75–113; BP diastolic 46–67; PULSE 74–109; RESP 16–28; TEMP 98–98.3; O2SAT 91–97
[2018-01-30] MEDS: FLUCONAZOLE 400 MG PREMIX BAG 200 ML IV SCH ×2 (01:14→23:15)
[2018-01-30] MEDS: RESP: ALBUTEROL 2.5 MG/IPRATROPIUM 0.5 MG NEB (PRN) NEB (03:05)
[2018-01-30] MEDS: PIPERACIL-TAZO 2.25 GM PREMIX 50 ML IV SCH ×3 (03:45→20:22)
[2018-01-30] MEDS: CHLORHEXIDINE GLUCONATE 2 % 1 PACK (2 CLOTHS) TOP SCH ×2 (03:46→20:50)
[2018-01-30 05:38] LABS: CALCIUM 7.8 MG/DL (8.5-10.1); CREATININE 0.78 MG/DL (0.50-1.00)
[2018-01-30 05:44] LABS: HEMATOCRIT 30.5 % (35.0-46.0); HEMOGLOBIN 9.1 GM/DL (11.6-15.3); MEAN CELL VOLUME 79.3 FL (80.0-100.0); MEAN CORPUSCULAR HEMOGLOBIN 23.6 PG (27.0-34.0); MEAN PLATELET VOLUME 6.9 FL (7.0-11.0); PLATELET COUNT 352 TH/MM3 (150-450); RED BLOOD COUNT 3.85 MIL/MM3 (4.00-5.30); RED CELL DISTRIBUTION WIDTH 17.1 % (11.6-17.2); WHITE BLOOD COUNT 36.1 TH/MM3 (4.0-11.0)
[2018-01-30 05:47] LABS: MEAN CORPUSCULAR HGB CONC 29.8 % (32.0-36.0)
--- NOTE | 2018-01-30 05:58 | RADRPT ---
EXAM DATE/TIME: 01/30/2018 04:47 [facility] COMPARISON: CHEST SINGLE AP, January 29, 2018, 11:48. INDICATIONS : Short of breath. MEDICAL HISTORY : Hypoxia. SURGICAL HISTORY : None. ENCOUNTER: Subsequent ACUITY: 1 week PAIN SCORE: 0/10 LOCATION: Bilateral chest FINDINGS: Numerous rounded parenchymal opacities are seen in both lungs without significant change, probably a combination of infiltrate and masses. No pleural effusion seen. No pneumothorax. Stable, normal heart size. Endotracheal tube tip is 3.2 cm above the josemanuel. Nasogastric tube is coiled in the stomach and there is mild gaseous distention of the stomach but slightly improved from yesterday. CONCLUSION: Patchy consolidation and masses in both lungs not significantly changed. Appropriate position of the nasogastric tube and endotracheal tube. Persistent gaseous distention of the stomach despite presence of nasogastric tube. Ludwin Bustillo MD on January 30, 2018 at 5:55 Board Certified Radiologist. This report was verified electronically.
[2018-01-30 06:51] LABS: BANDS 6 % (0-6); LYMPHOCYTES 1 % (9-44); NEUTROPHIL # MANUAL DIFF 35.7 TH/MM3 (1.8-7.7); POLYS (SEG NEUTROPHILS) 93 % (16-70)
[2018-01-30 06:54] LABS: TOXIC GRANULATION 1+ (NORMAL)
[2018-01-30] MEDS: RESP: ALBUTEROL 2.5 MG/IPRATROPIUM 0.5 MG NEB (SCH) NEB ×4 (07:20→19:55)
[2018-01-30] MEDS: METOPROLOL TARTRATE 50 MG TAB PO SCH ×2 (08:04→20:23)
[2018-01-30] MEDS: D5-1/2 NS + KCL 20 MEQ INJ 1,000 ML IV SCH ×2 (08:04→15:15)
[2018-01-30] MEDS: SODIUM CHLORIDE 0.9% FLUSH 10 ML FLUSH IV FLUSH SCH ×2 (08:04→19:48)
[2018-01-30] MEDS: FAMOTIDINE 20 MG TAB PO SCH ×2 (08:04→20:23)
[2018-01-30] MEDS: MEGESTROL ACETATE SUSP 400 MG/10 ML CUP PO SCH (08:04)
[2018-01-30] MEDS: DOCUSATE SODIUM 50 MG/SENNA 8.6 MG TAB PO SCH ×2 (09:00→20:23)
[2018-01-30] MEDS: ENOXAPARIN SODIUM 60 MG/0.6 ML SYRINGE SQ SCH (11:28)
[2018-01-30] MEDS: SODIUM CHLOR 0.9% 1000 ML INJ 1,000 ML IV SCH ×2 (12:00→20:24)
--- NOTE | 2018-01-30 15:09 | HHI.HCPN ---
Reason for visit a. To assist with evaluation and management of symptoms including: dyspnea, pain, debility. b. To assist medical decision maker(s) with: better understanding of current medical conditions; weighing benefits/burdens of medical treatment options; making medical treatment decisions. . Subjective/Interval History Patient seen and examined in ICU. Discussed with nurse, Adry. , 2 sons, 2 daughters and step-daughter at bedside. Medical update provided. Patient remains unresponsive on mech vent, FiO2 100%. Color dusky. Labs reviewed , WBC remains markedly elevated 36.1, hemoglobin 9.1, hematocrit 30.5, platelets 352. 4/ - Urine culture Mitali albicans on Fluconazole. Blood cultures no growth in 2 days. Patient does not appear painful during my visit, she is unresponsive. No facial grimacing noted, off Fentanyl drip. Respirations are unlabored on vent. RR 18- 27. Family does not want her "overmedicated because it causes her to go down." Has PRN Hydromorphone 1mg IV every 4 hours (last dose 01/29) or PRN Morphine 2mg IV every 4 hours (last dose 01/28). Sparing use of PRN meds, will monitor need and discuss with family as they are hesitant to medicate the patient. No new imaging today. BP stable (112/61), not on pressor support. Awaiting wound care evaluation later today, spouse refused yesterday. He indicates it is okay for wound care evaluation today. He verbalizes hope that we will make this wound go away. I advised wound will not likely ever heal given vascular issues, malnutrition (albumin 1.5), hypotension and metastatic cancer. I explained we will continue to care for the wound based on wound care recommendations. . Family/friend interactions See interval note. 4:15pm: I was called to room when wound care (wound care nurse and Dr. Rodriguez) was into evaluate wounds, as I had asked to be notified. JAKOB Rider also present. Coccyx wound dressing had already been dressed. 4cm wound noted to right hip and left stump with dry gangrene. Son and daughter in room from out of state, at end of visit , 2 children and step daughter arrived. Dr. Rodriguez provided medical update and recommendations for wound care, family agrees. Dr. Rodriguez explained that Mrs. Nicole will not survive this hospitalization, that she is dying. Family verbalizes understanding. Mr. Nicole asks me to show his children the chest xray images. I reviewed CXR from 01/30/18 which shows extensive pulmonary metastasis. Family understands she is not likely to survive this hospitalization. Mr. Nicole verbalizes wish for patient to be comfortable, however with further questioning he verbalizes desire to do everything to "keep her alive as long as we can." He desires FULL CODE. Children are tearful and verbalizing she is suffering and would not want this. Mr. Nicole reports he is honoring patients wish to do everything to keep her alive. Offered support to children. Questions answered to their satisfaction. Family appreciative of time spent. . Advance Directives Living Will: Never completed Health Care Surrogate: Never completed Durable Power of Brushing Machine Operator: Never completed Advance Directive Specifics Health Care Surrogate(s): Patient is not capacitated to make her own healthcare decisions, will not regain capacity. According to [place] statute, healthcare proxy decision making falls to her spouse Abdullahi Nicole. . Significant change in goals: FULL CODE. Family seems to be accepting that patient may not survive this hospitalization, however goals remain aggressive. 2 additional children arrived from out of state this morning. . Objective Vital Signs Date Time Temp Pulse Resp B/P (MAP) Pulse Ox O2 Delivery O2 Flow Rate FiO2 01/30/18 12:44 94 100 01/30/18 12:00 100 01/30/18 12:00 109 01/30/18 12:00 109 27 112/61 (78) 95 01/30/18 11:30 105 23 110/67 (81) 94 01/30/18 11:30 105 01/30/18 11:00 100 01/30/18 11:00 100 22 111/60 (77) 93 01/30/18 10:30 86 01/30/18 10:30 86 18 99/58 (72) 95 01/30/18 10:21 94 100 01/30/18 10:00 85 01/30/18 10:00 85 18 108/60 (76) 95 01/30/18 09:30 80 16 103/58 (73) 93 01/30/18 09:30 80 01/30/18 09:00 79 19 100/56 (71) 91 01/30/18 09:00 79 01/30/18 08:30 79 19 98/56 (70) 92 01/30/18 08:30 79 01/30/18 08:00 79 01/30/18 08:00 98.0 79 18 94/53 (67) 92 01/30/18 08:00 100 01/30/18 07:30 75 01/30/18 07:30 75 17 91/53 (66) 92 01/30/18 07:15 92 100 01/30/18 07:00 77 01/30/18 07:00 79 18 96/56 (69) 92 01/30/18 06:00 77 01/30/18 05:42 91 100 01/30/18 04:06 95 85 01/30/18 04:00 85 01/30/18 04:00 74 01/30/18 04:00 98.1 74 17 113/60 (77) 94 01/30/18 02:00 75 01/30/18 00:20 93 100 01/30/18 00:00 98.2 78 17 94/51 (65) 94 01/30/18 00:00 100 01/30/18 00:00 78 01/29/18 22:00 81 01/29/18 20:38 97 100 01/29/18 20:00 100 01/29/18 20:00 98.1 77 17 101/56 (71) 95 01/29/18 20:00 77 01/29/18 18:00 75 01/29/18 16:00 100 01/29/18 16:00 97.4 73 20 111/66 (81) 96 01/29/18 16:00 73 01/29/18 15:39 95 100 Intake & Output 01/30/18 01/30/18 07:00 19:00 Intake Total 697 ml 1232 ml Output Total 450 ml Balance 247 ml 1232 ml IV Total 657 ml 1232 ml Tube Feeding 40 ml Output Urine Total 450 ml # Bowel Movements 1 Physical Exam CONSTITUTIONAL/GENERAL: This is critically ill, cachectic patient, on mechanical ventilation. TUBES/LINES/DRAINS: ETT, OG, Jur[place]. SKIN: Dusky color. Ecchymoses on upper extremities.Skin temperature cold. Mottling right foot to above the knee, bilateral hands. Right great toe dark purple. Dry gangrene left AKA amputation site. HEAD: Bitemporal wasting. EYES: Eyes open, not tracking. CARDIOVASCULAR: Regular rate and rhythm without murmur. RESPIRATORY/CHEST: On mech vent. Diminished breath sounds bilaterally. GASTROINTESTINAL: Abdomen soft, non-tender, nondistended. Bowel sounds present. GENITOURINARY: Without palpable bladder distension. Jurado catheter in place. MUSCULOSKELETAL: Left lower extremity AKA with muscle wasting and dry gangrene, dressing replaced after exam. Right lower extremity mottling from toes to above the knee. Mottling bilateral hands. Dark purple right great toe. Cold to touch. LYMPHATICS: inguinal adenopathy. NEUROLOGICAL: Unresponsive. PSYCHIATRIC: Unresponsive. . Diagnostic Tests Laboratory Laboratory Tests Test 01/28/18 04:45 01/28/18 09:27 01/28/18 10:15 01/28/18 13:40 Urine Color YELLOW (YELLW/STRAW) Urine Turbidity SL CLOUDY (CLEAR) Urine pH 5.0 (5.0-8.5) Urine Specific [place] 1.015 (1.002-1.035) Urine Protein TRACE mg/dL (NEG-TRACE) Urine Glucose (UA) NEG mg/dL (NEG) Urine Ketones TRACE mg/dL (NEG) Urine Occult Blood MOD (NEG) Urine Nitrite NEG (NEG) Urine Bilirubin NEG (NEG) Urine Urobilinogen 0.2 MG/DL (LESS THAN Urine Leukocyte Esterase MOD (NEG) Urine RBC 3-5 /hpf (0-3) Urine WBC 9-14 /hpf (0-5) Urine Squamous Epithelial Cells 0-5 /hpf (0-5) Urine Bacteria NONE /hpf (NONE) Urine Yeast with Hyphae MANY (NONE) Urine Yeast (Budding) MANY (NONE) Microscopic Urinalysis Comment CULTURE INDICATED White Blood Count 34.8 TH/MM3 (4.0-11.0) 39.2 TH/MM3 (4.0-11.0) Red Blood Count 2.73 MIL/MM3 (4.00-5.30) 3.29 MIL/MM3 (4.00-5.30) Hemoglobin 6.2 GM/DL (11.6-15.3) 7.5 GM/DL (11.6-15.3) Hematocrit 20.2 % (35.0-46.0) 24.4 % (35.0-46.0) Mean Corpuscular Volume 73.8 FL (80.0-100.0) 74.2 FL (80.0-100.0) Mean Corpuscular Hemoglobin 22.8 PG (27.0-34.0) 22.8 PG (27.0-34.0) Mean Corpuscular Hemoglobin Concent 30.9 % (32.0-36.0) 30.6 % (32.0-36.0) Red Cell Distribution Width 16.5 % (11.6-17.2) 16.4 % (11.6-17.2) Platelet Count 636 TH/MM3 (150-450) 674 TH/MM3 (150-450) Mean Platelet Volume 5.4 FL (7.0-11.0) 6.5 FL (7.0-11.0) Neutrophils (%) (Auto) 95.5 % (16.0-70.0) 98.1 % (16.0-70.0) Lymphocytes (%) (Auto) 2.5 % (9.0-44.0) 1.1 % (9.0-44.0) Monocytes (%) (Auto) 1.9 % (0.0-8.0) 0.6 % (0.0-8.0) Eosinophils (%) (Auto) 0.1 % (0.0-4.0) 0.1 % (0.0-4.0) Basophils (%) (Auto) 0.0 % (0.0-2.0) 0.1 % (0.0-2.0) Neutrophils # (Auto) 33.2 TH/MM3 (1.8-7.7) 38.6 TH/MM3 (1.8-7.7) Lymphocytes # (Auto) 0.9 TH/MM3 (1.0-4.8) 0.4 TH/MM3 (1.0-4.8) Monocytes # (Auto) 0.7 TH/MM3 (0-0.9) 0.2 TH/MM3 (0-0.9) Eosinophils # (Auto) 0.0 TH/MM3 (0-0.4) 0.0 TH/MM3 (0-0.4) Basophils # (Auto) 0.0 TH/MM3 (0-0.2) 0.0 TH/MM3 (0-0.2) CBC Comment AUTO DIFF AUTO DIFF Differential Total Cells Counted 100 100 Neutrophils % (Manual) 96 % (16-70) 93 % (16-70) Band Neutrophils % 1 % (0-6) 5 % (0-6) Lymphocytes % 2 % (9-44) 2 % (9-44) Monocytes % 1 % (0-8) Neutrophils # (Manual) 33.8 TH/MM3 (1.8-7.7) 38.4 TH/MM3 (1.8-7.7) Differential Comment FINAL DIFF MANUAL FINAL DIFF MANUAL Hypersegmented Polys 2+ (NORMAL) 1+ (NORMAL) Toxic Granulation 1+ (NORMAL) 2+ (NORMAL) Platelet Estimate HIGH (NORMAL) HIGH (NORMAL) Platelet Morphology Comment NORMAL (NORMAL) NORMAL (NORMAL) Creatinine MG/DL (0.50-1.00) 0.96 MG/DL (0.50-1.00) Estimat Glomerular Filtration Rate ML/MIN (>89) 58 ML/MIN (>89) Vancomycin Level Trough MCG/ML (5.0-10.0) Blood Urea Nitrogen 35 MG/DL (7-18) Random Glucose 64 MG/DL (74-106) Total Protein 5.9 GM/DL (6.4-8.2) Albumin 1.4 GM/DL (3.4-5.0) Calcium Level 8.3 MG/DL (8.5-10.1) Alkaline Phosphatase 196 U/L (45-117) Aspartate Amino Transf (AST/SGOT) 35 U/L (15-37) Alanine Aminotransferase (ALT/SGPT) LESS THAN 6 U/L (10-53) Total Bilirubin 0.2 MG/DL (0.2-1.0) Sodium Level 143 MEQ/L (136-145) Potassium Level 3.4 MEQ/L (3.5-5.1) Chloride Level 112 MEQ/L (98-107) Carbon Dioxide Level 15.9 MEQ/L (21.0-32.0) Anion Gap 15 MEQ/L (5-15) Random Vancomycin Level 6.2 COMMENT Test 01/28/18 15:48 01/28/18 16:50 01/28/18 20:11 01/28/18 20:29 Blood Gas Puncture Site RT RADIAL Blood Gas Patient Temperature 37.0 Blood Gas HCO3 18 mmol/L (22-26) Blood Gas Base Excess -6.2 mmol/L (-2-2) Blood Gas Oxygen Saturation 90 % (90-100) Arterial Blood pH 7.36 (7.380-7.420) Arterial Blood Partial Pressure CO2 33 mmHg (38-42) Arterial Blood Partial Pressure O2 69 mmHg (61-120) Arterial Blood Oxygen Content 8.8 Vol % (12.0-20.0) Arterial Blood Carboxyhemoglobin 1.4 % (0-4) Arterial Blood Methemoglobin 1.4 % (0-2) Blood Gas Hemoglobin 6.9 G/DL (12.0-16.0) Oxygen Delivery Device NRB Blood Gas Liter Flow 12 L/M Prothrombin Time 15.4 SEC (9.8-11.6) Prothromb Time International Ratio 1.5 RATIO Activated Partial Thromboplast Time 32.2 SEC (24.3-30.1) Lactic Acid Level 2.7 mmol/L (0.4-2.0) 2.3 mmol/L (0.4-2.0) Nasal Screen MRSA (PCR) MRSA NOT DETECTED (NOT Test 01/29/18 01:35 01/29/18 07:40 01/29/18 10:08 01/29/18 12:34 Blood Urea Nitrogen 34 MG/DL (7-18) 34 MG/DL (7-18) Creatinine 0.82 MG/DL (0.50-1.00) 0.84 MG/DL (0.50-1.00) Random Glucose 41 MG/DL (74-106) 187 MG/DL (74-106) Calcium Level 8.3 MG/DL (8.5-10.1) 8.0 MG/DL (8.5-10.1) Magnesium Level 1.8 MG/DL (1.5-2.5) 1.7 MG/DL (1.5-2.5) Sodium Level 146 MEQ/L (136-145) 146 MEQ/L (136-145) Potassium Level 3.5 MEQ/L (3.5-5.1) 3.2 MEQ/L (3.5-5.1) Chloride Level 115 MEQ/L (98-107) 114 MEQ/L (98-107) Carbon Dioxide Level 15.7 MEQ/L (21.0-32.0) 20.5 MEQ/L (21.0-32.0) Anion Gap 15 MEQ/L (5-15) 12 MEQ/L (5-15) Estimat Glomerular Filtration Rate 70 ML/MIN (>89) 68 ML/MIN (>89) Total Creatine Kinase 119 U/L (26-192) Lipase 77 U/L (73-393) White Blood Count 39.5 TH/MM3 (4.0-11.0) Red Blood Count 3.72 MIL/MM3 (4.00-5.30) Hemoglobin 9.0 GM/DL (11.6-15.3) Hematocrit 29.4 % (35.0-46.0) Mean Corpuscular Volume 79.0 FL (80.0-100.0) Mean Corpuscular Hemoglobin 24.2 PG (27.0-34.0) Mean Corpuscular Hemoglobin Concent 30.7 % (32.0-36.0) Red Cell Distribution Width 16.7 % (11.6-17.2) Platelet Count 499 TH/MM3 (150-450) Mean Platelet Volume 6.6 FL (7.0-11.0) Neutrophils (%) (Auto) 97.1 % (16.0-70.0) Lymphocytes (%) (Auto) 0.7 % (9.0-44.0) Monocytes (%) (Auto) 1.7 % (0.0-8.0) Eosinophils (%) (Auto) 0.0 % (0.0-4.0) Basophils (%) (Auto) 0.5 % (0.0-2.0) Neutrophils # (Auto) 38.4 TH/MM3 (1.8-7.7) Lymphocytes # (Auto) 0.3 TH/MM3 (1.0-4.8) Monocytes # (Auto) 0.7 TH/MM3 (0-0.9) Eosinophils # (Auto) 0.0 TH/MM3 (0-0.4) Basophils # (Auto) 0.2 TH/MM3 (0-0.2) CBC Comment AUTO DIFF Differential Total Cells Counted 100 Neutrophils % (Manual) 82 % (16-70) Band Neutrophils % 18 % (0-6) Neutrophils # (Manual) 39.5 TH/MM3 (1.8-7.7) Differential Comment FINAL DIFF MANUAL Toxic Granulation 1+ (NORMAL) Toxic Vacuolation PRESENT (NONE SEEN) Dohle Bodies PRESENT (NONE SEEN) Platelet Estimate HIGH (NORMAL) Platelet Morphology Comment NORMAL (NORMAL) Total Protein 5.7 GM/DL (6.4-8.2) Albumin 1.5 GM/DL (3.4-5.0) Phosphorus Level 3.5 MG/DL (2.5-4.9) Alkaline Phosphatase 192 U/L (45-117) Aspartate Amino Transf (AST/SGOT) 88 U/L (15-37) Alanine Aminotransferase (ALT/SGPT) 15 U/L (10-53) Total Bilirubin 0.3 MG/DL (0.2-1.0) Blood Gas Puncture Site RT BRACHIAL RT RADIAL Blood Gas Patient Temperature 98.6 98.6 Blood Gas HCO3 19 mmol/L (22-26) 16 mmol/L (22-26) Blood Gas Base Excess -9.0 mmol/L (-2-2) -8.2 mmol/L (-2-2) Blood Gas Oxygen Saturation 76 % (90-100) 85 % (90-100) Arterial Blood pH 7.14 (7.380-7.420) 7.35 (7.380-7.420) Arterial Blood Partial Pressure CO2 57 mmHg (38-42) 30 mmHg (38-42) Arterial Blood Partial Pressure O2 55 mmHg (61-120) 57 mmHg (61-120) Arterial Blood Oxygen Content 9.0 Vol % (12.0-20.0) 9.9 Vol % (12.0-20.0) Arterial Blood Carboxyhemoglobin 0.5 % (0-4) 1.1 % (0-4) Arterial Blood Methemoglobin 1.5 % (0-2) 1.5 % (0-2) Blood Gas Hemoglobin 8.4 G/DL (12.0-16.0) 8.2 G/DL (12.0-16.0) Oxygen Delivery Device Non-Rebreathing Mask VENTILATOR Blood Gas Liter Flow 15 L/M Blood Gas Inspired Oxygen 100 % 80 % Blood Gas Ventilator Setting PC/AC//1.0/+5 Test 01/30/18 04:40 White Blood Count 36.1 TH/MM3 (4.0-11.0) Red Blood Count 3.85 MIL/MM3 (4.00-5.30) Hemoglobin 9.1 GM/DL (11.6-15.3) Hematocrit 30.5 % (35.0-46.0) Mean Corpuscular Volume 79.3 FL (80.0-100.0) Mean Corpuscular Hemoglobin 23.6 PG (27.0-34.0) Mean Corpuscular Hemoglobin Concent 29.8 % (32.0-36.0) Red Cell Distribution Width 17.1 % (11.6-17.2) Platelet Count 352 TH/MM3 (150-450) Mean Platelet Volume 6.9 FL (7.0-11.0) CBC Comment AUTO DIFF Differential Total Cells Counted 100 Neutrophils % (Manual) 93 % (16-70) Band Neutrophils % 6 % (0-6) Lymphocytes % 1 % (9-44) Neutrophils # (Manual) 35.7 TH/MM3 (1.8-7.7) Differential Comment FINAL DIFF MANUAL Toxic Granulation 1+ (NORMAL) Platelet Estimate NORMAL (NORMAL) Platelet Morphology Comment NORMAL (NORMAL) Blood Urea Nitrogen 28 MG/DL (7-18) Creatinine 0.78 MG/DL (0.50-1.00) Random Glucose 174 MG/DL (74-106) Calcium Level 7.8 MG/DL (8.5-10.1) Sodium Level 142 MEQ/L (136-145) Potassium Level 5.0 MEQ/L (3.5-5.1) Chloride Level 117 MEQ/L (98-107) Carbon Dioxide Level 13.0 MEQ/L (21.0-32.0) Anion Gap 12 MEQ/L (5-15) Estimat Glomerular Filtration Rate 74 ML/MIN (>89) Result Diagram: 01/30/1843901/30/180 Microbiology Microbiology Date/Time Source Procedure Growth Status 01/28/18 16:55 Blood Peripheral Aerobic Blood Culture - Preliminary NO GROWTH IN 2 DAYS Resulted 01/28/18 16:55 Blood Peripheral Anaerobic Blood Culture - Preliminary NO GROWTH IN 2 DAYS Resulted 01/28/18 16:50 Blood Peripheral Aerobic Blood Culture - Preliminary NO GROWTH IN 2 DAYS Resulted 01/28/18 16:50 Blood Peripheral Anaerobic Blood Culture - Preliminary NO GROWTH IN 2 DAYS Resulted 01/28/18 17:50 Urine Random Urine Legionella Antigen - Final PRESUMPTIVE NEGATIVE FOR LEGIONELLA P... Complete 01/28/18 17:50 Urine Random Urine Streptococcus pneumoniae Antigen (M - Final PRESUMPTIVE NEGATIVE FOR STREPTOCOCCU... Complete 01/28/18 04:45 Urine Clean Catch Urine Culture - Final Mitali Albicans Complete Imaging Last Impressions Chest X-Ray 01/30/18 0600 Signed Impressions: Service Date/Time: Tuesday, January 30, 2018 04:47 - CONCLUSION: Patchy consolidation and masses in both lungs not significantly changed. Appropriate position of the nasogastric tube and endotracheal tube. Persistent gaseous distention of the stomach despite presence of nasogastric tube. Ludwin Bustillo MD Abdomen X-Ray 01/29/18 0000 Signed Impressions: Service Date/Time: Monday, January 29, 2018 11:49 - CONCLUSION: 1. Nasogastric tube is looped in the stomach. The stomach is very distended with air. 2. Mildly dilated proximal small bowel with a paucity of distal bowel gas. Findings could represent ileus or small bowel obstruction. Consider followup to assess for change. Ludwin Smith MD Procedures * 01/29/18 - Intubated. . Assessment and Plan Disease Oriented Problem List: (1) Acute respiratory failure with hypoxia (2) Metabolic encephalopathy (3) Uterine cancer Comment: Metastatic uterine cancer to bilateral lungs, liver, soft tissue, lymph nodes and possible bladder . (4) Sinus tachycardia (5) Severe protein-calorie malnutrition (6) Urinary tract infection (7) Dry gangrene (8) Severe protein-calorie malnutrition (9) Leukocytosis (10) Sepsis Symptom Scale: (1) Dyspnea 0-10 Scale: Unable to quantify Comment: Intubated on 01/29/18 on mechanical ventilation (2) Pain 0-10 Scale: Unable to quantify Comment: Secondary to metastatic endometrial cancer, debility, wounds, bedbound status, tubes, etc. PRN Morphine and hydromorphone available, sparing use. Family hesitant to use possible sedating meds. . (3) Debility 0-10 Scale: Unable to quantify Comment: Due to progressive, mets uterine cancer. . Pertinent Non-Medical Issues Psychosocial: . 4 adult children, 2 (son and daughter) live with patient ; other son and daughter arrived form out of state. Spiritual: [employer] cassidy. Legal:Patient is not capacitated to make her own healthcare decisions, will not regain capacity. According to [place] statute, healthcare proxy decision making falls to her spouse Abdullahi Nicole. Ethical issues impacting care: No known concerns at this time. . Important Contacts * Abdullahi Nicole, /HCP: [phone] . Prognosis Mrs. Nicole is a 67-year-old female with widespread metastatic uterine cancer metastases to bilateral lungs, liver, lymph nodes and soft tissue. She is now on mechanical ventilation. Patient is terminal, will not likely survive this hospitalization. . Code Status: Full Code Plan * Patient is not capacitated to make her own healthcare decisions, will not regain capacity. According to [place] statute, healthcare proxy decision making falls to her spouse Abdullahi Nicole. * FULL CODE. * 01/30/18 - Family seems to be accepting that patient may not survive this hospitalization, however goals remain aggressive. 2 additional children arrived from out of state this morning. * Discussed with nurse, Adry and family. * Dealer Sales Manager visit requested. * SYMPTOMS: Pain: Secondary to metastatic endometrial cancer, debility, wounds, bedbound status, tubes, etc. Off fentanyl drip. Has PRN Morphine and Hydromorphone available, sparing use, last dose 01/29/18. Unresposnive, does not appear painful during my visit. Family hesitant to use of possible sedating meds. Will monitor need and effect and family wishes. Dyspnea: On mechanical ventilation, suspect patient will not be weaned from mechanical vent given extensive pulmonary metastasis. Debility: due to widespread mets uterine cancer , not likely to rehabilitate. No new medication recommendations at this time. * Palliative care will continue to follow to assist with clarification of medical treatment goals as needed. . Attestation To help prompt me to consider important information that might be impacting today's encounter and assessment, information from prior notes written by myself or my colleagues may have been "brought forward" into today's note. My signature on this note, however, is an attestation that I personally performed the exam, history, and/or decision-making noted today, and, unless otherwise indicated, the interactions with patient, family, and staff as well as the review of records all occurred today. I also attest that the listed assessment and stated plan reflect my best clinical judgment today based on the combination of historical information, prior notes, and today's exam/ interactions. When time spent is documented, it refers only to time spent today by the signer, or if indicated, combined time spent today by collaborating physician/nurse practitioner. Marquita Alfaro Jan 30, 2018 15:09
[2018-01-30] MEDS ORDERED: GLUCAGON 1 MG/ML VIAL OTHER PRN (17:00)
[2018-01-30] MEDS: INSULIN ASPART SUPPLEMENTAL SCALE SQ SCH ×2 (17:00→20:50)
--- NOTE | 2018-01-30 17:03 | HHI.CCPN ---
Subjective Remarks/Hospital Course This is a rather unfortunate 67-year-old female who suffers from terminal cancer with metastasis to the lungs, liver, history of uterine cancer, history of sacral teratoma, findings indicating possible bladder tumor, possible inguinal metastatic lymphadenopathy who is seen in consultation for critical care management at the request of Dr. Jasso. Patient originally presented to the hospital approximately 3 days ago because patient was at home under hospice care and patient was given her pain medication when she did not eat much and had an episode of nausea and vomiting. Because of that the family indicates that they brought the patient to the ER for evaluation. Patient has significant findings with sepsis, problems with pain control, buttock cellulitis , urinary tract infection. The patient was placed in observation in the hospital for palliative care and hospice consult. Patient was started on broad- spectrum antibiotics include vancomycin and Zosyn for her infection and was being continue managed by the medical team. It was indicated that the patient was under care of [facility] however they cannot resume care. As indicated that family was to contact [facility]. However they have not done so as of yet. Today the patient clinical condition worsened. Initially the patient had signs of acute anemia. However repeat laboratory studies showed stable chronic anemia. With hemoglobin 7.5. However with the patient with sepsis, tachycardia will anticipate transfusing at least 1 unit. Patient's respiratory status significantly worsened where she was on 2 L nasal cannula and she dropped to 70% O2 saturations. Patient was increased to 6 L nasal cannula with improvement to 80% O2 saturations. The patient was placed on nonrebreather and her O2 saturations did improve to 90%. However patient is not keeping the mask on and she continues to drop down to O2 saturations in the 80s. Because of acute changes patient's condition. Critical care was consulted. I did evaluate the patient and presently she is alert and orientated 4. She wants full aggressive measures to be done at this time. Including intubation, mechanical ventilation, defibrillation, CPR. Patient will be transferred to the main ICU for closer monitoring. Subjective: 01/29: Patient hypoxic , O2 saturation in the 80 's extensive discussion with Mr. Nicole and family regarding the deterioration of the respiratory status of the patient. Requested aggressive measures to be continued, and request for consultation with outdoor adventure guides. Automobile Lights Assemblerbea Mandujanoed in to see patient. Stat ABG performed pH 7.14 PO2 55 on 100% FiO2. Patient emergently intubated uneventfully, Mr. Nicole requested to be present in the room during intubation. Chest x-ray pending. 01/30: Late entry note. Patient seen at 11:24 AM. No acute events overnight. The patient remained on fentanyl 75 mcgs/per hour. Tube feeds, Suplena were initiated during the night. Hemodynamically stable. Family at bedside, Mr. Nicole, clergy Reynaldo Sapp in to assist family this a.m. and provide support. Extensive discussion yesterday with family regarding the possibility of the need for vasoactive support medications and attempted to obtain consent for central line and arterial line for monitoring and instillation of vasoactive medications if needed. Extensive discussion with palliative medicine as well regarding aggressive measures and the need for vasopressor support. Mr. Nicole and family refuse consents at this time requests no invasive lines be placed even in the event F patient needs vasopressors to maintain hemodynamic stability. Multiple attempts to assess sacral wound family Mr. Nicole refused to allow positioning for observation and evaluation of wound by MANAGER CASE by ICU MD ( Dr. Mike, and Dr. Baker) , and by wound chronic care nurse (Dayami)on 01/29/18. I expressed the importance of evaluation and treatment sacral wound, performed they would decide when patient could be evaluated by wound care for assessment and treatment of sacral wound tentatively scheduled for this afternoon. Objective Vital Signs Date Time Temp Pulse Resp B/P (MAP) Pulse Ox O2 Delivery O2 Flow Rate FiO2 01/30/18 16:14 95 100 01/30/18 14:30 89 01/30/18 12:00 27 112/61 (78) 01/30/18 08:00 98.0 01/28/18 20:36 Non-Rebreather 15.00 Intake and Output 01/30/18 01/30/18 01/31/18 08:00 16:00 00:00 Intake Total 290 ml 1332 ml Output Total 450 ml Balance -160 ml 1332 ml Result Diagram: 01/30/18 0440 01/30/18 0440 Other Results Microbiology Date/Time Source Procedure Growth Status 01/28/18 17:50 Urine Random Urine Legionella Antigen - Final PRESUMPTIVE NEGATIVE FOR LEGIONELLA P... Complete 01/28/18 17:50 Urine Random Urine Streptococcus pneumoniae Antigen (M - Final PRESUMPTIVE NEGATIVE FOR STREPTOCOCCU... Complete 01/28/18 04:45 Urine Clean Catch Urine Culture - Final Mitali Albicans Complete Imaging Last Impressions Chest X-Ray 01/30/18 0600 Signed Impressions: Service Date/Time: Tuesday, January 30, 2018 04:47 - CONCLUSION: Patchy consolidation and masses in both lungs not significantly changed. Appropriate position of the nasogastric tube and endotracheal tube. Persistent gaseous distention of the stomach despite presence of nasogastric tube. Ludwin Bustillo MD Abdomen X-Ray 01/29/18 0000 Signed Impressions: Service Date/Time: Monday, January 29, 2018 11:49 - CONCLUSION: 1. Nasogastric tube is looped in the stomach. The stomach is very distended with air. 2. Mildly dilated proximal small bowel with a paucity of distal bowel gas. Findings could represent ileus or small bowel obstruction. Consider followup to assess for change. Ludwin Smith MD Last Impressions Chest X-Ray 01/28/18 0000 Signed Impressions: Service Date/Time: Sunday, January 28, 2018 13:04 - CONCLUSION: Widespread patchy bilateral alveolar opacities Ludwin Jimenes MD Objective Remarks GENERAL: Well-developed, emaciated, frail, patient laying in bed comfortably however eyes keep rolling into the back of her head.. alert and orientated 4, extremely weak HEENT: Patient does have bitemporal wasting. Facial features are symmetric. Eyes : Pupils equal round reactive to light. Extraocular muscles are intact. Conjunctivae were clear. Patient is on nonrebreather NECK: Supple without any masses. Trachea midline no deviation. No JVD, no bruits are appreciated CARDIAC: Regular rhythm, regular rate. S1/S2 are heard. No murmurs gallops or rubs. LUNGS: Diminished breath sounds noted throughout in multiple areas. No wheeze, rhonchi or rales. No use of accessory muscles on inspiration or expiration. ABDOMEN: Soft, mild diffuse tenderness noted. Nondistended. Bowel sounds heard in all 4 quadrants. No organomegaly or masses. Negative rebound, negative guarding EXTREMITIES: Left lower extremity does show dry gangrene at previous amputation site, right lower extremity does have discoloration noted of the great toe. Legs are very pale. Diminished pulses noted in the right lower extremity NEUROLOGY: Patient with increased somnolence. Cranial nerves II through XII grossly intact. SACRAL AREA: Patient will not allow us to examine the area Date of Insertion: Jan 28, 2018 A/P Problem List: (1) Sepsis ICD Code: A41.9 - Sepsis, unspecified organism (2) Acute respiratory failure with hypoxia ICD Code: J96.01 - Acute respiratory failure with hypoxia Status: Acute (3) Leukocytosis ICD Code: D72.829 - Elevated white blood cell count, unspecified (4) Cellulitis, gluteal, left ICD Code: L03.317 - Cellulitis of buttock (5) Dry gangrene ICD Code: I96 - Gangrene, not elsewhere classified (6) Metabolic encephalopathy ICD Code: G93.41 - Metabolic encephalopathy (7) Acute kidney injury ICD Code: N17.9 - Acute kidney failure, unspecified Status: Chronic (8) Metabolic acidosis ICD Code: E87.2 - Acidosis Status: Chronic (9) Hypokalemia ICD Code: E87.6 - Hypokalemia (10) 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: Chronic (11) Severe protein-calorie malnutrition ICD Code: E43 - Unspecified severe protein-calorie malnutrition (12) Coagulopathy ICD Code: D68.9 - Coagulation defect, unspecified (13) Metastatic malignant neoplasm to lung ICD Code: C78.00 - Secondary malignant neoplasm of unspecified lung (14) Teratoma of sacrum ICD Code: D48.0 - Neoplasm of uncertain behavior of bone and articular cartilage (15) History of uterine cancer ICD Code: Z85.42 - Personal history of malignant neoplasm of other parts of uterus (16) Pain ICD Code: R52 - Pain, unspecified (17) Debility ICD Code: R53.81 - Other malaise Assessment and Plan NEUROLOGY Metabolic/toxic encephalopathy Anxiety/depression Continue monitor neurological function every 2 hours Currently on fentanyl infusion for ventilator synchrony and pain at 25 mics/hour Patient placed on fentanyl infusion for ventilator synchrony and pain control Perform daily sedation vacation Tylenol 650 mg every 6 hours as needed for fever PULMONOLOGY Acute hypoxic respiratory failure Metastatic cancer to the lung Continue O2 segmentation maintain O2 sats greater than 92% 01/29-emergently intubated 7.5 ETT 21 cm at the lip Duo nebs every 4 hours and every 2 hours as needed Chest x-ray does show wide spread patchy bilateral alveolar opacities Patient does have history of coagulopathy, possible pulmonary emboli CARDIOLOGY Sinus tachycardia, could be from underlying sepsis, PE, Continue monitor vital signs per ICU protocol, maintain map greater than 65 Continue IV fluid-D5NS @ 30 cc/hr- will discontinue if tube feeds are tolerated 01/29 Patient may need vasopressor support-family refusing central line and arterial line placement GASTROENTEROLOGY Nausea vomiting Severe protein malnutrition Emaciated Possible ileus Insert OGT, confirmed placement w/ KUB Suplena 10cc/hr-per dietary recommendations Continue Zofran as needed OGT to low intermittent wall suction possible ileus-repeat KUB RENAL Acute kidney injuries Metabolic acidosis Hypokalemia Maintain Jurado catheter-for accurate I&O's Strict input and output Monitor renal function Avoid nephrotoxins INFECTIOUS DISEASE Urinary tract infection Funguria Left gluteal cellulitis Sacral wound 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 daily, await urine culture for further recommendations Urine cultures pending Obtain blood cultures Obtain sacral wound culture Wound care consult HEMATOLOGY/ONCOLOGY Chronic microcytic anemia Thrombocytosis History of uterine cancer Widespread metastasis to the lung Metastasis to the liver Possible bladder tumor Possible right inguinal lymphadenopathy metastasis History of teratoma of the sacrum Transfuse 1 unit of packed red blood cells and patient with tachycardia, sepsis Continue monitor hemoglobin hematocrit transfuse if hemoglobin below 8.0 INR 1.5, 2 you to trend Need to continue monitor for any signs of vascular occlusion secondary to thrombocytosis Palliative care following Hospice has been consulted ENDOCRINOLOGY Continue monitor glucoses start Accu-Cheks and sliding scale insulin if needed PROPHYLAXIS DVT prevention with subcutaneous Lovenox GI protection with Pepcid LINES Peripheral IVsx2 CODE STATUS Full code Level 3 follow-up 01/28 (Dr. Mike) I examined patient and evaluated laboratory and imaging data personally. [place] [facility] [place] is awake but lethargic, answers questions. She is emaciated and chronically ill-appearing. She is tachypneic but without accessory muscle use. Rales are present bilaterally. Sats are adequate on 100% nonrebreather. Abdomen is soft and nondistended. Left AKA has large necrotic eschar overlying the stump. There is no drainage. The right foot is marbled, cool, pale up to the ankle. The popliteal pulse is palpable. There is no dopplerable posterior tib or DP pulse. She is able to wiggle her toes and move her ankle. There is necrosis of distal aspect 1st digit. She denies significant pain except when touching foot and lower leg but not really hyperesthetic.. Patient reportedly has sacral wounds and I asked to examine them but family refused, saying "that she has had to move too many times today and it is too uncomfortable for her". I asked patient about code status and comfort measures. She defers completely to her who states that he desires full code. She states that she does not have any appetite and does not want to eat. Her family is adamant that she eats even though she is nauseated and has been vomiting. They attribute her nausea and vomiting to "getting her medications when she does not have anything on her stomach". I transfused 1 unit packed red cells in effort to improve anemia and perhaps improve perfusion to her leg. Her hemoglobin was stable so I have started her on therapeutic Lovenox at 1.5 mg/kg daily. I discussed the risk/benefit of anticoagulation with family. They agree with anticoagulation in effort to mitigate the pain of limb ischemia. Discussed with Dr. Pascual, who agrees that there is no intervention warranted unless she has severe pain and then you dictation could be considered for palliation. Patient is terminally ill and hospice appropriate. Family seems to desire more aggressive care than hospice provides. Unfortunately, patient is suffering as hospice philosophy is not being embraced consistently. Palliative care has been consulted to assist treatment team in facilitating family understanding of her condition. At this point, aggressive resuscitative efforts would only serve to prolong the dying process and increase potential for suffering. Discussed this with family who says "we just want her to do all the things it takes to get better." They state they are very appreciative of her care [place] [facility] [place] and they feel that she is showing improvement. 01/30: Extensive discussion with Mr. Nicole and family today. I explained the purpose of central line placement and arterial monitoring if needed for vasopressor support. He stated he might consider it, but will not consent to any placement, even if medications are required. Physician Risa Storey MD Jan 30, 2018 17:03
--- NOTE | 2018-01-30 17:54 | PD.WCN.NOT ---
Wound Consult Description: Patient seen with Doctor Michael for evaluation of large sacral stage 4 pressure injury Communicated with: Doctor Michael, Dayami Alfaro, and JAKOB Bishop [facility] [place] Recommendation: Please follow orders written by Doctor Rodriguez Additional Information: Patient seen on 5th floor [facility] [place] [facility] for evaluation of large sacral stage 4 pressure injury with Doctor Rodriguez and Adry Bishop RN [facility] [place]. Patinet is intubated and sedated.Patient was first turned to R side with the assistance of JAKOB Bishop C and speech writer. Patinet is noted with large Stage 4 pressure injury. Bone if palpated but not visualized. Wound presents with ~75% coverage of black hard eschar, ~5% facia, ~20% red non granulation tissue. Wound measures ~24 cm x ~16 cm x eschar. Wound has scant sero sanguinous drainage and has no odor. Periwound is noted with non blanchable purple discoloration between 12 and 3 o' clock. Wound extends from sacral and lower back areas to bilateral ischial areas.Sprayed black dry eschar and purple discoloration to periwound with skin barrier film spray. Lined rectal area with maxorb II and applied maxorb II to opened ischial area. Sprayed bilateral ischial areas with skin barrier film spray. (skin prep). Covered wound with ABD pad, but left Rectal , and bilateral ischial areas out of dressing. secured dressing with paper tape. Assessed unstageable wound to R hip removed hydrocolloid dressing in place to reveal wound measuring ~4.2cm x 4cm x eschar.Wound bed presents with ~90% coverage brown slough that is adherent and ~10% pink tissue toward edges that is circumferential. Wound was cleansed with normal saline and patted dry. Applied skin barrier film spray to periwound and covered wound to R hip with bordered gauze. Patient was then repositioned to R side with the maximum assistance of Adry Jung Roger and speech writer. Removed hydrocolloid dressing in place to reveal non blanchable purple discoloration of intact skin. Wound measures ~2cm x ~2cm. Sprayed wound with cavilon skin barrier film and left open to air. Assessed R AKA site.Exposed necrotic femur is visible upon dressing removal. Joya are noted to incision line. Entire Lower stump extending ~12cm up the L thigh is noted with dry black eschar.Black eschar is noted circumferential to lower stump area measuring ~30cm. L AKA site was left open to air. Rn Adry to apply Povidone-iodine BID and cover with dry gauze and secure with rolled gauze. Day[facility] Jan 30, 2018 17:54
[2018-01-30] MEDS: CHLORHEXIDINE 0.12% (ORAL KIT) 15 ML CUP MT SCH (19:48)
[2018-01-30] MEDS: VANCOMYCIN INJ 700 MG in SODIUM CHLOR 0.9% 250 ML INJ 250 ML IV SCH (20:23)
--- NOTE | 2018-01-30 20:56 | RADRPT ---
EXAM DATE/TIME: 01/30/2018 20:40 [facility] COMPARISON: CHEST SINGLE AP, January 30, 2018, 4:47. INDICATIONS : OG tube placement. MEDICAL HISTORY : Hypoxia. SURGICAL HISTORY : None. ENCOUNTER: Subsequent ACUITY: 4 - 6 days PAIN SCORE: 0/10 LOCATION: Bilateral chest FINDINGS: Examination of the abdomen demonstrates a normal bowel gas pattern. No free air is identified. No o rganomegaly is evident. Osseous structures are intact. Orogastric tube coiled in the stomach. Diffus e bilateral parenchymal densities/masses. CONCLUSION: Oral gastric tube coiled in stomach. Diffuse bilateral parenchymal lung opacities. Amador Wells MD on January 30, 2018 at 20:53 Board Certified Radiologist. This report was verified electronically.
[2018-01-30] MEDS: fentaNYL 2,500 MCG/NS 250 ML IV PRN (21:26)
[2018-01-31] VITALS (18 sets, daily range): BP systolic 83–117; BP diastolic 51–63; PULSE 71–114; RESP 14–19; TEMP 97.4–98.7; O2SAT 91–99
[2018-01-31] MEDS: PIPERACIL-TAZO 2.25 GM PREMIX 50 ML IV SCH ×3 (02:52→21:31)
[2018-01-31] MEDS: RESP: ALBUTEROL 2.5 MG/IPRATROPIUM 0.5 MG NEB (SCH) NEB ×4 (07:52→20:19)
[2018-01-31] MEDS: INSULIN ASPART SUPPLEMENTAL SCALE SQ SCH ×4 (08:00→21:00)
[2018-01-31 08:18] LABS: HEMATOCRIT 29.1 % (35.0-46.0); HEMOGLOBIN 8.9 GM/DL (11.6-15.3); MEAN CELL VOLUME 77.4 FL (80.0-100.0); MEAN CORPUSCULAR HEMOGLOBIN 23.7 PG (27.0-34.0); MEAN CORPUSCULAR HGB CONC 30.6 % (32.0-36.0); PLATELET COUNT 201 TH/MM3 (150-450); RED BLOOD COUNT 3.76 MIL/MM3 (4.00-5.30); RED CELL DISTRIBUTION WIDTH 17.3 % (11.6-17.2); WHITE BLOOD COUNT 35.4 TH/MM3 (4.0-11.0)
[2018-01-31] MEDS: ENOXAPARIN SODIUM 60 MG/0.6 ML SYRINGE SQ SCH (08:26)
[2018-01-31] MEDS: DOCUSATE SODIUM 50 MG/SENNA 8.6 MG TAB PO SCH ×2 (08:27→21:32)
[2018-01-31] MEDS: METOPROLOL TARTRATE 50 MG TAB PO SCH ×2 (08:27→21:00)
[2018-01-31] MEDS: CHLORHEXIDINE 0.12% (ORAL KIT) 15 ML CUP MT SCH ×2 (08:27→20:00)
[2018-01-31] MEDS: FAMOTIDINE 20 MG TAB PO SCH ×2 (08:27→21:32)
[2018-01-31] MEDS: fentaNYL 2,500 MCG/NS 250 ML IV PRN (08:27)
[2018-01-31] MEDS: SODIUM CHLORIDE 0.9% FLUSH 10 ML FLUSH IV FLUSH SCH ×2 (08:28→21:32)
[2018-01-31 08:53] LABS: BICARBONATE 16.6 MEQ/L (21.0-32.0); CALCIUM 7.6 MG/DL (8.5-10.1); CREATININE 0.53 MG/DL (0.50-1.00)
[2018-01-31] MEDS: MEGESTROL ACETATE SUSP 400 MG/10 ML CUP PO SCH (09:00)
[2018-01-31] MEDS ORDERED: ENOXAPARIN SODIUM 60 MG/0.6 ML SYRINGE SQ SCH (09:15)
[2018-01-31] MEDS: DEXTROSE 50% IN WATER 50 ML VIAL(D50) IV PUSH PRN (12:53)
[2018-01-31] MEDS ORDERED: DEXT 5%-NACL 0.9% 1000 ML INJ 1,000 ML IV SCH (13:00)
[2018-01-31] MEDS ORDERED: VANCOMYCIN TROUGH ONE (14:45)
--- NOTE | 2018-01-31 15:09 | HHI.CCPN ---
Subjective Remarks/Hospital Course This is a rather unfortunate 67-year-old female who suffers from terminal cancer with metastasis to the lungs, liver, history of uterine cancer, history of sacral teratoma, findings indicating possible bladder tumor, possible inguinal metastatic lymphadenopathy who is seen in consultation for critical care management at the request of Dr. Jasso. Patient originally presented to the hospital approximately 3 days ago because patient was at home under hospice care and patient was given her pain medication when she did not eat much and had an episode of nausea and vomiting. Because of that the family indicates that they brought the patient to the ER for evaluation. Patient has significant findings with sepsis, problems with pain control, buttock cellulitis , urinary tract infection. The patient was placed in observation in the hospital for palliative care and hospice consult. Patient was started on broad- spectrum antibiotics include vancomycin and Zosyn for her infection and was being continue managed by the medical team. It was indicated that the patient was under care of [facility] however they cannot resume care. As indicated that family was to contact [facility]. However they have not done so as of yet. Today the patient clinical condition worsened. Initially the patient had signs of acute anemia. However repeat laboratory studies showed stable chronic anemia. With hemoglobin 7.5. However with the patient with sepsis, tachycardia will anticipate transfusing at least 1 unit. Patient's respiratory status significantly worsened where she was on 2 L nasal cannula and she dropped to 70% O2 saturations. Patient was increased to 6 L nasal cannula with improvement to 80% O2 saturations. The patient was placed on nonrebreather and her O2 saturations did improve to 90%. However patient is not keeping the mask on and she continues to drop down to O2 saturations in the 80s. Because of acute changes patient's condition. Critical care was consulted. I did evaluate the patient and presently she is alert and orientated 4. She wants full aggressive measures to be done at this time. Including intubation, mechanical ventilation, defibrillation, CPR. Patient will be transferred to the main ICU for closer monitoring. Subjective: 01/29: Patient hypoxic , O2 saturation in the 80 's extensive discussion with Mr. Nicole and family regarding the deterioration of the respiratory status of the patient. Requested aggressive measures to be continued, and request for consultation with coke wheeler. Ticket Printer And Taggerbea Mandujanoed in to see patient. Stat ABG performed pH 7.14 PO2 55 on 100% FiO2. Patient emergently intubated uneventfully, Mr. Nicole requested to be present in the room during intubation. Chest x-ray pending. 01/30: Late entry note. Patient seen at 11:24 AM. No acute events overnight. The patient remained on fentanyl 75 mcgs/per hour. Tube feeds, Suplena were initiated during the night. Hemodynamically stable. Family at bedside, Mr. Nicole, clergy Reynaldo Sapp in to assist family this a.m. and provide support. Extensive discussion yesterday with family regarding the possibility of the need for vasoactive support medications and attempted to obtain consent for central line and arterial line for monitoring and instillation of vasoactive medications if needed. Extensive discussion with palliative medicine as well regarding aggressive measures and the need for vasopressor support. Mr. Nicole and family refuse consents at this time requests no invasive lines be placed even in the event patient needs vasopressors to maintain hemodynamic stability. Multiple attempts to assess sacral wound family Mr. Nicole refused to allow positioning for observation and evaluation of wound by TRAFFIC SIGNAL REPAIRER by ICU MD ( Dr. Mike, and Dr. Baker) , and by wound group care worker (Dayami)on 01/29/18. I expressed the importance of evaluation and treatment sacral wound, performed they would decide when patient could be evaluated by wound care for assessment and treatment of sacral wound tentatively scheduled for this afternoon. 01/31: Gastric distention resolved, will begin trickle feeds and maintain 10cc/ hr. Patient continues on Fent infusion, family at bedside, all questions answered. Objective Vital Signs Date Time Temp Pulse Resp B/P (MAP) Pulse Ox O2 Delivery O2 Flow Rate FiO2 01/31/18 14:00 71 01/31/18 12:00 98.7 14 83/51 (62) 93 01/31/18 12:00 100 01/28/18 20:36 Non-Rebreather 15.00 Intake and Output 01/31/18 01/31/18 02/01/18 08:00 16:00 00:00 Intake Total 903 ml 912 ml Output Total 1175 ml Balance -272 ml 912 ml Result Diagram: 01/31/18 0738 01/31/18 0738 Other Results Microbiology Date/Time Source Procedure Growth Status 01/28/18 17:50 Urine Random Urine Legionella Antigen - Final PRESUMPTIVE NEGATIVE FOR LEGIONELLA P... Complete 01/28/18 17:50 Urine Random Urine Streptococcus pneumoniae Antigen (M - Final PRESUMPTIVE NEGATIVE FOR STREPTOCOCCU... Complete Imaging Last Impressions Chest X-Ray 01/30/18 0600 Signed Impressions: Service Date/Time: Tuesday, January 30, 2018 04:47 - CONCLUSION: Patchy consolidation and masses in both lungs not significantly changed. Appropriate position of the nasogastric tube and endotracheal tube. Persistent gaseous distention of the stomach despite presence of nasogastric tube. Ludwin Bustillo MD Abdomen X-Ray 01/29/18 0000 Signed Impressions: Service Date/Time: Monday, January 29, 2018 11:49 - CONCLUSION: 1. Nasogastric tube is looped in the stomach. The stomach is very distended with air. 2. Mildly dilated proximal small bowel with a paucity of distal bowel gas. Findings could represent ileus or small bowel obstruction. Consider followup to assess for change. Ludwin Smith MD Last Impressions Chest X-Ray 01/28/18 0000 Signed Impressions: Service Date/Time: Sunday, January 28, 2018 13:04 - CONCLUSION: Widespread patchy bilateral alveolar opacities Ludwin Jimenes MD Objective Remarks GENERAL: Well-developed, emaciated, frail, patient laying in bed HEENT: Patient does have bitemporal wasting. Facial features are symmetric. Eyes : Pupils equal round reactive to light. Extraocular muscles are intact. Conjunctivae were clear. Patient is on nonrebreather NECK: Supple without any masses. Trachea midline no deviation. No JVD, no bruits are appreciated CARDIAC: Regular rhythm, regular rate. S1/S2 are heard. No murmurs gallops or rubs. LUNGS: Diminished breath sounds noted throughout in multiple areas. No wheeze, rhonchi or rales. No use of accessory muscles on inspiration or expiration. ABDOMEN: Soft, mild diffuse tenderness noted. Nondistended. Bowel sounds heard in all 4 quadrants. No organomegaly or masses. Negative rebound, negative guarding EXTREMITIES: Left lower extremity does show dry gangrene at previous amputation site,exposed necrotic right femur, right lower extremity does have discoloration noted of the great toe. Legs are very pale. Diminished pulses noted in the right lower extremity NEUROLOGY: On fentanyl infusion, RASS -2, Cranial nerves II through XII grossly intact. SACRAL AREA: Large sacral wound Stage 4, involving B/L ischial areas Date of Insertion: Jan 28, 2018 A/P Problem List: (1) Sepsis ICD Code: A41.9 - Sepsis, unspecified organism (2) Acute respiratory failure with hypoxia ICD Code: J96.01 - Acute respiratory failure with hypoxia Status: Acute (3) Leukocytosis ICD Code: D72.829 - Elevated white blood cell count, unspecified (4) Cellulitis, gluteal, left ICD Code: L03.317 - Cellulitis of buttock (5) Dry gangrene ICD Code: I96 - Gangrene, not elsewhere classified (6) Metabolic encephalopathy ICD Code: G93.41 - Metabolic encephalopathy (7) Acute kidney injury ICD Code: N17.9 - Acute kidney failure, unspecified Status: Chronic (8) Metabolic acidosis ICD Code: E87.2 - Acidosis Status: Chronic (9) Hypokalemia ICD Code: E87.6 - Hypokalemia (10) 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: Chronic (11) Severe protein-calorie malnutrition ICD Code: E43 - Unspecified severe protein-calorie malnutrition (12) Coagulopathy ICD Code: D68.9 - Coagulation defect, unspecified (13) Metastatic malignant neoplasm to lung ICD Code: C78.00 - Secondary malignant neoplasm of unspecified lung (14) Teratoma of sacrum ICD Code: D48.0 - Neoplasm of uncertain behavior of bone and articular cartilage (15) History of uterine cancer ICD Code: Z85.42 - Personal history of malignant neoplasm of other parts of uterus (16) Pain ICD Code: R52 - Pain, unspecified (17) Debility ICD Code: R53.81 - Other malaise Assessment and Plan NEUROLOGY Metabolic/toxic encephalopathy Anxiety/depression Continue monitor neurological function every 2 hours Currently on fentanyl infusion for ventilator synchrony and pain at 25 mics/hour Patient placed on fentanyl infusion for ventilator synchrony and pain control Perform daily sedation vacation Tylenol 650 mg every 6 hours as needed for fever PULMONOLOGY Acute hypoxic respiratory failure Metastatic cancer to the lung Continue O2 segmentation maintain O2 sats greater than 92% 01/29-emergently intubated 7.5 ETT 21 cm at the lip Duo nebs every 4 hours and every 2 hours as needed Chest x-ray does show wide spread patchy bilateral alveolar opacities, no significant change from reviewing recent chest x-rays Patient does have history of coagulopathy, possible pulmonary emboli CARDIOLOGY Sinus tachycardia, could be from underlying sepsis, PE, Continue monitor vital signs per ICU protocol, maintain map greater than 65 Continue IV fluid-normal saline with 20 mEq of KCl at 100 cc/hour Patient may need vasopressor support-family refusing central line and arterial line placement GASTROENTEROLOGY Nausea vomiting Severe protein malnutrition Emaciated Possible ileus 01/31 Begin trickle tube feeding Continue Zofran as needed 01/30 continued gastric distentionhold tube feeds place 01/30OGT to low intermittent wall suction possible ileus-repeat KUB RENAL Acute kidney injuries Metabolic acidosis Hypokalemia Maintain Jurado catheter-for accurate I&O's Strict input and output Monitor renal function Avoid nephrotoxins INFECTIOUS DISEASE Urinary tract infection Funguria Left gluteal cellulitis Sacral wound 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 daily, await urine culture for further recommendations Urine culture - Mitali Albicans 01/29 blood cultures- NGTD Obtain sacral wound culture Wound care following HEMATOLOGY/ONCOLOGY Chronic microcytic anemia Thrombocytosis History of uterine cancer Widespread metastasis to the lung Metastasis to the liver Possible bladder tumor Possible right inguinal lymphadenopathy metastasis History of teratoma of the sacrum Transfuse 1 unit of packed red blood cells and patient with tachycardia, sepsis Continue monitor hemoglobin hematocrit transfuse if hemoglobin below 8.0 Need to continue monitor for any signs of vascular occlusion secondary to thrombocytosis Palliative care following Hospice has been consulted ENDOCRINOLOGY Continue monitor glucoses start Accu-Cheks and sliding scale insulin if needed PROPHYLAXIS DVT prevention with subcutaneous Lovenox GI protection with Pepcid LINES Peripheral IVsx2 CODE STATUS Full code Level 3 follow-up 01/28 (Dr. Mike) I examined patient and evaluated laboratory and imaging data personally. Upon arrival to [facility], patient is awake but lethargic, answers questions. She is emaciated and chronically ill-appearing. She is tachypneic but without accessory muscle use. Rales are present bilaterally. Sats are adequate on 100% nonrebreather. Abdomen is soft and nondistended. Left AKA has large necrotic eschar overlying the stump. There is no drainage. The right foot is marbled, cool, pale up to the ankle. The popliteal pulse is palpable. There is no dopplerable posterior tib or DP pulse. She is able to wiggle her toes and move her ankle. There is necrosis of distal aspect 1st digit. She denies significant pain except when touching foot and lower leg but not really hyperesthetic.. Patient reportedly has sacral wounds and I asked to examine them but family refused, saying "that she has had to move too many times today and it is too uncomfortable for her". I asked patient about code status and comfort measures. She defers completely to her who states that he desires full code. She states that she does not have any appetite and does not want to eat. Her family is adamant that she eats even though she is nauseated and has been vomiting. They attribute her nausea and vomiting to "getting her medications when she does not have anything on her stomach". I transfused 1 unit packed red cells in effort to improve anemia and perhaps improve perfusion to her leg. Her hemoglobin was stable so I have started her on therapeutic Lovenox at 1.5 mg/kg daily. I discussed the risk/benefit of anticoagulation with family. They agree with anticoagulation in effort to mitigate the pain of limb ischemia. Discussed with Dr. Pascula, who agrees that there is no intervention warranted unless she has severe pain and then you dictation could be considered for palliation. Patient is terminally ill and hospice appropriate. Family seems to desire more aggressive care than hospice provides. Unfortunately, patient is suffering as hospice philosophy is not being embraced consistently. Palliative care has been consulted to assist treatment team in facilitating family understanding of her condition. At this point, aggressive resuscitative efforts would only serve to prolong the dying process and increase potential for suffering. Discussed this with family who says "we just want her to do all the things it takes to get better." They state they are very appreciative of her care in [facility] overnight and they feel that she is showing improvement. 01/30: Extensive discussion with Mr. Nicole and family today. I explained the purpose of central line placement and arterial monitoring if needed for vasopressor support. He stated he might consider it, but will not consent to any placement, even if medications are required. 01/31: Daughter at bedside (Eugenia) , provided update of medical status Physician Risa Storey MD Jan 31, 2018 15:09
--- NOTE | 2018-01-31 18:00 | HHI.HCPN ---
Reason for visit a. To assist with evaluation and management of symptoms including: dyspnea, pain, debility. b. To assist medical decision maker(s) with: better understanding of current medical conditions; weighing benefits/burdens of medical treatment options; making medical treatment decisions. . Subjective/Interval History Patient seen and examined in ICU. Daughter and step-daughter at bedside. Discussed with Dr. Baker and Chaplain Jacobs. Patient remains intubated on mechanical ventilation, FiO2 90%. On low-dose fentanyl drip (50 mcg). Afebrile. Heart rate 70s. BP remains systolic 80-90. Afebrile. WBC remains elevated at 35.4. 01/28/18 urine culture positive Mitali albicans, blood cultures no growth in 3 days. Wound culture buttock pending. Trickle tube feedings will be restarted. . Family/friend interactions Met with daughter and stepdaughter at bedside. Medical update provided. Dr. Baker also came to provide medical update during my visit. Questions answered to their satisfaction. Stepdaughter is tearful, request finance professor support. Chaplain Jacobs present for a portion of my meeting. . Advance Directives Living Will: Never completed Health Care Surrogate: Never completed Durable Power of [place] Ironer: Never completed Advance Directive Specifics Health Care Surrogate(s): Patient is not capacitated to make her own healthcare decisions, will not regain capacity. According to [place] statute, healthcare proxy decision making falls to her spouse Abdullahi Nicole. . Documented care wishes: None. . Significant change in goals: FULL CODE. Goals remain aggressive. Spouse wants everything done to keep her alive as long as possible. Objective Vital Signs Date Time Temp Pulse Resp B/P (MAP) Pulse Ox O2 Delivery O2 Flow Rate FiO2 01/31/18 15:21 94 90 01/31/18 14:00 71 01/31/18 12:00 98.7 73 14 83/51 (62) 93 01/31/18 12:00 100 01/31/18 12:00 73 01/31/18 11:21 91 90 01/31/18 10:00 72 01/31/18 08:00 103 01/31/18 08:00 100 01/31/18 08:00 97.8 106 16 107/57 (74) 96 01/31/18 07:56 96 90 01/31/18 06:00 95 01/31/18 04:18 99 100 01/31/18 04:00 98.5 95 19 98/55 (69) 95 01/31/18 04:00 100 01/31/18 04:00 95 01/31/18 02:00 102 01/31/18 01:20 99 100 01/31/18 00:00 98.5 114 19 117/63 (81) 95 01/31/18 00:00 111 01/31/18 00:00 100 01/30/18 22:51 97 100 01/30/18 22:00 90 01/30/18 20:00 91 01/30/18 20:00 98.3 92 19 91/54 (66) 95 01/30/18 20:00 100 01/30/18 19:25 94 100 01/30/18 18:00 96 01/30/18 18:00 96 17 89/50 (63) 96 Intake & Output 01/31/18 01/31/18 07:00 19:00 Intake Total 1260 ml 912 ml Output Total 1175 ml Balance 85 ml 912 ml IV Total 1260 ml 912 ml Output Urine Total 450 ml Gastric Drainage Total 725 ml Physical Exam CONSTITUTIONAL/GENERAL: This is critically ill, cachectic patient, on mechanical ventilation. TUBES/LINES/DRAINS: ETT, OG, Jur[place]. SKIN: Dusky color. Ecchymoses on upper extremities.Skin temperature cold. Mottling right foot to above the knee, bilateral hands. Right great toe dark purple. Dry gangrene left AKA amputation site. HEAD: Bitemporal wasting. EYES: Eyes closed. CARDIOVASCULAR: Regular rate and rhythm without murmur. RESPIRATORY/CHEST: On mech vent. Diminished breath sounds bilaterally. GASTROINTESTINAL: Abdomen soft, non-tender, nondistended. Bowel sounds present. GENITOURINARY: Without palpable bladder distension. Jurado catheter in place. MUSCULOSKELETAL: Left lower extremity AKA with muscle wasting and dry gangrene, dressing replaced after exam. Right lower extremity mottling from toes to above the knee. Mottling bilateral hands. Dark purple right great toe. Cold to touch. LYMPHATICS: inguinal adenopathy. NEUROLOGICAL: Unresponsive. PSYCHIATRIC: Unresponsive. . Diagnostic Tests Laboratory Laboratory Tests Test 01/28/18 20:11 01/28/18 20:29 01/29/18 01:35 01/29/18 07:40 Nasal Screen MRSA (PCR) MRSA NOT DETECTED (NOT Lactic Acid Level 2.3 mmol/L (0.4-2.0) Blood Urea Nitrogen 34 MG/DL (7-18) 34 MG/DL (7-18) Creatinine 0.82 MG/DL (0.50-1.00) 0.84 MG/DL (0.50-1.00) Random Glucose 41 MG/DL (74-106) 187 MG/DL (74-106) Calcium Level 8.3 MG/DL (8.5-10.1) 8.0 MG/DL (8.5-10.1) Magnesium Level 1.8 MG/DL (1.5-2.5) 1.7 MG/DL (1.5-2.5) Sodium Level 146 MEQ/L (136-145) 146 MEQ/L (136-145) Potassium Level 3.5 MEQ/L (3.5-5.1) 3.2 MEQ/L (3.5-5.1) Chloride Level 115 MEQ/L (98-107) 114 MEQ/L (98-107) Carbon Dioxide Level 15.7 MEQ/L (21.0-32.0) 20.5 MEQ/L (21.0-32.0) Anion Gap 15 MEQ/L (5-15) 12 MEQ/L (5-15) Estimat Glomerular Filtration Rate 70 ML/MIN (>89) 68 ML/MIN (>89) Total Creatine Kinase 119 U/L (26-192) Lipase 77 U/L (73-393) White Blood Count 39.5 TH/MM3 (4.0-11.0) Red Blood Count 3.72 MIL/MM3 (4.00-5.30) Hemoglobin 9.0 GM/DL (11.6-15.3) Hematocrit 29.4 % (35.0-46.0) Mean Corpuscular Volume 79.0 FL (80.0-100.0) Mean Corpuscular Hemoglobin 24.2 PG (27.0-34.0) Mean Corpuscular Hemoglobin Concent 30.7 % (32.0-36.0) Red Cell Distribution Width 16.7 % (11.6-17.2) Platelet Count 499 TH/MM3 (150-450) Mean Platelet Volume 6.6 FL (7.0-11.0) Neutrophils (%) (Auto) 97.1 % (16.0-70.0) Lymphocytes (%) (Auto) 0.7 % (9.0-44.0) Monocytes (%) (Auto) 1.7 % (0.0-8.0) Eosinophils (%) (Auto) 0.0 % (0.0-4.0) Basophils (%) (Auto) 0.5 % (0.0-2.0) Neutrophils # (Auto) 38.4 TH/MM3 (1.8-7.7) Lymphocytes # (Auto) 0.3 TH/MM3 (1.0-4.8) Monocytes # (Auto) 0.7 TH/MM3 (0-0.9) Eosinophils # (Auto) 0.0 TH/MM3 (0-0.4) Basophils # (Auto) 0.2 TH/MM3 (0-0.2) CBC Comment AUTO DIFF Differential Total Cells Counted 100 Neutrophils % (Manual) 82 % (16-70) Band Neutrophils % 18 % (0-6) Neutrophils # (Manual) 39.5 TH/MM3 (1.8-7.7) Differential Comment FINAL DIFF MANUAL Toxic Granulation 1+ (NORMAL) Toxic Vacuolation PRESENT (NONE SEEN) Dohle Bodies PRESENT (NONE SEEN) Platelet Estimate HIGH (NORMAL) Platelet Morphology Comment NORMAL (NORMAL) Total Protein 5.7 GM/DL (6.4-8.2) Albumin 1.5 GM/DL (3.4-5.0) Phosphorus Level 3.5 MG/DL (2.5-4.9) Alkaline Phosphatase 192 U/L (45-117) Aspartate Amino Transf (AST/SGOT) 88 U/L (15-37) Alanine Aminotransferase (ALT/SGPT) 15 U/L (10-53) Total Bilirubin 0.3 MG/DL (0.2-1.0) Test 01/29/18 10:08 01/29/18 12:34 01/30/18 04:40 01/31/18 07:38 Blood Gas Puncture Site RT BRACHIAL RT RADIAL Blood Gas Patient Temperature 98.6 98.6 Blood Gas HCO3 19 mmol/L (22-26) 16 mmol/L (22-26) Blood Gas Base Excess -9.0 mmol/L (-2-2) -8.2 mmol/L (-2-2) Blood Gas Oxygen Saturation 76 % (90-100) 85 % (90-100) Arterial Blood pH 7.14 (7.380-7.420) 7.35 (7.380-7.420) Arterial Blood Partial Pressure CO2 57 mmHg (38-42) 30 mmHg (38-42) Arterial Blood Partial Pressure O2 55 mmHg (61-120) 57 mmHg (61-120) Arterial Blood Oxygen Content 9.0 Vol % (12.0-20.0) 9.9 Vol % (12.0-20.0) Arterial Blood Carboxyhemoglobin 0.5 % (0-4) 1.1 % (0-4) Arterial Blood Methemoglobin 1.5 % (0-2) 1.5 % (0-2) Blood Gas Hemoglobin 8.4 G/DL (12.0-16.0) 8.2 G/DL (12.0-16.0) Oxygen Delivery Device Non-Rebreathing Mask VENTILATOR Blood Gas Liter Flow 15 L/M Blood Gas Inspired Oxygen 100 % 80 % Blood Gas Ventilator Setting ///1.0/+5 White Blood Count 36.1 TH/MM3 (4.0-11.0) 35.4 TH/MM3 (4.0-11.0) Red Blood Count 3.85 MIL/MM3 (4.00-5.30) 3.76 MIL/MM3 (4.00-5.30) Hemoglobin 9.1 GM/DL (11.6-15.3) 8.9 GM/DL (11.6-15.3) Hematocrit 30.5 % (35.0-46.0) 29.1 % (35.0-46.0) Mean Corpuscular Volume 79.3 FL (80.0-100.0) 77.4 FL (80.0-100.0) Mean Corpuscular Hemoglobin 23.6 PG (27.0-34.0) 23.7 PG (27.0-34.0) Mean Corpuscular Hemoglobin Concent 29.8 % (32.0-36.0) 30.6 % (32.0-36.0) Red Cell Distribution Width 17.1 % (11.6-17.2) 17.3 % (11.6-17.2) Platelet Count 352 TH/MM3 (150-450) 201 TH/MM3 (150-450) Mean Platelet Volume 6.9 FL (7.0-11.0) 7.0 FL (7.0-11.0) CBC Comment AUTO DIFF Differential Total Cells Counted 100 Neutrophils % (Manual) 93 % (16-70) Band Neutrophils % 6 % (0-6) Lymphocytes % 1 % (9-44) Neutrophils # (Manual) 35.7 TH/MM3 (1.8-7.7) Differential Comment FINAL DIFF MANUAL Toxic Granulation 1+ (NORMAL) Platelet Estimate NORMAL (NORMAL) Platelet Morphology Comment NORMAL (NORMAL) Blood Urea Nitrogen 28 MG/DL (7-18) 22 MG/DL (7-18) Creatinine 0.78 MG/DL (0.50-1.00) 0.53 MG/DL (0.50-1.00) Random Glucose 174 MG/DL (74-106) 75 MG/DL (74-106) Calcium Level 7.8 MG/DL (8.5-10.1) 7.6 MG/DL (8.5-10.1) Sodium Level 142 MEQ/L (136-145) 147 MEQ/L (136-145) Potassium Level 5.0 MEQ/L (3.5-5.1) 3.2 MEQ/L (3.5-5.1) Chloride Level 117 MEQ/L (98-107) 119 MEQ/L (98-107) Carbon Dioxide Level 13.0 MEQ/L (21.0-32.0) 16.6 MEQ/L (21.0-32.0) Anion Gap 12 MEQ/L (5-15) 11 MEQ/L (5-15) Estimat Glomerular Filtration Rate 74 ML/MIN (>89) 115 ML/MIN (>89) Result Diagram: 01/31/18 0738 01/31/18 0738 Microbiology Microbiology Date/Time Source Procedure Growth Status 01/28/18 17:50 Urine Random Urine Legionella Antigen - Final PRESUMPTIVE NEGATIVE FOR LEGIONELLA P... Complete 01/28/18 17:50 Urine Random Urine Streptococcus pneumoniae Antigen (M - Final PRESUMPTIVE NEGATIVE FOR STREPTOCOCCU... Complete 01/31/18 16:40 Wound Buttock Gram Stain Pending Received 01/31/18 16:40 Wound Buttock Wound Culture Pending Received Imaging Last Impressions Abdomen X-Ray 01/30/18 2100 Signed Impressions: Service Date/Time: Tuesday, January 30, 2018 20:40 - CONCLUSION: Oral gastric tube coiled in stomach. Diffuse bilateral parenchymal lung opacities. Amador Wells MD Chest X-Ray 01/30/18 0600 Signed Impressions: Service Date/Time: Tuesday, January 30, 2018 04:47 - CONCLUSION: Patchy consolidation and masses in both lungs not significantly changed. Appropriate position of the nasogastric tube and endotracheal tube. Persistent gaseous distention of the stomach despite presence of nasogastric tube. Ludwin Bustillo MD Procedures * 01/29/18 - Intubated. . Assessment and Plan Disease Oriented Problem List: (1) Acute respiratory failure with hypoxia (2) Metabolic encephalopathy (3) Uterine cancer Comment: Metastatic uterine cancer to bilateral lungs, liver, soft tissue, lymph nodes and possible bladder . (4) Sinus tachycardia (5) Severe protein-calorie malnutrition (6) Urinary tract infection (7) Dry gangrene (8) Severe protein-calorie malnutrition (9) Leukocytosis (10) Sepsis Symptom Scale: (1) Dyspnea 0-10 Scale: Unable to quantify Comment: Intubated on 01/29/18 on mechanical ventilation (2) Pain 0-10 Scale: Unable to quantify Comment: Secondary to metastatic endometrial cancer, debility, wounds, bedbound status, tubes, etc. On fentanyl drip. . (3) Debility 0-10 Scale: Unable to quantify Comment: Due to progressive widespread mets cancer. Pertinent Non-Medical Issues Psychosocial: . 4 adult children, 2 (son and daughter) live with patient ; other son and daughter arrived form out of state. Spiritual: Zoroastrian cassidy. Legal:Patient is not capacitated to make her own healthcare decisions, will not regain capacity. According to [place] statute, healthcare proxy decision making falls to her spouse Abdullahi Nicole. Ethical issues impacting care: No known concerns at this time. . Important Contacts * Abdullahi Nicole, /HCP: [phone] . Prognosis Mrs. Nicole is a 67-year-old female with widespread metastatic uterine cancer metastases to bilateral lungs, liver, lymph nodes and soft tissue. She is now on mechanical ventilation. Patient is terminal, will not likely survive this hospitalization. . Code Status: Full Code Plan * Patient is not capacitated to make her own healthcare decisions, will not regain capacity. According to [place] statute, healthcare proxy decision making falls to her spouse Abdullahi Nicole. * FULL CODE. * 01/31/18 - Family seems to be accepting that patient may not survive this hospitalization, however goals remain aggressive. Spouse wants "everything done to keep her alive as long as possible." * Discussed with Dr. Baker and finance professor Tim. * [place] visited. * SYMPTOMS: Pain: Secondary to metastatic endometrial cancer, debility, wounds, bedbound status, tubes, etc. On fentanyl drip 50mcg. Has PRN Morphine and Hydromorphone available, sparing use, last dose 01/29/18. Unresponsive, does not appear painful during my visit. Spouse remains hesitant to use of pain meds. Will monitor need and effect and family wishes. Dyspnea: On mechanical ventilation, suspect patient will not be weaned from mechanical vent given extensive pulmonary metastasis. Debility: due to widespread mets uterine cancer , not likely to rehabilitate. No new medication recommendations at this time. * Palliative care will continue to follow to assist with clarification of medical treatment goals as needed. . Attestation To help prompt me to consider important information that might be impacting today's encounter and assessment, information from prior notes written by myself or my colleagues may have been "brought forward" into today's note. My signature on this note, however, is an attestation that I personally performed the exam, history, and/or decision-making noted today, and, unless otherwise indicated, the interactions with patient, family, and staff as well as the review of records all occurred today. I also attest that the listed assessment and stated plan reflect my best clinical judgment today based on the combination of historical information, prior notes, and today's exam/ interactions. When time spent is documented, it refers only to time spent today by the signer, or if indicated, combined time spent today by collaborating physician/nurse practitioner. Marquita Alfaro Jan 31, 2018 18:00
[2018-01-31] MEDS ORDERED: PHARMACY ORDERED LAB ONE (19:45)
[2018-01-31] MEDS: POTASSIUM CHLOR 20 MEQ PREMIX 100 ML IV PRN (21:32)
[2018-01-31] MEDS: FLUCONAZOLE 400 MG PREMIX BAG 200 ML IV SCH (23:15)
[2018-02-01] VITALS (11 sets, daily range): BP systolic 68–89; BP diastolic 45–52; PULSE 55–144; RESP 26–45; TEMP 98–98.7; O2SAT 62–100
[2018-02-01] MEDS ORDERED: SODIUM BICARBONATE 8.4% INJ 50 MEQ/50 ML SYR ONE ×2 (00:33→00:34)
[2018-02-01] MEDS: VANCOMYCIN INJ 700 MG in SODIUM CHLOR 0.9% 250 ML INJ 250 ML IV SCH (00:39)
[2018-02-01] MEDS: POTASSIUM CHLOR 20 MEQ PREMIX 100 ML IV PRN (00:42)
[2018-02-01] MEDS: SODIUM BICARBONATE 8.4% SOLN 50 MEQ/50 ML VIAL IV ONE (00:45)
--- NOTE | 2018-02-01 00:46 | RADRPT ---
EXAM DATE/TIME: 02/01/2018 00:23 [facility] COMPARISON: CHEST SINGLE AP, January 30, 2018, 4:47. INDICATIONS : Low oxygen saturation reading on an intubated patient. MEDICAL HISTORY : Hypoxia SURGICAL HISTORY : None. ENCOUNTER: Subsequent ACUITY: 4 - 6 days PAIN SCORE: Non-responsive. LOCATION: Bilateral chest FINDINGS: Numerous rounded parenchymal opacities are seen in both lungs without significant change, probably a combination of infiltrate and masses. No pleural effusion seen. No pneumothorax. Stable, normal heart size. Endotracheal tube tip is approximately 3 cm above the josemanuel. Nasogastric tube is coiled in the stoma ch. Less gastric distention than yesterday.. CONCLUSION: No significant change demonstrated. Widespread patchy consolidation and/or masses in both lungs. Appr opriately positioned endotracheal tube and nasogastric tubes. Decompressed stomach. Ludwin Bustillo MD on February 01, 2018 at 0:41 Board Certified Radiologist. This report was verified electronically.
[2018-02-01] MEDS: CHLORHEXIDINE GLUCONATE 2 % 1 PACK (2 CLOTHS) TOP SCH (04:00)
[2018-02-01] MEDS: PIPERACIL-TAZO 2.25 GM PREMIX 50 ML IV SCH (04:56)
[2018-02-01] MEDS ORDERED: SODIUM BICARBONATE 8.4% INJ 150 MEQ in DEXTROSE 5% IN WATE 1000ML INJ 850 ML IV SCH ×2 (07:30)
[2018-02-01] MEDS: INSULIN ASPART SUPPLEMENTAL SCALE SQ SCH ×2 (08:00→11:03)
[2018-02-01] MEDS: RESP: ALBUTEROL 2.5 MG/IPRATROPIUM 0.5 MG NEB (SCH) NEB ×2 (08:01→11:56)
--- NOTE | 2018-02-01 08:14 | HHI.CCPN ---
Subjective Remarks/Hospital Course This is a rather unfortunate 67-year-old female who suffers from terminal cancer with metastasis to the lungs, liver, history of uterine cancer, history of sacral teratoma, findings indicating possible bladder tumor, possible inguinal metastatic lymphadenopathy who is seen in consultation for critical care management at the request of Dr. Jasso. Patient originally presented to the hospital approximately 3 days ago because patient was at home under hospice care and patient was given her pain medication when she did not eat much and had an episode of nausea and vomiting. Because of that the family indicates that they brought the patient to the ER for evaluation. Patient has significant findings with sepsis, problems with pain control, buttock cellulitis , urinary tract infection. The patient was placed in observation in the hospital for palliative care and hospice consult. Patient was started on broad- spectrum antibiotics include vancomycin and Zosyn for her infection and was being continue managed by the medical team. It was indicated that the patient was under care of [facility] however they cannot resume care. As indicated that family was to contact [facility]. However they have not done so as of yet. Today the patient clinical condition worsened. Initially the patient had signs of acute anemia. However repeat laboratory studies showed stable chronic anemia. With hemoglobin 7.5. However with the patient with sepsis, tachycardia will anticipate transfusing at least 1 unit. Patient's respiratory status significantly worsened where she was on 2 L nasal cannula and she dropped to 70% O2 saturations. Patient was increased to 6 L nasal cannula with improvement to 80% O2 saturations. The patient was placed on nonrebreather and her O2 saturations did improve to 90%. However patient is not keeping the mask on and she continues to drop down to O2 saturations in the 80s. Because of acute changes patient's condition. Critical care was consulted. I did evaluate the patient and presently she is alert and orientated 4. She wants full aggressive measures to be done at this time. Including intubation, mechanical ventilation, defibrillation, CPR. Patient will be transferred to the main ICU for closer monitoring. Subjective: 01/29: Patient hypoxic , O2 saturation in the 80 's extensive discussion with Mr. Nicole and family regarding the deterioration of the respiratory status of the patient. Requested aggressive measures to be continued, and request for consultation with spiral winder. Social Work Managerbea Mandujanoed in to see patient. Stat ABG performed pH 7.14 PO2 55 on 100% FiO2. Patient emergently intubated uneventfully, Mr. Nicole requested to be present in the room during intubation. Chest x-ray pending. 01/30: Late entry note. Patient seen at 11:24 AM. No acute events overnight. The patient remained on fentanyl 75 mcgs/per hour. Tube feeds, Suplena were initiated during the night. Hemodynamically stable. Family at bedside, Mr. Nicole, clergy Reynaldo Sapp in to assist family this a.m. and provide support. Extensive discussion yesterday with family regarding the possibility of the need for vasoactive support medications and attempted to obtain consent for central line and arterial line for monitoring and instillation of vasoactive medications if needed. Extensive discussion with palliative medicine as well regarding aggressive measures and the need for vasopressor support. Mr. Nicole and family refuse consents at this time requests no invasive lines be placed even in the event patient needs vasopressors to maintain hemodynamic stability. Multiple attempts to assess sacral wound family Mr. Nicole refused to allow positioning for observation and evaluation of wound by CLERICAL INVESTIGATOR by ICU MD ( Dr. Mike, and Dr. Baker) , and by wound hospice spiritual care coordinator ([place])on 01/29/18. I expressed the importance of evaluation and treatment sacral wound, performed they would decide when patient could be evaluated by wound care for assessment and treatment of sacral wound tentatively scheduled for this afternoon. 01/31: Gastric distention resolved, will begin trickle feeds and maintain 10cc/ hr. Patient continues on Fent infusion, family at bedside, all questions answered. 02/01: Late entry note. Patient seen at 6:05 AM. Overnight the patient continued to have respiratory deterioration. This x-ray performed showing the multiple masses unchanged. Significant diffusion defect. FiO2 increased to 100 %, patient's PaO2 remains 45, O2 saturations 70-80's. Patient notably hypotensive systolic blood pressure 68-80s. ABG performed showing significant metabolic acidosis secondary to multisystem organ failure. Phenylephrine was initiated, currently at [address] colleague Dr[address] Eric Flores, Lor Polanco RN, and Jeremy Pearce RN had extensive discussion with family provided medical status update decision made for DNR CODE STATUS by Mr. Nicole and family confirming. It was decided no escalation in care be provided, to include central line, vasopressors nor chest compressions nor defibrillation. Patient continues on low-dose fentanyl for ventilator synchrony and pain control. The patient has been tolerating trickle feeds will continue at 10 cc/mL. patient had a significant metabolic acidosis last night received 2 A of sodium bicarbonate. Sodium bicarbonate infusion initiated this a.m., with discontinuation of D5 normal saline. Patient not tolerating tube feeds significant residual tube feeds placed on hold during the night. Objective Vital Signs Date Time Temp Pulse Resp B/P (MAP) Pulse Ox O2 Delivery O2 Flow Rate FiO2 02/01/18 04:39 86 100 02/01/18 02:30 101 83/52 02/01/18 00:00 98.7 26 01/28/18 20:36 Non-Rebreather 15.00 Result Diagram: 01/31/18 0738 01/31/18 0738 Other Results Laboratory Tests Test 02/01/18 00:18 Blood Gas Puncture Site RT RADIAL Blood Gas Patient Temperature 98.6 Blood Gas HCO3 11 mmol/L (22-26) Blood Gas Base Excess -14.0 mmol/L (-2-2) Blood Gas Oxygen Saturation 76 % (90-100) Arterial Blood pH 7.35 (7.380-7.420) Arterial Blood Partial Pressure CO2 20 mmHg (38-42) Arterial Blood Partial Pressure O2 45 mmHG (61-120) Arterial Blood Oxygen Content 9.3 Vol % (12.0-20.0) Arterial Blood Carboxyhemoglobin 0.9 % (0-4) Arterial Blood Methemoglobin 0.6 % (0-2) Blood Gas Hemoglobin 8.7 G/DL (12.0-16.0) Oxygen Delivery Device VENTILATOR Blood Gas Ventilator Setting COMMENT Blood Gas Inspired Oxygen 100 % Imaging Last Impressions Chest X-Ray 01/30/18 0600 Signed Impressions: Service Date/Time: Tuesday, January 30, 2018 04:47 - CONCLUSION: Patchy consolidation and masses in both lungs not significantly changed. Appropriate position of the nasogastric tube and endotracheal tube. Persistent gaseous distention of the stomach despite presence of nasogastric tube. Ludwin Bustillo MD Abdomen X-Ray 01/29/18 0000 Signed Impressions: Service Date/Time: Monday, January 29, 2018 11:49 - CONCLUSION: 1. Nasogastric tube is looped in the stomach. The stomach is very distended with air. 2. Mildly dilated proximal small bowel with a paucity of distal bowel gas. Findings could represent ileus or small bowel obstruction. Consider followup to assess for change. Ludwin Smith MD Last Impressions Chest X-Ray 01/28/18 0000 Signed Impressions: Service Date/Time: Sunday, January 28, 2018 13:04 - CONCLUSION: Widespread patchy bilateral alveolar opacities Ludwin Jimenes MD Objective Remarks GENERAL: Well-developed, emaciated, frail, patient laying in bed HEENT: Patient does have bitemporal wasting. Facial features are symmetric. Eyes : Pupils equal round reactive to light. Extraocular muscles are intact. Conjunctivae were clear. Patient is on nonrebreather NECK: Supple without any masses. Trachea midline no deviation. No JVD, no bruits are appreciated CARDIAC: Regular rhythm, regular rate. S1/S2 are heard. No murmurs gallops or rubs. LUNGS: Diminished breath sounds noted throughout in multiple areas. No wheeze, rhonchi or rales. No use of accessory muscles on inspiration or expiration. ABDOMEN: Soft, mild diffuse tenderness noted. Nondistended. Bowel sounds heard in all 4 quadrants. No organomegaly or masses. Negative rebound, negative guarding EXTREMITIES: Left lower extremity does show dry gangrene at previous amputation site,exposed necrotic right femur, right lower extremity does have discoloration noted of the great toe. Legs are very pale. Diminished pulses noted in the right lower extremity NEUROLOGY: On fentanyl infusion, RASS -2, Cranial nerves II through XII grossly intact. SACRAL AREA: Large sacral wound Stage 4, involving B/L ischial areas Date of Insertion: Jan 28, 2018 A/P Problem List: (1) Sepsis ICD Code: A41.9 - Sepsis, unspecified organism (2) Acute respiratory failure with hypoxia ICD Code: J96.01 - Acute respiratory failure with hypoxia Status: Acute (3) Leukocytosis ICD Code: D72.829 - Elevated white blood cell count, unspecified (4) Cellulitis, gluteal, left ICD Code: L03.317 - Cellulitis of buttock (5) Dry gangrene ICD Code: I96 - Gangrene, not elsewhere classified (6) Metabolic encephalopathy ICD Code: G93.41 - Metabolic encephalopathy (7) Acute kidney injury ICD Code: N17.9 - Acute kidney failure, unspecified Status: Chronic (8) Metabolic acidosis ICD Code: E87.2 - Acidosis Status: Chronic (9) Hypokalemia ICD Code: E87.6 - Hypokalemia (10) 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: Chronic (11) Severe protein-calorie malnutrition ICD Code: E43 - Unspecified severe protein-calorie malnutrition (12) Coagulopathy ICD Code: D68.9 - Coagulation defect, unspecified (13) Metastatic malignant neoplasm to lung ICD Code: C78.00 - Secondary malignant neoplasm of unspecified lung (14) Teratoma of sacrum ICD Code: D48.0 - Neoplasm of uncertain behavior of bone and articular cartilage (15) History of uterine cancer ICD Code: Z85.42 - Personal history of malignant neoplasm of other parts of uterus (16) Pain ICD Code: R52 - Pain, unspecified (17) Debility ICD Code: R53.81 - Other malaise Assessment and Plan NEUROLOGY Metabolic/toxic encephalopathy Anxiety/depression Continue monitor neurological function every 2 hours Currently on fentanyl infusion for ventilator synchrony and pain at 25 mcgs/hour Patient placed on fentanyl infusion for ventilator synchrony and pain control Perform daily sedation vacation Tylenol 650 mg every 6 hours as needed for fever PULMONOLOGY Acute hypoxic respiratory failure Metastatic cancer to the lung Maintain O2 sats greater than 92% 01/29-emergently intubated 7.5 ETT 21 cm at the lip Duo nebs every 4 hours and every 2 hours as needed 02/01 chest x-ray does show wide spread patchy bilateral alveolar opacities CARDIOLOGY Sinus tachycardia, could be from underlying sepsis, PE, Continue monitor vital signs per ICU protocol, maintain map greater than 65 D5NS @ 30 cc/hr discontinued 01/29 Patient may need vasopressor support-family refusing central line and arterial line placement 02/01-phenylephrine infusion for systolic blood pressure 60-80s currently at 40 mcgs GASTROENTEROLOGY Nausea vomiting Severe protein malnutrition Emaciated Possible ileus 01/31-tube feeds resumed at 10 cc/hour Continue Zofran as needed 01/31-repeat KUB -resolution of gastric distension-trickle feeds reinitiated RENAL Acute kidney injuries Metabolic acidosis Electrolyte derangement Maintain Jurado catheter-for accurate I&O's Strict input and output Monitor renal function Avoid nephrotoxins Replete electrolytes per ICU protocol INFECTIOUS DISEASE Urinary tract infection Funguria Left gluteal cellulitis Sacral wound 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 daily (day 4) 01/28 Urine culture- Mitali Albicans 01/28 Blood cultures- NGTD 01/31 sacral wound culture Wound care following HEMATOLOGY/ONCOLOGY Chronic microcytic anemia Thrombocytosis History of uterine cancer Widespread metastasis to the lung Metastasis to the liver Possible bladder tumor Possible right inguinal lymphadenopathy metastasis History of teratoma of the sacrum Transfuse 1 unit of packed red blood cells and patient with tachycardia, sepsis Continue monitor hemoglobin hematocrit transfuse if hemoglobin below 8.0 INR 1.5, Continue to trend Need to continue monitor for any signs of vascular occlusion secondary to thrombocytosis Palliative care following Hospice was consulted-Pt previously admitted to Hospice ENDOCRINOLOGY Continue monitor glucoses start Accu-Cheks and sliding scale insulin if needed PROPHYLAXIS DVT prevention with subcutaneous Lovenox GI protection with Pepcid LINES Peripheral IVsx2 . CODE STATUS Full code Level 3 follow-up 01/28 (Dr. Mike) I examined patient and evaluated laboratory and imaging data personally. Upon arrival to [facility], patient is awake but lethargic, answers questions. She is emaciated and chronically ill-appearing. She is tachypneic but without accessory muscle use. Rales are present bilaterally. Sats are adequate on 100% nonrebreather. Abdomen is soft and nondistended. Left AKA has large necrotic eschar overlying the stump. There is no drainage. The right foot is marbled, cool, pale up to the ankle. The popliteal pulse is palpable. There is no dopplerable posterior tib or DP pulse. She is able to wiggle her toes and move her ankle. There is necrosis of distal aspect 1st digit. She denies significant pain except when touching foot and lower leg but not really hyperesthetic.. Patient reportedly has sacral wounds and I asked to examine them but family refused, saying "that she has had to move too many times today and it is too uncomfortable for her". I asked patient about code status and comfort measures. She defers completely to her who states that he desires full code. She states that she does not have any appetite and does not want to eat. Her family is adamant that she eats even though she is nauseated and has been vomiting. They attribute her nausea and vomiting to "getting her medications when she does not have anything on her stomach". I transfused 1 unit packed red cells in effort to improve anemia and perhaps improve perfusion to her leg. Her hemoglobin was stable so I have started her on therapeutic Lovenox at 1.5 mg/kg daily. I discussed the risk/benefit of anticoagulation with family. They agree with anticoagulation in effort to mitigate the pain of limb ischemia. Discussed with Dr. Pascual, who agrees that there is no intervention warranted unless she has severe pain and then you dictation could be considered for palliation. Patient is terminally ill and hospice appropriate. Family seems to desire more aggressive care than hospice provides. Unfortunately, patient is suffering as hospice philosophy is not being embraced consistently. Palliative care has been consulted to assist treatment team in facilitating family understanding of her condition. At this point, aggressive resuscitative efforts would only serve to prolong the dying process and increase potential for suffering. Discussed this with family who says "we just want her to do all the things it takes to get better." They state they are very appreciative of her care in [facility] overnight and they feel that she is showing improvement. 01/30: Extensive discussion with Mr. Nicole and family today. I explained the purpose of central line placement and arterial monitoring if needed for vasopressor support. He stated he might consider it, but will not consent to any placement, even if medications are required. 01/31: Daughter at bedside (Eugenia) , provided update of medical status 02/01: Extensive discussion with Mr. Nicole regarding overnight events. I discussed with him the patient's continued deterioration and provided the medical status update. Mr. Nicole stated, " the patient has been doing well for the last 2 days he does not know what happened, they must have gave her something, I saw them pushing medications in her, if something happens, I'm going to get an autopsy". I discussed with Mr. Nicole that the medication during the night given IVP was sodium bicarbonate for her imbalance, as I provided him a medical update. I also informed him that he has a right to obtain the patient' s medical records upon discharge, and in the event of any patient's the family can request an autopsy. All questions were answered. Physician Risa Storey MD Feb 01, 2018 08:13
[2018-02-01] MEDS: CHLORHEXIDINE 0.12% (ORAL KIT) 15 ML CUP MT SCH (08:31)
[2018-02-01] MEDS: FAMOTIDINE 20 MG TAB PO SCH ×2 (08:32→09:00)
[2018-02-01] MEDS: DOCUSATE SODIUM 50 MG/SENNA 8.6 MG TAB PO SCH ×2 (08:32→09:00)
[2018-02-01] MEDS: METOPROLOL TARTRATE 50 MG TAB PO SCH (08:32)
[2018-02-01] MEDS: SODIUM CHLORIDE 0.9% FLUSH 10 ML FLUSH IV FLUSH SCH (08:32)
[2018-02-01] MEDS: MEGESTROL ACETATE SUSP 400 MG/10 ML CUP PO SCH (08:32)
[2018-02-01] MEDS: DEXTROSE 50% IN WATER 50 ML VIAL(D50) IV PUSH PRN (08:54)
[2018-02-01] MEDS ORDERED: ENOXAPARIN SODIUM 80 MG/0.8 ML SYRINGE SQ SCH (09:00)
[2018-02-01] MEDS ORDERED: VANCOMYCIN 1,000 MG/NS 250 ML IV SCH ×2 (12:00)
--- NOTE | 2018-02-01 12:24 | HHI.DS ---
Summary Note Admission Date Jan 28, 2018 at 14:29 Admitting Diagnosis Diagnosis at Time of : (1) Teratoma of sacrum ICD Code: D48.0 - Neoplasm of uncertain behavior of bone and articular cartilage (2) Status post above knee amputation of left lower extremity ICD Code: Z89.612 - Acquired absence of left leg above knee (3) Pain ICD Code: R52 - Pain, unspecified (4) Debility ICD Code: R53.81 - Other malaise Brief History Mrs. Nicole is a 67 year old female. She is brought in by her family today secondary to confusion, nausea and vomiting, increased pain noted this morning. At baseline she has global deficits related to poor health and debility from cancers through the last 10 years. She has a history of uterine cancer, lung cancer, liver, and sacral teratoma. Surgery which mostly involves the left gluteus was performed this past November. She also had an [id number] amputation of her left leg, which appears to be secondary to infection and infarction at the left foot and lower extremity. There is evidence of surgical wound infections as well as elevated white blood cell count. Concerning findings of remaining right foot for microinfarction. Family recognizes that this patient ultimately has a terminal condition but they would like to care for her while she is alive. They are interested in resuming hospice which they have used in the past. No other complaints at this time. Patient is unable to provide any history as she was given Ativan earlier and has not been communicating well after. CBC/BMP: 01/31/18 0738 01/31/18 0738 Significant Findings Laboratory Tests Test 01/29/18 12:34 01/30/18 04:40 01/31/18 07:38 01/31/18 23:15 Blood Gas HCO3 16 mmol/L (22-26) Blood Gas Base Excess -8.2 mmol/L (-2-2) Blood Gas Oxygen Saturation 85 % (90-100) Arterial Blood pH 7.35 (7.380-7.420) Arterial Blood Partial Pressure CO2 30 mmHg (38-42) Arterial Blood Partial Pressure O2 57 mmHg (61-120) Arterial Blood Oxygen Content 9.9 Vol % (12.0-20.0) Blood Gas Hemoglobin 8.2 G/DL (12.0-16.0) White Blood Count 36.1 TH/MM3 (4.0-11.0) 35.4 TH/MM3 (4.0-11.0) Red Blood Count 3.85 MIL/MM3 (4.00-5.30) 3.76 MIL/MM3 (4.00-5.30) Hemoglobin 9.1 GM/DL (11.6-15.3) 8.9 GM/DL (11.6-15.3) Hematocrit 30.5 % (35.0-46.0) 29.1 % (35.0-46.0) Mean Corpuscular Volume 79.3 FL (80.0-100.0) 77.4 FL (80.0-100.0) Mean Corpuscular Hemoglobin 23.6 PG (27.0-34.0) 23.7 PG (27.0-34.0) Mean Corpuscular Hemoglobin Concent 29.8 % (32.0-36.0) 30.6 % (32.0-36.0) Mean Platelet Volume 6.9 FL (7.0-11.0) Neutrophils % (Manual) 93 % (16-70) Lymphocytes % 1 % (9-44) Neutrophils # (Manual) 35.7 TH/MM3 (1.8-7.7) Toxic Granulation 1+ (NORMAL) Blood Urea Nitrogen 28 MG/DL (7-18) 22 MG/DL (7-18) Random Glucose 174 MG/DL (74-106) Calcium Level 7.8 MG/DL (8.5-10.1) 7.6 MG/DL (8.5-10.1) Chloride Level 117 MEQ/L (98-107) 119 MEQ/L (98-107) Carbon Dioxide Level 13.0 MEQ/L (21.0-32.0) 16.6 MEQ/L (21.0-32.0) Estimat Glomerular Filtration Rate 74 ML/MIN (>89) Red Cell Distribution Width 17.3 % (11.6-17.2) Sodium Level 147 MEQ/L (136-145) Potassium Level 3.2 MEQ/L (3.5-5.1) Vancomycin Level Trough 16.3 MCG/ML (5.0-10.0) Test 02/01/18 00:18 Blood Gas HCO3 11 mmol/L (22-26) Blood Gas Base Excess -14.0 mmol/L (-2-2) Blood Gas Oxygen Saturation 76 % (90-100) Arterial Blood pH 7.35 (7.380-7.420) Arterial Blood Partial Pressure CO2 20 mmHg (38-42) Arterial Blood Partial Pressure O2 45 mmHG (61-120) Arterial Blood Oxygen Content 9.3 Vol % (12.0-20.0) Blood Gas Hemoglobin 8.7 G/DL (12.0-16.0) Imaging Last Impressions Chest X-Ray 01/30/18 0600 Signed Impressions: Service Date/Time: Tuesday, January 30, 2018 04:47 - CONCLUSION: Patchy consolidation and masses in both lungs not significantly changed. Appropriate position of the nasogastric tube and endotracheal tube. Persistent gaseous distention of the stomach despite presence of nasogastric tube. Ludwin Bustillo MD Abdomen X-Ray 01/29/18 0000 Signed Impressions: Service Date/Time: Monday, January 29, 2018 11:49 - CONCLUSION: 1. Nasogastric tube is looped in the stomach. The stomach is very distended with air. 2. Mildly dilated proximal small bowel with a paucity of distal bowel gas. Findings could represent ileus or small bowel obstruction. Consider followup to assess for change. Ludwin Smith MD Last Impressions Chest X-Ray 01/28/18 0000 Signed Impressions: Service Date/Time: Sunday, January 28, 2018 13:04 - CONCLUSION: Widespread patchy bilateral alveolar opacities Ludwin Jimenes MD Hospital Course Remarks/Hospital Course This is a rather unfortunate 67-year-old female who suffers from terminal cancer with metastasis to the lungs, liver, history of uterine cancer, history of sacral teratoma, findings indicating possible bladder tumor, possible inguinal metastatic lymphadenopathy who is seen in consultation for critical care management at the request of Dr. Jasso. Patient originally presented to the hospital approximately 3 days ago because patient was at home under hospice care and patient was given her pain medication when she did not eat much and had an episode of nausea and vomiting. Because of that the family indicates that they brought the patient to the ER for evaluation. Patient has significant findings with sepsis, problems with pain control, buttock cellulitis , urinary tract infection. The patient was placed in observation in the hospital for palliative care and hospice consult. Patient was started on broad- spectrum antibiotics include vancomycin and Zosyn for her infection and was being continue managed by the medical team. It was indicated that the patient was under care of [facility] however they cannot resume care. As indicated that family was to contact [facility] However they have not done so as of yet. Today the patient clinical condition worsened. Initially the patient had signs of acute anemia. However repeat laboratory studies showed stable chronic anemia. With hemoglobin 7.5. However with the patient with sepsis, tachycardia will anticipate transfusing at least 1 unit. Patient's respiratory status significantly worsened where she was on 2 L nasal cannula and she dropped to 70% O2 saturations. Patient was increased to 6 L nasal cannula with improvement to 80% O2 saturations. The patient was placed on nonrebreather and her O2 saturations did improve to 90%. However patient is not keeping the mask on and she continues to drop down to O2 saturations in the 80s. Because of acute changes patient's condition. Critical care was consulted. I did evaluate the patient and presently she is alert and orientated 4. She wants full aggressive measures to be done at this time. Including intubation, mechanical ventilation, defibrillation, CPR. Patient will be transferred to the main ICU for closer monitoring. Subjective: 01/29: Patient hypoxic , O2 saturation in the 80 's extensive discussion with Mr. Nicole and family regarding the deterioration of the respiratory status of the patient. Requested aggressive measures to be continued, and request for consultation with ocean freight manager. Religion Teacher Reynaldo Mandujanoed in to see patient. Stat ABG performed pH 7.14 PO2 55 on 100% FiO2. Patient emergently intubated uneventfully, Mr. Nicole requested to be present in the room during intubation. Chest x-ray pending. 01/30: Late entry note. Patient seen at 11:24 AM. No acute events overnight. The patient remained on fentanyl 75 mcgs/per hour. Tube feeds, Su[place] were initiated during the night. Hemodynamically stable. Family at bedside, Mr. Nicole, clenakul Sapp in to assist family this a.m. and provide support. Extensive discussion yesterday with family regarding the possibility of the need for vasoactive support medications and attempted to obtain consent for central line and arterial line for monitoring and instillation of vasoactive medications if needed. Extensive discussion with palliative medicine as well regarding aggressive measures and the need for vasopressor support. Mr. Nicole and family refuse consents at this time requests no invasive lines be placed even in the event patient needs vasopressors to maintain hemodynamic stability. Multiple attempts to assess sacral wound family Mr. Nicole refused to allow positioning for observation and evaluation of wound by KISS MACHINE OPERATOR by ICU MD ( Dr. Mike, and Dr. Baker) , and by wound special needs child caregiver (Dayami)on 01/29/18. I expressed the importance of evaluation and treatment sacral wound, performed they would decide when patient could be evaluated by wound care for assessment and treatment of sacral wound tentatively scheduled for this afternoon. 01/31: Gastric distention resolved, will begin trickle feeds and maintain 10cc/ hr. Patient continues on Fent infusion, family at bedside, all questions answered. 02/01: Late entry note. Patient seen at 6:05 AM. Overnight the patient continued to have respiratory deterioration. This x-ray performed showing the multiple masses unchanged. Significant diffusion defect. FiO2 increased to 100 %, patient's PaO2 remains 45, O2 saturations 70-80's. Patient notably hypotensive systolic blood pressure 68-80s. ABG performed showing significant metabolic acidosis secondary to multisystem organ failure. Phenylephrine was initiated, currently at [address] colleague Dr[address] Eric Flores, Lor Polanco RN, and Jeremy Pearce RN had extensive discussion with family provided medical status update decision made for DNR CODE STATUS by Mr. Nicole and family confirming. It was decided no escalation in care be provided, to include central line, vasopressors nor chest compressions nor defibrillation. Patient continues on low-dose fentanyl for ventilator synchrony and pain control. The patient has been tolerating trickle feeds will continue at 10 cc/mL. patient had a significant metabolic acidosis last night received 2 A of sodium bicarbonate. Sodium bicarbonate infusion initiated this a.m., with discontinuation of D5 normal saline. Patient not tolerating tube feeds significant residual tube feeds placed on hold during the night. 02/01: The patient's was in sinus tachycardia and suddenly converted to sinus bradycardia then asystole. With family at bedside patient @1216. Risa Baker MD Feb 01, 2018 12:24
[2018-02-02] MEDS ORDERED: PHARMACY ORDERED LAB ONE (05:45)
== END 2018-02-01 12:16 | disposition expired | DRG 871 ==
LOC: PHEDDLT 12:43 → PH3B 12:53 → OBSVTOIN 01-28 14:29 → PHICU 01-28 14:57 → HIMN 01-28 18:55
PROVIDERS: ADMIT Anesthesiology; ATTEND Anesthesiology
PROC: 30233N1 Transfusion of Nonautologous Red Blood Cells into Peripheral Vein, Percutaneous Approach (ICD-10-PCS; 2018-01-28)
PROC: 0BH17EZ Insertion of Endotracheal Airway into Trachea, Via Natural or Artificial Opening (ICD-10-PCS; principal; 2018-01-29)
PROC: 5A1945Z Respiratory Ventilation, 24-96 Consecutive Hours (ICD-10-PCS; 2018-01-29)
DX: A41.9 Sepsis, unspecified organism (principal); G92 Toxic encephalopathy; J96.01 Acute respiratory failure with hypoxia; E43 Unspecified severe protein-calorie malnutrition; N17.9 Acute kidney failure, unspecified; L89.313 Pressure ulcer of right buttock, stage 3; C77.4 Secondary and unspecified malignant neoplasm of inguinal and lower limb lymph nodes; E87.2 Acidosis; L89.323 Pressure ulcer of left buttock, stage 3; L03.317 Cellulitis of buttock; D68.59 Other primary thrombophilia; C78.7 Secondary malignant neoplasm of liver and intrahepatic bile duct; C78.02 Secondary malignant neoplasm of left lung; C78.01 Secondary malignant neoplasm of right lung; C79.89 Secondary malignant neoplasm of other specified sites; C79.11 Secondary malignant neoplasm of bladder; B37.49 Other urogenital candidiasis; T87.54 Necrosis of amputation stump, left lower extremity; I73.9 Peripheral vascular disease, unspecified; C54.1 Malignant neoplasm of endometrium; D16.8 Benign neoplasm of pelvic bones, sacrum and coccyx; D47.3 Essential (hemorrhagic) thrombocythemia; R53.81 Other malaise; Z51.5 Encounter for palliative care; F41.9 Anxiety disorder, unspecified; R33.9 Retention of urine, unspecified; F32.9 Major depressive disorder, single episode, unspecified; D64.9 Anemia, unspecified; E87.6 Hypokalemia; Z87.891 Personal history of nicotine dependence
CPT/HCPCS: 31500; 36430; 36600; 71045; 74018; 76937; 80048; 80053; 80202; 81001; 82550; 82565; 82805; 82948; 83605; 83690; 83735; 84100; 84484; 85007; 85025; 85027; 85610; 85730; 86850; 86900; 86901; 86920; 87040; 87070; 87077; 87086; 87186; 87205; 87449; 87641; 93306; 94002; 94003; 94640; 94664; 96361; 96365; 96367; 96375; 96376; J0330; J1170; J1450; J1650; J2060; J2270; J2370; J2405; J2543; J3010; J3370; J3480; J7030; J7042; J7050; J7060; J7070; P9016